=== PATIENT | female | born 1960 | race Caucasian/White ===

== ENCOUNTER 2020-08-16 09:23 | Outpatient (REF) | payer OTHER, SELFPAY ==
[2020-08-16 11:12] LABS: Cholesterol 268 mg/dL; HDL Cholesterol 46 mg/dL; LDL Cholesterol Calculated 170 mg/dl; Triglycerides 263 mg/dL
== END 2020-08-16 09:24 | disposition home or self-care (01) ==
LOC: HO.LAB 09:23
PROVIDERS: PCP Internal Medicine; Visit Provider Internal Medicine
DX: E78.5 Hyperlipidemia, unspecified (principal)
CPT/HCPCS: 80061

== ENCOUNTER 2021-04-11 10:19 | Outpatient (REF) | payer OTHER, SELFPAY ==
--- NOTE | ~2021-04-11 | XR_ITS ---
EXAMINATION: XR WRIST, RIGHT CLINICAL INFORMATION: Right wrist pain. COMPARISON: 12/15/2010 TECHNIQUE: PA, lateral, and oblique views of the right wrist. FINDINGS: Again seen are degenerative changes at the 1st metacarpocarpal joint with sclerosis and osteophyte formation. Findings are unchanged when compared to the prior study. Also noted are degenerative changes at the radioulnar joint which appear to have progressed since the prior study with new chondrocalcinosis with calcification in the triangular fibrocartilage complex. No fractures are seen. XR/XR wrist RT min 3V IMPRESSION: Stable degenerative changes at the 1st metacarpocarpal joint with new degenerative change at the radioulnar joint with new calcifications in the right triangular fibrocartilage complex.
[2021-04-11 11:34] LABS: MANUAL DIFF FLAG NO
[2021-04-11 12:01] LABS: Basophils Percent Auto 0.4 % (0-2); Eosinophils Absolute Auto 0.4 X10*3/uL (0.0-0.4); Eosinophils Percent Auto 6.4 % (0-4); Hematocrit 42.5 % (37-47); Hemoglobin 13.2 g/dl (12.0-16.0); Imm Gran Abs Auto 0.01 X10*3/uL (0.00-0.03); Imm Gran Pct Auto 0.1 % (0.0-0.4); Lymphocytes Absolute Auto 2.1 X10*3/uL (1.2-4.9); Lymphocytes Percent Auto 30.3 % (20-40); Mean Corpuscular HGB Conc 31.1 g/dl (31.0-35.0); Mean Corpuscular Hemoglobin 29.6 pg (27.0-33.0); Mean Corpuscular Volume 95.3 fL (80-98); Mean Platelet Volume 10.1 fL (9.4-12.3); Monocytes Absolute Auto 0.7 X10*3/uL (0.1-1.2); Monocytes Percent Auto 10.2 % (2-11); Neutrophils Absolute Auto 3.6 X10*3/uL (2.0-8.3); Neutrophils Percent Auto 52.6 % (45-73); Platelet Count 319 X10*3/uL (160-400); Red Blood Count 4.46 X10*6/uL (4.20-5.50); Red Cell Distribution Width 13.2 % (11.0-16.0); White Blood Count 6.9 X10*3/uL (4.8-10.8)
[2021-04-11 12:09] LABS: Anion Gap 12 (12-20); Blood Urea Nitrogen 11 mg/dL (9-16); Calcium 9.8 mg/dL (8.4-10.2); Carbon Dioxide 26 mmol/L (22-29); Chloride 107 mmol/L (96-108); Estimated Glomerular Filt Rate > 60; Glucose Random 90 mg/dL (60-115); Potassium 4.6 mmol/L (3.3-5.1); Sodium 140 mmol/L (135-145); Uric Acid 4.3 mg/dL (2.4-5.7)
[2021-04-11 13:11] LABS: Erythrocyte Sedimentation Rate 38 MM/HR (0-20)
== END 2021-04-11 10:20 | disposition home or self-care (01) ==
LOC: HO.WFDLDS 10:19
PROVIDERS: PCP Internal Medicine; Visit Provider Family Medicine
DX: Z00.00 Encounter for general adult medical examination without abnormal findings (principal); M25.531 Pain in right wrist
CPT/HCPCS: 36415; 73110; 80048; 84550; 85025; 85652

== ENCOUNTER → 2022-03-20 11:36 | Outpatient (BNVA) | payer OTHER, SELFPAY | PROVIDERS: PCP Internal Medicine; Referring Provider Internal Medicine; Visit Provider Nurse Practitioner | DX: K21.9 Gastro-esophageal reflux disease without esophagitis (principal); R13.12 Dysphagia, oropharyngeal phase | CPT/HCPCS: 99202 ==

== ENCOUNTER 2022-03-21 10:08 | Outpatient (REF) | payer OTHER, SELFPAY ==
[2022-03-21 11:02] LABS: Alanine Aminotransferase 16 U/L (0-31); Albumin Level 4.5 g/dL (3.5-5.0); Alkaline Phosphatase 79 U/L (39-117); Anion Gap 12 (12-20); Aspartate Amino Transferase 21 U/L (5-31); Bilirubin Total 0.9 mg/dL (0.0-1.0); Blood Urea Nitrogen 9 mg/dL (9-16); Calcium 9.8 mg/dL (8.4-10.2); Carbon Dioxide 23 mmol/L (22-29); Chloride 107 mmol/L (96-108); Estimated Glomerular Filt Rate > 60; Glucose Random 97 mg/dL (60-115); Potassium 3.8 mmol/L (3.3-5.1); Sodium 138 mmol/L (135-145)
== END 2022-03-21 10:09 | disposition home or self-care (01) ==
LOC: HO.LAB 10:08
PROVIDERS: PCP Internal Medicine; Visit Provider Nurse Practitioner
DX: R13.12 Dysphagia, oropharyngeal phase (principal); K21.9 Gastro-esophageal reflux disease without esophagitis
CPT/HCPCS: 36415; 80053

== ENCOUNTER 2022-03-22 12:33 | Outpatient (REF) | payer OTHER, SELFPAY | END 2022-03-22 12:34 | disposition home or self-care (01) | LOC: HO.LNP 12:33 | PROVIDERS: Visit Provider Nurse Practitioner | DX: R13.12 Dysphagia, oropharyngeal phase (principal); K21.9 Gastro-esophageal reflux disease without esophagitis | CPT/HCPCS: 87338 ==

== ENCOUNTER 2022-04-23 09:35 | Outpatient (REF) | payer OTHER, SELFPAY ==
--- NOTE | ~2022-04-23 | US_ITS ---
EXAMINATION: US ABDOMEN COMPLETE CLINICAL INFORMATION: Gastroesophageal reflux disease without esophagitis. COMPARISON: None TECHNIQUE: Real-time imaging of the abdominal viscera. FINDINGS: PANCREAS: Normal. ABDOMINAL AORTA: The proximal, mid, and distal segments are normal in caliber. INFERIOR VENA CAVA: Visualized portions are normal. LIVER: Normal. The liver is normal in size. The liver contour is normal. Parenchymal echogenicity is normal. No focal hepatic lesion. There is no intrahepatic biliary duct dilatation seen. GALLBLADDER: Normal. The gallbladder is physiologically distended without evidence of stones, sludge, polyps, wall thickening or pericholecystic fluid. COMMON BILE DUCT: Normal in caliber measuring 0.2 cm in diameter. RIGHT KIDNEY: Normal. No hydronephrosis. No renal calculi or focal parenchymal lesions. The kidney measures 11.5 cm in maximum dimension. LEFT KIDNEY: Normal. No hydronephrosis. No renal calculi or focal parenchymal lesions. The kidney measures 10.8 cm in maximum dimension. SPLEEN: Normal. The spleen measures 11.3 cm in maximum dimension. FREE FLUID: None. US/US abdomen complete IMPRESSION: Unremarkable exam.
== END 2022-04-23 09:36 | disposition home or self-care (01) ==
LOC: HO.US 09:35
PROVIDERS: Visit Provider Nurse Practitioner
DX: R13.12 Dysphagia, oropharyngeal phase (principal); K21.9 Gastro-esophageal reflux disease without esophagitis
CPT/HCPCS: 76700

== ENCOUNTER 2022-05-03 09:15 | Outpatient (REF) | payer OTHER, SELFPAY ==
--- NOTE | ~2022-05-03 | FL_ITS ---
EXAMINATION: FL BARIUM SWALLOW CLINICAL INFORMATION: Gastroesophageal reflux disease without esophagitis. COMPARISON: None TECHNIQUE: Barium swallow examination is performed using fluoroscopic evaluation in addition to multiple fluoroscopic spot views. The patient is imaged both upright and prone and using both thick and thin sulfate along with effervescent granules. Fluoroscopy time: 1.0 minutes DAP: 8.308 Gy-cm2 Images: 58 FINDINGS: Following oral administration of thick barium and barium-coated turkey in upright view, there is normal propagation of bolus from the oral cavity through the pharynx, esophagus into stomach without any evidence of obstruction, narrowing or stricture. There is a large hiatal hernia in upright view. On placing patient supine and prone lying, the course and the caliber of the esophagus is normal. No laryngeal penetration or aspiration seen. There is a moderate-sized mixed (sliding and paraesophageal) hiatal hernia. No reflux could be demonstrated. FL/FL barium swallow IMPRESSION: Moderate-sized mixed hiatal hernia without reflux.
== END 2022-05-03 09:16 | disposition home or self-care (01) ==
LOC: HO.XRAY 09:15
PROVIDERS: PCP Internal Medicine; Visit Provider Nurse Practitioner
DX: K21.9 Gastro-esophageal reflux disease without esophagitis (principal); R13.12 Dysphagia, oropharyngeal phase
CPT/HCPCS: 74220

== ENCOUNTER → 2022-05-24 07:48 | Outpatient (BNVA) | payer OTHER, SELFPAY | PROVIDERS: PCP Internal Medicine; Visit Provider Nurse Practitioner | DX: K21.9 Gastro-esophageal reflux disease without esophagitis (principal); R13.12 Dysphagia, oropharyngeal phase; K44.9 Diaphragmatic hernia without obstruction or gangrene | CPT/HCPCS: 99212 ==

== ENCOUNTER → 2022-09-12 08:35 | Outpatient (BNVA) | payer OTHER, MEDICARE, SELFPAY | PROVIDERS: PCP Internal Medicine; Visit Provider Nurse Practitioner | DX: K21.9 Gastro-esophageal reflux disease without esophagitis (principal); K44.9 Diaphragmatic hernia without obstruction or gangrene; R13.12 Dysphagia, oropharyngeal phase | CPT/HCPCS: 99212 ==

== ENCOUNTER 2022-10-26 13:47 | Emergency (ER) | payer MEDICARE, OTHER, SELFPAY ==
[2022-10-26 14:01] VITALS: BP 115/64; PULSE 93; RESP 18; TEMP 36.8; O2SAT 95; BMI 26.6
--- NOTE | 2022-10-26 14:17 | ED.GENADULT ---
HPI - General Adult General Chief complaint: Upper Respiratory Symptoms Stated complaint: vomiting, Covid + Time Seen by Provider: 10/26/22 14:17 Source: patient and family () Mode of arrival: ambulatory Limitations: no limitations History of Present Illness HPI narrative: Patient is a 62 year old assigned female at with a history of HLD and GERD presenting to the emergency department today with a persistent cough. Patient states that 5 days ago she was diagnosed with COVID-19 and has been on Paxlovid ever since. Patient states that she is continuing to have a persistent cough. Patient denies any dizziness, lightheadedness, abdominal pain, nausea, vomiting, fever, chills, blurry vision, double vision, loss of vision, chest pain, difficulty breathing, shortness of breath, back pain, night sweats, pain with urination, increased urinary frequency, increased urinary urgency, blood in her urine or stool, syncope or a near syncopal episode, recent trauma or falls, bowel incontinence, bladder incontinence, bowel retention, bladder retention, or any other complaints at this time. Onset (ago): day(s) (5) Severity: mild Severity scale (1-10): 2 Relieving factors: none Exacerbating factors: none Associated symptoms: cough Treatments prior to arrival: other (paxlovid) Related Data Home Medications Medication Instructions Recorded Confirmed loratadine-pseudoephedrine ER 10 1 tab PO DAILY PRN 08/23/20 10/05/22 mg-240 mg tablet,extended [id number] acetaminophen 650 mg 650 mg PO Q12H 05/02/21 10/05/22 tablet,extended release (Arthritis Pain Reliever) Previous Rx's Medication Instructions Recorded epflcvznay-jynsyuondsimf-[id number] 1 cap PO Q6H PRN pain #20 caps 12/14/20 50 mg-325 mg-40 mg capsule (Esgic) ibuprofen 800 mg tablet 800 mg PO Q8H 30 days #90 tabs 04/11/21 famotidine 40 mg tablet (Pepcid) 40 mg PO BEDTIME #90 tabs 09/12/22 omeprazole 20 mg capsule,delayed 20 mg PO DAILY 90 days #90 caps 09/12/22 release amoxicillin 250 mg capsule 250 mg PO Q8H #30 caps 10/05/22 nirmatrelvir 300 mg (150 mg See Rx Instructions PO .COMPLEX 10/22/22 x2)-ritonavir 100 mg tablet,dose #30 tabs pack(EUA) (Paxlovid) ondansetron HCl 4 mg tablet 4 mg PO Q8H PRN nausea and 10/25/22 vomiting #20 tabs benzonatate 100 mg capsule 100 mg PO BID PRN cough 7 days #14 10/26/22 caps Allergies Allergy/AdvReac Type Severity Reaction Status Date / Time codeine [CODEINE] Allergy Unknown migraines Verified 10/05/22 09:06 doxycycline [DOXYCYCLINE] Allergy Unknown anaphylaxis, Verified 10/05/22 09:06 swelling, redness Review of Systems Constitutional: Constitutional: Reports no additional constitutional complaints, Denies chills, Denies fever(s) and Denies night sweats Eyes: Eyes: Reports no additional eye complaints, Denies blurry vision, Denies change in vision, Denies diplopia, Denies eye discharge, Denies loss of vision and Denies eye pain ENT: Denies dizziness Cardiovascular: Cardiovascular: Reports no additional cardiovascular complaints, Denies chest pain, Denies lightheadedness, Denies Loss of Consciousness and Denies dyspnea Respiratory: Respiratory: Reports no additional respiratory complaints, Reports cough and Denies dyspnea Gastrointestinal: Gastrointestinal: Reports no additional gastrointestinal complaints, Denies abdominal pain, Denies melena, Denies hematochezia, Denies change in bowel habits and Denies change in stool character Genitourinary: Genitourinary: Denies hematuria, Denies urinary frequency, Denies dysuria, Denies urinary incontinence, Denies urinary hesitancy and Denies urinary urgency Musculoskeletal: Musculoskeletal: Reports no additional musculoskeletal complaints, Denies numbness and Denies tingling Neurologic: Denies dizziness, Denies loss of vision, Denies numbness and Denies tingling Psychiatric: Psychiatric: Reports no additional psychiatric complaints Endocrine: Endocrine: Reports no additional endocrine complaints Hematologic/Lymphatic: Hematologic/Lymphatic: Reports no additional hematologic/lymphatic complaints Allergic/Immunologic: Allergic/Immunologic: Reports no additional allergic/immunologic complaints PMFSH Past Medical History Attestation statement: The following information was validated with the patient. Source: old records reviewed, obtained from family (patient's ) and nursing notes reviewed Medical History Chronic GERD Headache Presence of surgical screw in left hand Surgical History H/O kyphoplasty H/O squamous cell carcinoma excision History of appendectomy S/P laparoscopic surgery S/P left knee arthroscopy Family History Family History Father No problems noted. Mother No problems noted. Social History Social History Housing: House Alcohol intake: never Patient Tobacco Use Status: Never used Tobacco e-Cigarette/Vaping Use: Never Used Second Hand Smoke Exposure: No Advance Directives: Yes Advance Directives Information Provided: Yes Advance Directives on File: No service: No Current occupational status: disabled Cognitive needs: Yes (cane) Hearing needs: No Vision needs: Yes (glasses) Physical Exam ED Vital Signs: Vital Signs - 24 hr 10/26/22 14:01 Temperature 98.2 F Pulse Rate 93 Respiratory Rate 18 Blood Pressure 115/64 Pulse Oximetry 95 Oxygen Delivery Method Room Air BMI result Body Mass Index 26.6 Const General: cooperative, no acute distress, alert and awake Nutritional Appearance: well nourished Orientation/consciousness: patient oriented x3 Limitations: no limitations HENMT Head: Yes normal to inspection and Yes atraumatic Ears: hearing grossly normal bilaterally and external ears normal General nose exam: Normal external nose present, no nasal discharge noted and no epistaxis Face and sinus: Yes normal facial exam, No abrasion and No laceration Mouth: Normal oral and palatal mucosa present, no drooling and no muffled voice Eyes General: appearance normal, both eyes and all related structures Periorbital: periorbital findings normal Eyelids: Yes eyelids normal Conjunctivae: conjunctivae normal Pupils: Equal, round and reactive pupils present EOM: EOMs intact bilaterally Neck Neck: Yes normal visual inspection, Yes full ROM and Yes no lymphadenopathy Chest Chest palpation & inspection: normal inspection of the chest Resp Effort & Inspection: normal respiratory effort and able to speak in complete sentences Auscultation: clear to auscultation bilaterally Cardio Rate: regular rate Rhythm: regular rhythm GI Inspection: Yes normal to inspection Palpation (GI): Soft to palpation, not firm, nontender, no guarding and not rigid Neuro General: patient oriented x3 and moves all extremities Cranial nerves: Yes Equal, round and reactive pupils present Cognition (Neuro): normal cognition Motor exam (neuro): 5/5 motor strength present throughout Sensory Exam: Normal double simultaneous stimulation for sensation Coordination: [id number]-[id number] test normal Extrem General: Yes normal to inspection, Yes full ROM and Yes capillary refill normal Psych Appearance: grossly normal Mental Status: mental status grossly normal Affect: normal affect Attitude: cooperative Thought process: Normal thought process present Thought content: Normal thought content present Insight: Good insight present (Psych) Medications Administered Discontinued Medications Generic Name Dose Route Start Last Admin Trade Name Freq PRN Reason Stop Dose Admin Benzonatate 100 mg 10/26/22 14:30 10/26/22 15:07 Benzonatate 100 Mg Capsule PO 10/26/22 14:31 100 mg ONCE ONE Administration Medical Decision Making Medical Decision Making MDM Narrative: Patient is a 62 year old assigned female at with a history of HLD and GERD presenting to the emergency department today with a persistent cough. Patient's physical exam was unremarkable. I explained my physical exam findings to the patient. I answered all questions asked by the patient. I stressed the importance of the patient taking her medication as prescribed. I stressed the importance of the patient following up with her primary care provider. I stressed the importance of the patient returning to the emergency department immediately if her symptoms were to worsen or if she were to develop any dizziness, shortness of breath, difficulty breathing, chest pain, blurry vision, loss of vision, nausea, vomiting, abdominal pain, fever, chills, back pain, or any other complaints. Patient verbalized agreement and understanding with this treatment plan and discharge. Differential Diagnosis Differential Diagnoses: The differential diagnosis associated with the presentation includes COVID-19 Independent Historian Clinical information obtained from an independent historian. History obtained from or confirmed by: Spouse Discharge Plan Discharge Clinical Impression: COVID-19, Cough Patient Disposition: Home, Self-Care Instructions: Acute Cough (ED), COVID-19 (Coronavirus Disease 2019) (ED) Additional Instructions: Follow up with your primary care provider. Return to the emergency department immediately if your symptoms worsen or if you develop any dizziness, shortness of breath, difficulty breathing, chest pain, blurry vision, loss of vision, nausea, vomiting, abdominal pain, fever, chills, back pain, or any other complaints. Prescriptions: New benzonatate 100 mg capsule 100 mg PO BID PRN (Reason: cough) 7 Days Qty: 14 0RF No Action Paxlovid (EUA) 300 mg (150 mg x 2)-100 mg tablets,dose pack See Rx Instructions PO .COMPLEX Qty: 30 0RF Rx Instructions: take TWO 150 mg tablets of nirmatrelvir with ONE 100 mg tablet of ritonavir twice daily for 5 days PO ondansetron HCl 4 mg tablet 4 mg PO Q8H PRN (Reason: nausea and vomiting) Qty: 20 1RF asiarhumcx-ddjldiymlizwt-qfmq [Esgic] 50-325-40 mg capsule 1 cap PO Q6H PRN (Reason: pain) Qty: 20 0RF loratadine-pseudoephedrine 10-240 mg tablet extended release 24 hr 1 tab PO DAILY PRN ibuprofen 800 mg tablet 800 mg PO Q8H 30 Days Qty: 90 0RF acetaminophen [Arthritis Pain Reliever] 650 mg tablet extended release 650 mg PO Q12H amoxicillin 250 mg capsule 250 mg PO Q8H Qty: 30 0RF omeprazole 20 mg capsule,delayed release(DR/EC) 20 mg PO DAILY 90 Days Qty: 90 2RF famotidine [Pepcid] 40 mg tablet 40 mg PO BEDTIME Qty: 90 2RF Referrals: Warner Sparks MD [Primary Care Provider] - Print Language: Korean
[2022-10-26] MEDS: Benzonatate 100 MG CAPSULE PO (15:07)
== END 2022-10-26 16:48 | disposition home or self-care (01) ==
PROVIDERS: Emergency Provider Student in an Organized Health Care Education/Training Program; PCP Internal Medicine
DX: U07.1 COVID-19 (principal); R05.9 Cough, unspecified; Z79.899 Other long term (current) drug therapy
CPT/HCPCS: 99282; 99283

== ENCOUNTER 2023-01-17 08:15 | Outpatient (REF) | payer MEDICARE, OTHER, SELFPAY ==
[2023-01-17 10:55] LABS: MANUAL DIFF FLAG NO
[2023-01-17 11:03] LABS: Basophils Percent Auto 0.4 % (0-2); Eosinophils Absolute Auto 0.4 X10*3/uL (0.0-0.4); Eosinophils Percent Auto 4.7 % (0-4); Hematocrit 43.1 % (37.0-47.0); Hemoglobin 13.1 g/dl (12.0-16.0); Imm Gran Abs Auto 0.02 X10*3/uL (0.00-0.03); Imm Gran Pct Auto 0.3 % (0.0-0.4); Lymphocytes Absolute Auto 2.6 X10*3/uL (1.2-4.9); Lymphocytes Percent Auto 33.3 % (20-40); Mean Corpuscular HGB Conc 30.4 g/dl (31.0-35.0); Mean Corpuscular Hemoglobin 28.7 pg (27.0-33.0); Mean Corpuscular Volume 94.5 fL (80.0-98.0); Mean Platelet Volume 10.2 fL (9.4-12.3); Monocytes Absolute Auto 0.7 X10*3/uL (0.1-1.2); Monocytes Percent Auto 8.8 % (2-11); Neutrophils Percent Auto 52.5 % (45-73); Platelet Count 313 X10*3/uL (160-400); Red Blood Count 4.56 X10*6/uL (4.20-5.50); White Blood Count 7.7 X10*3/uL (4.8-10.8)
[2023-01-17 11:33] LABS: Alanine Aminotransferase 17 U/L (0-31); Albumin Level 4.2 g/dL (3.5-5.0); Alkaline Phosphatase 85 U/L (39-117); Anion Gap 14 (12-20); Aspartate Amino Transferase 23 U/L (5-31); Bilirubin Total 0.9 mg/dL (0.0-1.0); Blood Urea Nitrogen 15 mg/dL (9-16); Calcium 9.7 mg/dL (8.4-10.2); Carbon Dioxide 24 mmol/L (22-29); Chloride 108 mmol/L (96-108); Cholesterol 264 mg/dL; Estimated Glomerular Filt Rate > 60; Glucose Fasting 92 mg/dL (60-99); HDL Cholesterol 37 mg/dL; LDL Cholesterol Calculated 175 mg/dl; Potassium 4.3 mmol/L (3.3-5.1); Sodium 142 mmol/L (135-145); Total Protein 7.7 g/dL (6.5-8.0); Triglycerides 261 mg/dL
[2023-01-17 13:01] LABS: Thyroid Stimulating Hormone 6.44 uIU/mL (0.32-4.0)
== END 2023-01-17 08:16 | disposition home or self-care (01) ==
LOC: HO.10HDL 08:15
PROVIDERS: Visit Provider Internal Medicine
DX: E03.9 Hypothyroidism, unspecified (principal); D64.9 Anemia, unspecified; N28.9 Disorder of kidney and ureter, unspecified; E78.5 Hyperlipidemia, unspecified
CPT/HCPCS: 36415; 80053; 80061; 84443; 85025

== ENCOUNTER 2023-05-14 08:09 | Outpatient (REF) | payer MEDICARE, OTHER, SELFPAY | END 2023-05-14 08:10 | disposition home or self-care (01) | LOC: HO.LAB 08:09 | PROVIDERS: PCP Internal Medicine; Visit Provider Internal Medicine | DX: E03.9 Hypothyroidism, unspecified (principal) | CPT/HCPCS: 36415; 84443 ==

== ENCOUNTER 2023-05-21 09:17 | Outpatient (REF) | payer OTHER, MEDICARE, SELFPAY ==
[2023-05-21 11:51] LABS: Alanine Aminotransferase 11 U/L (0-31); Albumin Level 4.3 g/dL (3.5-5.0); Alkaline Phosphatase 88 U/L (39-117); Anion Gap 11 (12-20); Aspartate Amino Transferase 18 U/L (5-31); Bilirubin Total 0.7 mg/dL (0.0-1.0); Blood Urea Nitrogen 10 mg/dL (9-16); C Reactive Protein 0.84 mg/dL (< or = 0.50); Calcium 9.7 mg/dL (8.4-10.2); Carbon Dioxide 25 mmol/L (22-29); Chloride 109 mmol/L (96-108); Estimated Glomerular Filt Rate > 60; Glucose Random 75 mg/dL (60-115); Potassium 3.8 mmol/L (3.3-5.1); Sodium 141 mmol/L (135-145); Total Protein 8.1 g/dL (6.5-8.0)
== END 2023-05-21 09:18 | disposition home or self-care (01) ==
LOC: HO.LAB 09:17
PROVIDERS: PCP Internal Medicine; Visit Provider Nurse Practitioner
DX: R19.7 Diarrhea, unspecified (principal); R13.12 Dysphagia, oropharyngeal phase; K21.9 Gastro-esophageal reflux disease without esophagitis; K44.9 Diaphragmatic hernia without obstruction or gangrene
CPT/HCPCS: 36415; 80053; 86140; 99212

== ENCOUNTER 2023-05-21 09:17 | Outpatient (AMB) | payer MEDICARE, OTHER, SELFPAY ==
[2023-05-21 09:20] VITALS: BP 135/69; PULSE 75; BMI 26.4
--- NOTE | 2023-05-21 09:20 | A.OFFVIS_ITS ---
Intake Vital Signs 05/21/23 09:20 Height 5 ft 7 in Weight 168 lb 6.931 oz BMI 26.4 BP 135/69 Blood Pressure Location Rt brachial Position Sitting Pulse 75 Intake Visit Reasons: 6 month follow up GERD, HH Intake Note: Patient presents to in office visit today in 6 months follow up of GERD. CC: Diarrhea for the past 6 weeks, abdominal cramping, nausea, GERD. Denies other GI symptoms today. Field Support Specialist Required: No Allergies codeine [CODEINE] Allergy (Unknown, Verified 05/21/23 11:17) migraines doxycycline [DOXYCYCLINE] Allergy (Unknown, Verified 05/21/23 11:17) anaphylaxis, swelling, redness HPI 6 month follow up GERD, HH HPI Details Assessment & Plan (1) Chronic GERD: ?Code(s): K21.9 - Gastro-esophageal reflux disease without esophagitis ?Plan: She tells me she is doing much better since we added famotidine for breakthrough GERD.? Now she takes her omeprazole in the morning and famotidine as needed at night and she feels her situation is well controlled despite her rather large sliding paraesophageal hernia.? She is also swallowing well.. With this she is satisfied and agreeable to a 6 month follow-up. (2) Oropharyngeal dysphagia: ?Code(s): R13.12 - Dysphagia, oropharyngeal phase (3) Hernia, paraesophageal: ?Comment: Moderate sliding hiatal hernia that at times becomes paraesophageal ?Code(s): K44.9 - Diaphragmatic hernia without obstruction or gangrene ? ? ? Medications: Refilled omeprazoleD 20 mg? PO DAILY 90 days 90 caps 2RF G K21.9 - Gastro-eso phageal reflux dis ease without esoph agitis ? famotidine (Pepcid ) 40 mg? PO BEDTIME 90 tabs 2RF K21.9 - Gastro-eso phageal reflux dis ease without esoph agitis ? TODAY'S VISIT Patient has been lost to follow-up since 09/2022 She has been having diarrhea since 6 weeks, it started while she was in [place] caring for her mother. She has diarrhea until she takes imodium, then it starts again. This is worse with spaghetti sauce and cream sauces. she has frequent nausea that she has attributed to her chronic sinustis but ....? She has pain in the umbilicus, but tender in RUQ with + [place], dtr had GB out no other family members. No new meds, TSH running high and she will be seeing her PCP for this. Will get stool studies, US of [facility] for GB, metabolic panel, crp. She was quite stressed when in [place] r/t the family health issues. She is unsure when she can get the stool samples. This is because she is avoiding eating much or eating certain foods because of her busy lifestyle and the probl em diarrhea poses. ROV 4 weeks. . PFSH Medical History Chronic GERD Headache Presence of surgical screw in left hand Surgical History H/O kyphoplasty H/O squamous cell carcinoma excision History of appendectomy S/P laparoscopic surgery S/P left knee arthroscopy Family History Father No problems noted. Mother No problems noted. Social History Housing: House Alcohol intake: never Patient Tobacco Use Status: Never used Tobacco e-Cigarette/Vaping Use: Never Used Second Hand Smoke Exposure: No service: No Current occupational status: disabled Cognitive needs: Yes (cane) Hearing needs: No Vision needs: Yes (glasses) Review of Systems Const Denies fatigue, Denies fever(s), Denies night sweats, Denies poor appetite and Reports weight loss Eyes Details: glasses Reports requires corrective lenses ENT Reports Normal hearing present, Denies dental pain, Denies dysphagia, Denies hearing loss, Denies mouth pain, Denies odynophagia, Denies throat swelling, Denies tongue swelling and Reports other (Dentition adequate) Card Reports no additional complaints Resp Reports no additional complaints GI Denies abdominal pain, Denies melena, Reports bloating, Denies hematochezia, Denies constipation, Reports GI cramping, Denies dysphagia, Denies excessive flatus, Denies early satiety, Denies heartburn, Reports diarrhea, Denies nausea, Denies odynophagia, Denies vomiting and Denies hematemesis Skin/Breast Denies pruritus, Denies lesions, Denies rash and Denies jaundice Neuro Reports Normal hearing present and Denies Abnormal speech present Endo Denies fatigue Aller/Immun Denies throat swelling and Denies tongue swelling Physical Exam Vital Signs: Last Vital Signs Pulse 75 05/21/23 09:20 BP 135/69 05/21/23 09:20 BMI result Body Mass Index 26.4 Const General: cooperative, no acute distress, well developed and well groomed Nutritional Appearance: average body habitus and well nourished Orientation/consciousness: oriented to person, oriented to place and oriented to time Limitations: No language barrier HEENT Head: Yes normocephalic and Yes atraumatic Eyes General: appearance normal, both eyes and all related structures Pupils: Equal, round and reactive pupils present Neck Neck: Yes normal visual inspection and Yes no lymphadenopathy Thyroid: Thyroid normal Resp Effort & Inspection: normal respiratory effort and able to speak in complete sentences Auscultation: clear to auscultation bilaterally Cardio Rate: regular rate Rhythm: regular rhythm Heart sounds: Normal, physiologic split S2 sound present Peripheral pulses: radial pulses present and posterior tibial pulses present GI Inspection: No distended and No Abdominal panniculus present Palpation (GI): Soft to palpation, Tenderness to palpation present (GI) in the RUQ, Robertson's sign positive and with rebound tenderness, no guarding, not rigid and No hepatosplenomegaly present Percussion: Yes normal to percussion Auscultation: normal bowel sounds Rectal Exam - Female: deferred Skin General skin exam: no rashes or lesions noted, turgor normal, skin not dry, no jaundice, No spider nevi and no striae Rashes: no rashes Nails: normal Neuro General: oriented to person, oriented to place and oriented to time Cranial nerves: Yes Equal, round and reactive pupils present and Yes Normal hearing present Speech: No Abnormal speech present Extrem General: Yes normal to inspection, No clubbing, No cyanosis and No edema Psych Appearance: grossly normal and well kempt Mental Status: mental status grossly normal Speech and movement: Normal speech and movement present Affect: normal affect Attitude: cooperative Thought process: Normal thought process present and not confabulating Thought content: Normal thought content present Insight: Limited insight present (Psych) Judgement: Limited judgement present (Psych) Assessment & Plan Assessment & Plan (1) Acute diarrhea: Code(s): R19.7 - Diarrhea, unspecified Plan: Patient has been lost to follow-up since 09/2022 She has been having diarrhea since 6 weeks, it started while she was in [place] caring for her mother. She has diarrhea until she takes imodium, then it starts again. This is worse with spaghetti sauce and cream sauces. she has frequent nausea that she has attributed to her chronic sinustis but ....? She has pain in the umbilicus, but tender in RUQ with + [place], dtr had GB out no other family members. No new meds, TSH running high and she will be seeing her PCP for this. Will get stool studies, US of [facility] for GB, metabolic panel, crp. She was quite stressed when in [place] r/t the family health issues. She is unsure when she can get the stool samples. This is because she is avoiding eating much or eating certain foods because of her busy lifestyle and the problem diarrhea poses. ROV 4 weeks. . (2) Oropharyngeal dysphagia: Code(s): R13.12 - Dysphagia, oropharyngeal phase (3) Chronic GERD: Code(s): K21.9 - Gastro-esophageal reflux disease without esophagitis (4) Hernia, paraesophageal: Comment: Moderate sliding hiatal hernia that at times becomes paraesophageal Code(s): K44.9 - Diaphragmatic hernia without obstruction or gangrene Orders: Orders Comprehensive Met. Panel 05/21/23 R19.7 - Diarrhea, unspecified C Reactive Protein 05/21/23 R19.7 - Diarrhea, unspecified CDiff Gene PCR 05/21/23 R19.7 - Diarrhea, unspecified GI Panel 05/21/23 R19.7 - Diarrhea, unspecified US abdomen complete 05/21/23 R19.7 - Diarrhea, unspecified Coding Level of Care Code Est Pt Level 4 (38272) Diagnoses Acute diarrhea R19.7 Oropharyngeal dysphagia R13.12 Chronic GERD K21.9 Hernia, paraesophageal K44.9
== END 2023-05-21 09:47 | disposition home or self-care (01) ==
PROVIDERS: PCP Internal Medicine; Visit Provider Nurse Practitioner
DX: R19.7 Diarrhea, unspecified (principal); R13.12 Dysphagia, oropharyngeal phase; K21.9 Gastro-esophageal reflux disease without esophagitis; K44.9 Diaphragmatic hernia without obstruction or gangrene
CPT/HCPCS: 99214

== ENCOUNTER 2023-05-21 11:12 | Outpatient (AMB) | payer OTHER, SELFPAY ==
--- NOTE | 2023-05-21 11:16 | A.OFFPC_ITS ---
Vital Signs 05/21/23 11:17 Height 5 ft 7 in Weight 168 lb 4 oz BMI 26.3 BP 120/70 Blood Pressure Location Rt brachial Position Sitting Pulse 62 Pulse Source Pulse Oximeter Pulse Oximetry (%) 97 Oxygen Delivery Method Room Air Intake Visit Reasons: 3 month follow up Thyriods Intake Note: Patient is here to follow up on Thyroid. Wool Supplier Required: No Aviation Operations Specialist: Not Required per policy Accompanied by: Self / Same As Patient Allergies codeine [CODEINE] Allergy (Unknown, Verified 05/21/23 11:17) migraines doxycycline [DOXYCYCLINE] Allergy (Unknown, Verified 05/21/23 11:17) anaphylaxis, swelling, redness Tobacco use date assessed: 05/21/23 Dental Screening Dental Screen Date: 05/21/23 Did you have a dental visit in the last 12 months?: Yes Did you have a dental problem in the last 6 months where you did not have access to dental care?: No Was dental information given to patient?: Patient has dentist HPI 3 month follow up Thyriods HPI Details hypothyroidism on Rx; doing well and compliant [facility] Medical History Chronic GERD Headache Presence of surgical screw in left hand Surgical History H/O kyphoplasty H/O squamous cell carcinoma excision History of appendectomy S/P laparoscopic surgery S/P left knee arthroscopy Family History Father No problems noted. Mother No problems noted. Social History Housing: House Alcohol intake: never Patient Tobacco Use Status: Never used Tobacco e-Cigarette/Vaping Use: Never Used Second Hand Smoke Exposure: No service: No Current occupational status: disabled Cognitive needs: Yes (cane) Hearing needs: No Vision needs: Yes (glasses) Questionnaire Thrive Questionnaire Date Thrive assessed: 01/16/23 SIERRA-7 AMB Questionnaire SIERRA-7 Date SIERRA - 7 assessed: 01/16/23 Source: Developed by Drs. August Johnson, Cleopatra Khan, Martín Stoddard and colleagues, with an educational jaquan from [employer]. Review of Systems Const Denies chills, Denies headache(s) and Denies weight loss ENT Denies headache(s) Card Denies chest pain, Denies syncope, Denies irregular heart rhythm and Denies dyspnea Resp Denies chest congestion, Denies cough and Denies dyspnea GI Denies abdominal pain, Denies change in stool character, Denies nausea and Denies vomiting Musc Denies deformity and Denies joint swelling Neuro Denies syncope and Denies headache(s) Physical exam (Primary Care) Vital Signs: Last Vital Signs Pulse 62 05/21/23 11:17 BP 120/70 05/21/23 11:17 Pulse Ox 97 05/21/23 11:17 Oxygen Delivery Method Room Air 05/21/23 11:17 BMI result Body Mass Index 26.3 Tobacco/Smoking Status: Tobacco use Status Tobacco use date assessed 05/21/23 05/21/23 11:21 Patient Tobacco Use Status Never used Tobacco 05/21/23 11:21 e-Cigarette/Vaping Use Never Used 05/21/23 11:21 Thrive Assessment: Date of Thrive Assessment Date Thrive assessed 01/16/23 05/21/23 11:21 Const General: cooperative, comfortable and no acute distress Neck Neck: Yes no lymphadenopathy Thyroid: Thyroid normal Chest Chest palpation & inspection: normal inspection of the chest Resp Effort & Inspection: normal respiratory effort Assessment and Plan Assessment & Plan (1) Hypothyroidism: Code(s): E03.9 - Hypothyroidism, unspecified Plan: stable; same rx Medications: Refilled levothyroxine 75 mcg PO DAILY 30 caps 4RF Coding Level of Care Code Est Pt Level 3 (71327) Diagnoses Hypothyroidism E03.9
[2023-05-21 11:17] VITALS: BP 120/70; PULSE 62; O2SAT 97; BMI 26.3
== END 2023-05-21 11:34 | disposition home or self-care (01) ==
PROVIDERS: PCP Internal Medicine; Visit Provider Internal Medicine
DX: E03.9 Hypothyroidism, unspecified (principal)
CPT/HCPCS: 99213

== ENCOUNTER 2023-05-31 09:35 | Outpatient (REF) | payer OTHER, MEDICARE, SELFPAY ==
--- NOTE | ~2023-05-31 | US_ITS ---
EXAMINATION: US ABDOMEN COMPLETE CLINICAL INFORMATION: Diarrhea. COMPARISON: Abdominal ultrasound dated 04/23/2022. TECHNIQUE: Real-time imaging of the abdominal viscera. FINDINGS: PANCREAS: Visualized portions unremarkable. ABDOMINAL AORTA: Visualized portions unremarkable. INFERIOR VENA CAVA: Visualized portions unremarkable. LIVER: Unremarkable. GALLBLADDER: Unremarkable. COMMON BILE DUCT: Normal in caliber measuring 0.4 cm in diameter. RIGHT KIDNEY: 10.2 cm. Unremarkable. LEFT KIDNEY: 10.6 cm. Unremarkable. SPLEEN: 10.5 cm. Unremarkable. FREE FLUID: None. US/US abdomen complete IMPRESSION: Unremarkable abdominal ultrasound.
== END 2023-05-31 09:36 | disposition home or self-care (01) ==
LOC: HO.US 09:35
PROVIDERS: PCP Internal Medicine; Visit Provider Nurse Practitioner
DX: R19.7 Diarrhea, unspecified (principal)
CPT/HCPCS: 76700

== ENCOUNTER 2023-06-12 10:12 | Outpatient (AMB) | payer OTHER, SELFPAY ==
--- NOTE | 2023-06-12 10:18 | A.OFFPC_ITS ---
Vital Signs 06/12/23 10:19 Height 5 ft 7 in Weight 169 lb 6 oz BMI 26.5 BP 130/72 Blood Pressure Location Rt brachial Position Sitting Pulse 79 Pulse Source Pulse Oximeter Pulse Oximetry (%) 95 Oxygen Delivery Method Room Air Intake Visit Reasons: Wound Below Left Breast Intake Note: Patient is here today for wound below left breast Sales Agent Food Vending Service Required: No Structural Draftsman: Not Required per policy Accompanied by: Self / Same As Patient Allergies codeine [CODEINE] Allergy (Unknown, Verified 06/12/23 10:19) migraines doxycycline [DOXYCYCLINE] Allergy (Unknown, Verified 06/12/23 10:19) anaphylaxis, swelling, redness Medication List - Last Reconciled 06/12/23 by Warner Sparks MD acetaminophen ER (Arthritis Pain Reliever) 650 mg PO Q12H famotidine (Pepcid) 40 mg PO BEDTIME ibuprofen 800 mg PO Q8H 30 days levothyroxine 75 mcg PO DAILY loratadine-pseudoephedrine 10-240 mg ER 1 tab PO DAILY PRN omeprazole 20 mg PO DAILY 90 days sumatriptan succinate 50 mg PO Tobacco use date assessed: 06/12/23 Dental Screening Dental Screen Date: 06/12/23 Did you have a dental visit in the last 12 months?: Yes Did you have a dental problem in the last 6 months where you did not have access to dental care?: No Was dental information given to patient?: Patient has dentist HPI Wound Below Left Breast HPI Details left breast infected skin papule PFSH Medical History (Updated 05/21/23 @ 12:32 by Warner Sparks MD) Chronic GERD Headache Presence of surgical screw in left hand Surgical History (Updated 06/12/23 @ 10:23 by DIYA Remy) H/O kyphoplasty H/O squamous cell carcinoma excision History of appendectomy History of surgery on left wrist S/P laparoscopic surgery S/P left knee arthroscopy Family History Father No problems noted. Mother No problems noted. Social History Housing: House Alcohol intake: never Patient Tobacco Use Status: Never used Tobacco e-Cigarette/Vaping Use: Never Used Second Hand Smoke Exposure: No service: No Current occupational status: disabled Cognitive needs: Yes (cane) Hearing needs: No Vision needs: Yes (glasses) Questionnaire Thrive Questionnaire Date Thrive assessed: 01/16/23 SIERRA-7 AMB Questionnaire SIERRA-7 Date SIERRA - 7 assessed: 01/16/23 Source: Developed by Drs. August Johnson, Cleopatra Khan, Martín Stoddard and colleagues, with an educational jaquan from [employer]. Review of Systems Const Denies chills, Denies headache(s) and Denies weight loss ENT Denies headache(s) Card Denies chest pain, Denies syncope, Denies irregular heart rhythm and Denies dyspnea Resp Denies chest congestion, Denies cough and Denies dyspnea GI Denies abdominal pain, Denies change in stool character, Denies nausea and Denies vomiting Musc Denies deformity and Denies joint swelling Neuro Denies syncope and Denies headache(s) Physical exam (Primary Care) Vital Signs: Last Vital Signs Pulse 79 06/12/23 10:19 BP 130/72 06/12/23 10:19 Pulse Ox 95 06/12/23 10:19 Oxygen Delivery Method Room Air 06/12/23 10:19 BMI result Body Mass Index 26.5 Tobacco/Smoking Status: Tobacco use Status Tobacco use date assessed 06/12/23 06/12/23 10:25 Patient Tobacco Use Status Never used Tobacco 06/12/23 10:25 e-Cigarette/Vaping Use Never Used 06/12/23 10:25 Thrive Assessment: Date of Thrive Assessment Date Thrive assessed 01/16/23 06/12/23 10:25 Const General: cooperative, healthy appearing and comfortable [facility] Head: Yes normal to inspection Eyes General: appearance normal, both eyes and all related structures Chest Other: small infected papule left breast Assessment and Plan Assessment & Plan (1) Papule of skin: Code(s): R23.8 - Other skin changes Plan: hot packs and rx Medications: New cephalexin 250 mg PO Q6H 20 caps 0RF mupirocin 2% 1 appl topical TID 15 grams 0RF Coding Level of Care Code Est Pt Level 3 (05324) Diagnoses Papule of skin R23.8
[2023-06-12 10:19] VITALS: BP 130/72; PULSE 79; O2SAT 95; BMI 26.5
== END 2023-06-12 10:44 | disposition home or self-care (01) ==
PROVIDERS: PCP Internal Medicine; Visit Provider Internal Medicine
DX: R23.8 Other skin changes (principal)
CPT/HCPCS: 99213

== ENCOUNTER 2023-06-18 09:01 | Outpatient (AMB) | payer MEDICARE, OTHER, SELFPAY ==
--- NOTE | 2023-06-18 09:21 | A.OFFVIS_ITS ---
Intake Vital Signs 06/18/23 09:22 Height 5 ft 7 in Weight 171 lb 15.369 oz BMI 26.9 BP 105/65 Blood Pressure Location Rt brachial Position Sitting Pulse 81 Intake Visit Reasons: 4 week follow up Intake Note: Patient presents to in office visit today in 6 months follow up of GERD. CC: Patient reports doing a lot better now and denies other GI symptoms today. Multiplex Operator Required: No Allergies codeine [CODEINE] Allergy (Unknown, Verified 06/12/23 10:19) migraines doxycycline [DOXYCYCLINE] Allergy (Unknown, Verified 06/12/23 10:19) anaphylaxis, swelling, redness HPI 4 week follow up HPI Details Assessment & Plan (1) Acute diarrhea: ?Code(s): R19.7 - Diarrhea, unspecified ?Plan: Patient has been lost to follow-up since 09/2022 She has been having diarrhea since 6 weeks, it started while she was in [place] caring for her mother. She has diarrhea until she takes imodium, then it starts again. This is worse with spaghetti sauce and cream sauces. she has frequent nausea that she has attributed to her chronic sinustis but ....? She has pain in the umbilicus, but tender in RUQ with + [place], dtr had GB out no other family members. No new meds, TSH running high and she will be seeing her PCP for this. Will get stool studies, US of abd for GB, metabolic panel, crp. She was quite stressed when in [place] r/t the family health issues. She is unsure when she can get the stool samples.? This is because she is avoiding eating much or eating certain foods because of her busy lifestyle and the problem diarrhea poses. ROV 4 weeks. . (2) Oropharyngeal dysphagia: ?Code(s): R13.12 - Dysphagia, oropharyngeal phase (3) Chronic GERD: ?Code(s): K21.9 - Gastro-esophageal reflux disease without esophagitis (4) Hernia, paraesophageal: ?Comment: Moderate sliding hiatal hernia that at times becomes paraesophageal ?Code(s): K44.9 - Diaphragmatic hernia without obstruction or gangrene ? ? ? Orders: Orders Comprehensive Met. Panel 05/21/23 R19.7 - Diarrhea, unspecified ? C Reactive Protein 05/21/23 R19.7 - Diarrhea, unspecified ? CDiff Gene PCR 05/21/23 R19.7 - Diarrhea, unspecified ? GI Panel 05/21/23 R19.7 - Diarrhea, unspecified ? EUS abdomen complet e 05/21/23 R19.7 - Diarrhea, unspecified ? LABS:STOOL STUDIES NOT OBTAINED Laboratory Tests 05/14/23 05/21/23 08:30 10:13 Estimated GFR > 60 Total Bilirubin 0.7 AST 18 ALT 11 Alkaline Phosphata se 88 C-Reactive Protein 0.84 H TSH 3.30 ULTRASOUND THE ABDOMEN 05/31/23 FINDINGS: PANCREAS: Visualized portions unremarkable. ABDOMINAL AORTA: Visualized portions unremarkable. INFERIOR VENA CAVA: Visualized portions unremarkable. LIVER: Unremarkable. GALLBLADDER: Unremarkable. COMMON BILE DUCT: Normal in caliber measuring 0.4 cm in diameter. RIGHT KIDNEY: 10.2 cm. Unremarkable. LEFT KIDNEY: 10.6 cm. Unremarkable. SPLEEN: 10.5 cm. Unremarkable. FREE FLUID: None. US/US abdomen complete IMPRESSION: Unremarkable abdominal ultrasound. ?. TODAY'S VISIT The diarrhea has resolved. She still has pain in her upper stomach, but only when someone touches me other willis none. Since she could not get me a watery stool sample she did not do GI panel which is fine. Most likely she had some sort of food borne illness or gastroenteritis that resolved without treatment. We reviewed the labs that she did get in the ultrasound which were fairly unremarkable except for a mildly elevated CRP which could have been in response the infection. She continues on her omeprazole the morning of famotidine at night for her GERD and large paraesophageal hernia. ROV 6 mos. PFSH Medical History (Updated 05/21/23 @ 12:32 by Warner Sparks MD) Chronic GERD Headache Presence of surgical screw in left hand Surgical History (Updated 06/12/23 @ 10:23 by DIYA Remy) H/O kyphoplasty H/O squamous cell carcinoma excision History of appendectomy History of surgery on left wrist S/P laparoscopic surgery S/P left knee arthroscopy Family History Father No problems noted. Mother No problems noted. Social History Housing: House Alcohol intake: never Patient Tobacco Use Status: Never used Tobacco e-Cigarette/Vaping Use: Never Used Second Hand Smoke Exposure: No service: No Current occupational status: disabled Cognitive needs: Yes (cane) Hearing needs: No Vision needs: Yes (glasses) Review of Systems Const Denies fatigue, Denies fever(s), Denies night sweats, Denies poor appetite and Denies weight loss Eyes Details: glasses Reports requires corrective lenses ENT Reports Normal hearing present, Denies dental pain, Denies dysphagia, Denies hearing loss, Denies mouth pain, Denies odynophagia, Denies throat swelling, Denies tongue swelling and Reports other (Dentition adequate) Card Reports no additional complaints Resp Reports no additional complaints GI Denies abdominal pain, Denies melena, Denies bloating, Denies hematochezia, Denies constipation, Denies GI cramping, Denies dysphagia, Denies excessive flatus, Denies early satiety, Reports heartburn, Denies diarrhea, Denies nausea, Denies odynophagia, Denies vomiting and Denies hematemesis Skin/Breast Denies pruritus, Denies lesions, Denies rash and Denies jaundice Neuro Reports Normal hearing present and Denies Abnormal speech present Endo Denies fatigue Aller/Immun Denies throat swelling and Denies tongue swelling Physical Exam Vital Signs: Last Vital Signs Pulse 81 06/18/23 09:22 BP 105/65 06/18/23 09:22 BMI result Body Mass Index 26.9 Const General: cooperative, no acute distress, well developed and well groomed Nutritional Appearance: average body habitus and well nourished Orientation/consciousness: oriented to person, oriented to place and oriented to time Limitations: No language barrier HEENT Head: Yes normocephalic and Yes atraumatic Eyes General: appearance normal, both eyes and all related structures Pupils: Equal, round and reactive pupils present Neck Neck: Yes normal visual inspection and Yes no lymphadenopathy Thyroid: Thyroid normal Resp Effort & Inspection: normal respiratory effort and able to speak in complete sentences Auscultation: clear to auscultation bilaterally Cardio Rate: regular rate Rhythm: regular rhythm Heart sounds: Normal, physiologic split S2 sound present Peripheral pulses: radial pulses present and posterior tibial pulses present GI Inspection: No distended and No Abdominal panniculus present Palpation (GI): Soft to palpation, nontender, no guarding, not rigid and No hepatosplenomegaly present Percussion: Yes normal to percussion Auscultation: normal bowel sounds Rectal Exam - Female: deferred Skin General skin exam: no rashes or lesions noted, turgor normal, skin not dry, no jaundice, No spider nevi and no striae Rashes: no rashes Nails: normal Neuro General: oriented to person, oriented to place and oriented to time Cranial nerves: Yes Equal, round and reactive pupils present and Yes Normal hearing present Speech: No Abnormal speech present Extrem General: Yes normal to inspection, No clubbing, No cyanosis and No edema Psych Appearance: grossly normal and well kempt Mental Status: mental status grossly normal Speech and movement: Normal speech and movement present Affect: normal affect Attitude: cooperative Thought process: Normal thought process present and not confabulating Thought content: Normal thought content present Insight: Fair insight present (Psych) Judgement: Fair judgement present (Psych) Results Reviewed Results Reviewed: 05/14/23 05/21/23 08:30 10:13 Estimated GFR > 60 Total Bilirubin 0.7 AST 18 ALT 11 Alkaline Phosphatase 88 C-Reactive Protein 0.84 H TSH 3.30 ULTRASOUND THE ABDOMEN 05/31/23 FINDINGS: PANCREAS: Visualized portions unremarkable. ABDOMINAL AORTA: Visualized portions unremarkable. INFERIOR VENA CAVA: Visualized portions unremarkable. LIVER: Unremarkable. GALLBLADDER: Unremarkable. COMMON BILE DUCT: Normal in caliber measuring 0.4 cm in diameter. RIGHT KIDNEY: 10.2 cm. Unremarkable. LEFT KIDNEY: 10.6 cm. Unremarkable. SPLEEN: 10.5 cm. Unremarkable. FREE FLUID: None. US/US abdomen complete IMPRESSION: Unremarkable abdominal ultrasound. Assessment & Plan Assessment & Plan (1) Acute diarrhea: Code(s): R19.7 - Diarrhea, unspecified Plan: The diarrhea has resolved. She still has pain in her upper stomach, but only when someone touches me other willis none. Since she could not get me a watery stool sample she did not do GI panel which is fine. Most likely she had some sort of food borne illness or gastroenteritis that resolved without treatment. We reviewed the labs that she did get in the ultrasound which were fairly unremarkable except for a mildly elevated CRP which could have been in response the infection. She continues on her omeprazole the morning of famotidine at night for her GERD and large paraesophageal hernia. ROV 6 mos. (2) Chronic GERD: Code(s): K21.9 - Gastro-esophageal reflux disease without esophagitis Coding Level of Care Code Est Pt Level 3 (49140) Diagnoses Acute diarrhea R19.7 Chronic GERD K21.9
[2023-06-18 09:22] VITALS: BP 105/65; PULSE 81; BMI 26.9
== END 2023-06-18 09:38 | disposition home or self-care (01) ==
PROVIDERS: PCP Internal Medicine; Visit Provider Nurse Practitioner
DX: R19.7 Diarrhea, unspecified (principal); K21.9 Gastro-esophageal reflux disease without esophagitis
CPT/HCPCS: 99213

== ENCOUNTER → 2023-06-18 09:01 | Outpatient (BNVA) | payer OTHER, MEDICARE, SELFPAY | PROVIDERS: PCP Internal Medicine; Visit Provider Nurse Practitioner | DX: R19.7 Diarrhea, unspecified (principal); K21.9 Gastro-esophageal reflux disease without esophagitis | CPT/HCPCS: 99212 ==

== ENCOUNTER 2023-11-14 08:25 | Outpatient (REF) | payer OTHER, SELFPAY ==
[2023-11-14 08:35] LABS: MANUAL DIFF FLAG NO
[2023-11-14 09:02] LABS: Basophils Percent Auto 0.3 % (0-2); Eosinophils Absolute Auto 0.3 X10*3/uL (0.0-0.4); Hematocrit 42.9 % (37.0-47.0); Hemoglobin 13.4 g/dl (12.0-16.0); Imm Gran Abs Auto 0.01 X10*3/uL (0.00-0.03); Imm Gran Pct Auto 0.2 % (0.0-0.4); Lymphocytes Absolute Auto 2.2 X10*3/uL (1.2-4.9); Lymphocytes Percent Auto 34.9 % (20-40); Mean Corpuscular HGB Conc 31.2 g/dl (31.0-35.0); Mean Corpuscular Hemoglobin 29.5 pg (27.0-33.0); Mean Corpuscular Volume 94.5 fL (80.0-98.0); Mean Platelet Volume 10.1 fL (9.4-12.3); Monocytes Absolute Auto 0.5 X10*3/uL (0.1-1.2); Monocytes Percent Auto 8.5 % (2-11); Neutrophils Absolute Auto 3.3 x10*3/uL (2.0-8.3); Neutrophils Percent Auto 52.1 % (45-73); Platelet Count 247 X10*3/uL (160-400); Red Blood Count 4.54 X10*6/uL (4.20-5.50); Red Cell Distribution Width 12.7 % (11.0-16.0); White Blood Count 6.3 X10*3/uL (4.8-10.8)
[2023-11-14 09:31] LABS: Alanine Aminotransferase 12 U/L (0-31); Alkaline Phosphatase 76 U/L (39-117); Anion Gap 13 (12-20); Aspartate Amino Transferase 20 U/L (5-31); Bilirubin Total 0.6 mg/dL (0.0-1.0); Blood Urea Nitrogen 16 mg/dL (9-16); Calcium 9.6 mg/dL (8.4-10.2); Carbon Dioxide 28 mmol/L (22-29); Chloride 107 mmol/L (96-108); Cholesterol 256 mg/dL (<200); Estimated Glomerular Filt Rate > 60; Glucose Fasting 88 mg/dL (60-99); HDL Cholesterol 39 mg/dL (>40); LDL Cholesterol Calculated 177 mg/dL (<100); Sodium 144 mmol/L (135-145); Total Protein 7.9 g/dL (6.5-8.0); Triglycerides 204 mg/dL (<150)
[2023-11-14 09:48] LABS: Thyroid Stimulating Hormone 3.24 uIU/mL (0.32-4.0)
== END 2023-11-14 08:26 | disposition home or self-care (01) ==
LOC: HO.LAB 08:25
PROVIDERS: PCP Internal Medicine; Visit Provider Internal Medicine
DX: N28.9 Disorder of kidney and ureter, unspecified (principal); E78.5 Hyperlipidemia, unspecified; E03.9 Hypothyroidism, unspecified; D64.9 Anemia, unspecified
CPT/HCPCS: 36415; 80053; 80061; 84443; 85025

== ENCOUNTER 2023-11-19 09:06 | Outpatient (AMB) | payer OTHER, SELFPAY ==
[2023-11-19 09:08] VITALS: BP 110/80; PULSE 78; O2SAT 97; BMI 27.4
--- NOTE | 2023-11-19 09:08 | MHC.PC.OV ---
Vital Signs 11/19/23 09:08 Height 5 ft 7 in Weight 175 lb 4 oz BMI 27.4 BP 110/80 Blood Pressure Location Lt brachial Position Sitting Pulse 78 Pulse Source Pulse Oximeter Pulse Oximetry (%) 97 Oxygen Delivery Method Room Air Intake Visit Reasons: 6 month f/u Sausage Maker Required: No Solder Deposit Operator: Not Required per policy Accompanied by: Self / Same As Patient Allergies codeine [CODEINE] Allergy (Unknown, Verified 11/19/23 09:08) migraines doxycycline [DOXYCYCLINE] Allergy (Unknown, Verified 11/19/23 09:08) anaphylaxis, swelling, redness Medication List - Last Reconciled 11/19/23 by Warner Sparks MD acetaminophen ER (Arthritis Pain Reliever) 650 mg PO Q12H cetirizine (Zyrtec) 10 mg PO DAILY PRN famotidine (Pepcid) 40 mg PO BEDTIME ibuprofen 800 mg PO Q8H 30 days levothyroxine 75 mcg PO DAILY omeprazole 20 mg PO DAILY sumatriptan succinate 50 mg PO Tobacco use date assessed: 11/19/23 Dental Screening Dental Screen Date: 11/19/23 Did you have a dental visit in the last 12 months?: Yes Did you have a dental problem in the last 6 months where you did not have access to dental care?: No Was dental information given to patient?: Patient has dentist HPI 6 month f/u HPI Details hypothyr on rx; doing well; chol high but improving; some dietary indiscretion PFSH Medical History (Updated 05/21/23 @ 12:32 by Warner Sparks MD) Presence of surgical screw in left hand Chronic GERD Headache Surgical History History of surgery on left wrist H/O squamous cell carcinoma excision H/O kyphoplasty History of appendectomy S/P laparoscopic surgery S/P left knee arthroscopy Family History Father No problems noted. Mother No problems noted. Social History Housing: House Alcohol intake: never Patient Tobacco Use Status: Never used Tobacco e-Cigarette/Vaping Use: Never Used Second Hand Smoke Exposure: No service: No Current occupational status: disabled Cognitive needs: Yes (cane) Hearing needs: No Vision needs: Yes (glasses) Questionnaire PHQ-9 Over the last 2 weeks, how often have you been bothered by any of the following problems? 1. Little interest or pleasure in doing things: not at all 2. Feeling down, depressed, or hopeless: not at all 3. Trouble falling or staying asleep, or sleeping too much: not at all 4. Feeling tired or having little energy: not at all 5. Poor appetite or overeating: not at all 6. Feeling bad about yourself - or that you are a failure or have let yourself or your family down: not at all 7. Trouble concentrating on things, such as reading the newspaper or watching television: not at all 8. Moving or speaking so slowly that other people could have noticed. Or the opposite - being so fidgety or restless that you have been moving around a lot more than usual: not at all 9. Thoughts that you would be better off or of hurting yourself in some way: not at all Total score: 0 Depression Screening Interpretation: Negative Depression Screening Done: Yes Source: Developed by Drs. August Jhonson, Cleopatra Khan, Martín Stoddard and colleagues, with an educational jaquan from [employer]. Thrive Questionnaire Date Thrive assessed: 11/19/23 I am a: Patient What is your living situation today?: I have a steady place to live Within the past 12 months, did the food you bought not last and you didn't have the money to get more?: Never true Within the past 12 months, did you worry whether your food would run out before you got money to buy more?: Never true Do you have trouble paying for medicines?: No Do you have trouble getting transportation to medical appointments?: No Do you have trouble paying your heating and electricity bill?: No Do you have trouble taking care of your child, family member or friend?: No Do you have trouble with day-to-day activities such as bathing, preparing meals, shopping, managing finances, etc.?: No Are you currently unemployed and looking for a job?: No Are you interested in more education?: No Please select the resources that you would like help with: None AUDIT C Alcohol Use Questionnaire (AUDIT-C) 1. How often do you have a drink containing alcohol?: Never Total Score: 0 Score Reviewed/Action Taken: Yes SIERRA-7 AMB Questionnaire SIERRA-7 Date SIERRA - 7 assessed: 11/19/23 Feeling nervous, anxious, or on edge: 0 = Not at all Not being able to stop or control worryin = Not at all Worrying too much about different things: 0 = Not at all Trouble relaxin = Not at all Being so restless that it is hard to sit still: 0 = Not at all Becoming easily annoyed or irritable: 0 = Not at all Feeling afraid as if something awful might happen: 0 = Not at all Total SIERRA-7 score (0-4 normal; 5-9 mild; 10-14 moderate; 15-21 severe): 0 Source: Developed by Drs. August Johnson, Cleopatra Khan, Martín Stoddard and colleagues, with an educational jaquan from [employer]. Review of Systems Const Denies chills, Denies headache(s) and Denies weight loss ENT Denies headache(s) Card Denies chest pain, Denies syncope, Denies irregular heart rhythm and Denies dyspnea Resp Denies chest congestion, Denies cough and Denies dyspnea GI Denies abdominal pain, Denies change in stool character, Denies nausea and Denies vomiting Musc Denies deformity and Denies joint swelling Neuro Denies syncope and Denies headache(s) Physical exam (Primary Care) Vital Signs: Last Vital Signs Pulse 78 11/19/23 09:08 BP 110/80 11/19/23 09:08 Pulse Ox 97 11/19/23 09:08 Oxygen Delivery Method Room Air 11/19/23 09:08 BMI result Body Mass Index 27.4 Tobacco/Smoking Status: Tobacco use Status Tobacco use date assessed 11/19/23 11/19/23 09:10 Patient Tobacco Use Status Never used Tobacco 11/19/23 09:10 e-Cigarette/Vaping Use Never Used 11/19/23 09:10 PHQ-9: PHQ-9 Score PHQ-9: Total score 0 11/19/23 09:22 Depression Screening Interpretation: Negative Thrive Assessment: Date of Thrive Assessment Date Thrive assessed 11/19/23 11/19/23 09:10 Const General: cooperative, comfortable, no acute distress and alert Neck Neck: Yes no lymphadenopathy Thyroid: Thyroid normal Resp Effort & Inspection: normal respiratory effort Auscultation: clear to auscultation bilaterally Percussion: percussion normal Cardio Jugular venous distension: no JVD Palpation: normal PMI Rate: regular rate Rhythm: regular rhythm Heart sounds: S1 normal heart sound present and S2 normal heart sound present GI Inspection: Yes normal to inspection Palpation (GI): No hepatosplenomegaly present Skin General skin exam: no rashes or lesions noted Extrem General: Yes no clubbing, cyanosis or edema Assessment and Plan Assessment & Plan (1) Hypothyroidism: Code(s): E03.9 - Hypothyroidism, unspecified Plan: stable; same rx Orders: Orders Lipid Panel Today E78.5 - Hyperlipidemia, unspecified Thyroid Stimulating Hormone Today E03.9 - Hypothyroidism, unspecified Medications: Changed From levothyroxine 75 mcg PO DAILY 30 caps 4RF To levothyroxine 75 mcg PO DAILY 90 caps 4RF 90 days Coding Level of Care Code Est Pt Level 3 (43743) Diagnoses Hypothyroidism E03.9
== END 2023-11-19 09:30 | disposition home or self-care (01) ==
PROVIDERS: PCP Internal Medicine; Visit Provider Internal Medicine
DX: E03.9 Hypothyroidism, unspecified (principal)
CPT/HCPCS: 99213

== ENCOUNTER 2024-01-08 07:40 | Outpatient (AMB) | payer MEDICARE, OTHER, SELFPAY ==
--- NOTE | 2024-01-08 07:54 | MHC.OFFVIS ---
Intake Vital Signs 01/08/24 07:56 Height 5 ft 7 in Weight 170 lb BMI 26.6 BP 90/53 L Blood Pressure Location Lt brachial Position Sitting Pulse 80 Intake Visit Reasons: 6 month f/u GERD Intake Note: Patient 6 month follow up for GERD Patient cc: Nauseas, abdominal pain, between diarrhea and constipation with some blood stool, acid reflex with burning sensation and chocking with her acid reflex. Negative Developer Required: No Accompanied by: Self / Same As Patient Allergies codeine [CODEINE] Allergy (Unknown, Verified 01/08/24 07:54) migraines doxycycline [DOXYCYCLINE] Allergy (Unknown, Verified 01/08/24 07:54) anaphylaxis, swelling, redness HPI 6 month f/u GERD HPI Details Assessment & Plan (1) Acute diarrhea: Code(s): R19.7 - Diarrhea, unspecified Plan: The diarrhea has resolved. She still has pain in her upper stomach, but only when someone touches me other wilils none. Since she could not get me a watery stool sample she did not do GI panel which is fine. Most likely she had some sort of food borne illness or gastroenteritis that resolved without treatment. We reviewed the labs that she did get in the ultrasound which were fairly unremarkable except for a mildly elevated CRP which could have been in response the infection. She continues on her omeprazole the morning of famotidine at night for her GERD and large paraesophageal hernia. ROV 6 mos. (2) Chronic GERD: Code(s): K21.9 - Gastro-esophageal reflux disease without esophagitis ?. TODAY'S VISIT She is having worsening acid brash that wakes her up in the middle of the night. After initial resolution of her diarrhea, she ate some red sauce at a restaurant and had severe watery diarrhea. It took 5 imodium to stop it. No other illness, no med changes, no diet changes. Her voice is hoarse. She does have a moderate paraespohageal hernia, we have discussed surgery but she would prefer medical tx. Complaint to the o2o 20mg and famotidine (she had not used the famotidine before consistently but not is taking it daily). Orophayrngeal dysphagia of solid foods mild. Will change o2o to pantoprazole (to avoid diarrhea at higher doses) and try to get BID dosing. Add bentyl as she is experiencing a lot of abdominal gurgling that she finds uncomfortable. Get barium swallow to assess the hernia, an EGD/colonoscopy. She has never had a prior colonoscopy and since she has been having bowel irritability and some rectal bleeding this is likely prudent. There are no prior problems with anesthesia or sedation. She denies any cardiac or respiratory problems. There are no infectious disease problems. There is no known family history of colorectal cancer although there are many other cancers that run in the family. Return office visit in 3 weeks to evaluate the medications. [facility] Medical History (Updated 01/08/24 @ 16:17 by DEVIN Wilkinson) Presence of surgical screw in left hand Chronic GERD Headache Surgical History History of surgery on left wrist H/O squamous cell carcinoma excision H/O kyphoplasty History of appendectomy S/P laparoscopic surgery S/P left knee arthroscopy Family History Father No problems noted. Mother No problems noted. Social History Housing: House Alcohol intake: never Patient Tobacco Use Status: Never used Tobacco e-Cigarette/Vaping Use: Never Used Second Hand Smoke Exposure: No service: No Current occupational status: disabled Cognitive needs: Yes (cane) Hearing needs: No Vision needs: Yes (glasses) Review of Systems Const Denies fatigue, Denies fever(s), Denies night sweats, Denies poor appetite and Denies weight loss Eyes Details: glasses Reports requires corrective lenses ENT Reports Normal hearing present, Denies dental pain, Reports dysphagia, Denies hearing loss, Denies mouth pain, Denies odynophagia, Denies throat swelling, Denies tongue swelling and Reports other (Dentition adequate) Card Reports no additional complaints Resp Reports no additional complaints GI Details: MARIA ESTHER S Denies abdominal pain, Denies melena, Denies bloating, Denies hematochezia, Reports constipation, Reports GI cramping, Reports dysphagia, Denies excessive flatus, Denies early satiety, Reports heartburn, Denies diarrhea, Denies nausea, Denies odynophagia, Denies vomiting and Denies hematemesis Skin/Breast Denies pruritus, Denies lesions, Denies rash and Denies jaundice Neuro Reports Normal hearing present and Denies Abnormal speech present Endo Denies fatigue Aller/Immun Denies throat swelling and Denies tongue swelling Physical Exam Vital Signs: Last Vital Signs Pulse 80 01/08/24 07:56 BP 90/53 L 01/08/24 07:56 BMI result Body Mass Index 26.6 Const General: cooperative, no acute distress, well developed and well groomed Nutritional Appearance: average body habitus and well nourished Orientation/consciousness: oriented to person, oriented to place and oriented to time Limitations: No language barrier HEENT Head: Yes normocephalic and Yes atraumatic Eyes General: appearance normal, both eyes and all related structures Pupils: Equal, round and reactive pupils present Neck Neck: Yes normal visual inspection and Yes no lymphadenopathy Thyroid: Thyroid normal Resp Effort & Inspection: normal respiratory effort and able to speak in complete sentences Auscultation: clear to auscultation bilaterally Cardio Rate: regular rate Rhythm: regular rhythm Heart sounds: Normal, physiologic split S2 sound present Peripheral pulses: radial pulses present and posterior tibial pulses present GI Inspection: No distended and No Abdominal panniculus present Palpation (GI): Soft to palpation, nontender, no guarding, not rigid and No hepatosplenomegaly present Percussion: Yes normal to percussion Auscultation: normal bowel sounds Rectal Exam - Female: deferred Skin General skin exam: no rashes or lesions noted, turgor normal, skin not dry, no jaundice, No spider nevi and no striae Rashes: no rashes Nails: normal Neuro General: oriented to person, oriented to place and oriented to time Cranial nerves: Yes Equal, round and reactive pupils present and Yes Normal hearing present Speech: No Abnormal speech present Extrem General: Yes normal to inspection, No clubbing, No cyanosis and No edema Psych Appearance: grossly normal and well kempt Mental Status: mental status grossly normal Speech and movement: Normal speech and movement present Affect: normal affect Attitude: cooperative Thought process: Normal thought process present and not confabulating Thought content: Normal thought content present Insight: Fair insight present (Psych) Judgement: Fair judgement present (Psych) Assessment & Plan Assessment & Plan (1) Chronic GERD: Code(s): K21.9 - Gastro-esophageal reflux disease without esophagitis (2) Acute diarrhea: Code(s): R19.7 - Diarrhea, unspecified (3) Oropharyngeal dysphagia: Code(s): R13.12 - Dysphagia, oropharyngeal phase (4) Hernia, paraesophageal: Comment: Moderate sliding hiatal hernia that at times becomes paraesophageal Code(s): K44.9 - Diaphragmatic hernia without obstruction or gangrene (5) Erosive esophagitis: Code(s): K22.10 - Ulcer of esophagus without bleeding (6) IBS (irritable bowel syndrome): Code(s): K58.9 - Irritable bowel syndrome without diarrhea (7) Pre-op examination: Code(s): Z01.818 - Encounter for other preprocedural examination Plan She is having worsening acid brash that wakes her up in the middle of the night. After initial resolution of her diarrhea, she ate some red sauce at a restaurant and had severe watery diarrhea. It took 5 imodium to stop it. No other illness, no med changes, no diet changes. Her voice is hoarse. She does have a moderate paraespohageal hernia, we have discussed surgery but she would prefer medical tx. Complaint to the o2o 20mg and famotidine (she had not used the famotidine before consistently but not is taking it daily). Orophayrngeal dysphagia of solid foods mild. Will change o2o to pantoprazole (to avoid diarrhea at higher doses) and try to get BID dosing. Add bentyl as she is experiencing a lot of abdominal gurgling that she finds uncomfortable. Get barium swallow to assess the hernia, an EGD/colonoscopy. She has never had a prior colonoscopy and since she has been having bowel irritability and some rectal bleeding this is likely prudent. There are no prior problems with anesthesia or sedation. She denies any cardiac or respiratory problems. There are no infectious disease problems. There is no known family history of colorectal cancer although there are many other cancers that run in the family. Return office visit in 3 weeks to evaluate the medications. Orders: Orders EGD/[place] Combo - GI Use Only Today K44.9 - Diaphragmatic hernia without obstruction or gangrene, R13.12 - Dysphagia, oropharyngeal phase FL barium swallow Today K44.9 - Diaphragmatic hernia without obstruction or gangrene, R13.12 - Dysphagia, oropharyngeal phase Medications: New pantoprazole (Protonix) 40 mg PO BID 30 days 60 tabs 6RF K22.10 - Ulcer of esophagus without bleeding, R13.12 - Dysphagia, oropharyngeal phase dicyclomine 10 mg PO QID 120 caps 6RF K58.9 - Irritable bowel syndrome without diarrhea peg 3350-electrolytes 236-22.74-6.74 -5.86 gram (Golytely) until fecal effluent is clear; do not exceed a total volume of 2,000 mL 240 mL PO Q10M 1 day 4,000 mL 0RF Z12.11 - Encounter for screening for malignant neoplasm of colon bisacodyl (Dulcolax (bisacodyl)) 10 mg (2 x 5 mg) PO BEDTIME 2 days 4 tabs 0RF Refilled famotidine (Pepcid) 40 mg PO BEDTIME 90 tabs 2RF K21.9 - Gastro-esophageal reflux disease without esophagitis Discontinued omeprazole Discontinued Reason: Doctor's Order 20 mg PO DAILY 90 caps 2RF K21.9 - Gastro-esophageal reflux disease without esophagitis Coding Level of Care Code Est Pt Level 4 (15919) Diagnoses Chronic GERD K21.9 Acute diarrhea R19.7 Oropharyngeal dysphagia R13.12 Hernia, paraesophageal K44.9 Erosive esophagitis K22.10 IBS (irritable bowel syndrome) K58.9 Pre-op examination Z01.818
[2024-01-08 07:56] VITALS: BP 90/53; PULSE 80; BMI 26.6
== END 2024-01-08 08:23 | disposition home or self-care (01) ==
PROVIDERS: PCP Internal Medicine; Visit Provider Nurse Practitioner
DX: K21.9 Gastro-esophageal reflux disease without esophagitis (principal); R19.7 Diarrhea, unspecified; R13.12 Dysphagia, oropharyngeal phase; K44.9 Diaphragmatic hernia without obstruction or gangrene; K22.10 Ulcer of esophagus without bleeding; K58.9 Irritable bowel syndrome, unspecified; Z01.818 Encounter for other preprocedural examination
CPT/HCPCS: 99214

== ENCOUNTER → 2024-01-08 07:40 | Outpatient (BNVA) | payer OTHER, MEDICARE, SELFPAY | PROVIDERS: PCP Internal Medicine; Visit Provider Nurse Practitioner | DX: Z01.818 Encounter for other preprocedural examination (principal); K21.9 Gastro-esophageal reflux disease without esophagitis; K44.9 Diaphragmatic hernia without obstruction or gangrene; K22.10 Ulcer of esophagus without bleeding; K58.9 Irritable bowel syndrome, unspecified; R19.7 Diarrhea, unspecified; R13.12 Dysphagia, oropharyngeal phase | CPT/HCPCS: 99212 ==

== ENCOUNTER 2024-01-29 08:14 | Outpatient (AMB) | payer MEDICARE, OTHER, SELFPAY ==
--- NOTE | 2024-01-29 08:18 | A.OFFVIS_ITS ---
Intake Vital Signs 01/29/24 08:20 Height 5 ft 7 in Weight 171 lb 15.369 oz BMI 26.9 BP 113/56 L Blood Pressure Location Lt brachial Position Sitting Pulse 75 Intake Visit Reasons: 3 week follow up GERD, dysphagia Intake Note: Joy presents in the office as a 3 week follow up GERD and Dysphagia. CC: She states that medicine is not working. Gurgling stomach and she is stating she has issues doing a lot of things. Acid reflux, issues swallowing, issues with constipation off and on. Allergies codeine [CODEINE] Allergy (Unknown, Verified 01/29/24 08:21) migraines doxycycline [DOXYCYCLINE] Allergy (Unknown, Verified 01/29/24 08:21) anaphylaxis, swelling, redness HPI 3 week follow up GERD, dysphagia HPI Details Assessment & Plan (1) Chronic GERD: Code(s): K21.9 Goodness - Gastro-esophageal reflux disease without esophagitis (2) Acute diarrhea: Code(s): R19.7 - Diarrhea, unspecified (3) Oropharyngeal dysphagia: Code(s): R13.12 - Dysphagia, oropharyngeal phase (4) Hernia, paraesophageal: Comment: Moderate sliding hiatal hernia that at times becomes paraesophageal Code(s): K44.9 - Diaphragmatic hernia without obstruction or gangrene (5) Erosive esophagitis: Code(s): K22.10 - Ulcer of esophagus without bleeding (6) IBS (irritable bowel syndrome): Code(s): K58.9 - Irritable bowel syndrome without diarrhea (7) Pre-op examination: Code(s): Z01.818 - Encounter for other preprocedural examination Plan She is having worsening acid brash that wakes her up in the middle of the night. After initial resolution of her diarrhea, she ate some red sauce at a restaurant and had severe watery diarrhea. It took 5 imodium to stop it. No other illness, no med changes, no diet changes. Her voice is hoarse. She does have a moderate paraespohageal hernia, we have discussed surgery but she would prefer medical tx. Complaint to the o2o 20mg and famotidine (she had not used the famotidine before consistently but not is taking it daily). Orophayrngeal dysphagia of solid foods mild. Will change o2o to pantoprazole (to avoid diarrhea at higher doses) and try to get BID dosing. Add bentyl as she is experiencing a lot of abdominal gurgling that she finds uncomfortable. Get barium swallow to assess the hernia, an EGD/colonoscopy. She has never had a prior colonoscopy and since she has been having bowel irritability and some rectal bleeding this is likely prudent. There are no prior problems with anesthesia or sedation. She denies any cardiac or respiratory problems. There are no infectious disease problems. There is no known family history of colorectal cancer although there are many other cancers that run in the family. Return office visit in 3 weeks to evaluate the medications. Orders: Orders EGD/[place] Combo - G I Use Only Today K44.9 - Diaphragma tic hernia without obstruction or ga ngrene, R13.12 - D ysphagia, orophary ngeal phase FL barium swallow Today K44.9 - Diaphragma tic hernia without obstruction or ga ngrene, R13.12 - D ysphagia, orophary ngeal phase Medications: New pantoprazole (Prot quinten) 40 mg PO BID 30 d ays 60 tabs 6RF K22.10 - Ulcer of esophagus without bleeding, R13.12 - Dysphagia, oropha ryngeal phase dicyclomine 10 mg PO QID 120 caps 6RF K58.9 - Irritable bowel syndrome wit hout diarrhea peg 3350-electroly guerrero 236-22.74-6.74 -5.86 gram (Golyt jesus) until feca l effluent is jaskaran r; do not exceed a total volume of 2 ,000 mL 240 mL PO Q10M 1 day 4,000 mL 0RF Z12.11 - Encounter for screening for malignant neoplas m of colon bisacodyl (Dulcola x (bisacodyl)) 10 mg (2 x 5 mg) P O BEDTIME 2 days 4 tabs 0RF Refilled famotidine (Pepcid ) 40 mg PO BEDTIME 90 tabs 2RF K21.9 - Gastro-eso phageal reflux dis ease without esoph agitis Discontinued omeprazole Disc ontinued Reason: Doctor's Order 20 mg PO DAILY 90 caps 2RF K21.9 - Gastro-eso phageal reflux dis ease without esoph agitis EGD/COLONOSCOPY Scheduled for 04/16/2024 BIOPSY BARIUM SWALLOW 05/04/22 FINDINGS: Following oral administration of thick barium and barium-coated turkey in upright view, there is normal propagation of bolus from the oral cavity through the pharynx, esophagus into stomach without any evidence of obstruction, narrowing or stricture. There is a large hiatal hernia in upright view. On placing patient supine and prone lying, the course and the caliber of the esophagus is normal. No laryngeal penetration or aspiration seen. There is a moderate-sized mixed (sliding and paraesophageal) hiatal hernia. No reflux could be demonstrated. FL/FL barium swallow IMPRESSION: Moderate-sized mixed hiatal hernia without reflux. TODAY'S VISIT She has the repeat barium swallow and the EGD/colonoscopy upcoming in March and April. Her GERD particularly when she is recumbent at night has severely worsened and she will frequently wake up choking. She can not put blocks under the head of the bed because her bed is in the addict and the headboard almost hit the ceiling and she just can not sleep in a recliner. She has been taking the pantoprazole twice a day and the famotidine but obviously this isn't going to help with the regurg that comes up when she is laying flat and chokes her. Her voice is extremely hoarse today. She tells me ?I am desperate. ? Review of her old barium swallow shows a large sliding hiatal and paraesophageal hernia so it may be time for her to talk to surgery about having this repaired. We have so many physical limitations it is going to be extremely difficult for me to improve her situation with medication alone. She does try to limit eating after 18:00 but I think a dose of metoclopramide 10 mg just prior to supper may help empty her stomach more quickly. This is really the only option I have available to treat her in the interim. We also discussed getting a wedge pillow, apparently someone did give her 1 but have arm rests on it and she has a side sleeper. I look on [employer] and they have many plain wedge pillows without arms available for his lowest 35 dollars so she says she will look into this. I believe she is aspirating slightly at night which concerns me. She continues on dicyclomine for the gurgling in her stomach, pantoprazole twice a day with famotidine for breakthrough, and now metoclopramide. She also ment ions to me that she had allergy testing in the past and she has multiple food allergies including garlic, lettuce, and many root vegetables and also multiple environmental allergies. For now will keep her follow-up study in April we can go over the EGD and barium swallow. [facility] Medical History (Updated 01/29/24 @ 08:46 by DEVIN Wilkinson) Hypothyroidism Pre-op examination Acute diarrhea Skin lesion of scalp Wrist pain Screening mammogram, encounter for Screening due Presence of surgical screw in left hand Chronic GERD Headache Surgical History History of surgery on left wrist H/O squamous cell carcinoma excision H/O kyphoplasty History of appendectomy S/P laparoscopic surgery S/P left knee arthroscopy Family History Father No problems noted. Mother No problems noted. Social History Housing: House Alcohol intake: never Patient Tobacco Use Status: Never used Tobacco e-Cigarette/Vaping Use: Never Used Second Hand Smoke Exposure: No service: No Current occupational status: disabled Cognitive needs: Yes (cane) Hearing needs: No Vision needs: Yes (glasses) Review of Systems Const Denies fatigue, Denies fever(s), Denies night sweats, Denies poor appetite and Denies weight loss Eyes Details: glasses Reports requires corrective lenses ENT Reports Normal hearing present, Denies dental pain, Reports dysphagia, Denies hearing loss, Reports hoarseness, Denies mouth pain, Reports odynophagia, Denies throat swelling, Denies tongue swelling and Reports other (Dentition adequate) Card Reports no additional complaints Resp Reports no additional complaints GI Details: Denies abdominal pain, Denies melena, Denies bloating, Denies hematochezia, Denies constipation, Reports GI cramping, Reports dysphagia, Denies excessive flatus, Denies early satiety, Reports heartburn, Denies diarrhea, Denies nausea, Reports odynophagia, Denies vomiting and Denies hematemesis Skin/Breast Denies pruritus, Denies lesions, Denies rash and Denies jaundice Neuro Reports Normal hearing present and Denies Abnormal speech present Endo Denies fatigue Aller/Immun Denies throat swelling and Denies tongue swelling Physical Exam Vital Signs: Last Vital Signs Pulse 75 01/29/24 08:20 BP 113/56 L 01/29/24 08:20 BMI result Body Mass Index 26.9 Const General: cooperative, no acute distress, well developed and well groomed Nutritional Appearance: average body habitus and well nourished Orientation/consciousness: oriented to person, oriented to place and oriented to time Limitations: No language barrier HEENT Head: Yes normocephalic and Yes atraumatic Eyes General: appearance normal, both eyes and all related structures Pupils: Equal, round and reactive pupils present Neck Neck: Yes normal visual inspection and Yes no lymphadenopathy Thyroid: Thyroid normal Resp Effort & Inspection: normal respiratory effort and able to speak in complete sentences Auscultation: clear to auscultation bilaterally Cardio Rate: regular rate Rhythm: regular rhythm Heart sounds: Normal, physiologic split S2 sound present Peripheral pulses: radial pulses present and posterior tibial pulses present GI Inspection: No distended and No Abdominal panniculus present Palpation (GI): Soft to palpation, nontender, no guarding, not rigid and No hepatosplenomegaly present Percussion: Yes normal to percussion Auscultation: normal bowel sounds Rectal Exam - Female: deferred Skin General skin exam: no rashes or lesions noted, turgor normal, skin not dry, no jaundice, No spider nevi and no striae Rashes: no rashes Nails: normal Neuro General: oriented to person, oriented to place and oriented to time Cranial nerves: Yes Equal, round and reactive pupils present and Yes Normal hearing present Speech: No Abnormal speech present Extrem General: Yes normal to inspection, No clubbing, No cyanosis and No edema Psych Appearance: grossly normal and well kempt Mental Status: mental status grossly normal Speech and movement: Normal speech and movement present Affect: normal affect Attitude: cooperative Thought process: Normal thought process present and not confabulating Thought content: Normal thought content present Insight: Fair insight present (Psych) Judgement: Fair judgement present (Psych) Assessment & Plan Assessment & Plan (1) Hernia, paraesophageal: Comment: Moderate sliding hiatal hernia that at times becomes paraesophageal Code(s): K44.9 - Diaphragmatic hernia without obstruction or gangrene (2) Erosive esophagitis: Code(s): K22.10 - Ulcer of esophagus without bleeding (3) Chronic GERD: Code(s): K21.9 - Gastro-esophageal reflux disease without esophagitis (4) IBS (irritable bowel syndrome): Code(s): K58.9 - Irritable bowel syndrome without diarrhea (5) Paraesophageal hernia: Code(s): K44.9 - Diaphragmatic hernia without obstruction or gangrene (6) Multiple food allergies: Code(s): Z91.018 - Allergy to other foods (7) Multiple environmental allergies: Code(s): Z91.09 - Other allergy status, other than to drugs and biological substances (8) Oropharyngeal dysphagia: Code(s): R13.12 - Dysphagia, oropharyngeal phase Plan She has the repeat barium swallow and the EGD/colonoscopy upcoming in March and April. Her GERD particularly when she is recumbent at night has severely worsened and she will frequently wake up choking. She can not put blocks under the head of the bed because her bed is in the addict and the headboard almost hit the ceiling and she just can not sleep in a recliner. She has been taking the pantoprazole twice a day and the famotidine but obviously this isn't going to help with the regurg that comes up when she is laying flat and chokes her. Her voice is extremely hoarse today. She tells me ?I am desperate. ? Review of her old barium swallow shows a large sliding hiatal and paraesophageal hernia so it may be time for her to talk to surgery about having this repaired. We have so many physical limitations it is going to be extremely difficult for me to improve her situation with medication alone. She does try to limit eating after 18:00 but I think a dose of metoclopramide 10 mg just prior to supper may help empty her stomach more quickly. This is really the only option I have available to treat her in the interim. We also discussed getting a wedge pillow, apparently someone did give her 1 but have arm rests on it and she has a side sleeper. I look on [employer] and they have many plain wedge pillows without arms available for his lowest 35 dollars so she says she will look into this. I believe she is aspirating slightly at night which concerns me. She continues on dicyclomine for the gurgling in her stomach, pantoprazole twice a day with famotidine for breakthrough, and now metoclopramide. She also mentions to me that she had allergy testing in the past and she has multiple food allergies including garlic, lettuce, and many root vegetables and also multiple environmental allergies. For now will keep her follow-up study in April we can go over the EGD and barium swallow. Orders: Referrals Bariatric Surgery Referral K44.9 - Diaphragmatic hernia without obstruction or gangrene Medications: New metoclopramide HCl (Reglan) 10 mg PO .qac- supper 30 tabs 6RF K22.10 - Ulcer of esophagus without bleeding Coding Level of Care Code Est Pt Level 4 (88574) Diagnoses Hernia, paraesophageal K44.9 Erosive esophagitis K22.10 Chronic GERD K21.9 IBS (irritable bowel syndrome) K58.9 Multiple food allergies Z91.018 Multiple environmental allergies Z91.09 Oropharyngeal dysphagia R13.12
[2024-01-29 08:20] VITALS: BP 113/56; PULSE 75; BMI 26.9
== END 2024-01-29 08:57 | disposition home or self-care (01) ==
PROVIDERS: PCP Internal Medicine; Visit Provider Nurse Practitioner
DX: K44.9 Diaphragmatic hernia without obstruction or gangrene (principal); K22.10 Ulcer of esophagus without bleeding; K21.9 Gastro-esophageal reflux disease without esophagitis; K58.9 Irritable bowel syndrome, unspecified; Z91.018 Allergy to other foods; Z91.09 Other allergy status, other than to drugs and biological substances; R13.12 Dysphagia, oropharyngeal phase
CPT/HCPCS: 99214

== ENCOUNTER → 2024-01-29 08:14 | Outpatient (BNVA) | payer OTHER, MEDICARE, SELFPAY | PROVIDERS: PCP Internal Medicine; Visit Provider Nurse Practitioner | DX: Z01.818 Encounter for other preprocedural examination (principal); K22.10 Ulcer of esophagus without bleeding; K21.9 Gastro-esophageal reflux disease without esophagitis; K58.9 Irritable bowel syndrome, unspecified; K44.9 Diaphragmatic hernia without obstruction or gangrene; R13.12 Dysphagia, oropharyngeal phase; R19.7 Diarrhea, unspecified; Z91.018 Allergy to other foods; Z91.09 Other allergy status, other than to drugs and biological substances | CPT/HCPCS: 99212 ==

== ENCOUNTER 2024-03-09 08:07 | Outpatient (REF) | payer OTHER, MEDICARE, SELFPAY ==
--- NOTE | ~2024-03-09 | FL_ITS ---
EXAMINATION: XR FLUOROSCOPY UPPER GI WITH AIR CLINICAL INFORMATION: Reflux. Hiatal hernia COMPARISON: Barium swallow 2021 TECHNIQUE: Fluoroscopic air contrast upper GI examination was performed utilizing standard techniques with thin and thick barium and effervescent granules. Numerous spot images were obtained. FINDINGS: Lateral cine images of the oropharynx and hypopharynx demonstrate normal swallow mechanism with normal epiglottic inversion and soft palate elevation. No tracheal penetration, glottic or subglottic aspiration identified. Mild nasopharyngeal reflux present. There was mild persistent pooling of contrast in the vallecula and piriform sinuses. Hypopharyngeal structures appear normal without evidence of mass or diverticulum. There was moderate cricopharyngeal achalasia present (RF1-3, 21/). Dual and single contrast images of the esophagus demonstrate normal caliber, contour, and mucosal pattern. No evidence of stricture, mass, or ulcerations identified. There is to and fro motion of the barium column with nonpropulsive tertiary contractions noted throughout the esophagus. A large paraesophageal hernia is present, in which the majority the fundus is located in the intrathoracic cavity. Significant gastroesophageal reflux is seen up to the thoracic inlet. Dual contrast and single contrast images of the stomach demonstrated a normal contour. Gastric rugal folds appear mildly thickened. No masses or ulcerations are seen. Contrast freely passed into the gastric antrum and duodenal bulb without delay. Single and air-contrast images of the duodenal bulb demonstrate no abnormality. The duodenal sweep has a normal appearance, course, and mucosal fold appearance. The imaged proximal jejunum has a normal fold pattern and caliber. FLUOROSCOPY TIME: 5 minutes 11 seconds Number of Spot Images: 12 Number of Cine: 17 DOSE AREA PRODUCT: 3470 uGy-m2 (microgray-meter squared) FL/FL barium swallow IMPRESSION: 1. Moderate cricopharyngeal achalasia. 2. Esophageal dysmotility. 3. Large paraesophageal hernia, in which the majority the fundus is located in the intrathoracic cavity. 4. Severe gastroesophageal reflux. 5. Mildly thickened gastric rugal folds likely representing gastritis. This procedure was performed by Rashawn Liao PA-C, and supervised by Dr. Michel
== END 2024-03-09 08:08 | disposition home or self-care (01) ==
LOC: HO.XRAY 08:07
PROVIDERS: PCP Internal Medicine; Visit Provider Nurse Practitioner
DX: R13.12 Dysphagia, oropharyngeal phase (principal); K44.9 Diaphragmatic hernia without obstruction or gangrene
CPT/HCPCS: 74220

== ENCOUNTER → 2024-03-09 08:08 | Outpatient (BNV) | payer MEDICARE, OTHER, SELFPAY | PROVIDERS: PCP Internal Medicine; Visit Provider Physician Assistant Surgical | DX: K44.9 Diaphragmatic hernia without obstruction or gangrene (principal); R13.12 Dysphagia, oropharyngeal phase | CPT/HCPCS: 74246 ==

== ENCOUNTER 2024-03-20 07:43 | Outpatient (AMB) | payer OTHER, MEDICARE, SELFPAY ==
--- NOTE | 2024-03-20 07:49 | A.OFFVIS_ITS ---
VS Expanded 03/20/24 08:01 BP 134/71 Blood Pressure Location Rt brachial Blood Pressure Position Sitting Pulse 70 Pulse Source Pulse Oximeter Temp 95.7 F L Temperature Source Tympanic Pulse Oximetry 96 Oxygen Delivery Method Room Air Height 5 ft 7 in Weight 172 lb 12.8 oz BMI 27.1 Body Fat % 40.5 Body Fat Mass 69.8 Fat Free Mass 69.8 Visceral Fat Rating 10.0 Body Water % 42.0 Body Water Mass 72.6 Muscle Mass/Score 97.4 Basal Metabolic Rate/Score 1,413 Intake Visit Reasons: (OV) Paraesophageal Hernia - Alex LAGUNAS Ref. Allergies codeine [CODEINE] Allergy (Unknown, Verified 03/20/24 10:48) migraines doxycycline [DOXYCYCLINE] Allergy (Unknown, Verified 03/20/24 10:48) anaphylaxis, swelling, redness environmental allergies Adverse Reaction (Intermediate, Verified 03/20/24 10:48) Wheezing Medication List - Last Reconciled 03/20/24 by Alexandre Quezada MD acetaminophen ER (Arthritis Pain Reliever) 650 mg PO Q12H bisacodyl (Dulcolax (bisacodyl)) 10 mg (2 x 5 mg) PO BEDTIME 2 days cetirizine (Zyrtec) 10 mg PO DAILY PRN dicyclomine 10 mg PO QID famotidine (Pepcid) 40 mg PO BEDTIME ibuprofen 800 mg PO Q8H 30 days levothyroxine 75 mcg PO DAILY 90 days sumatriptan succinate 50 mg PO HPI Comments Details: Has known diaphragmatic hernia with persistent breakthrough GERD despite use of H2 blockers Recent UGI shows a large diaphragmatic hernia with severe GERD PFSH Medical History (Updated 03/20/24 @ 10:51 by Alexandre Quezada MD) Overweight Hypothyroidism Pre-op examination Acute diarrhea Skin lesion of scalp Wrist pain Screening mammogram, encounter for Screening due Presence of surgical screw in left hand Chronic GERD Headache Surgical History History of surgery on left wrist H/O squamous cell carcinoma excision H/O kyphoplasty History of appendectomy S/P laparoscopic surgery S/P left knee arthroscopy Family History Father No problems noted. Mother No problems noted. Social History Housing: House Alcohol intake: never Patient Tobacco Use Status: Never used Tobacco e-Cigarette/Vaping Use: Never Used Second Hand Smoke Exposure: No service: No Current occupational status: disabled Cognitive needs: Yes (cane) Hearing needs: No Vision needs: Yes (glasses) Physical Exam Vital Signs: Last Vital Signs Temp 95.7 F L 03/20/24 08:01 Pulse 70 03/20/24 08:01 BP 134/71 03/20/24 08:01 Pulse Ox 96 03/20/24 08:01 Oxygen Delivery Method Room Air 03/20/24 08:01 BMI result Body Mass Index 27.1 GI Inspection: Yes normal to inspection (android body habitus) and Yes incision (well healed) Palpation (GI): Soft to palpation Extrem Right lower extremity: normal to inspection Left lower extremity: normal to inspection Assessment & Plan Assessment & Plan (1) Paraesophageal hernia: Code(s): K44.9 - Diaphragmatic hernia without obstruction or gangrene Category: Medical Plan: 1. We discussed the potential etiology of the hernia that could be of traumatic etiology worsened by her weight. We discussed the details of the diaphragmatic hernia repair and the potential technical challenges such as being able to achieve enough mobilization of the esophagus back in the abdomen and being able to close the diaphragmatic muscle (crura) primarily with sutures. We also discussed the possibility of using a biologic mesh to close the hernia defect if the crura cannot be adequately re-approximated primarily with sutures. We also discussed the option of doing a gastropexy or a fundoplication to prevent postoperative reflux and prevent hernia recurrence. As we discussed, I favor the gastropexy as the fundoplication can cause several distrurbing symptoms such as gas-bloating, flatulence, inability to burp which can be bothersome to patients especially for her with a history of IBS. Also we discussed the complexity of a potential hernia recurrence in association with a hernia recurrence. She was in agreement not to have a fundoplication. Orders: Orders ECG 12 lead EKG Today K44.9 - Diaphragmatic hernia without obstruction or gangrene
[2024-03-20 08:01] VITALS: BP 134/71; PULSE 70; TEMP 35.4; O2SAT 96; BMI 27.1
== END 2024-03-20 10:53 | disposition home or self-care (01) ==
PROVIDERS: PCP Internal Medicine; Visit Provider Surgery
DX: K44.9 Diaphragmatic hernia without obstruction or gangrene (principal)
CPT/HCPCS: 99204

== ENCOUNTER → 2024-03-20 07:43 | Outpatient (BNVA) | payer OTHER, SELFPAY | PROVIDERS: PCP Internal Medicine; Visit Provider Surgery | DX: K44.9 Diaphragmatic hernia without obstruction or gangrene (principal) | CPT/HCPCS: 99202 ==

== ENCOUNTER → 2024-03-23 08:28 | Outpatient (REF) | payer OTHER, SELFPAY ==
--- NOTE | 2024-03-23 08:34 | ECG_ITS ---
Test Reason : preop hernia Blood Pressure : / mmHG Vent. Rate : 065 BPM Atrial Rate : 065 BPM P-R Int : 138 ms QRS Dur : 080 ms QT Int : 404 ms P-R-T Axes : 062 038 044 degrees QTc Int : 420 ms Normal sinus rhythm Normal ECG When compared with ECG of 08-DEC-2016 01:16, No significant change was found Referred By: Alexandre Quezada Electronically Signed By:Stephen Skinner
== END ==
LOC: HO.CARD 08:28
PROVIDERS: PCP Internal Medicine; Visit Provider Surgery
DX: K44.9 Diaphragmatic hernia without obstruction or gangrene (principal)
CPT/HCPCS: 93005

== ENCOUNTER → 2024-03-23 08:34 | Outpatient (BNV) | payer MEDICARE, OTHER, SELFPAY | PROVIDERS: PCP Internal Medicine; Visit Provider Internal Medicine Cardiovascular Disease | DX: Z01.818 Encounter for other preprocedural examination (principal) | CPT/HCPCS: 93010 ==

== ENCOUNTER 2024-03-25 10:12 | Day surgery (SDC) | payer OTHER, MEDICARE, SELFPAY ==
--- NOTE | 2024-03-24 13:16 | HO.ANESPROP2 ---
HPI - Anesthesia Eval Consult details Narrative: 64yo F for Upper Endoscopy PMF Active Problems Active Problems: All Active Problems Overweight (Acute) Multiple environmental allergies (Acute) Multiple food allergies (Acute) Paraesophageal hernia (Acute) IBS (irritable bowel syndrome) (Acute) Erosive esophagitis (Acute) Hypothyroidism (Acute) Hand weakness (Acute) COVID-19 (Acute) Cough (Acute) Hernia, paraesophageal (Acute) Oropharyngeal dysphagia (Acute) Chronic GERD (Acute) Right wrist pain (Acute) Arthritis (Acute) Headache (Acute) Hyperlipidemia (Acute) Past Medical History Medical History Overweight Hypothyroidism Pre-op examination Acute diarrhea Skin lesion of scalp Wrist pain Screening mammogram, encounter for Screening due Presence of surgical screw in left hand Chronic GERD Headache Family History Family History Father No problems noted. Mother No problems noted. Surgical History Surgical History History of surgery on left wrist H/O squamous cell carcinoma excision H/O kyphoplasty History of appendectomy S/P laparoscopic surgery S/P left knee arthroscopy Social History Social History Housing: House Alcohol intake: never Patient Tobacco Use Status: Never used Tobacco e-Cigarette/Vaping Use: Never Used Second Hand Smoke Exposure: No service: No Current occupational status: disabled Cognitive needs: Yes (cane) Hearing needs: No Vision needs: Yes (glasses) Meds Allergies Allergy/AdvReac Type Severity Reaction Status Date / Time codeine [CODEINE] Allergy Unknown migraines Verified 03/20/24 10:48 doxycycline [DOXYCYCLINE] Allergy Unknown anaphylaxis, Verified 03/20/24 10:48 swelling, redness environmental allergies AdvReac Intermediate Wheezing Verified 03/20/24 10:48 Home Medications ?Medication ?Instructions ?Recorded ?Confirmed ?Last Taken ?Type acetaminophen 650 mg 650 mg PO Q12H 05/02/21 03/20/24 Unknown History tablet,extended release (Arthritis Pain Reliever) sumatriptan succinate 50 mg tablet 50 mg PO 05/21/23 03/20/24 Unknown History cetirizine 10 mg capsule (Zyrtec) 10 mg PO DAILY PRN Acid Reflux 11/19/23 03/25/24 03/24/24 History pantoprazole 40 mg tablet,delayed 40 mg PO BID 03/25/24 03/25/24 03/25/24 History release Assessment and Plan Assessment Anesthesia Assessment: Chart Reviewed
[2024-03-25 10:26] VITALS: BMI 26.8
[2024-03-25 10:51] VITALS: BP 109/57; PULSE 74; RESP 16; TEMP 36.1; O2SAT 95
[2024-03-25] MEDS: Lactated Ringers 1,000 ML 100 ML IVCONT (10:51)
--- NOTE | 2024-03-25 12:48 | P.CONAN_ITS ---
[facility] Active Problems Active Problems: All Active Problems Overweight (Acute) Multiple environmental allergies (Acute) Multiple food allergies (Acute) Paraesophageal hernia (Acute) IBS (irritable bowel syndrome) (Acute) Erosive esophagitis (Acute) Hypothyroidism (Acute) Hand weakness (Acute) COVID-19 (Acute) Cough (Acute) Hernia, paraesophageal (Acute) Oropharyngeal dysphagia (Acute) Chronic GERD (Acute) Right wrist pain (Acute) Arthritis (Acute) Headache (Acute) Hyperlipidemia (Acute) Past Medical History Medical History Overweight Hypothyroidism Pre-op examination Acute diarrhea Skin lesion of scalp Wrist pain Screening mammogram, encounter for Screening due Presence of surgical screw in left hand Chronic GERD Headache Functional capacity: independent ambulation Patient : No Family History Family History Father No problems noted. Mother No problems noted. Family history of problems with anesthesia: No Surgical History Surgical History History of surgery on left wrist H/O squamous cell carcinoma excision H/O kyphoplasty History of appendectomy S/P laparoscopic surgery S/P left knee arthroscopy History of Problems with Anesthesia: No Social History Social History Housing: House Alcohol intake: never Patient Tobacco Use Status: Never used Tobacco e-Cigarette/Vaping Use: Never Used Second Hand Smoke Exposure: No Use of substances other than those prescribed or required for medical reasons: No Are you DNR?: No Advance Directives: No Advance Directives Information Provided: Yes service: No Current occupational status: disabled Cognitive needs: Yes (cane) Hearing needs: No Vision needs: Yes (glasses) Meds Allergies Allergy/AdvReac Type Severity Reaction Status Date / Time codeine [CODEINE] Allergy Unknown migraines Verified 03/20/24 10:48 doxycycline [DOXYCYCLINE] Allergy Unknown anaphylaxis, Verified 03/20/24 10:48 swelling, redness environmental allergies AdvReac Intermediate Wheezing Verified 03/20/24 10:48 Active Medications: Current Medications Lactated Ringer's (Lr) 1,000 mls @ 100 mls/hr IVCONT .Q10H GEN Last Admin: 05/22/24 10:51 Dose: 100 mls/hr Home Medications ?Medication ?Instructions ?Recorded ?Confirmed ?Last Taken ?Type acetaminophen 650 mg 650 mg PO Q12H 05/02/21 03/20/24 Unknown History tablet,extended release (Arthritis Pain Reliever) sumatriptan succinate 50 mg tablet 50 mg PO 05/21/23 03/20/24 Unknown History cetirizine 10 mg capsule (Zyrtec) 10 mg PO DAILY PRN Acid Reflux 11/19/23 03/25/24 03/24/24 History pantoprazole 40 mg tablet,delayed 40 mg PO BID 03/25/24 03/25/24 03/25/24 History release Exam Height,Weight and Vital Signs: Height 5 ft 7 in Weight 77.564 kg Last Vital Signs Temp 96.9 F 03/25/24 10:51 Pulse 74 03/25/24 10:51 Resp 16 03/25/24 10:51 BP 109/57 L 03/25/24 10:51 Pulse Ox 95 03/25/24 10:51 O2 Del Method Room Air 03/25/24 10:51 Narrative Narrative: severe overbite Airway Mallampati Class: II TM Dist: >3cm Neck ROM: Full Heart: RRR Lungs: CTA Assessment and Plan Assessment Anesthesia Assessment: Anesthesia Plan Discussed Final Anesthetic Review Family History of Problems with Anesthesia: No History of Problems with Anesthesia: No NPO: Yes ASA Class: II Final Preanesthetic Review: Meds/Allgs Chart Reviewed, Consent Obtained/Reviewed and Anes Risks/Benef Reviewed Patient Risk: Intermediate Procedure Risk: Low Anesthetic Plan Anesthetic Plan: MAC: Disposition: Standard PACU
--- NOTE | 2024-03-25 13:24 | P.BOP_ITS ---
Brief Operative Note Date of Service: 03/25/24 Pre-op diagnosis: GERD and diaphragmatic hernia Post-op diagnosis: same Procedure: PROCEDURE DATE: 03/25/2024 PREOPERATIVE DIAGNOSIS: GERD and large diaphragmatic hernia POSTOPERATIVE DIAGNOSIS: ?Same as above. 1) giant sliding diaphragmatic hernia PROCEDURE: [id number] with biopsies Surgeon: ?Moise Quezada M.D.. Ph.D. Bindery Machine Feeder Offbearer: None ? Anesthesia: IV sedation Estimated blood loss: ?Minimal FINDINGS AND PROCEDURE: ? OPERATIVE INDICATIONS: ?The patient is a 64 year old female known to me who was referred to me for a known large diaphragmatic hernia. The patient has severe GERD and is unable to discontinue PPIs.. Based on this information I recommended an upper endoscopy to evaluate the patient's symptoms. Risks and complications of the surgery were discussed with the patient in advance particularly the possibility of perforation or bleeding that may require surgical intervention. The patient understood the risks and was in agreement with the plan. ? PROCEDURE: After informed consent was obtained by the patient, the patient was ?transferred to the Operating Room and was placed in the supine position.? After successful induction of IV sedation, a mouth block was inserted and the patient was placed in the left lateral decubitus position. An upper endoscopy was performed next, the oropharynx and esophagus appeared within the normal limits. There was a giant hiatal hernia of sliding type (GE junction at 34cm and crura at 46cm from incisors). The z-line was smooth. Two biopsies were obtained from the distal esophagus 2-3 cm proximal to the GE junction and two additional biopsies from the GE junction. The stomach was entered and it appeared to be of normal size. There was no gastritis. There was no stricture or ulcer. A biopsy was obtained from the gastric fundus andl antrum. No significant bleeding was noted from any of the biopsy sites. The scope was then advanced into the duodenum which appeared to be normal as well. Retroflexion of the scope confirmed the large diaphragmatic hernia. At that point the duodenum ?and the stomach were decompressed and the scope was withdrawn from the patient's mouth. The patient extubated and was transferred in stable condition to the Recovery Room for further care. I was present and performed all steps of the procedure. There were no residents to assist with this case. Moise Quezada M.D., Ph.D. Surgeon: Alexandre Quezada MD Anesthesia: MAC Was an Bindery Machine Feeder Offbearer used for this Procedure?: No Estimated blood loss (mL): 0 IV fluids (mL): 400 Urine output (mL): 0 (No Rose to record output) Pathology: other (1) antrum x1, 2) fundus x1, 3) GE junction x2, 4) distal esophagus x2) Condition: stable Disposition: PACU
[2024-03-25 13:55] VITALS: BP 104/55; PULSE 79; RESP 12; TEMP 36.6; O2SAT 98
[2024-03-25 14:10] VITALS: BP 119/65; PULSE 75; RESP 16; O2SAT 97
[2024-03-25 14:25] VITALS: BP 121/66; PULSE 67; RESP 18; TEMP 36.6; O2SAT 98
--- NOTE | 2024-03-25 16:52 | HO.POSTANES ---
Post Anesthesia Evaluation Post Anesthesia Evaluation Date of Service: 03/25/24 Vital Signs: Vital Signs Temp Pulse Resp BP Pulse Ox O2 Del Method O2 Flow Rate 03/25/24 14:25 98 F 67 18 121/66 98 Room Air 03/25/24 14:10 75 16 119/65 97 Room Air 03/25/24 13:55 98 F 79 12 104/55 L 98 Nasal Cannula 3 03/25/24 10:51 96.9 F 74 16 109/57 L 95 Room Air Anesthesia: Monitored Mental Status: Awake Pain Control: Satisfactory Nausea/Vomiting: None Hydration: Adequate Anesthesia-Related Issues: No Anes. Related Issues
== END 2024-03-25 15:19 | disposition home or self-care (01) ==
PROVIDERS: PCP Internal Medicine; Visit Provider Surgery
PROC: 0DJ08ZZ Inspection of Upper Intestinal Tract, Via Natural or Artificial Opening Endoscopic (ICD-10-PCS; CPT 43235; principal; 2024-03-25 13:20)
DX: K44.9 Diaphragmatic hernia without obstruction or gangrene (principal); K21.9 Gastro-esophageal reflux disease without esophagitis; K29.50 Unspecified chronic gastritis without bleeding; E78.5 Hyperlipidemia, unspecified; E03.9 Hypothyroidism, unspecified; K58.9 Irritable bowel syndrome, unspecified; Z91.09 Other allergy status, other than to drugs and biological substances; Z91.018 Allergy to other foods; Z79.899 Other long term (current) drug therapy
CPT/HCPCS: 43239; 88305; 88313; 88342; J2704

== ENCOUNTER → 2024-03-25 10:12 | Outpatient (BNV) | payer MEDICARE, OTHER, SELFPAY | PROVIDERS: PCP Internal Medicine; Visit Provider Surgery | DX: K44.0 Diaphragmatic hernia with obstruction, without gangrene (principal) | CPT/HCPCS: 43239 ==

== ENCOUNTER 2024-04-26 18:15 | Outpatient (REF) | payer OTHER, MEDICARE, SELFPAY ==
[2024-04-27 14:24] LABS: CDiff Gene PCR NEGATIVE (Negative)
[2024-04-27 14:34] LABS: Adenovirus F 40/41 Not Detected (Not Detect.); Astrovirus Not Detected (Not Detect.); Campylobacter Not Detected (Not Detect.); Cryptosporidium Not Detected (Not Detect.); Cyclospora cayetanensis Not Detected (Not Detect.); E. coli EAEC Not Detected (Not Detect.); E. coli EPEC Not Detected (Not Detect.); E. coli ETEC Not Detected (Not Detect.); E. coli STEC Not Detected (Not Detect.); Entamoeba histolytica Not Detected (Not Detect.); Giardia lamblia Not Detected (Not Detect.); Norovirus GI/GII Not Detected (Not Detect.); Plesiomonas shigelloides Not Detected (Not Detect.); Rotavirus A Not Detected (Not Detect.); Salmonella Not Detected (Not Detect.); Sapovirus Not Detected (Not Detect.); Shigella sp./EIEC Not Detected (Not Detect.); Vibrio Not Detected (Not Detect.); Vibrio Cholerae Not Detected (Not Detect.); Yersinia enterocolitica Not Detected (Not Detect.)
== END 2024-04-26 18:16 | disposition home or self-care (01) ==
LOC: HO.LNP 18:15
PROVIDERS: Visit Provider Nurse Practitioner
DX: R19.7 Diarrhea, unspecified (principal)
CPT/HCPCS: 87493; 87507

== ENCOUNTER 2024-04-27 08:42 | Outpatient (AMB) | payer OTHER, MEDICARE, SELFPAY ==
[2024-04-27 20:09] VITALS: BMI 25.6
--- NOTE | 2024-04-27 20:09 | A.OFFVIS_ITS ---
VS Expanded 04/27/24 20:09 Height 5 ft 7 in Weight 163 lb 6 oz BMI 25.6 Body Fat % 33.6 Body Fat Mass 54.9 Fat Free Mass 108.6 Visceral Fat Rating 9 Body Water % 45.6 Body Water Mass 74.6 Basal Metabolic Rate/Score 1,439 Intake Visit Reasons: TV Pre Op Diaphragmatic Hernia 04/28/24 Allergies codeine [CODEINE] Allergy (Unknown, Verified 04/27/24 20:16) migraines doxycycline [DOXYCYCLINE] Allergy (Unknown, Verified 04/27/24 20:16) anaphylaxis, swelling, redness environmental allergies Adverse Reaction (Intermediate, Verified 04/27/24 20:16) Wheezing Medication List - Last Reconciled 04/27/24 by Alexandre Quezada MD acetaminophen ER (Arthritis Pain Reliever) 650 mg PO Q12H bisacodyl (Dulcolax (bisacodyl)) 10 mg (2 x 5 mg) PO BEDTIME 2 days cetirizine (Zyrtec) 10 mg PO DAILY PRN dicyclomine 10 mg PO QID famotidine (Pepcid) 40 mg PO BEDTIME ibuprofen 800 mg PO Q8H 30 days levothyroxine 75 mcg PO DAILY 90 days ondansetron 4 mg PO Q12H pantoprazole 40 mg PO BID pantoprazole 40 mg PO DAILY polyethylene glycol 3350 17 grams PO DAILY sucralfate 10 mL PO BID sumatriptan succinate 50 mg PO HPI HPI TV Pre Op Diaphragmatic Hernia 04/28/24: Details: Start time: 3pm, End time: 3.30pm ?I spent 25 minutes speaking with the patient on the phone plus an additional 5 minutes reviewing and updating records for a total of 30 minutes HPI Comments Details: Has been able to lose 9.2lbs or 5.3% TBWL in the program Is doing one Pure protein shake (1/2 scoop in water), 2 Zone Perfect protein bars and one meal (5 forks of protein and 5 forks of salad or vegetables) Exercise: walking for 400 calories, 5 days per week PFSH Medical History Overweight Hypothyroidism Pre-op examination Acute diarrhea Skin lesion of scalp Wrist pain Screening mammogram, encounter for Screening due Presence of surgical screw in left hand Chronic GERD Headache Surgical History History of surgery on left wrist H/O squamous cell carcinoma excision H/O kyphoplasty History of appendectomy S/P laparoscopic surgery S/P left knee arthroscopy Family History Father No problems noted. Mother No problems noted. Social History Housing: House Alcohol intake: never Patient Tobacco Use Status: Never used Tobacco e-Cigarette/Vaping Use: Never Used Second Hand Smoke Exposure: No service: No Current occupational status: disabled Cognitive needs: Yes (cane) Hearing needs: No Vision needs: Yes (glasses) Telehealth Telehealth Telehealth Platform: Telephone Location of provider rendering services: practice address Location of patient: address on file Patient Identification confirmed using: Name, : Yes Telehealth method: voice only Patient verbally consented to treatment: Yes Patient verbally consented to billing insurance company: Yes Patient informed of any privacy concerns related to visit: Yes Minutes spent on Phone/Video with Pt.: 30 Assessment & Plan Assessment & Plan (1) Hernia, paraesophageal: Comment: Moderate sliding hiatal hernia that at times becomes paraesophageal Code(s): K44.9 - Diaphragmatic hernia without obstruction or gangrene Category: Medical Plan: 1. We discussed the potential etiology of the hernia that could be of traumatic etiology worsened by his weight. We discussed the details of the diaphragmatic hernia repair and the potential technical challenges such as being able to achieve enough mobilization of the esophagus back in the abdomen and being able to close the diaphragmatic muscle (crura) primarily with sutures. We also discussed the possibility of using a biologic mesh to close the hernia defect if the crura cannot be adequately re-approximated primarily with sutures. We also discussed the option of doing a gastropexy or a fundoplication to prevent postoperative reflux and prevent hernia recurrence. As we discussed, I favor the gastropexy as the fundoplication can cause several distrurbing symptoms such as gas-bloating, flatulence, inability to burp which can be bothersome to patients. Also we discussed the complexity of a potential hernia recurrence in association with a hernia recurrence. She was in agreement not to have a fundoplication. 2. Preop prescriptions were provided and explained the purpose of each one. Need to be purchased preop. Start Pantoprazole now as you get it from the pharmacy, 1 pill per day. Sucralfate and Zofran are for after surgery as needed. 3. Bowel prep: please do 7 packets ?of Miralax mixing each one with a an 8oz glass of water, crystal light, gatorade zero, or propel ?on 05/16/21 and the same amount on 05/17/21. The Miralax you begin with one packet at a time in 8oz water or crystal light, gatorade zero, or propel ?as early in the day as you can and you do them back to back until you finish them. Continue the protein shakes during ?the bowel prep. 4. Needs to purchase 1oz medicine cups . 5. Needs to purchase Children's liquid Tylenol for postop pain control. 6. She needs to stop all the vitamins on 05/09/21. Avoid aspirin, motrin, Advil, Aleve, Ibuprofen, Naproxyn. Tylenol is OK. 7. She needs to purchase the Celebrate 4:1 protein shakes from the hospital's gift shop. 8. Will do basic preop blood work-up any day between Saturday10/08/22 and Saturday10/12/22 fasting for 12 hours and is scheduled to see the Anesthesiologist prior to the day of surgery. 9. Importance of adherence to postop folllow-up and recommendations was underscored and she understands that. 10. Stop food and bars as of tomorrow and continue with 4 premade Pure protein shakes (1/2 bottle each mixed with 4oz almond milk) at 9am-11am, 12pm-2pm, 3pm- 5pm, 6pm-8pm and at 9pm-11pm 11. No soups, broths or V8 12. The patient's?medical?history has been reviewed and they are considered low risk for post op DVT and therefore DVT prophylaxis is not considered necessary. Travel after surgery was reviewed. The patient has not disclosed any travel plans during the first 30 days after surgery and they have been advised that within the first 30 days after surgery any bus, plane, train or car travel over 2 hours in duration is contraindicated due to the possibility of developing blood clots from immobility. Any travel, needs to include periods of ambulation of 10 minutes in duration every 2 hours.? Patient was instructed to discuss any plans for travel during this period with their bariatric surgeon.? 13. Please take at the day of surgery the following medications: NONE 14. Stop any hormone replacement and don't use them for one month after surgery 15. Absolutely no smoking or vaping, or marijuana until the surgery and for at least the first 4 weeks. Only nicotine patches are allowed. 16. Avoid any steroids by mouth for any reason. Let me know if someone prescribes them to you
== END 2024-04-27 20:25 | disposition home or self-care (01) ==
LOC: HO.HBS 08:42
PROVIDERS: PCP Internal Medicine; Visit Provider Surgery
DX: K44.9 Diaphragmatic hernia without obstruction or gangrene (principal)
CPT/HCPCS: 99499

== ENCOUNTER → 2024-04-27 08:42 | Outpatient (BNVA) | payer OTHER, MEDICARE, SELFPAY | PROVIDERS: PCP Internal Medicine; Visit Provider Surgery ==

== ENCOUNTER 2024-04-28 09:21 | Inpatient (IN) | payer OTHER, SELFPAY ==
[2024-04-25 09:33] LABS: MANUAL DIFF FLAG NO
[2024-04-25 09:51] LABS: Basophils Percent Auto 0.6 % (0-2); Eosinophils Absolute Auto 0.2 X10*3/uL (0.0-0.4); Eosinophils Percent Auto 3.3 % (0-4); Hemoglobin 13.5 g/dl (12.0-16.0); Imm Gran Abs Auto 0.01 X10*3/uL (0.00-0.03); Imm Gran Pct Auto 0.2 % (0.0-0.4); Lymphocytes Absolute Auto 1.8 X10*3/uL (1.2-4.9); Lymphocytes Percent Auto 33.9 % (20-40); Mean Corpuscular HGB Conc 32.1 g/dl (31.0-35.0); Mean Corpuscular Hemoglobin 30.1 pg (27.0-33.0); Mean Corpuscular Volume 93.5 fL (80.0-98.0); Mean Platelet Volume 10.2 fL (9.4-12.3); Monocytes Absolute Auto 0.4 X10*3/uL (0.1-1.2); Monocytes Percent Auto 7.4 % (2-11); Neutrophils Percent Auto 54.6 % (45-73); Platelet Count 274 X10*3/uL (160-400); Red Blood Count 4.49 X10*6/uL (4.20-5.50); Red Cell Distribution Width 13.6 % (11.0-16.0); White Blood Count 5.4 X10*3/uL (4.8-10.8)
[2024-04-25 09:57] LABS: Prothrombin Time 12.5 SEC (11.1-13.3)
[2024-04-25 09:59] LABS: Partial Thromboplastin Time 36.3 SEC (26.0-36.8)
[2024-04-25 10:48] LABS: Alanine Aminotransferase 9 U/L (0-31); Albumin Level 4.5 g/dL (3.5-5.0); Alkaline Phosphatase 80 U/L (39-117); Anion Gap 14 (12-20); Aspartate Amino Transferase 20 U/L (5-31); Bilirubin Total 0.8 mg/dL (0.0-1.0); Blood Urea Nitrogen 14 mg/dL (9-16); Calcium 10.1 mg/dL (8.4-10.2); Carbon Dioxide 23 mmol/L (22-29); Chloride 107 mmol/L (96-108); Cholesterol 231 mg/dL (<200); Estimated Glomerular Filt Rate > 60; Glucose Random 90 mg/dL (60-115); HDL Cholesterol 37 mg/dL (>40); LDL Cholesterol Calculated 162 mg/dL (<100); Potassium 3.9 mmol/L (3.3-5.1); Sodium 140 mmol/L (135-145); Total Protein 8.2 g/dL (6.5-8.0); Triglycerides 162 mg/dL (<150)
[2024-04-25 11:03] LABS: Thyroid Stimulating Hormone 3.06 uIU/mL (0.32-4.0)
--- NOTE | 2024-04-27 08:12 | HO.ANESPROP2 ---
Documented by User: Rose Mary Patel NP 04/27/24 08:14 HPI - Anesthesia Eval Consult details Narrative: 64yo F for Hernia Diaphragmatic Lap Reducible Repair s/p EGD 03/2024 with MAC PMF Active Problems Active Problems: All Active Problems Overweight (Acute) Multiple environmental allergies (Acute) Multiple food allergies (Acute) Paraesophageal hernia (Acute) IBS (irritable bowel syndrome) (Acute) Erosive esophagitis (Acute) Hypothyroidism (Acute) Hand weakness (Acute) COVID-19 (Acute) Cough (Acute) Hernia, paraesophageal (Acute) Oropharyngeal dysphagia (Acute) Chronic GERD (Acute) Right wrist pain (Acute) Arthritis (Acute) Headache (Acute) Hyperlipidemia (Acute) Past Medical History Medical History Overweight Hypothyroidism Pre-op examination Acute diarrhea Skin lesion of scalp Wrist pain Screening mammogram, encounter for Screening due Presence of surgical screw in left hand Chronic GERD Headache Family History Family History Father No problems noted. Mother No problems noted. Family history of problems with anesthesia: No Surgical History Surgical History History of surgery on left wrist H/O squamous cell carcinoma excision H/O kyphoplasty History of appendectomy S/P laparoscopic surgery S/P left knee arthroscopy History of Problems with Anesthesia: No Social History Social History Housing: House Alcohol intake: never Patient Tobacco Use Status: Never used Tobacco e-Cigarette/Vaping Use: Never Used Second Hand Smoke Exposure: No Use of substances other than those prescribed or required for medical reasons: No Are you DNR?: No Advance Directives: No Advance Directives Information Provided: No service: No Current occupational status: disabled Cognitive needs: Yes (cane) Hearing needs: No Vision needs: Yes (glasses) Meds Allergies Allergy/AdvReac Type Severity Reaction Status Date / Time codeine [CODEINE] Allergy Unknown migraines Verified 04/27/24 20:16 doxycycline [DOXYCYCLINE] Allergy Unknown anaphylaxis, Verified 04/27/24 20:16 swelling, redness environmental allergies AdvReac Intermediate Wheezing Verified 04/27/24 20:16 Home Medications ?Medication ?Instructions ?Recorded ?Confirmed ?Last Taken ?Type acetaminophen 650 mg 650 mg PO Q12H 05/02/21 04/27/24 Unknown History tablet,extended release (Arthritis Pain Reliever) sumatriptan succinate 50 mg tablet 50 mg PO DAILY PRN Headache 05/21/23 04/28/24 Unknown History cetirizine 10 mg capsule (Zyrtec) 10 mg PO DAILY PRN Acid Reflux 11/19/23 04/27/24 03/24/24 History famotidine 40 mg tablet (Pepcid) 40 mg PO BEDTIME PRN Acid Reflux 04/28/24 04/28/24 Unknown History Exam Pertinent Lab Results Pertinent Lab Results: Laboratory Tests 04/25/24 04/25/24 09:23 09:32 WBC 5.4 RBC 4.49 Hgb 13.5 Hct 42.0 MCV 93.5 MCH 30.1 MCHC 32.1 RDW 13.6 Plt Count 274 MPV 10.2 Immature Gran % (Auto) 0.2 Neut % (Auto) 54.6 Lymph % (Auto) 33.9 [place] % (Auto) 7.4 Eos % (Auto) 3.3 Baso % (Auto) 0.6 Lymph # (Auto) 1.8 [place] # (Auto) 0.4 Eos # (Auto) 0.2 Baso # (Auto) 0.0 Abs Immat Gran (auto) 0.01 Absolute Neuts (auto) 3.0 Absolute Nucleated RBC 0.000 Nucleated RBC % (auto) 0.0 PT 12.5 INR 1.0 APTT 36.3 Sodium 140 Potassium 3.9 Chloride 107 Carbon Dioxide 23 Anion Gap 14 BUN 14 Creatinine 0.77 Estim Creat Clear Calc TNP Estimated GFR > 60 Random Glucose 90 Calcium 10.1 Total Bilirubin 0.8 AST 20 ALT 9 Alkaline Phosphatase 80 Total Protein 8.2 H Albumin 4.5 Triglycerides 162 H Cholesterol 231 H LDL Cholesterol, Calc 162 H HDL Cholesterol 37 L TSH 3.06 Blood Type A Negative Antibody Screen NEGATIVE Narrative Narrative: EKG 03/2024 Vent. Rate : 065 BPM Atrial Rate : 065 BPM P-R Int : 138 ms QRS Dur : 080 ms QT Int : 404 ms P-R-T Axes : 062 038 044 degrees QTc Int : 420 ms Normal sinus rhythm Normal ECG When compared with ECG of 08-DEC-2016 01:16, No significant change was found Assessment and Plan Assessment Anesthesia Assessment: Chart Reviewed Final Anesthetic Review Family History of Problems with Anesthesia: No History of Problems with Anesthesia: No Documented by User: Cortney Cuello MD 04/28/24 12:59 [facility] Active Problems Active Problems: All Active Problems Overweight (Acute) Multiple environmental allergies (Acute) Multiple food allergies (Acute) Paraesophageal hernia (Acute) IBS (irritable bowel syndrome) (Acute) Erosive esophagitis (Acute) Hypothyroidism (Acute) Hand weakness (Acute) Cough (Acute) and dry itchy throat from allergies Hernia, paraesophageal (Acute) Oropharyngeal dysphagia (Acute) Chronic GERD (Acute) Right wrist pain (Acute) Arthritis (Acute) Headache (Acute) Hyperlipidemia (Acute) Past Medical History Medical History Overweight Hypothyroidism Pre-op examination Acute diarrhea Skin lesion of scalp Wrist pain Screening mammogram, encounter for Screening due Presence of surgical screw in left hand Chronic GERD Headache Family History Family History Father No problems noted. Mother No problems noted. Family history of problems with anesthesia: No Surgical History Surgical History History of surgery on left wrist H/O squamous cell carcinoma excision H/O kyphoplasty History of appendectomy S/P laparoscopic surgery S/P left knee arthroscopy History of Problems with Anesthesia: No Social History Social History Housing: House Alcohol intake: never Patient Tobacco Use Status: Never used Tobacco e-Cigarette/Vaping Use: Never Used Second Hand Smoke Exposure: No Use of substances other than those prescribed or required for medical reasons: No Are you DNR?: No Advance Directives: No Advance Directives Information Provided: No service: No Current occupational status: disabled Cognitive needs: Yes (cane) Hearing needs: No Vision needs: Yes (glasses) Meds Allergies Allergy/AdvReac Type Severity Reaction Status Date / Time codeine [CODEINE] Allergy Unknown migraines Verified 04/27/24 20:16 doxycycline [DOXYCYCLINE] Allergy Unknown anaphylaxis, Verified 04/27/24 20:16 swelling, redness environmental allergies AdvReac Intermediate Wheezing Verified 04/27/24 20:16 Home Medications ?Medication ?Instructions ?Recorded ?Confirmed ?Last Taken ?Type acetaminophen 650 mg 650 mg PO Q12H 05/02/21 04/27/24 Unknown History tablet,extended release (Arthritis Pain Reliever) sumatriptan succinate 50 mg tablet 50 mg PO DAILY PRN Headache 05/21/23 04/28/24 Unknown History cetirizine 10 mg capsule (Zyrtec) 10 mg PO DAILY PRN Acid Reflux 11/19/23 04/27/24 03/24/24 History famotidine 40 mg tablet (Pepcid) 40 mg PO BEDTIME PRN Acid Reflux 04/28/24 04/28/24 Unknown History Exam Height,Weight and Vital Signs: Height 5 ft 7 in Weight 73.936 kg Vital Signs Temp Pulse Resp BP Pulse Ox O2 Del Method 04/28/24 09:27 97.5 F 77 16 106/64 94 Room Air Airway Mallampati Class: II (Significant overbite) Neck ROM: Full Loose/Missing/Broken Teeth: No (Denies broken, loose, missing teeth) Heart: RRR Lungs: CTAB Assessment and Plan Assessment Anesthesia Assessment: Anesthesia Plan Discussed and Chart Reviewed Final Anesthetic Review Family History of Problems with Anesthesia: No History of Problems with Anesthesia: No NPO: Yes ASA Class: II Final Preanesthetic Review: No Changes in Pt Med Stat, Meds/Allgs Chart Reviewed, Consent Obtained/Reviewed and Anes Risks/Benef Reviewed Patient Risk: Intermediate Procedure Risk: Intermediate Assessment/Block/Sedation in SS: Assess/Block/Sedation-SS Anesthetic Plan Anesthetic Plan: GA Disposition: Standard PACU and Inp. Admit - Standard Bed
[2024-04-28] VITALS (11 sets, daily range): BP systolic 106–133; BP diastolic 56–72; PULSE 68–84; RESP 12–20; TEMP 36.2–36.9; O2SAT 94–98; BMI 25.5
[2024-04-28] MEDS: Aprepitant 32 MG/4.4 ML VIAL IVPUSH (09:45)
[2024-04-28] MEDS: Lactated Ringers 1,000 ML 999 ML IV (09:45)
[2024-04-28] MEDS: Lactated Ringers 1,000 ML 100 ML IVCONT ×2 (09:45→15:21)
--- NOTE | 2024-04-28 11:03 | MHC.SHP ---
Pre-Procedural Eval Section A - 24 Hr Update-Section A only Date of Service: 04/28/24 The patient is an INPATIENT: Yes Changes since office visit: Yes Cold of Flu in the past 2 weeks Section B - Complete if H&P > 30 days Chief Complaint: Diaphragmatic hernia Relevant Family History (Specify if Yes): No Relevant Social History: None Present Medications: None Medical History: No relevant PMH History of Previous Operations: No relevant previous surgery Allergies: Allergies Allergy/AdvReac Type Severity Reaction Status Date / Time codeine [CODEINE] Allergy Unknown migraines Verified 04/27/24 20:16 doxycycline [DOXYCYCLINE] Allergy Unknown anaphylaxis, Verified 04/27/24 20:16 swelling, redness environmental allergies AdvReac Intermediate Wheezing Verified 04/27/24 20:16 Review of Systems Sugical H&P ROS: Negative: Constitution, Cardiovascular, Respiratory, Neurological, Psychiatric, Hem-Onc, Allergic/Immunologic, Gastrointestinal, Genitourinary, Musculoskeletal, Integumentary, Endocrine and Eyes/Ears/Nose/Throat Exam Surgical H&P Exam: Normal: HEENT, Normal: Heart, Normal: Lungs, Normal: Extremities, Normal: Abdomen, Normal: Skin and Normal: Neurological Plan Diagnosis/Plan: Unchanged I have reviewed the history and physical and performed a pertinent physical examination on my patient. No changes have occurred unless specified. Time Spent With Patient Time: Total time managing care of this patient today ____ minutes.
--- NOTE | 2024-04-28 11:10 | P.BOP_ITS ---
Brief Operative Note Date of Service: 04/28/24 Pre-op diagnosis: Diaphragmatic hernia, esophagitis and GERD Post-op diagnosis: same Procedure: Date of Service: 04/28/2024 Pre-op diagnosis: Diaphragmatic hernia, GERD, esophagitis Post-op diagnosis: same Procedure: COMORBIDITIES: GERD, diaphragmatic hernia, hypothyroidism, migraines ?INDICATIONS: The patient is a 64 year old female who was referred to me from Dr. Dillard for a diaphragmatic hernia and GERD confirmed by EGD and UGI. The patient is scheduled today for diaphragmatic hernia repair. Risks of recurrent hernia, dysphagia, persistent GERD, VTE, leak, infection and bleeding were discussed with the patient and he is in agreement with the plan. PROCEDURE: Esophago-gastroscopy, excision of esophageal lymph node, laparoscopic repair of incarcerated diaphragmatic hernia and laparoscopic gastropexy DESCRIPTION OF PROCEDURE: After informed consent was obtained from the patient, the patient was given preoperative antibiotics, and was transferred to the operating room. After suc cessful induction of general anesthesia, pneumatic compression devices were placed on both lower extremities. An upper endoscopy was performed next. The oropharynx and esophagus appeared to be within normal limits. There was a diaphragmatic hernia present of moderate size consistent with the findings of the preoperative work-up. The stomach was entered. Then after all fluid and air were suctioned and the stomach was fully decompressed, the scope was withdrawn and secured in the mid esophagus. The patient was then prepped and draped in the usual sterile manner, and abdominal access was established at the right upper quadrant with the Lina technique. A 12 mm blunt port was inserted, and the abdomen was insufflated with CO2 to a pressure of 15 mmHg. Under direct visualization, additional ports were placed, specifically two 5 mm Versi-step ports to the left upper quadrant, and a 5 mm Versi-Step port to the right upper quadrant. 1% lidocaine plain was used to infiltrate all port sites as well as all fascia defects. Following that, the patient was placed in a steep reverse Trendelenburg position. An additional 5 mm port was placed to the right flank for the Mediflex retractor that was used to retract the left lobe of the liver. The gastro-esophageal fat pad was opened with the ultrasonic device (Thcarsonerbeopal, Olympus) and the anterior esophagus and hiatus were exposed. The angle of His was opened with the ultrasonic device the fundus of the stomach from any diaphragmatic and splenic attachments. I then opened the gastrocolic ligament between the transverse colon and the greater curvature of the stomach with the ultrasonic device to enter the lesser sac and facilitate the ligation of the short gastric vessels. I started at a mid-point along the greater curvature and using the Thunderbeat, all short gastric vessels were divided all the way to the angle of His until the left marie was completely dissected at its entirety. There was an obvious significant-sized hiatal hernia. I continued dissecting along the hiatus toward the left marie and the angle of His, I fully mobilized the fat pad that was incarcerated in the hernia. The fat pad was excised and was retrieved for pathologic examination. I then continued by dissecting even further into the posterior retro-esophageal space all the way to the angle of His. I continued to mobilize the esophagus into the mediastinum circumferentially. Both vagal nerves were seen and preserved. A lymph node was noted at the anterior surface of mid-thoracic esophagus, This was circumferentially dissected off the esophagus and was excised At that point, I was able to have 5 cm of esophagus into the abdomen.? After I completely mobilized the esophagus from both the left and right marie and I had a good mobilization of the esophagus circumferentially, I closed the hernia defect with five interrupted #0 Surgidac sutures using the Endo Stitch device, four of which were placed posterior and one of which anterior to the esophagus. ? A gastropexy was then performed in order to prevent postoperative GERD and partial gastric volvulus. Two interrupted 2.0 Surgidac sutures were placed between the greater curvature of the dissected stomach and the previously divided greater omentum and gastro-colic ligament using the Endo-Stitch device. ?An upper endoscopy was performed. There was no narrowing at the GE junction or any esophageal injury. The scope was easily advanced all the way to the pylorus which was clearly visualized. There was no narrowing anywhere. At that point the gastroscope was withdrawn from the patient?s mouth while we were decompressing the bowel and the stomach from any remaining air. I looked into the lesser sac to see how the stomach was situating and it was situating well. There was no bleeding from the, spleen, or short gastric vessels. The Mediflex retractor was removed, and the undersurface of the liver was inspected and there was no bleeding. The patient was placed in supine p osition. I closed the fascial defect of the 12 mm port site with a figure of eight #1 Polysorb suture. Then 30cc of Ropivacaine plain with 10 mg of Dexamethasone were used to infiltrate the fascial closure as well as all skin incisions. A total of 7ml of Zynrelef was applied in the Lina wound. At this point, the abdomen was deflated, all ports were removed under direct vision, and no bleeding was noted from any of the port sites. The skin incisions were irrigated with saline and were closed with 4-0 absorbable monofilament sutures. Steri-Strips and OpSites were used to cover all incisions. The patient was extubated and was transferred in stable condition to the recovery room for further care. I was present and performed all cano parts of the procedure. Mr. Camara was the mate first. There were no residents to assist with this case. Moise Quezada MD, PhD, FACS Surgeon: Alexandre Quezada MD Anesthesia: GETA, local and other (TAP block and 7ml Zynrelef) Was an Solar Site Assessment Specialist used for this Procedure?: No Solar Site Assessment Specialist: Laureano Camara Estimated blood loss (mL): 10 IV fluids (mL): 2,200 Urine output (mL): 0 (No Rose to record output) Pathology: other (1) thoracic esophageal lymph node, 2) gastro-esophageal fat pad with additional lymph node) Condition: stable Disposition: PACU
--- NOTE | 2024-04-28 11:13 | P.PNGS_ITS ---
Subjective Subjective Date of Service: 04/29/24 Interval history: Feels well. Mild incisional pain. She is tolerating phase 1 bariatric diet Physical Exam 2 Vital Signs: Vital Signs: Last Vital Signs Temp 97.5 F 04/28/24 09:27 Pulse 77 04/28/24 09:27 Resp 16 04/28/24 09:27 BP 106/64 04/28/24 09:27 Pulse Ox 94 04/28/24 09:27 O2 Del Method Room Air 04/28/24 09:27 BMI result Body Mass Index 25.5 GI: Inspection: Yes normal to inspection, Yes incision (clean, dry and intact) and Yes obesity Extrem: Right lower extremity: normal to inspection (no calf tenderness) L eft lower extremity: normal to inspection (no calf tenderness) Objective Data Active Medications Lactated Ringer's (Lr) 1,000 mls @ 100 mls/hr IVCONT .Q10H [facility] Last Admin: 04/28/24 09:45 Dose: 100 mls/hr Documented By: VALENTINO Lactated Ringer's (Lr) 1,000 mls @ 999 mls/hr IV .Q1H1M [facility] Stop: 04/28/24 11:30 Last Admin: 04/28/24 09:45 Dose: 999 mls/hr Documented By: VALENTINO Labs 04/29/24 05:19 04/29/24 05:19 Procedures Date of Service Date of Service: 04/29/24 Progress Note: A&P Assessment and plan (1) Chronic GERD: Status: Acute (2) Paraesophageal hernia: Status: Acute Assessment and Plan: s/p lysis of adhesions, excision of esophageal lymph node, diaphragmatic hernia repair and gastropexy Doing well Will check am labs and if OK the patient will be discharged home (3) Erosive esophagitis: Status: Acute (4) IBS (irritable bowel syndrome): Status: Acute (5) Hypothyroidism: Status: Acute (6) Arthritis: Status: Acute Time Spent With Patient Time: Total time managing care of this patient today ____ minutes. Quality Stroke Does the patient have a stroke diagnosis?: No VTE Prior VTE?: No VTE Risk Level:: Surgical - moderate VTE Device Contraindication: N/A - Device Ordered VTE Drug Contraindication: Treatment Not Indicated
--- NOTE | 2024-04-28 14:23 | PM.DS ---
DS: Providers Provider Date of Service: 04/29/24 Date of admission: 04/28/24 09:21 Primary care physician: Warner Sparks MD DS: Diagnosis Discharge Diagnosis (1) Chronic GERD: Status: Acute (2) Paraesophageal hernia: Status: Acute (3) Erosive esophagitis: Status: Acute (4) IBS (irritable bowel syndrome): Status: Acute (5) Hypothyroidism: Status: Acute (6) Arthritis: Status: Acute DS: Summary Hospital Course Hospital Course: ADMITTING DIAGNOSIS: diaphragmatic hernia, gerd, ? DISCHARGE DIAGNOSIS: same, s/p laparoscopic repair diaphragmatic hernia ? PAST SURGICAL HISTORY: kyphoplasty, appendectomy, left wrist surgery ? PROCEDURE: upper endoscopy, laparoscopic repair of diaphragmatic hernia hernia ? DISCHARGE SUMMARY: ? History of Present Illness: ? The patient is a?64 year-old woman with a known history of diaphragmatic hernia and gerd. The patient was electively scheduled for laparoscopic, possible open repair of her diaphragmatic hernia and gastropexy. Risks and complications of the surgery were discussed with the patient in advance, particularly the possibility of , pulmonary embolism, anastomotic leak, bleeding, bowel injury, GERD, cardiac, renal or pulmonary complications. The patient understood all the risks and was in agreement with the surgical plan. ? Hospital Course: ? The patient underwent an uneventful laparoscopic repair of diaphragmatic hernia on the day of admission. Postoperatively, the patient was transferred to the surgical floor. The patient received IV Acetaminophen and IV dilaudid for pain control. Patient was started on bariatric phase 1 diet POD #0. On postoperative day one, the patient was feeling well without nausea, vomiting, fevers, or tachycardia. The patient had some mild incisional pain and the abdomen was soft. ? On the morning of postoperative day one, the patient was continued on 1 ounce of water or ice every half hour. During the day, the patient did fairly well, having some incisional pain, but able to ambulate adequately and to tolerate liquids well. ? Since the patient is doing well, we decided that the patient was ready to be discharged. The patient was given instructions to follow-up with me next week and to call my office for any fever over 101, persistent abdominal pain, nausea, vomiting, GERD, symptoms of DVT such as calf tenderness, or leg swelling, or pulmonary embolism such as chest pain or shortness of breath. The patient was also instructed to drink 40-60 ounces of liquids per day using the 1-ounce cups. The patient had been given prescriptions for Tylenol for pain, Zofran prn for nausea, and pantoprazole and carafate previously. The patient was encouraged to ambulate and use the incentive spirometer. The patient was allowed to shower, but no baths, and encouraged to stay active at home. All of these instructions were given to the patient personally. All questions were answered and the patient understood all instructions, the instructions were also given to the patient in print. Time Attestation Total time managing care of this patient today: 25 mintues. Discharge Coordination Time (in mins): 25 Quality: Safe Use of Opioids Does Pt have an Active Cancer Diagnosis on the Problem List?: No Quality: Stroke Does the patient have a stroke diagnosis?: No Physical Exam Vital Signs: Vital Signs: Last Vital Signs Temp 98.5 F 04/28/24 14:14 Pulse 80 04/28/24 14:19 Resp 16 04/28/24 14:19 BP 121/66 04/28/24 14:19 Pulse Ox 94 04/28/24 14:19 O2 Del Method Nasal Cannula wit h Capnography 04/28/24 14:19 O2 Flow Rate 2 04/28/24 14:19 BMI result Body Mass Index 25.5 DS: Data Data Completed and Pending Pending studies at discharge: Pending at discharge 04/28/24 13:14 Surgical [PTH] Routine 04/28/24 14:13 Surgical [PTH] Routine Discharge Plan Discharge Anticipated Discharge Date/Time: 04/29/24 10:00 Patient Disposition: Home, Self-Care Discharge Diagnosis: s/p laparoscopic repair of diaphragmatic hernia Referrals: Warner Sparks MD [Primary Care Provider] - 1 Week Discharge Medications: Continued amitriptyline 10 mg tablet 10 mg PO BEDTIME PRN (Reason: Pain) pantoprazole 40 mg tablet,delayed release (DR/EC) 40 mg PO BID levothyroxine 75 mcg capsule 75 mcg PO DAILY@0600 sumatriptan succinate 50 mg tablet 50 mg PO DAILY PRN (Reason: Headache) Discontinued famotidine [Pepcid] 40 mg tablet 40 mg PO BEDTIME PRN (Reason: Acid Reflux) bisacodyl 5 mg Tablet,Delayed Release (Dr/Ec) 5 mg PO BEDTIME PRN (Reason: consitpation) acetaminophen [Arthritis Pain Reliever] 650 mg tablet extended release 650 mg PO Q12H PRN (Reason: Pain) Discharge Orders: Discharge Order (Routine); Ordered 04/29/24 Ordered By: Alexandre Quezada Activity on Discharge: No heavy lifting Stand Alone Forms: Patient Portal Discharge page Print Language: Kinyarwanda Care Plan Goals: improve gerd Health Concerns: gerd Plan of Treatment: No tub baths, sex or returning to work until discussed at first post op appointment. No exercise, alcohol, tobacco or illegal drug use. Continue to use incentive spirometer hourly while awake. Walk in home for 5- 10 minutes every 2 hours during the first week. Follow all instructions in the bariatric handbook and call with any questions.Discharge Instructions 1. Please call your doctor or come back to the emergency room should any new symptoms arise. 2. You will receive a courtesy call from [facility] 24-48 hours after discharge. 3. Activity: abstain from alcohol, practice limited stair climbing, no bending, no driving, no exercise, no illicit substances, no lifting, no sex, no tub bath, no work. 4. Diet: continue as discussed with Dr. Quezada. 5. Dressing Change/Wound Care: Your incision is covered by clear bandages and guaze underneath. If the area is tender, you may apply an ice pack for short intervals (no more than 20 minutes on, followed by at least 20 minutes off). Do not apply heat. Do not use creams, lotions, or topical antibiotics unless instructed to do so by your surgeon. These can cause infection or allergic reaction. 6. Call your doctor if: - Your temperature exceeds 101.5 F - You experience excessive pain or swelling - You have an unexpected reaction to medication - You have excessive bleeding - You experience continued vomiting/nausea - Your incision begins to separate - Your incision shows signs of infection such as increased redness, swelling, excessive pain, heat, or drainage (light blood or clear fluid is normal) 7. General instructions: No lifting greater than 5 lbs for 1 week and not more than 20lbs the next 3?weeks. No driving until seen at the office in 5-7 days after surgery. If you do not move your bowels in the next 2 days, please tell?Dr. Quezada. Please walk around your home every hour or two to prevent blood clots from forming in your legs. You do not need to wake from sleeping to walk. Please sleep in a bed or couch to prevent kinking at the hips and knees. Please take your incentive spirometer (your lung career guidance counselor) home with you and use it for the next few days to prevent pneumonia. You may shower, no hot tubs, baths or swimming pools.?Please follow the post op diet instructions you are?given by Dr Quezada? and text me daily at 5-6pm for an update.?If you have any issues or concerns or questions please communicate this to him via text.? The Celebrate shakes have all of the bariatric vitamins you need if you consume these shakes. If you are drinking other protein shakes, you will need to purchase the Celebrate multivitamins and calcium that are available in the hospital gift shop on the first floor of the main hospital.??Do not take anything without first discussing with Dr Quezada. Please make sure you are consuming at least 40 ounces of fluids per day starting the?day AFTER your discharge from the hospital. Always drink 1-2 ml per minute using the 5ml?syringe. If you drink faster you may experience?bloating,?gas pain, burping, nausea or heartburn. In that case please slow down your pace and use the syringe to?understand better the?proper?pace and volume of drinking. Do not hesitate to contact the office with any questions at . The patient's medical history has been reviewed and they are considered low risk for post op DVT and therefore DVT prophylaxis is not considered necessary. Travel after surgery was reviewed. The patient has not disclosed any travel plans during the first 30 days after surgery and they have been advised that within the first 30 days after surgery any bus, plane, train or car travel over 2 hours in duration is contraindicated due to the possibility of developing blood clots from immobility. Any travel, needs to include periods of ambulation of 10 minutes in duration every 2 hours.? The patient was instructed to discuss any plans for travel during this period with their bariatric surgeon. Assessment: stable s/p laparoscopic repair of diaphragmatic hernia Discharge Date/Time: 04/29/24 09:16
[2024-04-28 14:47] LABS: Hemoglobin 12.7 g/dl (12.0-16.0)
[2024-04-28 14:59] LABS: Anion Gap 16 (12-20); Blood Urea Nitrogen 15 mg/dL (9-16); Calcium 9.5 mg/dL (8.4-10.2); Carbon Dioxide 22 mmol/L (22-29); Chloride 106 mmol/L (96-108); Creatinine Clr Calc Pharmacy 76.5; Estimated Glomerular Filt Rate > 60; Glucose Random 120 mg/dL (60-115); Potassium 4.4 mmol/L (3.3-5.1); Sodium 140 mmol/L (135-145)
--- NOTE | 2024-04-28 16:06 | PHA.MEDREC ---
Pharmacy Consult ? Medication Reconciliation Pharmacy has completed the medication reconciliation. Confrimed medications with patient. She states she is taking pantoprazole bid and when asked shes been doing it for a while now.
[2024-04-28] MEDS: Metoclopramide HCl 10 MG/2 ML VIAL IVPUSH (17:06)
[2024-04-28] MEDS: ceFAZolin Sodium/Dextrose,Iso 2 GM/50 ML PIGGYBACK IV (17:10)
[2024-04-28] MEDS: Acetaminophen 1,000 MG/100 ML PIGGYBACK 16.7 MG IV (19:21)
[2024-04-28] MEDS: 0.9 % Sodium Chloride Flush 3 ML SYRINGE IVFLUSH (19:21)
[2024-04-28] MEDS: Famotidine/PF 20 MG/2 ML VIAL IVPUSH (19:21)
[2024-04-29] MEDS: Lactated Ringers 1,000 ML 100 ML IVCONT (01:13)
[2024-04-29] MEDS: Acetaminophen 1,000 MG/100 ML PIGGYBACK 16.7 MG IV (01:14)
[2024-04-29 03:16] VITALS: BP 110/61; PULSE 66; RESP 16; TEMP 36.1; O2SAT 94
[2024-04-29] MEDS: Levothyroxine Sodium 75 MCG TABLET PO (05:20)
[2024-04-29 05:53] LABS: MANUAL DIFF FLAG NO
[2024-04-29 06:16] LABS: Anion Gap 16 (12-20); Basophils Percent Auto 0.1 % (0-2); Blood Urea Nitrogen 11 mg/dL (9-16); Calcium 9.3 mg/dL (8.4-10.2); Carbon Dioxide 22 mmol/L (22-29); Chloride 105 mmol/L (96-108); Creatinine Clr Calc Pharmacy 81.8; Estimated Glomerular Filt Rate > 60; Glucose Random 107 mg/dL (60-115); Hematocrit 38.4 % (37.0-47.0); Hemoglobin 12.5 g/dl (12.0-16.0); Imm Gran Abs Auto 0.04 X10*3/uL (0.00-0.03); Imm Gran Pct Auto 0.4 % (0.0-0.4); Lymphocytes Absolute Auto 1.1 X10*3/uL (1.2-4.9); Lymphocytes Percent Auto 10.7 % (20-40); Mean Corpuscular HGB Conc 32.6 g/dl (31.0-35.0); Mean Corpuscular Hemoglobin 30.5 pg (27.0-33.0); Mean Corpuscular Volume 93.7 fL (80.0-98.0); Mean Platelet Volume 10.5 fL (9.4-12.3); Monocytes Absolute Auto 0.7 X10*3/uL (0.1-1.2); Monocytes Percent Auto 6.5 % (2-11); Neutrophils Absolute Auto 8.3 x10*3/uL (2.0-8.3); Neutrophils Percent Auto 82.3 % (45-73); Platelet Count 290 X10*3/uL (160-400); Potassium 4.1 mmol/L (3.3-5.1); Red Cell Distribution Width 13.3 % (11.0-16.0); Sodium 139 mmol/L (135-145); White Blood Count 10.1 X10*3/uL (4.8-10.8)
[2024-04-29] MEDS: Famotidine/PF 20 MG/2 ML VIAL IVPUSH (06:49)
[2024-04-29 07:05] VITALS: BP 117/56; PULSE 70; RESP 14; TEMP 36.2; O2SAT 96
--- NOTE | 2024-04-29 08:50 | MHC.CM.PN ---
CM ATTEMPTED TO MEET W/PT HOWEVER PT HAS DISCHARGED FROM HOSPITAL PRIOR TO CM ASSESSMENT.
--- NOTE | 2024-04-29 10:15 | HO.POSTANES ---
Post Anesthesia Evaluation Post Anesthesia Evaluation Date of Service: 04/28/24 Vital Signs: Vital Signs Temp Pulse Resp BP Pulse Ox O2 Del Method 04/29/24 07:05 97.2 F 70 14 117/56 L 96 Room Air 04/29/24 03:16 97.0 F 66 16 110/61 94 Room Air 04/28/24 23:51 97.2 F 68 16 117/69 95 Room Air Anesthesia: General Mental Status: Awake Pain Control: Satisfactory Nausea/Vomiting: None Anesthesia-Related Issues: No Anes. Related Issues
== END 2024-04-29 09:16 | disposition home or self-care (01) | DRG 328 ==
LOC: HO.SSSA 14:27 → HO.S3 14:41
PROVIDERS: Physician Assistant Surgical; Admitting Provider Surgery; PCP Internal Medicine; Visit Provider Surgery
PROC: 0BQT4ZZ Repair Diaphragm, Percutaneous Endoscopic Approach (ICD-10-PCS; CPT 43281; principal; 2024-04-28 12:10)
DX: K44.0 Diaphragmatic hernia with obstruction, without gangrene (principal); E03.9 Hypothyroidism, unspecified; K21.00 Gastro-esophageal reflux disease with esophagitis, without bleeding; G43.909 Migraine, unspecified, not intractable, without status migrainosus; Z79.890 Hormone replacement therapy; Z79.899 Other long term (current) drug therapy
CPT/HCPCS: 43281; 38570; 43659; 36415; 80048; 80053; 80061; 84443; 85014; 85018; 85025; 85610; 85730; 86850; 86900; 86901; 88304; 88305; 88341; 88342; 96361; 96365; 96366; 96367; 96375; 96376; C9088; C9145; J0131; J0690; J1100; J1170; J2250; J2405; J2704; J2765; J2795; J3010; J7120

== ENCOUNTER → 2024-04-28 09:21 | Outpatient (BNV) | payer MEDICARE, OTHER, SELFPAY | PROVIDERS: Admitting Provider Surgery; PCP Internal Medicine; Visit Provider Surgery | DX: K21.9 Gastro-esophageal reflux disease without esophagitis (principal); K44.9 Diaphragmatic hernia without obstruction or gangrene; K22.10 Ulcer of esophagus without bleeding; K58.9 Irritable bowel syndrome, unspecified; E03.9 Hypothyroidism, unspecified; M19.90 Unspecified osteoarthritis, unspecified site | CPT/HCPCS: 38570; 43281; 99024; 99499 ==

== ENCOUNTER 2024-05-04 12:46 | Outpatient (AMB) | payer OTHER, MEDICARE, SELFPAY ==
--- NOTE | 2024-05-04 12:50 | A.OFFVIS_ITS ---
VS Expanded 05/04/24 12:54 05/04/24 13:01 BP 121/66 Blood Pressure Location Rt brachial Blood Pressure Position Sitting Pulse 85 Pulse Source Pulse Oximeter Temp 96.1 F L Temperature Source Temporal Artery Scan Pulse Oximetry 96 Oxygen Delivery Method Room Air Height 5 ft 7 in Weight 168 lb 8 oz BMI 26.4 Intake Visit Reasons: (OV) s/p Diaphragmatic Hernia 04/28/24 Allergies codeine [CODEINE] Allergy (Unknown, Verified 05/04/24 12:55) migraines doxycycline [DOXYCYCLINE] Allergy (Unknown, Verified 05/04/24 12:55) anaphylaxis, swelling, redness environmental allergies Adverse Reaction (Intermediate, Verified 05/04/24 12:55) Wheezing HPI Comments Details: Patient is a pleasant 64-year-old female who returns to the office today in follow-up. She is status post significant diaphragmatic hernia repair performed on 04/28/2024. She states that she is having some lightheadedness first thing in the morning lasting 30-60 minutes with resolution after 1 hour. She feels somewhat weak as well. Weight is 168.8 pounds with a BMI of 26.4 Previously doing [employer] protein bar Drinking 48 oz daily Meal plan: 3 Pure protein RTD 4 oz mixed with 4 oz of almond milk at 830-1030, 1230-230, 430-630 Drinking 48 oz daily 0 PFSH Medical History (Updated 05/04/24 @ 00:02 by Amena Bynum) Hand weakness COVID-19 Cough Right wrist pain Overweight Hypothyroidism Pre-op examination Acute diarrhea Skin lesion of scalp Wrist pain Screening mammogram, encounter for Screening due Presence of surgical screw in left hand Chronic GERD Headache Surgical History Status post repair of paraesophageal diaphragmatic hernia History of surgery on left wrist H/O squamous cell carcinoma excision H/O kyphoplasty History of appendectomy S/P laparoscopic surgery S/P left knee arthroscopy Family History Father No problems noted. Mother No problems noted. Social History Household Members: Spouse Housing: House Do you presently have visiting nurse or other home services: No Alcohol intake: never Patient Tobacco Use Status: Never used Tobacco e-Cigarette/Vaping Use: Never Used Second Hand Smoke Exposure: No service: No Current occupational status: disabled Cognitive needs: Yes (cane) Hearing needs: No Vision needs: Yes (glasses) Physical Exam Skin Other: All incisions healing nicely. Assessment & Plan Assessment & Plan (1) Status post repair of paraesophageal diaphragmatic hernia: Code(s): Z98.890 - Other specified postprocedural states; Z87.19 - Personal history of other diseases of the digestive system Category: Surgical Plan: She will have 1 hole pure protein shake today and continue the rest of the meal plan. Recommend increasing fluids as she is able. She will text Dr. Michael hancock's for possible change to a different shake product as she does not like the pure protein. Return to clinic 1 month.
[2024-05-04 12:54] VITALS: BP 121/66; PULSE 85; TEMP 35.6; O2SAT 96
[2024-05-04 13:01] VITALS: BMI 26.4
== END 2024-05-04 13:14 | disposition home or self-care (01) ==
PROVIDERS: PCP Internal Medicine; Visit Provider Physician Assistant Surgical
DX: Z98.890 Other specified postprocedural states (principal); Z87.19 Personal history of other diseases of the digestive system
CPT/HCPCS: 99024

== ENCOUNTER → 2024-05-04 12:46 | Outpatient (BNVA) | payer OTHER, SELFPAY | PROVIDERS: PCP Internal Medicine; Visit Provider Physician Assistant Surgical | DX: Z48.815 Encounter for surgical aftercare following surgery on the digestive system (principal); Z87.19 Personal history of other diseases of the digestive system; Z98.890 Other specified postprocedural states | CPT/HCPCS: 99212 ==

== ENCOUNTER 2024-05-12 08:10 | Outpatient (REF) | payer OTHER, MEDICARE, SELFPAY ==
[2024-05-12 10:43] LABS: MANUAL DIFF FLAG NO
[2024-05-12 10:53] LABS: Basophils Percent Auto 0.4 % (0-2); Eosinophils Absolute Auto 0.2 X10*3/uL (0.0-0.4); Eosinophils Percent Auto 2.3 % (0-4); Hematocrit 43.6 % (37.0-47.0); Hemoglobin 13.8 g/dl (12.0-16.0); Imm Gran Abs Auto 0.02 X10*3/uL (0.00-0.03); Imm Gran Pct Auto 0.2 % (0.0-0.4); Lymphocytes Absolute Auto 2.5 X10*3/uL (1.2-4.9); Lymphocytes Percent Auto 30.2 % (20-40); Mean Corpuscular HGB Conc 31.7 g/dl (31.0-35.0); Mean Corpuscular Hemoglobin 30.2 pg (27.0-33.0); Mean Corpuscular Volume 95.4 fL (80.0-98.0); Mean Platelet Volume 10.9 fL (9.4-12.3); Monocytes Absolute Auto 0.7 X10*3/uL (0.1-1.2); Monocytes Percent Auto 8.6 % (2-11); Neutrophils Absolute Auto 4.8 x10*3/uL (2.0-8.3); Neutrophils Percent Auto 58.3 % (45-73); Platelet Count 353 X10*3/uL (160-400); Red Blood Count 4.57 X10*6/uL (4.20-5.50); Red Cell Distribution Width 13.6 % (11.0-16.0); White Blood Count 8.3 X10*3/uL (4.8-10.8)
[2024-05-12 11:12] LABS: Alanine Aminotransferase 24 U/L (0-31); Albumin Level 4.4 g/dL (3.5-5.0); Alkaline Phosphatase 85 U/L (39-117); Anion Gap 15 (12-20); Aspartate Amino Transferase 26 U/L (5-31); Bilirubin Total 0.8 mg/dL (0.0-1.0); Blood Urea Nitrogen 14 mg/dL (9-16); Calcium 10.1 mg/dL (8.4-10.2); Carbon Dioxide 24 mmol/L (22-29); Chloride 105 mmol/L (96-108); Cholesterol 181 mg/dL (<200); Estimated Glomerular Filt Rate > 60; Glucose Fasting 118 mg/dL (60-99); HDL Cholesterol 30 mg/dL (>40); LDL Cholesterol Calculated 127 mg/dL (<100); Potassium 3.7 mmol/L (3.3-5.1); Sodium 140 mmol/L (135-145); Total Protein 8.1 g/dL (6.5-8.0); Triglycerides 122 mg/dL (<150)
[2024-05-12 11:34] LABS: Thyroid Stimulating Hormone 6.11 uIU/mL (0.32-4.0)
== END 2024-05-12 08:11 | disposition home or self-care (01) ==
LOC: HO.10HDL 08:10
PROVIDERS: Visit Provider Internal Medicine
DX: Z13.0 Encounter for screening for diseases of the blood and blood-forming organs and certain disorders involving the immune mechanism (principal); Z13.220 Encounter for screening for lipoid disorders; Z13.9 Encounter for screening, unspecified; Z13.29 Encounter for screening for other suspected endocrine disorder
CPT/HCPCS: 36415; 80053; 80061; 84443; 85025

== ENCOUNTER 2024-05-19 10:13 | Outpatient (AMB) | payer OTHER, SELFPAY ==
[2024-05-19 10:28] VITALS: BP 100/70; PULSE 75; O2SAT 95; BMI 24.1
--- NOTE | 2024-05-19 10:28 | MHC.PC.OV ---
Vital Signs 05/19/24 10:28 Height 5 ft 7 in Weight 154 lb BMI 24.1 BP 100/70 Blood Pressure Location Lt brachial Position Sitting Pulse 75 Pulse Source Pulse Oximeter Pulse Oximetry (%) 95 Oxygen Delivery Method Room Air Intake Visit Reasons: 6 month f/u Audiovisual Aids Technician Required: No Accompanied by: Self / Same As Patient Allergies codeine [CODEINE] Allergy (Unknown, Verified 05/19/24 10:29) migraines doxycycline [DOXYCYCLINE] Allergy (Unknown, Verified 05/19/24 10:29) anaphylaxis, swelling, redness environmental allergies Adverse Reaction (Intermediate, Verified 05/19/24 10:29) Wheezing Medication List - Last Reconciled 05/19/24 by Warner Sparks MD amitriptyline 10 mg PO BEDTIME PRN levothyroxine 75 mcg PO DAILY@0600 pantoprazole 40 mg PO BID sumatriptan succinate 50 mg PO DAILY PRN Tobacco use date assessed: 11/19/23 Fall risk assessment: No Falls in past year Last assessed Fall Risk: 05/19/24 Dental Screening Dental Screen Date: 11/19/23 HPI 6 month f/u HPI Details hypothyroidism on rx; doing well; compliant [facility] Medical History (Updated 05/04/24 @ 00:02 by Amena Byunm) Hand weakness COVID-19 Cough Right wrist pain Overweight Hypothyroidism Pre-op examination Acute diarrhea Skin lesion of scalp Wrist pain Screening mammogram, encounter for Screening due Presence of surgical screw in left hand Chronic GERD Headache Surgical History Status post repair of paraesophageal diaphragmatic hernia History of surgery on left wrist H/O squamous cell carcinoma excision H/O kyphoplasty History of appendectomy S/P laparoscopic surgery S/P left knee arthroscopy Family History Father No problems noted. Mother No problems noted. Social History Household Members: Spouse Housing: House Do you presently have visiting nurse or other home services: No Alcohol intake: never Patient Tobacco Use Status: Never used Tobacco e-Cigarette/Vaping Use: Never Used Second Hand Smoke Exposure: No service: No Current occupational status: disabled Cognitive needs: Yes (cane) Hearing needs: No Vision needs: Yes (glasses) Questionnaire Thrive Questionnaire Date Thrive assessed: 11/19/23 SIERRA-7 AMB Questionnaire SIERRA-7 Date SIERRA - 7 assessed: 11/19/23 Source: Developed by Drs. August Johnson, Cleopatra Khan, Martín Stoddard and colleagues, with an educational jaquan from [employer]. Review of Systems Const Denies chills, Denies headache(s) and Denies weight loss ENT Denies headache(s) Card Denies chest pain, Denies syncope, Denies irregular heart rhythm and Denies dyspnea Resp Denies chest congestion, Denies cough and Denies dyspnea GI Denies abdominal pain, Denies change in stool character, Denies nausea and Denies vomiting Musc Denies deformity and Denies joint swelling Neuro Denies syncope and Denies headache(s) Physical exam (Primary Care) Vital Signs: Last Vital Signs Pulse 75 05/19/24 10:28 BP 100/70 05/19/24 10:28 Pulse Ox 95 05/19/24 10:28 Oxygen Delivery Method Room Air 05/19/24 10:28 BMI result Body Mass Index 24.1 Tobacco/Smoking Status: Tobacco use Status Tobacco use date assessed 11/19/23 05/19/24 10:29 Patient Tobacco Use Status Never used Tobacco 05/19/24 10:29 e-Cigarette/Vaping Use Never Used 05/19/24 10:29 Thrive Assessment: Date of Thrive Assessment Date Thrive assessed 11/19/23 05/19/24 10:29 Const General: cooperative, comfortable, no acute distress and alert Neck Neck: Yes no lymphadenopathy Thyroid: Thyroid normal Resp Effort & Inspection: normal respiratory effort Auscultation: clear to auscultation bilaterally Percussion: percussion normal Cardio Jugular venous distension: no JVD Palpation: normal PMI Rate: regular rate Rhythm: regular rhythm Heart sounds: S1 normal heart sound present and S2 normal heart sound present GI Inspection: Yes normal to inspection Palpation (GI): No hepatosplenomegaly present Skin General skin exam: no rashes or lesions noted Extrem General: Yes no clubbing, cyanosis or edema Assessment and Plan Assessment & Plan (1) Hypothyroidism: Code(s): E03.9 - Hypothyroidism, unspecified Plan: will recheck TSH which was borderline Orders: Orders Thyroid Stimulating Hormone Today Z13.29 - Encounter for screening for other suspected endocrine disorder Coding Level of Care Code Est Pt Level 3 (67722) Diagnoses Hypothyroidism E03.9
== END 2024-05-19 10:40 | disposition home or self-care (01) ==
PROVIDERS: PCP Internal Medicine; Visit Provider Internal Medicine
DX: E03.9 Hypothyroidism, unspecified (principal)
CPT/HCPCS: 99213

== ENCOUNTER 2024-06-04 10:54 | Outpatient (AMB) | payer OTHER, MEDICARE, SELFPAY ==
--- NOTE | 2024-06-04 10:59 | MHC.OFFVISWM ---
VS Expanded 06/04/24 11:06 BP 108/61 Blood Pressure Location Rt brachial Blood Pressure Position Sitting Pulse 77 Pulse Source Pulse Oximeter Temp 96.7 F L Temperature Source Tympanic Pulse Oximetry 96 Oxygen Delivery Method Room Air Height 5 ft 7 in Weight 150 lb 9.6 oz BMI 23.6 Body Fat % 31.9 Body Fat Mass 48.0 Fat Free Mass 102.6 Visceral Fat Rating 7.0 Body Water % 48.0 Body Water Mass 72.4 Muscle Mass/Score 97.2 Basal Metabolic Rate/Score 1,373 Intake Visit Reasons: (OV) s/p Diaphragmatic Hernia 04/28/24 Pediatric Urologist Required: No Allergies codeine [CODEINE] Allergy (Unknown, Verified 06/04/24 11:04) migraines doxycycline [DOXYCYCLINE] Allergy (Unknown, Verified 06/04/24 11:04) anaphylaxis, swelling, redness environmental allergies Adverse Reaction (Intermediate, Verified 06/04/24 11:04) Wheezing Medication List - Last Reconciled 06/04/24 by ENMANUEL Solomon levothyroxine 75 mcg PO DAILY@0600 pantoprazole 40 mg PO BID sumatriptan succinate 50 mg PO DAILY PRN HPI Comments Details: Patient is a 64-year-old female who returns to the office today in follow-up. She is 1 month status post diaphragmatic hernia repair performed on 04/28/2024. Weight today is 150.6 lb with a BMI of 21.No complaints of reflux. States that she feels hungry all day, although willing to continue meal plan for another month Meal plan: Pure protein 6 oz RTD and 6 oz [place] milk meal 2 oz meat and 2 oz veg 1/2 quest bar meal repeat 1/2 bar. Drinking 30 oz water Exercise plan: Walking outside 3 x per day 2 miles total [facility] Medical History (Updated 05/04/24 @ 00:02 by Amena Bynum) Hand weakness COVID-19 Cough Right wrist pain Overweight Hypothyroidism Pre-op examination Acute diarrhea Skin lesion of scalp Wrist pain Screening mammogram, encounter for Screening due Presence of surgical screw in left hand Chronic GERD Headache Surgical History Status post repair of paraesophageal diaphragmatic hernia History of surgery on left wrist H/O squamous cell carcinoma excision H/O kyphoplasty History of appendectomy S/P laparoscopic surgery S/P left knee arthroscopy Family History Father No problems noted. Mother No problems noted. Social History Household Members: Spouse Housing: House Do you presently have visiting nurse or other home services: No Alcohol intake: never Patient Tobacco Use Status: Never used Tobacco e-Cigarette/Vaping Use: Never Used Second Hand Smoke Exposure: No service: No Current occupational status: disabled Cognitive needs: Yes (cane) Hearing needs: No Vision needs: Yes (glasses) Physical Exam Const General: healthy appearing and no acute distress Resp Effort & Inspection: normal respiratory effort Auscultation: clear to auscultation bilaterally Cardio Rate: regular rate Rhythm: regular rhythm GI Auscultation: normal bowel sounds Extrem General: Yes normal to inspection Assessment & Plan Assessment & Plan (1) Status post repair of paraesophageal diaphragmatic hernia: Code(s): Z98.890 - Other specified postprocedural states; Z87.19 - Personal history of other diseases of the digestive system Category: Surgical Plan: Continue current meal plan , continue exercise as able given ongoing back pain, consider [facility] spine clinic [place] [facility] [place]
[2024-06-04 11:06] VITALS: BP 108/61; PULSE 77; TEMP 35.9; O2SAT 96; BMI 23.6
== END 2024-06-04 11:23 | disposition home or self-care (01) ==
PROVIDERS: PCP Internal Medicine; Visit Provider Physician Assistant Surgical
DX: Z98.890 Other specified postprocedural states (principal); Z87.19 Personal history of other diseases of the digestive system
CPT/HCPCS: 99024

== ENCOUNTER → 2024-06-04 10:54 | Outpatient (BNVA) | payer OTHER, SELFPAY | PROVIDERS: PCP Internal Medicine; Visit Provider Physician Assistant Surgical | DX: Z48.815 Encounter for surgical aftercare following surgery on the digestive system (principal); Z71.3 Dietary counseling and surveillance; Z87.19 Personal history of other diseases of the digestive system; Z98.890 Other specified postprocedural states | CPT/HCPCS: 99212 ==

== ENCOUNTER 2024-07-09 08:10 | Outpatient (REF) | payer OTHER, MEDICARE, SELFPAY ==
[2024-07-09 11:33] LABS: Thyroid Stimulating Hormone 3.74 uIU/mL (0.32-4.0)
== END 2024-07-09 08:11 | disposition home or self-care (01) ==
LOC: HO.10HDL 08:10
PROVIDERS: Visit Provider Internal Medicine
DX: Z98.890 Other specified postprocedural states (principal); Z87.19 Personal history of other diseases of the digestive system; E03.9 Hypothyroidism, unspecified
CPT/HCPCS: 36415; 84443; 99212

== ENCOUNTER 2024-07-09 08:20 | Outpatient (AMB) | payer OTHER, MEDICARE, SELFPAY ==
--- NOTE | 2024-07-09 08:43 | A.OFFVIS_ITS ---
VS Expanded 07/09/24 08:51 BP 111/62 Blood Pressure Location Rt brachial Blood Pressure Position Sitting Pulse 70 Pulse Source Pulse Oximeter Temp 96.4 F L Temperature Source Temporal Artery Scan Pulse Oximetry 98 Oxygen Delivery Method Room Air Height 5 ft 7 in Weight 147 lb 12.8 oz BMI 23.1 Body Fat % 36.3 Body Fat Mass 53.6 Fat Free Mass 94.2 Visceral Fat Rating 8.0 Body Water % 44.9 Body Water Mass 66.4 Muscle Mass/Score 89.2 Basal Metabolic Rate/Score 1,285 Intake Visit Reasons: (OV) s/p Diaphragmatic Hernia 04/28/24 Allergies codeine [CODEINE] Allergy (Unknown, Verified 07/09/24 08:53) migraines doxycycline [DOXYCYCLINE] Allergy (Unknown, Verified 07/09/24 08:53) anaphylaxis, swelling, redness environmental allergies Adverse Reaction (Intermediate, Verified 07/09/24 08:53) Wheezing HPI Comments Details: Patient is a 64-year-old female who returns to the office today in follow-up. She is 2.5 month status post diaphragmatic hernia repair performed on 04/28/2024. Weight today is 147.8 lb with a BMI of 23.2. No complaints of reflux. States that she is doing fairly well. She did notice some episodes of reflux, especially with pork with barbecue sauce. She states that she has been using a straw to drink fluids throughout the day. Continues with back pain that she is pursuing through workman's comp. Meal plan: Pure protein 6 oz RTD and 6 oz [place] milk meal 2 oz meat and 2 oz veg 1/2 quest bar meal repeat 1/2 bar. Drinking 32 oz water Exercise plan: Walking outside 2 x per day 2 miles total [facility] Medical History (Updated 05/04/24 @ 00:02 by Amena Bynum) Hand weakness COVID-19 Cough Right wrist pain Overweight Hypothyroidism Pre-op examination Acute diarrhea Skin lesion of scalp Wrist pain Screening mammogram, encounter for Screening due Presence of surgical screw in left hand Chronic GERD Headache Surgical History Status post repair of paraesophageal diaphragmatic hernia History of surgery on left wrist H/O squamous cell carcinoma excision H/O kyphoplasty History of appendectomy S/P laparoscopic surgery S/P left knee arthroscopy Family History Father No problems noted. Mother No problems noted. Social History Household Members: Spouse Housing: House Do you presently have visiting nurse or other home services: No Alcohol intake: never Patient Tobacco Use Status: Never used Tobacco e-Cigarette/Vaping Use: Never Used Second Hand Smoke Exposure: No service: No Current occupational status: disabled Cognitive needs: Yes (cane) Hearing needs: No Vision needs: Yes (glasses) Physical Exam Vital Signs: Last Vital Signs Temp 96.4 F L 07/09/24 08:51 Pulse 70 07/09/24 08:51 BP 111/62 07/09/24 08:51 Pulse Ox 98 07/09/24 08:51 Oxygen Delivery Method Room Air 07/09/24 08:51 BMI result Body Mass Index 23.1 Const General: healthy appearing and no acute distress Resp Effort & Inspection: normal respiratory effort Auscultation: clear to auscultation bilaterally Cardio Rate: regular rate Rhythm: regular rhythm GI Auscultation: normal bowel sounds Extrem General: Yes normal to inspection Assessment & Plan Assessment & Plan (1) Status post repair of paraesophageal diaphragmatic hernia: Code(s): Z98.890 - Other specified postprocedural states; Z87.19 - Personal history of other diseases of the digestive system Category: Surgical Plan: Overall, doing well. We will continue current meal plan. Discussed the importance of having smaller volumes yet more frequently. This should resolve the reflux issue. Additionally, she will continue walking as she is able. Her back pain is a self limiting factor and she is pursuing further treatment with [facility]. We will have her return to the office in approximately 6 weeks. She was encouraged to text with any questions or concerns.
[2024-07-09 08:51] VITALS: BP 111/62; PULSE 70; TEMP 35.8; O2SAT 98; BMI 23.1
== END 2024-07-09 09:13 | disposition home or self-care (01) ==
PROVIDERS: PCP Internal Medicine; Visit Provider Physician Assistant Surgical
DX: Z98.890 Other specified postprocedural states (principal); Z87.19 Personal history of other diseases of the digestive system
CPT/HCPCS: 99024

== ENCOUNTER 2024-07-29 08:18 | Day surgery (SDC) | payer OTHER, SELFPAY ==
--- NOTE | 2024-07-28 12:07 | HO.ANESPROP2 ---
Documented by User: Rose Mary Patel NP 07/28/24 12:08 HPI - Anesthesia Eval Consult details Narrative: 64yo F for Upper Endoscopy and Colonoscopy [facility] Active Problems Active Problems: All Active Problems Status post repair of paraesophageal diaphragmatic hernia (Acute) Overweight (Acute) Multiple environmental allergies (Acute) Multiple food allergies (Acute) Paraesophageal hernia (Acute) IBS (irritable bowel syndrome) (Acute) Erosive esophagitis (Acute) Hypothyroidism (Acute) Hernia, paraesophageal (Acute) Oropharyngeal dysphagia (Acute) Chronic GERD (Acute) Arthritis (Acute) Hyperlipidemia (Acute) Past Medical History Medical History Hand weakness COVID-19 Cough Right wrist pain Overweight Hypothyroidism Pre-op examination Acute diarrhea Skin lesion of scalp Wrist pain Screening mammogram, encounter for Screening due Presence of surgical screw in left hand Chronic GERD Headache Family History Family History Father No problems noted. Mother No problems noted. Family history of problems with anesthesia: No Surgical History Surgical History Status post repair of paraesophageal diaphragmatic hernia History of surgery on left wrist H/O squamous cell carcinoma excision H/O kyphoplasty History of appendectomy S/P laparoscopic surgery S/P left knee arthroscopy History of Problems with Anesthesia: No Social History Social History Household Members: Spouse Housing: House Are you a primary manager medicare marketing to a significant other at home: No Do you presently have visiting nurse or other home services: No Alcohol intake: never Patient Tobacco Use Status: Never used Tobacco e-Cigarette/Vaping Use: Never Used Second Hand Smoke Exposure: No Use of substances other than those prescribed or required for medical reasons: No Have you been hit, kicked, punched, or otherwise hurt by someone within the past year? If so, by whom?: No Are you DNR?: No Advance Directives: No Advance Directives Information Provided: Yes Recently lost weight without trying: Yes How much weight loss: 34pounds or more Eating poorly because of decreased appetite: No Nutrition screen score: 6 Nutrition Risks: No Nutritional Risk service: No Current occupational status: disabled Cognitive needs: Yes (cane) Hearing needs: No Vision needs: Yes (glasses) Meds Allergies Allergy/AdvReac Type Severity Reaction Status Date / Time codeine [CODEINE] Allergy Unknown migraines Verified 07/09/24 08:53 doxycycline [DOXYCYCLINE] Allergy Unknown anaphylaxis, Verified 07/09/24 08:53 swelling, redness environmental allergies AdvReac Intermediate Wheezing Verified 07/09/24 08:53 Home Medications ?Medication ?Instructions ?Recorded ?Confirmed ?Last Taken ?Type sumatriptan succinate 50 mg tablet 50 mg PO DAILY PRN Headache 05/21/23 06/04/24 Unknown History levothyroxine 75 mcg capsule 75 mcg PO DAILY@0600 04/28/24 07/29/24 07/29/24 07:30 History pantoprazole 40 mg tablet,delayed 40 mg PO DAILY 07/09/24 07/09/24 Unknown History release Assessment and Plan Assessment Anesthesia Assessment: Chart Reviewed Final Anesthetic Review Family History of Problems with Anesthesia: No History of Problems with Anesthesia: No Documented by User: Ashlee Tinoco MD 07/29/24 09:20 PMFSH Past Medical History Medical History Hand weakness COVID-19 Cough Right wrist pain Overweight Hypothyroidism Pre-op examination Acute diarrhea Skin lesion of scalp Wrist pain Screening mammogram, encounter for Screening due Presence of surgical screw in left hand Chronic GERD Headache Family History Family History Father No problems noted. Mother No problems noted. Surgical History Surgical History Status post repair of paraesophageal diaphragmatic hernia History of surgery on left wrist H/O squamous cell carcinoma excision H/O kyphoplasty History of appendectomy S/P laparoscopic surgery S/P left knee arthroscopy Social History Social History Household Members: Spouse Housing: House Are you a primary manager medicare marketing to a significant other at home: No Do you presently have visiting nurse or other home services: No Alcohol intake: never Patient Tobacco Use Status: Never used Tobacco e-Cigarette/Vaping Use: Never Used Second Hand Smoke Exposure: No Use of substances other than those prescribed or required for medical reasons: No Have you been hit, kicked, punched, or otherwise hurt by someone within the past year? If so, by whom?: No Are you DNR?: No Advance Directives: No Advance Directives Information Provided: Yes Recently lost weight without trying: Yes How much weight loss: 34pounds or more Eating poorly because of decreased appetite: No Nutrition screen score: 6 Nutrition Risks: No Nutritional Risk service: No Current occupational status: disabled Cognitive needs: Yes (cane) Hearing needs: No Vision needs: Yes (glasses) Meds Allergies Allergy/AdvReac Type Severity Reaction Status Date / Time codeine [CODEINE] Allergy Unknown migraines Verified 07/09/24 08:53 doxycycline [DOXYCYCLINE] Allergy Unknown anaphylaxis, Verified 07/09/24 08:53 swelling, redness environmental allergies AdvReac Intermediate Wheezing Verified 07/09/24 08:53 Home Medications ?Medication ?Instructions ?Recorded ?Confirmed ?Last Taken ?Type sumatriptan succinate 50 mg tablet 50 mg PO DAILY PRN Headache 05/21/23 06/04/24 Unknown History levothyroxine 75 mcg capsule 75 mcg PO DAILY@0600 04/28/24 07/29/24 07/29/24 07:30 History pantoprazole 40 mg tablet,delayed 40 mg PO DAILY 07/09/24 07/09/24 Unknown History release Exam Airway Mallampati Class: III (prominent upper incisors) TM Dist: >3cm Neck ROM: Full Loose/Missing/Broken Teeth: No Heart: RRR Lungs: CTA Assessment and Plan Assessment Anesthesia Assessment: Anesthesia Plan Discussed Final Anesthetic Review NPO: Yes ASA Class: II Final Preanesthetic Review: Meds/Allgs Chart Reviewed, Consent Obtained/Reviewed and Anes Risks/Benef Reviewed Patient Risk: Low Procedure Risk: Intermediate Anesthetic Plan Anesthetic Plan: MAC: Disposition: Standard PACU
[2024-07-29 08:49] VITALS: BMI 22.7
--- NOTE | 2024-07-29 09:01 | MHC.SHP ---
Pre-Procedural Eval Section A - 24 Hr Update-Section A only Date of Service: 07/29/24 Section B - Complete if H&P > 30 days Chief Complaint: Ulcer of esophagus without bleeding,IBS Relevant Family History (Specify if Yes): No Relevant Social History: None Present Medications: see Short Stay Collaborative assessment Medical History: Significant History (Hand weakness COVID-19 Cough Right wrist pain Overweight Hypothyroidism Pre-op examination Acute diarrhea Skin lesion of scalp Wrist pain Screening mammogram, encounter for Screening due Presence of surgical screw in left hand Chronic GERD Headache) History of Previous Operations: Relevant previous surgery/procedure and date(s) (Status post repair of paraesophageal diaphragmatic hernia History of surgery on left wrist H/O squamous cell carcinoma excision H/O kyphoplasty History of appendectomy S/P laparoscopic surgery S/P left knee arthroscopy) Allergies: Allergies Allergy/AdvReac Type Severity Reaction Status Date / Time codeine [CODEINE] Allergy Unknown migraines Verified 07/09/24 08:53 doxycycline [DOXYCYCLINE] Allergy Unknown anaphylaxis, Verified 07/09/24 08:53 swelling, redness environmental allergies AdvReac Intermediate Wheezing Verified 07/09/24 08:53 Review of Systems Sugical H&P ROS: Negative: Constitution, Cardiovascular, Respiratory, Neurological, Psychiatric, Hem-Onc, Allergic/Immunologic, Gastrointestinal, Genitourinary, Musculoskeletal, Integumentary, Endocrine and Eyes/Ears/Nose/Throat Exam Surgical H&P Exam: Normal: HEENT, Normal: Heart, Normal: Lungs, Normal: Extremities, Normal: Abdomen, Normal: Skin and Normal: Neurological Plan Diagnosis/Plan: Unchanged I have reviewed the history and physical and performed a pertinent physical examination on my patient. No changes have occurred unless specified. Time Spent With Patient Time: Total time managing care of this patient today ____ minutes.
[2024-07-29 09:03] VITALS: BP 97/57; PULSE 76; RESP 18; TEMP 36.1; O2SAT 98
[2024-07-29] MEDS: Lactated Ringers 1,000 ML 100 ML IVCONT (09:16)
[2024-07-29 10:15] VITALS: BP 102/60; PULSE 78; RESP 16; O2SAT 97
--- NOTE | 2024-07-29 10:26 | P.OPN-COLO_ITS ---
Colonoscopy Operative Note Operative Note Date of Service: 07/29/24 Narrative: Operative Information Procedure Description: EGD, Colonoscopy Indication: Possible barretts, colon screening Anesthesia: MAC FLEXIBLE TRANSORAL UPPER GASTROINTESTINAL ENDOSCOPY AND COLONOSCOPY PROCEDURE NOTE UPPER ENDOSCOPY Consent: Indications for the procedure and potential complications of bleeding, perforation, reaction to medications and missed diagnosis were discussed with the patient and informed consent was obtained. Instrument: Olympus GIF H 190 J mid size upper endoscope Monitoring: Vital signs and clinical assessment, continuous EKG monitoring, Pulse oximetry, Carbon Dioxide monitoring and blood pressure monitoring were done throughout the procedure. Procedure: The patient was placed in the left lateral decubitis position and pre-procedure medications were administered and a bite block was placed. The endoscope was inserted into the mouth and advanced under direct vision to the third part of duodenum. A careful inspection was made as the upper endoscope was withdrawn including a retroflexed examination of the proximal stomach; Findings and interventions are described below. Findings: Larynx:normal Esophagus: GE junction at 38 cm, diaphragm hiatus at 38 cm, normal mucosa Stomach: retained food noted in stomach. Grade 2 flap valve on retroflexed examination of the cardia. Duodenum: Normal bulb and descending duodenum, Intervention: none COLONOSCOPY Instrument: Olympus variable stiffness pediatric scope 190L Colonoscopy Monitoring: Vital signs and clinical assessment, continuous EKG monitoring, Pulse oximetry, Carbon Dioxide monitoring and blood pressure monitoring were done throughout the procedure. Colon withdrawal time was 13 minutes. Procedure: The patient was placed in the left lateral decubitis position and pre-procedure medications were administered. After a digital rectal examination of the ano-rectum, the video colonoscope was inserted into the rectum and advanced through the colon to the cecum/TI. The colonoscope was slowly withdrawn in a retrograde panoramic fashion and the colon mucosa was carefully examined including a retroflexed view of the rectum. Findings and interventions are described below. Procedure Difficulty:moderate Findings: Terminal Ileum-not intubated Cecum:normal Ascending Colon: 7-9 mm sessile polyp removed with cold snare Transverse Colon -normal Descending Colon:normal Sigmoid Colon: normal Rectum: Retroflexion with large internal hemorrhoids, grade II Anorectum - prolapsed hemorrhoid noted Colon preparation: [place] Bowel Preparation Scale Right colon; 1-2 Transverse colon: 2 Left colon; 1-2 (0 = Unprepared colon segment with mucosa not seen due to solid stool that cannot be cleared. 1 = Portion of mucosa of the colon segment seen, but other areas of the colon segment not well seen due to staining, residual stool and/or opaque liquid. 2 = Minor amount of residual staining, small fragments of stool and/or opaque liquid, but mucosa of colon segment seen well. 3 = Entire mucosa of colon segment seen well with no residual staining, small fragments of stool or opaque liquid) Impression and Post Procedure Diagnosis: Endoscopy Findings: retained food, Colonoscopy Findings: colon polyp internal hemorrhoids Plan: Await Pathology results Repeat Colonoscopy in 6-12 months or earlier if clinically indicated High fiber diet leaflet avoid straining at stool, epsom salts and sitz bath, anusol supps or cream repeat EGD with 2 d clears Above findings were reviewed with the patient and relevant handouts were provided if indicated.
[2024-07-29 10:33] VITALS: BP 87/51; PULSE 87; RESP 16; TEMP 36.1; O2SAT 97
[2024-07-29 10:45] VITALS: BP 99/59; PULSE 82; RESP 16; O2SAT 97
[2024-07-29] MEDS: Acetaminophen 1,000 MG/100 ML PIGGYBACK 400 MG IV (11:03)
[2024-07-29 11:15] VITALS: BP 99/54; PULSE 85; RESP 16; O2SAT 97
== END 2024-07-29 12:06 | disposition home or self-care (01) ==
PROVIDERS: PCP Internal Medicine; Visit Provider Internal Medicine Gastroenterology
PROC: (CPT 43235; principal; 2024-07-29 09:50)
DX: K22.10 Ulcer of esophagus without bleeding (principal); K58.9 Irritable bowel syndrome, unspecified; K21.9 Gastro-esophageal reflux disease without esophagitis; Z12.11 Encounter for screening for malignant neoplasm of colon; D12.2 Benign neoplasm of ascending colon; K64.1 Second degree hemorrhoids; E78.5 Hyperlipidemia, unspecified; E03.9 Hypothyroidism, unspecified
CPT/HCPCS: 43235; 45385; 88305; J0131; J1596; J2704

== ENCOUNTER → 2024-07-29 08:18 | Outpatient (BNV) | payer MEDICARE, OTHER, SELFPAY | PROVIDERS: PCP Internal Medicine; Visit Provider Internal Medicine Gastroenterology | DX: Z12.11 Encounter for screening for malignant neoplasm of colon (principal); D12.2 Benign neoplasm of ascending colon; K64.1 Second degree hemorrhoids; T18.2XXA Foreign body in stomach, initial encounter | CPT/HCPCS: 43235; 45385 ==

== ENCOUNTER 2024-08-04 08:45 | Outpatient (AMB) | payer MEDICARE, OTHER, SELFPAY ==
[2024-08-04 08:49] VITALS: BP 108/64; PULSE 77; O2SAT 99; BMI 23.0
--- NOTE | 2024-08-04 08:49 | A.OFFPC_ITS ---
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: No Accompanied by: Self / Same As Patient Allergies codeine [CODEINE] Allergy (Unknown, Verified 08/04/24 08:51) migraines doxycycline [DOXYCYCLINE] Allergy (Unknown, Verified 08/04/24 08:51) anaphylaxis, swelling, redness environmental allergies Adverse Reaction (Intermediate, Verified 08/04/24 08:51) Wheezing Medication List - Last Reconciled 08/04/24 by Warner Sparks MD levothyroxine 75 mcg PO DAILY@0600 pantoprazole 40 mg PO DAILY sumatriptan succinate 50 mg PO DAILY PRN Tobacco use date assessed: 11/19/23 Fall risk assessment: No Falls in past year Last assessed Fall Risk: 08/04/24 Dental Screening Dental Screen Date: 11/19/23 HPI Ear Pain HPI Details left ear ache for a week PFSH Medical History Hand weakness COVID-19 Cough Right wrist pain Overweight Hypothyroidism Pre-op examination Acute diarrhea Skin lesion of scalp Wrist pain Screening mammogram, encounter for Screening due Presence of surgical screw in left hand Chronic GERD Headache Surgical History Status post repair of paraesophageal diaphragmatic hernia History of surgery on left wrist H/O squamous cell carcinoma excision H/O kyphoplasty History of appendectomy S/P laparoscopic surgery S/P left knee arthroscopy Family History Father No problems noted. Mother No problems noted. Social History Household Members: Spouse Housing: House Are you a primary doggy daycare activities director to a significant other at home: No Do you presently have visiting nurse or other home services: No Alcohol intake: never Patient Tobacco Use Status: Never used Tobacco Tobacco use type: Cigarette e-Cigarette/Vaping Use: Never Used Second Hand Smoke Exposure: No service: No Current occupational status: disabled Cognitive needs: Yes (cane) Hearing needs: No Vision needs: Yes (glasses) Questionnaire PHQ-9 Over the last 2 weeks, how often have you been bothered by any of the following problems? 1. Little interest or pleasure in doing things: not at all 2. Feeling down, depressed, or hopeless: not at all 3. Trouble falling or staying asleep, or sleeping too much: not at all 4. Feeling tired or having little energy: not at all 5. Poor appetite or overeating: not at all 6. Feeling bad about yourself - or that you are a failure or have let yourself or your family down: not at all 7. Trouble concentrating on things, such as reading the newspaper or watching television: not at all 8. Moving or speaking so slowly that other people could have noticed. Or the opposite - being so fidgety or restless that you have been moving around a lot more than usual: not at all 9. Thoughts that you would be better off or of hurting yourself in some way: not at all Total score: 0 Depression Screening Interpretation: Negative Depression Screening Done: Yes Source: Developed by Drs. August Johnson, Cleopatra Khan, Martín Stoddard and colleagues, with an educational jaquan from [employer]. Thrive Questionnaire Date Thrive assessed: 11/19/23 Are you currently unemployed and looking for a job?: No AUDIT C Alcohol Use Questionnaire (AUDIT-C) 1. How often do you have a drink containing alcohol?: Never Total Score: 0 Score Reviewed/Action Taken: Yes SIERRA-7 AMB Questionnaire SIERRA-7 Date SIERRA - 7 assessed: 11/19/23 Source: Developed by Drs. August Johnson, Martín Lockhart and colleagues, with an educational jaquan from [employer]. Review of Systems Const Denies chills, Denies headache(s) and Denies weight loss ENT Denies headache(s) Card Denies chest pain, Denies syncope, Denies irregular heart rhythm and Denies dyspnea Resp Denies chest congestion, Denies cough and Denies dyspnea GI Denies abdominal pain, Denies change in stool character, Denies nausea and Denies vomiting Musc Denies deformity and Denies joint swelling Neuro Denies syncope and Denies headache(s) Physical exam (Primary Care) Vital Signs: Last Vital Signs Pulse 77 08/04/24 08:49 BP 108/64 08/04/24 08:49 Pulse Ox 99 08/04/24 08:49 Oxygen Delivery Method Room Air 08/04/24 08:49 BMI result Body Mass Index 23.0 Tobacco/Smoking Status: Tobacco use Status Tobacco use date assessed 11/19/23 08/04/24 08:53 Patient Tobacco Use Status Never used Tobacco 08/04/24 08:53 Tobacco use type Cigarette 08/04/24 08:53 e-Cigarette/Vaping Use Never Used 08/04/24 08:53 PHQ-9: PHQ-9 Score PHQ-9: Total score 0 08/04/24 08:53 Depression Screening Interpretation: Negative Thrive Assessment: Date of Thrive Assessment Date Thrive assessed 11/19/23 08/04/24 08:53 Const General: cooperative, comfortable, no acute distress and alert HENMT Other: left om Neck Neck: Yes no lymphadenopathy Thyroid: Thyroid normal Resp Effort & Inspection: normal respiratory effort Auscultation: clear to auscultation bilaterally Percussion: percussion normal Cardio Jugular venous distension: no JVD Palpation: normal PMI Rate: regular rate Rhythm: regular rhythm Heart sounds: S1 normal heart sound present and S2 normal heart sound present GI Inspection: Yes normal to inspection Palpation (GI): No hepatosplenomegaly present Skin General skin exam: no rashes or lesions noted Extrem General: Yes no clubbing, cyanosis or edema Coding Level of Care Code Est Pt Level 3 (37010) Diagnoses Otitis media H66.90
== END 2024-08-04 09:12 | disposition home or self-care (01) ==
PROVIDERS: PCP Internal Medicine; Visit Provider Internal Medicine
DX: H66.90 Otitis media, unspecified, unspecified ear (principal)

== ENCOUNTER → 2024-08-04 08:45 | Outpatient (BNVA) | payer OTHER, SELFPAY | PROVIDERS: PCP Internal Medicine; Visit Provider Internal Medicine | DX: H66.90 Otitis media, unspecified, unspecified ear (principal) | CPT/HCPCS: 96127; 99212 ==

== ENCOUNTER 2024-08-12 09:51 | Outpatient (AMB) | payer MEDICARE, OTHER, SELFPAY ==
[2024-08-12 09:56] VITALS: BP 108/57; PULSE 75; BMI 23.2
--- NOTE | 2024-08-12 09:56 | MHC.OFFVIS ---
Vital Signs 08/12/24 09:56 Height 5 ft 7 in Weight 148 lb 2.41 oz BMI 23.2 BP 108/57 L Blood Pressure Location Lt brachial Position Sitting Pulse 75 Intake Visit Reasons: S/P double; Dr. Dillard Intake Note: Joy presents to in office follow up s/p EGD and colonoscopy. CC: Patient reports doing well and denies having any new GI concerns today. Cathodic Protection Technician Required: No Accompanied by: Self / Same As Patient Allergies codeine [CODEINE] Allergy (Unknown, Verified 08/12/24 09:59) migraines doxycycline [DOXYCYCLINE] Allergy (Unknown, Verified 08/12/24 09:59) anaphylaxis, swelling, redness environmental allergies Adverse Reaction (Intermediate, Verified 08/12/24 09:59) Wheezing HPI HPI S/P double; Dr. Dillard: Details: Assessment & Plan (1) Hernia, paraesophageal: Comment: Moderate sliding hiatal hernia that at times becomes paraesophageal Code(s): K44.9 - Diaphragmatic hernia without obstruction or gangrene (2) Erosive esophagitis: Code(s): K22.10 - Ulcer of esophagus without bleeding (3) Chronic GERD: Code(s): K21.9 - Gastro-esophageal reflux disease without esophagitis (4) IBS (irritable bowel syndrome): Code(s): K58.9 - Irritable bowel syndrome without diarrhea (5) Paraesophageal hernia: Code(s): K44.9 - Diaphragmatic hernia without obstruction or gangrene (6) Multiple food allergies: Code(s): Z91.018 - Allergy to other foods (7) Multiple environmental allergies: Code(s): Z91.09 - Other allergy status, other than to drugs and biological substances (8) Oropharyngeal dysphagia: Code(s): R13.12 - Dysphagia, oropharyngeal phase Plan She has the repeat barium swallow and the EGD/colonoscopy upcoming in March and April. Her GERD particularly when she is recumbent at night has severely worsened and she will frequently wake up choking. She can not put blocks under the head of the bed because her bed is in the attic and the headboard almost hit the ceiling and she just can not sleep in a recliner. She has been taking the pantoprazole twice a day and the famotidine but obviously this isn't going to help with the regurg that comes up when she is laying flat and chokes her. Her voice is extremely hoarse today. She tells me ?I am desperate. ? Review of her old barium swallow shows a large sliding hiatal and paraesophageal hernia so it may be time for her to talk to surgery about having this repaired. We have so many physical limitations it is going to be extremely difficult for me to improve her situation with medication alone. She does try to limit eating after 18:00 but I think a dose of metoclopramide 10 mg just prior to supper may help empty her stomach more quickly. This is really the only option I have available to treat her in the interim. We also discussed getting a wedge pillow, apparently someone did give her 1 but have arm rests on it and she has a side sleeper. I look on [employer] and they have many plain wedge pillows without arms available for his lowest 35 dollars so she says she will look into this. I believe she is aspirating slightly at night which concerns me. She continues on dicyclomine for the gurgling in her stomach, pantoprazole twice a day with famotidine for breakthrough, and now metoclopramide. She also mentions to me that she had allergy testing in the past and she has multiple food allergies including garlic, lettuce, and many root vegetables and also multiple environmental allergies. For now will keep her follow-up study in April we can go over the EGD and barium swallow. Orders: Referrals Bariatric Surgery Referral K44.9 - Diaphragmatic hernia without obstruction or gangrene Medications: New metoclopramide HCl (Reglan) 10 mg PO .qac- supper 30 tabs 6RF K22.10 - Ulcer of esophagus without bleeding EGD/COLONOSCOPY 07/29/24 Findings: Larynx:normal Esophagus: GE junction at 38 cm, diaphragm hiatus at 38 cm, normal mucosa Stomach: retained food noted in stomach. Grade 2 flap valve on retroflexed examination of the cardia. Duodenum: Normal bulb and descending duodenum, Findings: Terminal Ileum-not intubated Cecum:normal Ascending Colon: 7-9 mm sessile polyp removed with cold snare Transverse Colon -normal Descending Colon:normal Sigmoid Colon: normal Rectum: Retroflexion with large internal hemorrhoids, grade II Anorectum - prolapsed hemorrhoid noted Impression and Post Procedure Diagnosis: Endoscopy Findings: retained food, Colonoscopy Findings: colon polyp internal hemorrhoids Plan: Await Pathology results Repeat Colonoscopy in 6-12 months or earlier if clinically indicated High fiber diet leaflet avoid straining at stool, epsom salts and sitz bath, anusol supps or cream repeat EGD with 2 d clears BIOPSY Received: 07/29/24 Diagnosis Colon, ascending, polypectomy: Tubular adenoma; negative for high-grade dysplasia BARIUM SWALLOW 05/04/22 FINDINGS: Following oral administration of thick barium and barium-coated turkey in upright view, there is normal propagation of bolus from the oral cavity through the pharynx, esophagus into stomach without any evidence of obstruction, narrowing or stricture. There is a large hiatal hernia in upright view. On placing patient supine and prone lying, the course and the caliber of the esophagus is normal. No laryngeal penetration or aspiration seen. There is a moderate-sized mixed (sliding and paraesophageal) hiatal hernia. No reflux could be demonstrated. FL/FL barium swallow IMPRESSION: Moderate-sized mixed hiatal hernia without reflux. TODAY'S VISIT She had the paraesophageal repair! Apparently, the hernia was quite bad and the surgery was extensive. BUT now she is not having HB and she is not choking and having dysphagia. She has lost 30 lbs, part because of the healing of the stomach. Clearly the surgery was necessary and she is quite happy she underwent it as all of her symptoms have greatly improved. She vomited the go lytely and will need a different prep. She is aware that her stomach isn't quite moving properly and this could be part of the healing process so she would like to give it more time before she undergoes anymore procedures and before we consider treating any potential gastroparesis. Also, since her GERD has improved and she is not really having nausea or vomiting this is a reasonable approach. Return office visit in 6 months and at that time we will consider if we want to do another colonoscopy due to insufficient prep. The procedure was well tolerated. The results were explained and the patient is agreeable to the follow-up interval as stated. The bowel pattern has returned to normal. Education was provided to tell any 1st degree relatives about their findings to be sure that they are screened by age 45. Educated that they will be put on a recall list when it is time for their repeat scope but should they move out of state or away from the hospital they will need to remember along with their primary to repeat the procedure in a timely fashion to avoid any adverse complications. COUNTS INCLUDE 234 BEDS AT THE [facility] Medical History (Updated 08/12/24 @ 10:09 by DEVIN Wilkinson) Paraesophageal hernia Hand weakness COVID-19 Cough Right wrist pain Overweight Hypothyroidism Pre-op examination Acute diarrhea Skin lesion of scalp Wrist pain Screening mammogram, encounter for Screening due Presence of surgical screw in left hand Chronic GERD Headache Surgical History (Updated 08/12/24 @ 10:04 by Eliseo Hughes [facility]) History of esophagogastroduodenoscopy (EGD) H/O colonoscopy Status post repair of paraesophageal diaphragmatic hernia History of surgery on left wrist H/O squamous cell carcinoma excision H/O kyphoplasty History of appendectomy S/P laparoscopic surgery S/P left knee arthroscopy Family History Father No problems noted. Mother No problems noted. Social History Household Members: Spouse Housing: House Are you a primary lawn care worker to a significant other at home: No Do you presently have visiting nurse or other home services: No Alcohol intake: never Patient Tobacco Use Status: Never used Tobacco Tobacco use type: Cigarette e-Cigarette/Vaping Use: Never Used Second Hand Smoke Exposure: No service: No Current occupational status: disabled Cognitive needs: Yes (cane) Hearing needs: No Vision needs: Yes (glasses) Review of Systems Const Denies fatigue, Denies fever(s), Denies night sweats, Denies poor appetite and Reports weight loss Eyes Details: Glasses Reports requires corrective lenses ENT Reports Normal hearing present, Denies dental pain, Denies dysphagia, Denies hearing loss, Denies mouth pain, Denies odynophagia, Denies throat swelling, Denies tongue swelling and Reports other (Dentition adequate) Card Reports no additional complaints Resp Reports no additional complaints GI Details: Denies abdominal pain, Denies melena, Denies bloating, Denies hematochezia, Denies constipation, Denies GI cramping, Denies dysphagia, Denies excessive flatus, Denies early satiety, Reports heartburn, Denies diarrhea, Denies nausea, Denies odynophagia, Denies vomiting and Denies hematemesis Skin/Breast Denies pruritus, Denies lesions, Denies rash and Denies jaundice Neuro Reports Normal hearing present and Denies Abnormal speech present Endo Denies fatigue Aller/Immun Denies throat swelling and Denies tongue swelling Physical Exam Vital Signs: Last Vital Signs Pulse 75 08/12/24 09:56 BP 108/57 L 08/12/24 09:56 BMI result Body Mass Index 23.2 Const General: cooperative, no acute distress, well developed and well groomed Nutritional Appearance: average body habitus and well nourished Orientation/consciousness: oriented to person, oriented to place and oriented to time Limitations: No language barrier HEENT Head: Yes normocephalic and Yes atraumatic Eyes General: appearance normal, both eyes and all related structures Pupils: Equal, round and reactive pupils present Neck Neck: Yes normal visual inspection and Yes no lymphadenopathy Thyroid: Thyroid normal Resp Effort & Inspection: normal respiratory effort and able to speak in complete sentences Auscultation: clear to auscultation bilaterally Cardio Rate: regular rate Rhythm: regular rhythm Heart sounds: Normal, physiologic split S2 sound present Peripheral pulses: radial pulses present and posterior tibial pulses present GI Inspection: No distended and No Abdominal panniculus present Palpation (GI): Soft to palpation, nontender, no guarding, not rigid and No hepatosplenomegaly present Percussion: Yes normal to percussion Auscultation: normal bowel sounds Rectal Exam - Female: deferred Skin General skin exam: no rashes or lesions noted, turgor normal, skin not dry, no jaundice, No spider nevi and no striae Rashes: no rashes Nails: normal Neuro General: oriented to person, oriented to place and oriented to time Cranial nerves: Yes Equal, round and reactive pupils present and Yes Normal hearing present Speech: No Abnormal speech present Extrem General: Yes normal to inspection, No clubbing, No cyanosis and No edema Psych Appearance: grossly normal and well kempt Mental Status: mental status grossly normal Speech and movement: Normal speech and movement present Affect: normal affect Attitude: cooperative Thought process: Normal thought process present and not confabulating Thought content: Normal thought content present Insight: Good insight present (Psych) Judgement: Good judgement present (Psych) Assessment & Plan Assessment & Plan (1) Multiple food allergies: Code(s): Z91.018 - Allergy to other foods Category: Medical (2) Erosive esophagitis: Code(s): K22.10 - Ulcer of esophagus without bleeding Category: Medical (3) IBS (irritable bowel syndrome): Code(s): K58.9 - Irritable bowel syndrome, unspecified Category: Medical (4) Oropharyngeal dysphagia: Code(s): R13.12 - Dysphagia, oropharyngeal phase Category: Medical (5) Chronic GERD: Code(s): K21.9 - Gastro-esophageal reflux disease without esophagitis Category: Medical (6) Status post repair of paraesophageal diaphragmatic hernia: Code(s): Z98.890 - Other specified postprocedural states; Z87.19 - Personal history of other diseases of the digestive system Category: Surgical Plan She had the paraesophageal repair! Apparently, the hernia was quite bad and the surgery was extensive. BUT now she is not having HB and she is not choking and having dysphagia. She has lost 30 lbs, part because of the healing of the stomach. Clearly the surgery was necessary and she is quite happy she underwent it as all of her symptoms have greatly improved. She vomited the go lytely and will need a different prep. She is aware that her stomach isn't quite moving properly and this could be part of the healing process so she would like to give it more time before she undergoes anymore procedures and before we consider treating any potential gastroparesis. Also, since her GERD has improved and she is not really having nausea or vomiting this is a reasonable approach. For medications she is only on pantoprazole once a day at this time. Return office visit in 6 months and at that time we will consider if we want to do another colonoscopy due to insufficient prep. The procedure was well tolerated. The results were explained and the patient is agreeable to the follow-up interval as stated. The bowel pattern has returned to normal. Education was provided to tell any 1st degree relatives about their findings to be sure that they are screened by age 45. Educated that they will be put on a recall list when it is time for their repeat scope but should they move out of state or away from the hospital they will need to remember along with their primary to repeat the procedure in a timely fashion to avoid any adverse complications. Medications: New pantoprazole 40 mg PO DAILY 30 tabs 6RF K21.9 - Gastro-esophageal reflux disease without esophagitis Changed From pantoprazole 40 mg PO DAILY 30 tabs 6RF K21.9 - Gastro-esophageal reflux disease without esophagitis To pantoprazole 40 mg PO DAILY 90 tabs 1RF 90 days K21.9 - Gastro-esophageal reflux disease without esophagitis Refilled pantoprazole 40 mg PO DAILY 30 tabs 6RF K21.9 - Gastro-esophageal reflux disease without esophagitis Coding Level of Care Code Est Pt Level 3 (25245) Diagnoses Multiple food allergies Z91.018 Erosive esophagitis K22.10 IBS (irritable bowel syndrome) K58.9 Oropharyngeal dysphagia R13.12 Chronic GERD K21.9 Status post repair of paraesophageal diaphragmatic hernia Z98.890; Z87.19
== END 2024-08-12 10:33 | disposition home or self-care (01) ==
PROVIDERS: PCP Internal Medicine; Visit Provider Nurse Practitioner
DX: Z91.018 Allergy to other foods (principal); K22.10 Ulcer of esophagus without bleeding; K58.9 Irritable bowel syndrome, unspecified; R13.12 Dysphagia, oropharyngeal phase; K21.9 Gastro-esophageal reflux disease without esophagitis; Z98.890 Other specified postprocedural states; Z87.19 Personal history of other diseases of the digestive system
CPT/HCPCS: 99213

== ENCOUNTER → 2024-08-12 09:51 | Outpatient (BNVA) | payer MEDICARE, OTHER, SELFPAY | PROVIDERS: PCP Internal Medicine; Visit Provider Nurse Practitioner | DX: K21.9 Gastro-esophageal reflux disease without esophagitis (principal); K58.9 Irritable bowel syndrome, unspecified; K22.10 Ulcer of esophagus without bleeding; R13.12 Dysphagia, oropharyngeal phase; Z91.09 Other allergy status, other than to drugs and biological substances; Z87.19 Personal history of other diseases of the digestive system; Z98.890 Other specified postprocedural states | CPT/HCPCS: 99212 ==

== ENCOUNTER 2024-08-21 09:30 | Outpatient (AMB) | payer MEDICARE, OTHER, SELFPAY ==
--- NOTE | 2024-08-21 09:28 | A.OFFVIS_ITS ---
VS Expanded 08/21/24 09:29 Height 5 ft 7 in Weight 142 lb 8 oz BMI 22.3 Intake Visit Reasons: (tV) s/p Diaphragmatic Hernia 04/28/24 Allergies codeine [CODEINE] Allergy (Unknown, Verified 08/12/24 09:59) migraines doxycycline [DOXYCYCLINE] Allergy (Unknown, Verified 08/12/24 09:59) anaphylaxis, swelling, redness environmental allergies Adverse Reaction (Intermediate, Verified 08/12/24 09:59) Wheezing HPI Comments Details: Patient is a 64-year-old female who returns to the office today in follow-up. She is 4 month status post diaphragmatic hernia repair performed on 04/28/2024. Weight today is 142.8 lb with a BMI of 22.3. No complaints of reflux. States that she is doing fairly well. She did notice some episodes of reflux, especially with pork with barbecue sauce. She states that she has been using a straw to drink fluids throughout the day. Continues with back pain that she is pursuing through [employer] comp. She is using the [employer] robbi. She reports no more reflux and feels great. She feels as though she has accomplished her goals and does not need further follow-up scheduled in our office. Discussed that she certainly could call our office at any point in the future if she has any problems, questions or concerns. She is very satisfied with her outcome. Meal plan: meal egg and toast meal 2 oz meat and 2 oz veg 1/2 protein bar at 3, other 1/2 at 8 pm (quest) Premier protein shake rtd Drinking 32 oz water Exercise plan: Walking outside 2 x per day 20-30 min per session ON LICENSE OF [facility] Medical History (Updated 08/12/24 @ 10:09 by DEVNI Wilkinson) Paraesophageal hernia Hand weakness COVID-19 Cough Right wrist pain Overweight Hypothyroidism Pre-op examination Acute diarrhea Skin lesion of scalp Wrist pain Screening mammogram, encounter for Screening due Presence of surgical screw in left hand Chronic GERD Headache Surgical History (Updated 08/12/24 @ 10:04 by MAIN Regan) History of esophagogastroduodenoscopy (EGD) H/O colonoscopy Status post repair of paraesophageal diaphragmatic hernia History of surgery on left wrist H/O squamous cell carcinoma excision H/O kyphoplasty History of appendectomy S/P laparoscopic surgery S/P left knee arthroscopy Family History Father No problems noted. Mother No problems noted. Social History Household Members: Spouse Housing: House Are you a primary healthcare management to a significant other at home: No Do you presently have visiting nurse or other home services: No Alcohol intake: never Patient Tobacco Use Status: Never used Tobacco Tobacco use type: Cigarette e-Cigarette/Vaping Use: Never Used Second Hand Smoke Exposure: No service: No Current occupational status: disabled Cognitive needs: Yes (cane) Hearing needs: No Vision needs: Yes (glasses) Telehealth Telehealth Telehealth Platform: Telephone Location of provider rendering services: practice address Location of patient: address on file Patient Identification confirmed using: Name, : Yes Telehealth method: voice only Patient verbally consented to treatment: Yes Patient verbally consented to billing insurance company: Yes Patient informed of any privacy concerns related to visit: Yes Minutes spent on Phone/Video with Pt.: 10 Assessment & Plan Assessment & Plan (1) Status post repair of paraesophageal diaphragmatic hernia: Code(s): Z98.890 - Other specified postprocedural states; Z87.19 - Personal history of other diseases of the digestive system Category: Surgical Plan: Patient is very happy with her outcome. She has no questions or complaints. Her reflux has completely resolved. She does not feel as though she needs further follow-up. She was made aware that she certainly may contact our office at any point in the future should she have any questions or concerns.
[2024-08-21 09:29] VITALS: BMI 22.3
== END 2024-08-21 09:43 | disposition home or self-care (01) ==
LOC: HO.HBS 09:36
PROVIDERS: PCP Internal Medicine; Visit Provider Physician Assistant Surgical
DX: K44.9 Diaphragmatic hernia without obstruction or gangrene (principal); Z87.19 Personal history of other diseases of the digestive system
CPT/HCPCS: 98966

== ENCOUNTER → 2024-08-21 09:30 | Outpatient (BNVA) | payer MEDICARE, OTHER, SELFPAY | PROVIDERS: PCP Internal Medicine; Visit Provider Physician Assistant Surgical ==

== ENCOUNTER 2024-11-23 05:24 | Emergency (ER) | payer OTHER, MEDICARE, SELFPAY ==
--- NOTE | ~2024-11-23 | CT_ITS ---
EXAMINATION: CT ABDOMEN PELVIS WITH IV CONTRAST HISTORY: diffuse abd pain, 6mo s/p diaphragmatic hernia sx COMPARISON: There are no prior studies for comparison. TECHNIQUE: CT scan of the abdomen and pelvis was performed following administration of 85 mL Omnipaque 350 using standard departmental protocol. Coronal and sagittal reformatted images were generated and reviewed. The patient received oral contrast material. This CT exam was performed with one or more of the following dose reduction techniques: automated exposure control, adjustment of the mA and/or kV according to patient size, use of iterative reconstruction technique. DLP: 494 mGy-cm FINDINGS: LOWER CHEST: There is mild dependent atelectasis at both lung bases. There is no pleural effusion. CARDIOVASCULATURE: The heart is normal in size. There is no pericardial effusion. LIVER: The liver is normal in size and contour. There is a 1.6 cm cyst in the left lobe. The hepatic and portal veins are patent. GALLBLADDER / BILE DUCTS: The gallbladder is distended, without evidence of calcified stones. There is no intra or extrahepatic biliary ductal dilatation. SPLEEN: The spleen is normal in size. No focal splenic lesion is identified. PANCREAS: The pancreas is unremarkable in appearance. ADRENAL GLANDS: Within normal limits. KIDNEYS/RETROPERITONEUM: No renal calculi are identified. There is no hydronephrosis. No renal masses are identified. LYMPH NODES: No abdominal or pelvic lymphadenopathy. VASCULATURE: The abdominal aorta demonstrates atherosclerotic calcification, but is normal in caliber. MESENTERY/PERITONEUM: No free fluid. No masses. There is no free intraperitoneal gas. STOMACH: The stomach is unremarkable. SMALL BOWEL: The small bowel is normal in caliber. COLON: The colon is unremarkable. APPENDIX: The appendix is not seen, however no inflammatory changes are seen adjacent to the cecum. URINARY BLADDER/PELVIC ORGANS: The urinary bladder is unremarkable. The uterus is unremarkable. BONES / SOFT TISSUES: The patient is status post L1 kyphoplasty. There is degenerative disc disease at L5-S1. CT/CT abdomen pelvis w IV con IMPRESSION: No acute inflammatory process is identified. Electronically signed by: August Holloway MD 11/23/2024 09:53 AM [facility] [place]
--- NOTE | 2024-11-23 05:26 | ECG_ITS ---
Test Reason : abd pain Blood Pressure : */* mmHG Vent. Rate : 103 BPM Atrial Rate : 103 BPM P-R Int : 126 ms QRS Dur : 80 ms QT Int : 330 ms P-R-T Axes : 57 38 28 degrees QTcB Int : 432 ms Sinus tachycardia Nonspecific ST abnormality Abnormal ECG When compared with ECG of 23-Mar-2024 08:35, Vent. rate has increased by 38 bpm Referred By: Romi Suero Electronically Signed By: JUNITO SANTACRUZ MD
[2024-11-23 05:28] VITALS: BP 128/62; PULSE 88; O2SAT 98
[2024-11-23 05:34] VITALS: BP 118/63; PULSE 76; RESP 16; TEMP 36.6; O2SAT 98; BMI 22.7
--- NOTE | 2024-11-23 05:44 | ED_ITS ---
HPI - Abdominal Pain General Chief Complaint: Abdominal Pain Stated Complaint: n/v/d x1 day, hiatal hernia repair-few months ago Time Seen by Provider: 11/23/24 05:53 Source: patient Mode of arrival: ambulatory Limitations: no limitations History of Present Illness ED Provider: Dr. Romi Suero HPI narrative: Patient comes to the emergency room complaining of 3 hours of abdominal pain, nausea, vomiting x1, multiple episodes of diarrhea. Patient denies fever chills, no URI or UTI symptoms. Related Data Home Medications ?Medication ?Instructions ?Recorded ?Confirmed sumatriptan succinate 50 mg tablet 50 mg PO DAILY PRN Headache 05/21/23 08/04/24 Previous Rx's ?Medication ?Instructions ?Recorded pantoprazole 40 mg tablet,delayed 40 mg PO DAILY 90 days #90 tabs 08/12/24 release levothyroxine 75 mcg capsule 75 mcg PO DAILY@0600 #90 caps 11/11/24 loperamide 2 mg tablet (Imodium 2 mg PO Q6H PRN loose stool #7 tabs 11/23/24 A-D) nitrofurantoin 100 mg PO BID 7 days #14 caps 11/23/24 monohydrate/macrocrystals 100 mg capsule (Macrobid) ondansetron 4 mg disintegrating 4 mg PO DAILY PRN nausea and 11/23/24 tablet vomiting 5 days #7 tabs Allergies Allergy/AdvReac Type Severity Reaction Status Date / Time codeine [CODEINE] Allergy Unknown migraines Verified 11/23/24 05:35 doxycycline [DOXYCYCLINE] Allergy Unknown anaphylaxis, Verified 11/23/24 05:35 swelling, redness environmental allergies AdvReac Intermediate Wheezing Verified 11/23/24 05:35 Review of Systems Review of Systems Constitutional : No Weight loss, No Fever, No Chills, No Night Sweats, No Fatigue, No Malaise ENT/Mouth : No Hearing loss, No Ear Pain, No Nasal Congestion, No Sinus Pain, No Hoarseness, No sore throat, No Rhinorrhea, No Swallowing Difficulty Eyes: No Eye Pain, No Swelling, No Redness, No Foreign Body, No Discharge, No Vision Changes Cardiovascular : No Chest Pain, No SOB, No Dyspnea on Exertion, No Orthopnea, No Edema, No Palpitations Respiratory : No Cough, No Sputum, No Wheezing, No Smoke Exposure, No Dyspnea Gastrointestinal complaining of diffuse abdominal pain and cramping, vomiting x1, multiple episodes of diarrhea. Genitourinary : no irregular bleeding, No Dysuria, No Urinary Frequency, No Hematuria, No Urinary Incontinence, No Urgency, No Flank Pain, No Urinary Flow Changes, No Hesitancy Musculoskeletal : No joint pain, No Myalgias, No Joint Swelling Skin : No Skin Lesions, No rash Neuro : No Weakness, No Numbness, No Paresthesias, No Loss of Consciousness, No Dizziness, No Headache Psych : No Anxiety/Panic, No Depression, No SI/HI/AH/VH, No Social Issues, Heme/Lymph: No Bruising, No Bleeding,No Lymphadenopathy Endocrine : No Polyuria, No Polydipsia, No Temperature Intolerance PMFSH Past Medical History Medical History Paraesophageal hernia Hand weakness COVID-19 Cough Right wrist pain Overweight Hypothyroidism Pre-op examination Acute diarrhea Skin lesion of scalp Wrist pain Screening mammogram, encounter for Screening due Presence of surgical screw in left hand Chronic GERD Headache Surgical History (Updated 08/12/24 @ 10:04 by Eliseo Hughes [facility]) History of esophagogastroduodenoscopy (EGD) H/O colonoscopy Status post repair of paraesophageal diaphragmatic hernia History of surgery on left wrist H/O squamous cell carcinoma excision H/O kyphoplasty History of appendectomy S/P laparoscopic surgery S/P left knee arthroscopy Family History Family History Father No problems noted. Mother No problems noted. Social History Social History Household Members: Spouse Housing: House Are you a primary respiratory care assistant to a significant other at home: No Do you presently have visiting nurse or other home services: No Alcohol intake: never Patient Tobacco Use Status: Never used Tobacco Tobacco use type: Cigarette e-Cigarette/Vaping Use: Never Used Second Hand Smoke Exposure: No service: No Current occupational status: disabled Cognitive needs: Yes (cane) Hearing needs: No Vision needs: Yes (glasses) Physical Exam ED Vital Signs: Vital Signs - 24 hr 11/23/24 05:34 11/23/24 06:49 11/23/24 07:37 Temperature 97.9 F 97.9 F Pulse Rate 76 77 78 Respiratory Rate 16 18 16 Blood Pressure 118/63 107/62 93/49 L Pulse Oximetry 98 98 95 Oxygen Delivery Method Room Air Room Air Room Air 11/23/24 10:34 Temperature 97.8 F Pulse Rate 61 Respiratory Rate 15 Blood Pressure 91/51 L Pulse Oximetry 98 Oxygen Delivery Method Room Air BMI result Body Mass Index 22.7 Const Other: Appearance: Alert. Oriented X3. Patient looks uncomfortable, nauseous Eyes: Pupils equal, round and reactive to light. ENT: Pharynx normal. Neck: Normal inspection. Neck supple. No lymph nodes noted. No crepitus CVS: Normal heart rate and rhythm. Pulses normal. Normal S1 and S2 Respiratory: No respiratory distress. Breath sounds normal. No Wheezing. No rales Abdomen: Soft , diffusely tender, no rebound or guarding Skin: Skin warm and dry. Normal skin color. Normal skin turgor. Extremities: No lower extremity edema. No Lacerations. No Rash Neuro: Oriented X 3. No motor deficit. No sensory deficit. Moving all extremities. No slurred speech. CN 2 through 12 grossly intact Psych: calm, cooperative, normal affect Course Course Course Narrative: Patient receiving symptomatic treatment with normal saline, loperamide, morphine and Zofran All of patient's labs pending CT scan of the abdomen with IV and p.o. contrast pending Reevaluation(s) Reevaluation #1: I received patient in sign-out pending CT scan abdomen/pelvis. On review of blood work, she was slight leukocytosis to 12 without left shift, likely reactive from vomiting. Chemistry without any acute abnormalities. Her urine shows mild UTI - will treat with ceftin. culture pending. Her CT scan is unremarkable. She has been treated symptomatically with IV fluids, Zofran, loperamide and IV morphine with improvement. She likely has gastroenteritis as her work up is quite unremarkable. I reached out to her bariatric provider, Laureano Camara, given she is 7 months s/p diaphragmatic hernia repair. Recommending outpatient follow up with either GI or PCP. Will send Zofran and loperamide to pharmacy for symptomatic treatment. Patient has remained stable throughout ED visit today. Discussed worrisome signs and symptoms and when to return to the ED. All questions answered at this time. Patient is agreeable with disposition and stable for discharge. FINDINGS: LOWER CHEST: There is mild dependent atelectasis at both lung bases. There is no pleural effusion. CARDIOVASCULATURE: The heart is normal in size. There is no pericardial effusion. LIVER: The liver is normal in size and contour. There is a 1.6 cm cyst in the left lobe. The hepatic and portal veins are patent. GALLBLADDER / BILE DUCTS: The gallbladder is distended, without evidence of calcified stones. There is no intra or extrahepatic biliary ductal dilatation. SPLEEN: The spleen is normal in size. No focal splenic lesion is identified. PANCREAS: The pancreas is unremarkable in appearance. ADRENAL GLANDS: Within normal limits. KIDNEYS/RETROPERITONEUM: No renal calculi are identified. There is no hydronephrosis. No renal masses are identified. LYMPH NODES: No abdominal or pelvic lymphadenopathy. VASCULATURE: The abdominal aorta demonstrates atherosclerotic calcification, but is normal in caliber. MESENTERY/PERITONEUM: No free fluid. No masses. There is no free intraperitoneal gas. STOMACH: The stomach is unremarkable. SMALL BOWEL: The small bowel is normal in caliber. COLON: The colon is unremarkable. APPENDIX: The appendix is not seen, however no inflammatory changes are seen adjacent to the cecum. URINARY BLADDER/PELVIC ORGANS: The urinary bladder is unremarkable. The uterus is unremarkable. BONES / SOFT TISSUES: The patient is status post L1 kyphoplasty. There is degenerative disc disease at L5-S1. CT/CT abdomen pelvis w IV con IMPRESSION: No acute inflammatory process is identified. Time: 10:44 Medical Decision Making Medical Decision Making [facility] Narrative: My interpretation of labs: Patient has a white blood cell count of 12, likely reactive leukocytosis. Patient's BUN slightly elevated, creatinine is 0.73, no electrolyte abnormalities, normal LFTs and lipase Patient received IV fluids, Zofran, loperamide and IV morphine Patient is waiting to get a CT scan of the abdomen and pelvis with p.o. and IV contrast. Sign-out given to my colleague ENMANUEL Barber Differential Diagnosis Differential Diagnoses: The differential diagnosis associated with the presentation includes (Gastritis, gastroenteritis, colitis, norovirus) Admission/Observation Consideration of admission/observation: Escalation of care including admission/observation considered (Given patient's presentation, observation has been considered) Lab Data [facility] Lab Attestation statement: I reviewed the patient's lab results. 11/23/24 05:49 11/23/24 05:49 Labs: Lab Results 11/23/24 11/23/24 Range/Units 05:49 10:40 WBC 12.0 H (4.8-10.8) X10*3/uL RBC 4.12 L (4.20-5.50) X10*6/uL Hgb 12.4 (12.0-16.0) g/dl Hct 39.0 (37.0-47.0) % MCV 94.7 (80.0-98.0) fL MCH 30.1 (27.0-33.0) pg MCHC 31.8 (31.0-35.0) g/dl RDW 13.0 (11.0-16.0) % Plt Count 314 (160-400) X10*3/uL MPV 9.4 (9.4-12.3) fL Immature Gran % (Auto) 0.3 (0.0-0.4) % Neut % (Auto) 75.8 H (45-73) % Lymph % (Auto) 15.4 L (20-40) % [place] % (Auto) 6.2 (2-11) % Eos % (Auto) 2.1 (0-4) % Baso % (Auto) 0.2 (0-2) % Lymph # (Auto) 1.9 (1.2-4.9) X10*3/uL [place] # (Auto) 0.8 (0.1-1.2) X10*3/uL Eos # (Auto) 0.3 (0.0-0.4) X10*3/uL Baso # (Auto) 0.0 (0.0-0.2) X10*3/uL Abs Immat Gran (auto) 0.04 H (0.00-0.03) X10*3/uL Absolute Neuts (auto) 9.1 H (2.0-8.3) x10*3/uL Absolute Nucleated RBC 0.000 (0.0-0.012) X10*3/uL Nucleated RBC % (auto) 0.0 (0.0-0.2) /100WBC PT 12.2 (10.9-12.4) SEC INR 1.0 (0.9-1.1) Sodium 141 (135-145) mmol/L Potassium 3.5 (3.3-5.1) mmol/L Chloride 107 (96-108) mmol/L Carbon Dioxide 24 (22-29) mmol/L Anion Gap 14 (12-20) BUN 22 H (9-16) mg/dL Creatinine 0.73 (0.5-1.4) mg/dL Estim Creat Clear Calc 75.7 Estimated GFR > 60 Random Glucose 99 (60-115) mg/dL Lactic Acid 0.7 (0.5-2.0) mmol/L Calcium 9.1 D (8.4-10.2) mg/dL Magnesium 2.0 (1.6-2.6) mg/dL Total Bilirubin 0.6 (0.0-1.0) mg/dL Direct Bilirubin 0.2 (0.0-0.5) mg/dL AST 126 H (5-31) U/L ALT 48 H (0-31) U/L Alkaline Phosphatase 101 (39-117) U/L Total Protein 7.8 (6.5-8.0) g/dL Albumin 4.1 (3.5-5.0) g/dL Urine Color Yellow Urine Appearance Clear Urine pH 5.5 (5.0-9.0) Ur Specific Barnum >= 1.030 H (1.005-1.025) Urine Protein Negative (Neg-Trace) mg/dL Urine Glucose (UA) Negative (Negative) mg/dL Urine Ketones Negative (Negative) mg/dL Urine Blood Negative (Negative) Urine Nitrite Negative (Negative) Ur Leukocyte Esterase Moderate (2+) H (Negative) Urine RBC 0-2 (0-2) /HPF Urine WBC 21-50 H (0-5) /HPF Ur Squamous Epith Cells 3-5 (0-2) /HPF Urine Bacteria Trace (None Seen) Hyaline Casts 0-2 (0-2) /LPF Medications Administered Discontinued Medications Generic Name Dose Route Start Last Admin Trade Name Freq PRN Reason Stop Dose Admin Diatrizoate Meglum/Diatrizoate Sod 120 ml 11/23/24 09:30 11/23/24 09:31 Diatrizoate Meglumine, Sodium 120 Ml Solution OH 11/23/24 09:31 120 ml ONCE ONE Administration Sodium Chloride 1,000 mls @ 999 mls/hr 11/23/24 05:26 11/23/24 06:50 Ns IVCONT 11/23/24 06:26 Infused .Q1H1M ONE Infusion Iohexol 100 ml 11/23/24 09:29 11/23/24 09:30 Iohexol 350 Mg/Ml 100 Ml Infus..Btl IV 11/23/24 09:30 85 ml ONCE ONE Administration Loperamide HCl 4 mg 11/23/24 05:45 11/23/24 06:23 Loperamide Hcl 2 Mg Capsule PO 11/23/24 05:46 Not Given ONCE ONE Morphine Sulfate 4 mg 11/23/24 05:33 11/23/24 06:04 Morphine Sulfate 4 Mg/Ml Cartridge IVPUSH 11/23/24 05:34 4 mg ONCE ONE Administration Protocol Ondansetron HCl 4 mg 11/23/24 05:33 11/23/24 05:57 Ondansetron Hcl 4 Mg/2 Ml Vial IVPUSH 11/23/24 05:34 4 mg ONCE ONE Administration Critical Care Time Critical Care Time Critical Care Time: Yes Total Critical Care Time: 35 Attestation: I have personally provided critical care time. Time includes review of lab data, radiology results, discussion with consultants, and monitoring for potential decompensation. Intervention performed as documented. Discharge Plan Discharge Clinical Impression: Nausea vomiting and diarrhea, Abdominal pain, Acute dehydration, Urinary tract infection Patient Disposition: Home, Self-Care Instructions: Dehydration (ED), Acute Nausea and Vomiting (ED), Abdominal Pain (ED), Urinary Tract Infection in Women (ED) Additional Instructions: Your blood work today is reassuring. Your urine does show a mild urinary tract infection which will be treated with antibiotics. Macrobid is an antibiotic that has been sent to your pharmacy. Take this twice daily for [address] scan of your abdomen/pelvis is unremarkable. It's possible you have a GI bug. The treatment for this is supportive care. Symptoms usually resolve on their own in 48-72 hours.? The recommendation is rest and lots of oral hydration.? For the next 24 hours, stick to a YOLANDE diet (bananas rice, applesauce, tea, and toast) Zofran is an anti-nausea medication. This has been sent to your pharmacy for you to take as needed for nausea.? You can also try over the counter Pepto Bismol or Imodium as needed for upset stomach and diarrhea.? Follow up with your primary care provider this week. If you develop new or worsening symptoms call 911 or come back to the ER for further evaluation. Prescriptions: New ondansetron 4 mg tablet,disintegrating 4 mg PO DAILY PRN (Reason: nausea and vomiting) 5 Days Qty: 7 0RF loperamide [Imodium A-D] 2 mg tablet 2 mg PO Q6H PRN (Reason: loose stool) Qty: 7 0RF Rx Instructions: Initial: 4 mg, followed by 2 mg after each loose stool; maximum: 16 mg/day (OTC: 8 mg/day). Limit use to =48 hours nitrofurantoin monohyd/m-cryst [Macrobid] 100 mg capsule 100 mg PO BID 7 Days Qty: 14 0RF Rx Instructions: must administer with a meal/food No Action levothyroxine 75 mcg capsule 75 mcg PO DAILY@0600 Qty: 90 0RF sumatriptan succinate 50 mg tablet 50 mg PO DAILY PRN (Reason: Headache) pantoprazole 40 mg tablet,delayed release (DR/EC) 40 mg PO DAILY 90 Days Qty: 90 1RF Referrals: [facility] [place] [facility] [Provider Group] Warner Sparks MD [Primary Care Provider] - Print Language: Serbian
[2024-11-23 05:57] LABS: Basophils Percent Auto 0.2 % (0-2); Eosinophils Absolute Auto 0.3 X10*3/uL (0.0-0.4); Eosinophils Percent Auto 2.1 % (0-4); Hemoglobin 12.4 g/dl (12.0-16.0); Imm Gran Abs Auto 0.04 X10*3/uL (0.00-0.03); Imm Gran Pct Auto 0.3 % (0.0-0.4); Lymphocytes Absolute Auto 1.9 X10*3/uL (1.2-4.9); Lymphocytes Percent Auto 15.4 % (20-40); MANUAL DIFF FLAG NO; Mean Corpuscular HGB Conc 31.8 g/dl (31.0-35.0); Mean Corpuscular Hemoglobin 30.1 pg (27.0-33.0); Mean Corpuscular Volume 94.7 fL (80.0-98.0); Mean Platelet Volume 9.4 fL (9.4-12.3); Monocytes Absolute Auto 0.8 X10*3/uL (0.1-1.2); Monocytes Percent Auto 6.2 % (2-11); Neutrophils Absolute Auto 9.1 x10*3/uL (2.0-8.3); Neutrophils Percent Auto 75.8 % (45-73); Platelet Count 314 X10*3/uL (160-400); Red Blood Count 4.12 X10*6/uL (4.20-5.50)
[2024-11-23] MEDS: ondansetron HCL 4 MG/2 ML VIAL IVPUSH (05:57)
[2024-11-23] MEDS: 0.9 % Sodium Chloride 1,000 ML 999 ML IVCONT (05:58)
[2024-11-23 06:03] LABS: Prothrombin Time 12.2 SEC (10.9-12.4)
[2024-11-23] MEDS: Morphine Sulfate 4 MG/ML CARTRIDGE IVPUSH (06:04)
[2024-11-23 06:13] LABS: Alanine Aminotransferase 48 U/L (0-31); Albumin Level 4.1 g/dL (3.5-5.0); Alkaline Phosphatase 101 U/L (39-117); Anion Gap 14 (12-20); Aspartate Amino Transferase 126 U/L (5-31); Bilirubin Direct 0.2 mg/dL (0.0-0.5); Bilirubin Total 0.6 mg/dL (0.0-1.0); Blood Urea Nitrogen 22 mg/dL (9-16); Calcium 9.1 mg/dL (8.4-10.2); Carbon Dioxide 24 mmol/L (22-29); Chloride 107 mmol/L (96-108); Creatinine Clr Calc Pharmacy 75.7; Estimated Glomerular Filt Rate > 60; Glucose Random 99 mg/dL (60-115); Lactic Acid 0.7 mmol/L (0.5-2.0); Potassium 3.5 mmol/L (3.3-5.1); Sodium 141 mmol/L (135-145); Total Protein 7.8 g/dL (6.5-8.0)
--- NOTE | 2024-11-23 06:23 | PC.NURSE ---
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
[2024-11-23 06:49] VITALS: BP 107/62; PULSE 77; RESP 18; TEMP 36.6; O2SAT 98
[2024-11-23 07:37] VITALS: BP 93/49; PULSE 78; RESP 16; O2SAT 95
--- NOTE | 2024-11-23 07:40 | PC.NURSE ---
Pt is alert and oriented. States pain is 3/10 and edge is off does report some nausea. Pain to primarily upper abd, no active vomiting or heaving. at bedside. BP soft however pt reports BP is always low. Skin is pwd. Speaking full sentences. Awaits CT scan at this time. Call henley within reach
--- NOTE | 2024-11-23 09:25 | PC.NURSE ---
Pt to CT scan
[2024-11-23] MEDS: iohexoL 350 MG/ML 100 ML INFUS..BTL IV (09:30)
[2024-11-23] MEDS: Diatrizoate Meglumine, Sodium 120 ML SOLUTION PR (09:31)
[2024-11-23 10:34] VITALS: BP 91/51; PULSE 61; RESP 15; TEMP 36.6; O2SAT 98
[2024-11-23 10:52] LABS: Appearance Urine Clear; Color Urine Yellow; Glucose Urine UA Negative (Negative); Leukocyte Esterase Urine Moderate (2+) (Negative); Nitrite Urine Negative (Negative); PH 5.5 (5.0-9.0); Specific Gravity - Urine >= 1.030 (1.005-1.025); UMIC TRIGGER UACC YES; Urine Blood Negative (Negative); Urine Ketones Negative (Negative); Urine Protein Negative (Neg-Trace)
[2024-11-23 11:30] LABS: Bacteria Urine Trace (None Seen); Hyaline Casts Urine 0-2 /LPF (0-2); RBC Urine 0-2 /HPF (0-2); UACC Culture Trigger YES; WBC Urine 21-50 /HPF (0-5)
[2024-11-23 11:58] VITALS: BP 96/52; PULSE 62; RESP 18; TEMP 36.8; O2SAT 98
== END 2024-11-23 12:00 | disposition home or self-care (01) ==
PROVIDERS: Emergency Provider Emergency Medicine; PCP Internal Medicine
DX: N39.0 Urinary tract infection, site not specified (principal); E86.0 Dehydration; R10.9 Unspecified abdominal pain; R11.2 Nausea with vomiting, unspecified; R19.7 Diarrhea, unspecified
CPT/HCPCS: 36415; 74177; 80048; 80076; 81001; 83605; 83735; 85025; 85610; 87040; 87086; 87147; 93005; 96361; 96374; 96375; 99284; 99285; J2270; J2405; Q9967

== ENCOUNTER → 2024-11-23 05:26 | Outpatient (BNV) | payer OTHER, MEDICARE, SELFPAY | PROVIDERS: Emergency Provider Emergency Medicine; PCP Internal Medicine; Visit Provider Internal Medicine Cardiovascular Disease | DX: R00.0 Tachycardia, unspecified (principal) | CPT/HCPCS: 93010 ==

== ENCOUNTER → 2024-11-23 05:43 | Outpatient (BNV) | payer OTHER, MEDICARE, SELFPAY | PROVIDERS: Emergency Provider Emergency Medicine; PCP Internal Medicine; Visit Provider Radiology Diagnostic Radiology | DX: R10.84 Generalized abdominal pain (principal) | CPT/HCPCS: 74177 ==

== ENCOUNTER 2024-12-01 12:57 | Outpatient (AMB) | payer OTHER, SELFPAY ==
[2024-12-01 13:16] VITALS: BP 102/70; PULSE 73; TEMP 36; O2SAT 95; BMI 21.8
--- NOTE | 2024-12-01 13:16 | A.OFFPC_ITS ---
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: No Accompanied by: Self / Same As Patient Allergies codeine [CODEINE] Allergy (Unknown, Verified 12/01/24 13:19) migraines doxycycline [DOXYCYCLINE] Allergy (Unknown, Verified 12/01/24 13:19) anaphylaxis, swelling, redness environmental allergies Adverse Reaction (Intermediate, Verified 12/01/24 13:19) Wheezing Medication List - Last Reconciled 12/01/24 by Warner Sparks MD levothyroxine 75 mcg PO DAILY@0600 loperamide (Imodium A-D) 2 mg PO Q6H PRN nitrofurantoin monohyd/m-cryst 100 mg (Macrobid) 100 mg PO BID 7 days ondansetron 4 mg PO DAILY PRN 5 days pantoprazole 40 mg PO DAILY 90 days sumatriptan succinate 50 mg PO DAILY PRN Tobacco use date assessed: 12/01/24 Fall risk assessment: No Falls in past year Last assessed Fall Risk: 12/01/24 Dental Screening Dental Screen Date: 12/01/24 Did you have a dental visit in the last 12 months?: Yes Did you have a dental problem in the last 6 months where you did not have access to dental care?: No Was dental information given to patient?: Patient has dentist HPI 6 Month F/U HPI Details hypothyroidism on rx; doing well; compliant [facility] Medical History Paraesophageal hernia Hand weakness COVID-19 Cough Right wrist pain Overweight Hypothyroidism Pre-op examination Acute diarrhea Skin lesion of scalp Wrist pain Screening mammogram, encounter for Screening due Presence of surgical screw in left hand Chronic GERD Headache Surgical History History of esophagogastroduodenoscopy (EGD) H/O colonoscopy Status post repair of paraesophageal diaphragmatic hernia History of surgery on left wrist H/O squamous cell carcinoma excision H/O kyphoplasty History of appendectomy S/P laparoscopic surgery S/P left knee arthroscopy Family History Father No problems noted. Mother No problems noted. Social History Household Members: Spouse Housing: House Are you a primary healthcare translator to a significant other at home: No Do you presently have visiting nurse or other home services: No Alcohol intake: never Patient Tobacco Use Status: Never used Tobacco Tobacco use type: Cigarette e-Cigarette/Vaping Use: Never Used Second Hand Smoke Exposure: No service: No Current occupational status: disabled Cognitive needs: Yes (cane) Hearing needs: No Vision needs: Yes (glasses) Questionnaire PHQ-9 Over the last 2 weeks, how often have you been bothered by any of the following problems? 1. Little interest or pleasure in doing things: not at all 2. Feeling down, depressed, or hopeless: not at all 3. Trouble falling or staying asleep, or sleeping too much: not at all 4. Feeling tired or having little energy: not at all 5. Poor appetite or overeating: not at all 6. Feeling bad about yourself - or that you are a failure or have let yourself or your family down: not at all 7. Trouble concentrating on things, such as reading the newspaper or watching television: not at all 8. Moving or speaking so slowly that other people could have noticed. Or the opposite - being so fidgety or restless that you have been moving around a lot more than usual: not at all 9. Thoughts that you would be better off or of hurting yourself in some way: not at all Total score: 0 Depression Screening Interpretation: Negative Depression Screening Done: Yes 55205 - PHQ-9 Billing: Yes Source: Developed by Drs. August Johnson, Cleopatra Khan, Martín Stoddard and colleagues, with an educational jaquan from [employer]. Thrive Questionnaire Date Thrive assessed: 12/01/24 I am a: Patient What is your living situation today?: I have a steady place to live Within the past 12 months, did the food you bought not last and you didn't have the money to get more?: Never true Within the past 12 months, did you worry whether your food would run out before you got money to buy more?: Never true Do you have trouble paying for medicines?: No Do you have trouble getting transportation to medical appointments?: No Do you have trouble paying your heating and electricity bill?: No Do you have trouble taking care of your child, family member or friend?: No Do you have trouble with day-to-day activities such as bathing, preparing meals, shopping, managing finances, etc.?: No Are you currently unemployed and looking for a job?: No Are you interested in more education?: No Please select the resources that you would like help with: None Currently or been in a relationship where the following occur: No concerns reported THRIVE Score: 0 AUDIT C Alcohol Use Questionnaire (AUDIT-C) 1. How often do you have a drink containing alcohol?: Never 3. How often do you have six or more drinks on one occasion?: Never Total Score: 0 SIERRA-7 AMB Questionnaire SIERRA-7 Date SIERRA - 7 assessed: 12/01/24 Feeling nervous, anxious, or on edge: 0 = Not at all Not being able to stop or control worryin = Not at all Worrying too much about different things: 0 = Not at all Trouble relaxin = Not at all Being so restless that it is hard to sit still: 0 = Not at all Becoming easily annoyed or irritable: 0 = Not at all Feeling afraid as if something awful might happen: 0 = Not at all Total SIERRA-7 score (0-4 normal; 5-9 mild; 10-14 moderate; 15-21 severe): 0 Source: Developed by Drs. August Johnson, Cleopatra Khan, Martín Stoddard and colleagues, with an educational jaquan from [employer]. SIERRA-7 Assessment Billing SIERRA-7 Assessment Tool: SIERRA-7 Assessment 84115 Review of Systems Const Denies chills, Denies headache(s) and Denies weight loss ENT Denies headache(s) Card Denies chest pain, Denies syncope, Denies irregular heart rhythm and Denies dyspnea Resp Denies chest congestion, Denies cough and Denies dyspnea GI Denies abdominal pain, Denies change in stool character, Denies nausea and Denies vomiting Musc Denies deformity and Denies joint swelling Neuro Denies syncope and Denies headache(s) Physical exam (Primary Care) Vital Signs: Last Vital Signs Temp 96.8 F 12/01/24 13:16 Pulse 73 12/01/24 13:16 BP 102/70 12/01/24 13:16 Pulse Ox 95 12/01/24 13:16 Oxygen Delivery Method Room Air 12/01/24 13:16 BMI result Body Mass Index 21.8 Tobacco/Smoking Status: Tobacco use Status Tobacco use date assessed 12/01/24 12/01/24 13:20 Patient Tobacco Use Status Never used Tobacco 12/01/24 13:20 Tobacco use type Cigarette 12/01/24 13:20 e-Cigarette/Vaping Use Never Used 12/01/24 13:20 PHQ-9: PHQ-9 Score PHQ-9: Total score 0 12/01/24 13:20 Depression Screening Interpretation: Negative Thrive Assessment: Date of Thrive Assessment Date Thrive assessed 12/01/24 12/01/24 13:20 Currently or been in a relationship where the following occur: No concerns reported Const General: cooperative, comfortable, no acute distress and alert Neck Neck: Yes no lymphadenopathy Thyroid: Thyroid normal Resp Effort & Inspection: normal respiratory effort Auscultation: clear to auscultation bilaterally Percussion: percussion normal Cardio Jugular venous distension: no JVD Palpation: normal PMI Rate: regular rate Rhythm: regular rhythm Heart sounds: S1 normal heart sound present and S2 normal heart sound present GI Inspection: Yes normal to inspection Palpation (GI): No hepatosplenomegaly present Skin General skin exam: no rashes or lesions noted Extrem General: Yes no clubbing, cyanosis or edema Coding Level of Care Code Est Pt Level 3 (21112) Diagnoses Hypothyroidism E03.9 Additional Codes SIERRA-7 Assessment Billing - SIERRA-7 Assessment Tool: SIERRA-7 Assessment 75050 ([id number]) PHQ-9 - 16668 - PHQ-9 Billing: Yes ([id number]) Assessment & Plan Assessment & Plan (1) Hypothyroidism: Code(s): E03.9 - Hypothyroidism, unspecified Category: Medical Plan: stable; same rx; do labs Orders: Orders Thyroid Stimulating Hormone Today Z13.29 - Encounter for screening for other suspected endocrine disorder
--- OUTSIDE RECORDS SUMMARY | 2024-12-01 13:53 | XMS_ITS | Patient Health Record ---
[facility] Organization [facility] Address [address] [place] [address] Care Team Providers Care Record Searcher Name Role Phone Ricardo JARA, Waed Primary Care Provider SHERRIE Morejon Unavailable [phone] Allergies Allergen (clinical drug ingredient) Drug/Non Drug Allergy documented on EMR Reaction Allergy Type Onset Date Status codeine Codeine Sulfate Migraine Drug Allergy A ctive doxycycline Doxycycline Swelling Drug Allergy Act shae Reason For Referral No Information Social History Tobacco Use: Social History Observation Description Date Details (start date - stop date) Never Smoker NA - NA Tobacco Use/Smoking Question Answer Notes Are you a nonsmoker Alcohol Screen (Audit-C) Question Answer Notes Did you have a drink containing alcohol in the p ast year? No Points 0 Interpretation Negative Sexual History Question Answer Notes Had sex in the past 12 months (vaginal, oral, or anal)? No Have you ever had a Sexually transmitted disease ? No Problems Problem Type SNOMED Code ICD Code Onset Dates Problem Status W/U Status Risk Notes Problem Postmenopausal bleeding (22121341) Postmenopausal bleeding (N95.0) Active confirmed Problem Adjustment disorder with depressed mood (30246228) Adjustment disorder with depressed mood (F43.21) Active confirmed Problem Cystocele (366164404) Cystocele, unspecified (N81.10) Active confirmed Problem Prolapse of female genital organs (03662350) Female genital prolapse, unspecified (N81.9) Active confirmed Problem Abnormal findings on diagnostic imaging of breast (485573021) Other abnormal and inconclusive findings on diagnostic imaging of breast (R92.8) Active confirmed Plan Of Treatment Pending Test Test Name Order Date Sonohysterogram 01/29/2019 THIN PREP,HPV,GLADYS IF HPV+ (>29YR)(DIAG) 01/29/2019 MM Digital Screening Mammogram 3D 2018 Insurance Providers Payer Name Payer Address Payer Phone Subscriber Number Group Number Insured Name Patient Relationship to Insured Coverage Start Date Coverage End Date [employer] [address] [place] [address] [id number] AVELINO AMAYA Spouse - patient is the spouse of the insured Medical (General) History Medical History History ICD Code Postmenopausal bleeding N95.0 Female genital prolapse, unspecified N81 .9 Cystocele, unspecified N81.10 Adjustment disorder with depressed mood F43.21 Other abnormal and inconclusive findings on diagnostic imaging of breast R92.8 Surgical History Surgery Date(Month/Year) Left Knee Surgery 2004 Hospitalization History Reason Date(Month/Year) 3 Vaginal Deliveries See Surgical Hx
== END 2024-12-01 13:36 | disposition home or self-care (01) ==
PROVIDERS: PCP Internal Medicine; Visit Provider Internal Medicine
DX: E03.9 Hypothyroidism, unspecified (principal)

== ENCOUNTER → 2024-12-01 12:57 | Outpatient (BNVA) | payer OTHER, SELFPAY | PROVIDERS: PCP Internal Medicine; Visit Provider Internal Medicine | DX: E03.9 Hypothyroidism, unspecified (principal) | CPT/HCPCS: 96127; 99212 ==

== ENCOUNTER 2024-12-03 08:38 | Outpatient (REF) | payer OTHER, SELFPAY ==
[2024-12-03 11:22] LABS: Thyroid Stimulating Hormone 4.63 uIU/mL (0.32-4.0)
--- OUTSIDE RECORDS SUMMARY | 2024-12-03 11:24 | XMS_ITS | Patient Health Record ---
Author Organization [facility] Address [address] [place] [address] Care Team Providers Care Baseball Coach Name Role Phone Ricardo JARA, Wade Primary Care Provider SHERRIE Morejon Unavailable [phone] Allergies Allergen (clinical drug ingredient) Drug/Non Drug [...] W/U Status Risk Notes Problem Postmenopausal bleeding (33234801) Postmenopausal bleeding (N95.0) Active confirmed Problem Adjustment disorder with depressed mood (32382752) Adjustment disorder with depressed mood (F43.21) Active confirmed Problem Cystocele (523024707) Cystocele, unspecified (N81.10) Active confirmed Problem Prolapse of female genital organs (25843605) Female genital prolapse, unspecified (N81.9) Active confirmed Problem Abnormal findings on diagnostic imaging of breast (466258130) Other abnormal and inconclusive findings on diagnostic [...] End Date [employer] [address] [place] [address] [id number] AVELINO AMAYA Spouse - patient is the [...]
== END 2024-12-03 08:39 | disposition home or self-care (01) ==
LOC: HO.10HDL 08:38
PROVIDERS: Visit Provider Internal Medicine
DX: Z13.29 Encounter for screening for other suspected endocrine disorder (principal)
CPT/HCPCS: 36415; 84443

== ENCOUNTER 2025-02-10 10:13 | Outpatient (AMB) | payer OTHER, SELFPAY ==
--- NOTE | 2025-02-10 10:18 | A.OFFVIS_ITS ---
Vital Signs 3 02/10/25 10:19 Height 5 ft 7 in Weight 139 lb BMI 21.8 BP 111/74 Blood Pressure Location Lt brachial Position Sitting Pulse 63 Intake Visit Reasons: 6 month follow up Intake Note: Joy returns in follow up of GERD and IBS. CC: The patient states that she's had 8 attacks (diarrhea) since November and was seen once in the ER. She continues having abdominal pain on and off since the end of November. She also c/o nausea, chocking a lot even on water, and diarrhea. Cash Control Specialist Required: No Accompanied by: Self / Same As Patient Allergies codeine [CODEINE] Allergy (Unknown, Verified 12/01/24 13:19) migraines doxycycline [DOXYCYCLINE] Allergy (Unknown, Verified 12/01/24 13:19) anaphylaxis, swelling, redness environmental allergies Adverse Reaction (Intermediate, Verified 12/01/24 13:19) Wheezing HPI HPI 6 month follow up: Details: Assessment & Plan (1) Multiple food allergies: Code(s): Z91.018 - Allergy to other foods Category: Medical (2) Erosive esophagitis: Code(s): K22.10 - Ulcer of esophagus without bleeding Category: Medical (3) IBS (irritable bowel syndrome): Code(s): K58.9 - Irritable bowel syndrome, unspecified Category: Medical (4) Oropharyngeal dysphagia: Code(s): R13.12 - Dysphagia, oropharyngeal phase Category: Medical (5) Chronic GERD: Code(s): K21.9 - Gastro-esophageal reflux disease without esophagitis Category: Medical (6) Status post repair of paraesophageal diaphragmatic hernia: Code(s): Z98.890 - Other specified postprocedural states; Z87.19 - Personal history of other diseases of the digestive system Category: Surgical Plan She had the paraesophageal repair! Apparently, the hernia was quite bad and the surgery was extensive. BUT now she is not having HB and she is not choking and having dysphagia. She has lost 30 lbs, part because of the healing of the stomach. Clearly the surgery was necessary and she is quite happy she underwent it as all of her symptoms have greatly improved. She vomited the go lytely and will need a different prep. She is aware that her stomach isn't quite moving properly and this could be part of the healing process so she would like to give it more time before she undergoes anymore procedures and before we consider treating any potential gastroparesis. Also, since her GERD has improved and she is not really having nausea or vomiting this is a reasonable approach. For medications she is only on pantoprazole once a day at this time. Return office visit in 6 months and at that time we will consider if we want to do another colonoscopy due to insufficient prep. The procedure was well tolerated. The results were explained and the patient is agreeable to the follow-up interval as stated. The bowel pattern has returned to normal. Education was provided to tell any 1st degree relatives about their findings to be sure that they are screened by age 45. Educated that they will be put on a recall list when it is time for their repeat scope but should they move out of state or away from the hospital they will need to remember along with their primary to repeat the procedure in a timely fashion to avoid any adverse complications. Medications: New pantoprazole 40 mg PO DAILY 30 tabs 6RF K21.9 - Gastro-esophageal reflux disease without esophagitis Changed From pantoprazole 40 mg PO DAILY 30 tabs 6RF K21.9 - Gastro-esophageal reflux disease without esophagitis To pantoprazole 40 mg PO DAILY 90 tabs 1RF 90 days K21.9 - Gastro-esophageal reflux disease without esophagitis Refilled pantoprazole 40 mg PO DAILY 30 tabs 6RF K21.9 - Gastro-esophageal reflux disease without esophagitis COLONOSCOPY BIOPSY TODAY'S VISIT She had abd figueroa and diarrhea of sudden onset 01/13 and presented to the ER. They did labs showing slight leukocytosis and ? UTI and CT that was unremarkable. They rx'ed nitrofurantoin and loperimide. She has not gotten any better. She has borborygmus and the pain is generalized over the entire abdomen. It waxes adn wanes from 01/11 - 08/13. The pain worsens between midnight to 3am and she has associated N/V with dry heaves with severe diarrhea (at times both ends!). She will have a severe attack about every 14 days and it will last anywhere from 4-10 hours. At one point she took 6 imodium at once to stop the diarrhea. ROV 2 weeks PFS Medical History Paraesophageal hernia Hand weakness COVID-19 Cough Right wrist pain Overweight Hypothyroidism Pre-op examination Acute diarrhea Skin lesion of scalp Wrist pain Screening mammogram, encounter for Screening due Presence of surgical screw in left hand Chronic GERD Headache Surgical History History of esophagogastroduodenoscopy (EGD) H/O colonoscopy Status post repair of paraesophageal diaphragmatic hernia History of surgery on left wrist H/O squamous cell carcinoma excision H/O kyphoplasty History of appendectomy S/P laparoscopic surgery S/P left knee arthroscopy Family History Father No problems noted. Mother No problems noted. Social History Household Members: Spouse Housing: House Are you a primary doggy daycare activities director to a significant other at home: No Do you presently have visiting nurse or other home services: No Alcohol intake: never Patient Tobacco Use Status: Never used Tobacco Tobacco use type: Cigarette e-Cigarette/Vaping Use: Never Used Second Hand Smoke Exposure: No service: No Current occupational status: disabled Cognitive needs: Yes (cane) Hearing needs: No Vision needs: Yes (glasses) Review of Systems Const Denies fatigue, Denies fever(s), Denies night sweats, Reports poor appetite and Reports weight loss (40 lb) ENT Reports Normal hearing present, Denies dental pain, Denies dysphagia, Denies hearing loss, Denies mouth pain, Denies odynophagia, Denies throat swelling, Denies tongue swelling and Reports other (Dentition adequate) Card Reports no additional complaints Resp Reports no additional complaints GI Details: Reports abdominal pain, Denies melena, Denies bloating, Denies hematochezia, Denies constipation, Denies GI cramping, Denies dysphagia, Denies excessive flatus, Denies early satiety, Denies heartburn, Reports diarrhea, Reports nausea, Denies odynophagia, Reports vomiting and Denies hematemesis Skin/Breast Denies pruritus, Denies lesions, Denies rash and Denies jaundice Neuro Reports Normal hearing present and Denies Abnormal speech present Endo Denies fatigue Aller/Immun Denies throat swelling and Denies tongue swelling Physical Exam Vital Signs: Last Vital Signs Pulse 63 02/10/25 10:19 BP 111/74 02/10/25 10:19 BMI result Body Mass Index 21.8 Const General: cooperative, no acute distress, well developed and well groomed Nutritional Appearance: average body habitus and well nourished Orientation/consciousness: oriented to person, oriented to place and oriented to time Limitations: No language barrier HEENT Head: Yes normocephalic and Yes atraumatic Eyes General: appearance normal, both eyes and all related structures Pupils: Equal, round and reactive pupils present Neck Neck: Yes normal visual inspection and Yes no lymphadenopathy Thyroid: Thyroid normal Resp Effort & Inspection: normal respiratory effort and able to speak in complete sentences Auscultation: clear to auscultation bilaterally Cardio Rate: regular rate Rhythm: regular rhythm Heart sounds: Normal, physiologic split S2 sound present Peripheral pulses: radial pulses present and posterior tibial pulses present GI Inspection: No distended and No Abdominal panniculus present Palpation (GI): Soft to palpation, Tenderness to palpation present (GI) in the epigastrum, in the RUQ and periumbilically, Guarding due to palpation present (GI), not rigid and No hepatosplenomegaly present Percussion: Yes normal to percussion Auscultation: Hyperactive bowel sounds present Rectal Exam - Female: deferred Abdomen image: 2 1. Surgical scars 2. Skin General skin exam: no rashes or lesions noted, turgor normal, skin not dry, no jaundice, No spider nevi and no striae Rashes: no rashes Nails: normal Neuro General: oriented to person, oriented to place and oriented to time Cranial nerves: Yes Equal, round and reactive pupils present and Yes Normal hearing present Speech: No Abnormal speech present Extrem General: Yes normal to inspection, No clubbing, No cyanosis and No edema Psych Appearance: grossly normal and well kempt Mental Status: mental status grossly normal Speech and movement: Normal speech and movement present Affect: normal affect Attitude: cooperative Thought process: Normal thought process present and not confabulating Thought content: Normal thought content present Insight: Fair insight present (Psych) Judgement: Fair judgement present (Psych) Assessment & Plan Assessment & Plan (1) Abdominal pain: Code(s): R10.9 - Unspecified abdominal pain Category: Medical (2) Nausea and vomiting: Code(s): R11.2 - Nausea with vomiting, unspecified Category: Medical Plan She had abd figueroa and diarrhea of sudden onset 01/13 and presented to the ER. They did labs showing slight leukocytosis and ? UTI and CT that was unremarkable. They rx'ed nitrofurantoin and loperimide. She has not gotten any better. She has borborygmus and the pain is generalized over the entire abdomen. It waxes adn wanes from 01/11 - 08/13. The pain worsens between midnight to 3am and she has associated N/V with dry heaves with severe diarrhea (at times both ends!). She will have a severe attack about every 14 days and it will last anywhere from 4-10 hours. At one point she took 6 imodium at once to stop the diarrhea. Certainly there is a very wide differential in diagnose in her. This could be very severe IBS with gas and bloating driving the nausea but she also could have an underlying infection, gallbladder dyskinesia, sudden development of exocrine pancreatic insufficiency, or even inflammatory bowel disease. It is also possible that it is psychogenic in origin. I am going to get a widespread of labs and studies to try to get a handle on what is going on with her since this a severely life limiting. ROV 2 weeks Orders: Orders 2 GI Panel Today R10.9 - Unspecified abdominal pain, R11.2 - Nausea with vomiting, unspecified C Reactive Protein Today R10.9 - Unspecified abdominal pain, R11.2 - Nausea with vomiting, unspecified Calprotectin, Fecal Today R10.9 - Unspecified abdominal pain, R11.2 - Nausea with vomiting, unspecified Hepatitis A,B,C Profile Today R10.9 - Unspecified abdominal pain, R11.2 - Nausea with vomiting, unspecified HIV Ab/Ag Today R10.9 - Unspecified abdominal pain, R11.2 - Nausea with vomiting, unspecified Transglutaminase IgA Today R10.9 - Unspecified abdominal pain, R11.2 - Nausea with vomiting, unspecified Smooth Muscle Antibody Today R10.9 - Unspecified abdominal pain, R11.2 - Nausea with vomiting, unspecified Mitochondrial Antibody Today R10.9 - Unspecified abdominal pain, R11.2 - Nausea with vomiting, unspecified Amylase Today R10.9 - Unspecified abdominal pain, R11.2 - Nausea with vomiting, unspecified NAVJOT Reflex Titer and Pattern Today R10.9 - Unspecified abdominal pain, R11.2 - Nausea with vomiting, unspecified Monotest Today R10.9 - Unspecified abdominal pain, R11.2 - Nausea with vomiting, unspecified Liver Panel Today R10.9 - Unspecified abdominal pain, R11.2 - Nausea with vomiting, unspecified Comprehensive Met. Panel Today R10.9 - Unspecified abdominal pain, R11.2 - Nausea with vomiting, unspecified Transglutaminase Ab IgG Today R10.9 - Unspecified abdominal pain, R11.2 - Nausea with vomiting, unspecified TSH reflex Free T4 Today R10.9 - Unspecified abdominal pain, R11.2 - Nausea with vomiting, unspecified Complete Blood Count Auto Diff Today R10.9 - Unspecified abdominal pain, R11.2 - Nausea with vomiting, unspecified Ferritin Today R10.9 - Unspecified abdominal pain, R11.2 - Nausea with vomiting, unspecified Lactate Dehydrogenase Today R10.9 - Unspecified abdominal pain, R11.2 - Nausea with vomiting, unspecified Medications: New 2 dicyclomine 20 mg PO QID 30 days 120 tabs 1RF Refilled 2 pantoprazole 40 mg PO DAILY 90 days 90 tabs 1RF K21.9 - Gastro-esophageal reflux disease without esophagitis sodium,potassium,mag sulfates 17.5-3.13-1.6 gram (Suprep Bowel Prep Kit) 480 mL orally; FOR COLONOSCOPY PREP 354 mL 0RF Coding Level of Care Code Est Pt Level 4 (42209) Diagnoses Abdominal pain R10.9 Nausea and vomiting R11.2 Time Spent (min) 36
[2025-02-10 10:19] VITALS: BP 111/74; PULSE 63; BMI 21.8
--- OUTSIDE RECORDS SUMMARY | 2025-02-10 11:32 | XMS_ITS | Patient Health Record ---
Author Organization [facility] Address [address] [place] [address] Care Team Providers Care Diamond Sander Name Role Phone Ricardo JARA, Wade Primary Care Provider SHERRIE Morejon Unavailable [phone] Allergies Allergen (clinical drug ingredient) Drug/Non Drug [...] W/U Status Risk Notes Problem Postmenopausal bleeding (81436825) Postmenopausal bleeding (N95.0) Active confirmed Problem Adjustment disorder with depressed mood (10235036) Adjustment disorder with depressed mood (F43.21) Active confirmed Problem Cystocele (740786779) Cystocele, unspecified (N81.10) Active confirmed Problem Prolapse of female genital organs (74369992) Female genital prolapse, unspecified (N81.9) Active confirmed Problem Abnormal findings on diagnostic imaging of breast (398524324) Other abnormal and inconclusive findings on diagnostic [...] End Date [employer] [address] [place] [address] [id number] AVELINO AMAYA Spouse - patient is the [...]
== END 2025-02-10 11:21 | disposition home or self-care (01) ==
LOC: HO.HGI 10:14
PROVIDERS: PCP Internal Medicine; Visit Provider Nurse Practitioner
DX: R10.9 Unspecified abdominal pain (principal); R11.2 Nausea with vomiting, unspecified
CPT/HCPCS: 99214

== ENCOUNTER → 2025-02-10 10:13 | Outpatient (BNVA) | payer MEDICARE, OTHER, SELFPAY | PROVIDERS: PCP Internal Medicine; Visit Provider Nurse Practitioner | DX: R10.9 Unspecified abdominal pain (principal); R11.2 Nausea with vomiting, unspecified | CPT/HCPCS: 99212 ==

== ENCOUNTER 2025-02-10 11:27 | Outpatient (REF) | payer OTHER, SELFPAY ==
[2025-02-10 13:34] LABS: MANUAL DIFF FLAG NO
[2025-02-10 14:04] LABS: Alanine Aminotransferase 13 U/L (0-31); Albumin Level 4.2 g/dL (3.5-5.0); Alkaline Phosphatase 76 U/L (39-117); Amylase 63 U/L (28-100); Anion Gap 8 (12-20); Aspartate Amino Transferase 28 U/L (5-31); Bilirubin Direct 0.2 mg/dL (0.0-0.5); Bilirubin Total 0.8 mg/dL (0.0-1.0); Blood Urea Nitrogen 19 mg/dL (9-16); C Reactive Protein 0.45 mg/dL (< or = 0.50); Calcium 9.8 mg/dL (8.4-10.2); Carbon Dioxide 27 mmol/L (22-29); Chloride 109 mmol/L (96-108); Estimated Glomerular Filt Rate > 60; Glucose Random 89 mg/dL (60-115); Potassium 4.1 mmol/L (3.3-5.1); Sodium 140 mmol/L (135-145); Total Protein 7.6 g/dL (6.5-8.0)
[2025-02-10 14:22] LABS: Basophils Percent Auto 0.4 % (0-2); Eosinophils Absolute Auto 0.3 X10*3/uL (0.0-0.4); Eosinophils Percent Auto 3.6 % (0-4); Hematocrit 42.3 % (37.0-47.0); Hemoglobin 13.2 g/dl (12.0-16.0); Imm Gran Abs Auto 0.02 X10*3/uL (0.00-0.03); Imm Gran Pct Auto 0.3 % (0.0-0.4); Lymphocytes Absolute Auto 2.1 X10*3/uL (1.2-4.9); Lymphocytes Percent Auto 28.8 % (20-40); Mean Corpuscular HGB Conc 31.2 g/dl (31.0-35.0); Mean Corpuscular Volume 96.1 fL (80.0-98.0); Mean Platelet Volume 10.1 fL (9.4-12.3); Monocytes Absolute Auto 0.6 X10*3/uL (0.1-1.2); Monocytes Percent Auto 7.7 % (2-11); Neutrophils Absolute Auto 4.3 x10*3/uL (2.0-8.3); Neutrophils Percent Auto 59.2 % (45-73); Platelet Count 276 X10*3/uL (160-400); Red Cell Distribution Width 13.1 % (11.0-16.0); White Blood Count 7.2 X10*3/uL (4.8-10.8)
[2025-02-10 14:23] LABS: HBS Num1 0.81 mIU/mL (0-7.99); HBc Num1 0.16 S/CO (0.00-0.79); HBsAGNum1 0.31 S/CO (0.00-0.99); HIV AB/AG Nonreactive (Nonreactive); HIV Num 1 0.06 S/CO (0.00-0.99); Hepatitis A Antibody IgM 0.18 Index (0-0.79); Hepatitis B Core Antibody Nonreactive (Nonreactive); Hepatitis B Surface Antigen Negative (Negative); ~HepC Num1 0.15 S/CO (0.00-0.79); ~Hepatitis A Antibody IgM Nonreactive (Nonreactive); ~Hepatitis B Surface Antibody NONREACTIVE (Nonreactive); ~Hepatitis C Antibody Nonreactive (Nonreactive)
[2025-02-10 14:29] LABS: Ferritin 77 ng/mL (10-250); Lactate Dehydrogenase 232 U/L (122-220); TSH reflex Free T4 0.86 uIU/mL (0.32-4.0)
[2025-02-10 14:54] LABS: Monotest Negative (Negative)
[2025-02-12 10:49] LABS: Mitochondrial Antibodies NEGATIVE (NEGATIVE)
[2025-02-12 14:49] LABS: Anti Nuclear Antibody Screen NEGATIVE (NEGATIVE)
[2025-02-13 21:54] LABS: Smooth Muscle Antibody <20 U (<20)
[2025-02-16 22:48] LABS: Transglutaminase Ab IgG <1.0 U/mL; Transglutaminase IgA <1.0 U/mL
== END 2025-02-10 11:28 | disposition home or self-care (01) ==
LOC: HO.10HDL 11:27
PROVIDERS: Visit Provider Nurse Practitioner
DX: R10.9 Unspecified abdominal pain (principal); R11.2 Nausea with vomiting, unspecified; Z11.4 Encounter for screening for human immunodeficiency virus [HIV]
CPT/HCPCS: 36415; 80053; 82150; 82248; 82728; 83615; 84443; 85025; 86015; 86038; 86140; 86308; 86364; 86381; 86704; 86706; 86709; 86803; 87340; 87389

== ENCOUNTER 2025-02-17 11:41 | Outpatient (REF) | payer MEDICARE, OTHER, SELFPAY ==
--- OUTSIDE RECORDS SUMMARY | 2025-02-18 14:34 | XMS_ITS | Patient Health Record ---
Author Organization [facility] Address [address] [place] [address] Care Team Providers Care Laborer/Key Man Name Role Phone Ricardo JARA, Wade Primary Care Provider SHERRIE Morejon Unavailable [phone] Allergies Allergen (clinical drug ingredient) Drug/Non Drug [...] W/U Status Risk Notes Problem Postmenopausal bleeding (75367647) Postmenopausal bleeding (N95.0) Active confirmed Problem Adjustment disorder with depressed mood (44562838) Adjustment disorder with depressed mood (F43.21) Active confirmed Problem Cystocele (678747516) Cystocele, unspecified (N81.10) Active confirmed Problem Prolapse of female genital organs (66314127) Female genital prolapse, unspecified (N81.9) Active confirmed Problem Abnormal findings on diagnostic imaging of breast (920124273) Other abnormal and inconclusive findings on diagnostic [...] End Date [employer] [address] [place] [address] [id number] AVELINO AMAYA Spouse - patient is the [...]
[2025-02-18 15:06] LABS: Adenovirus F 40/41 Not Detected (Not Detect.); Astrovirus Not Detected (Not Detect.); Campylobacter Not Detected (Not Detect.); Cryptosporidium Not Detected (Not Detect.); Cyclospora cayetanensis Not Detected (Not Detect.); E. coli EAEC Not Detected (Not Detect.); E. coli EPEC Not Detected (Not Detect.); E. coli ETEC Not Detected (Not Detect.); E. coli STEC Not Detected (Not Detect.); Entamoeba histolytica Not Detected (Not Detect.); Giardia lamblia Not Detected (Not Detect.); Norovirus GI/GII Not Detected (Not Detect.); Plesiomonas shigelloides Not Detected (Not Detect.); Rotavirus A Not Detected (Not Detect.); Salmonella Not Detected (Not Detect.); Sapovirus Not Detected (Not Detect.); Shigella sp./EIEC Not Detected (Not Detect.); Vibrio Not Detected (Not Detect.); Vibrio Cholerae Not Detected (Not Detect.); Yersinia enterocolitica Not Detected (Not Detect.)
[2025-02-25 16:49] LABS: Calprotectin, Fecal 93 mcg/g
== END 2025-02-17 11:42 | disposition home or self-care (01) ==
LOC: HO.LNP 11:41
PROVIDERS: Visit Provider Nurse Practitioner
DX: R10.9 Unspecified abdominal pain (principal); R11.2 Nausea with vomiting, unspecified
CPT/HCPCS: 83993; 87507

== ENCOUNTER 2025-02-24 12:14 | Outpatient (AMB) | payer MEDICARE, OTHER, SELFPAY ==
--- NOTE | 2025-02-24 12:17 | MHC.OFFVIS ---
Vital Signs 02/24/25 12:19 Height 5 ft 7 in Weight 136 lb 10.986 oz BMI 21.4 BP 110/61 Blood Pressure Location Lt brachial Position Sitting Pulse 60 Intake Visit Reasons: 2wk Intake Note: Joy presents in the office as a 2 week follow up. CC: She states that she had blood work done and just here for the results. Biological Lab Technician Required: No Allergies codeine [CODEINE] Allergy (Unknown, Verified 02/24/25 12:18) migraines doxycycline [DOXYCYCLINE] Allergy (Unknown, Verified 02/24/25 12:18) anaphylaxis, swelling, redness environmental allergies Adverse Reaction (Intermediate, Verified 02/24/25 12:18) Wheezing HPI HPI 2wk: Details: Assessment & Plan (1) Abdominal pain: Code(s): R10.9 - Unspecified abdominal pain Category: Medical (2) Nausea and vomiting: Code(s): R11.2 - Nausea with vomiting, unspecified Category: Medical Plan She had abd figueroa and diarrhea of sudden onset 01/13 and presented to the ER. They did labs showing slight leukocytosis and ? UTI and CT that was unremarkable. They rx'ed nitrofurantoin and loperimide. She has not gotten any better. She has borborygmus and the pain is generalized over the entire abdomen. It waxes adn wanes from 3/10 - 10/10. The pain worsens between midnight to 3am and she has associated N/V with dry heaves with severe diarrhea (at times both ends!). She will have a severe attack about every 14 days and it will last anywhere from 4-10 hours. At one point she took 6 imodium at once to stop the diarrhea. Certainly there is a very wide differential in diagnose in her. This could be very severe IBS with gas and bloating driving the nausea but she also could have an underlying infection, gallbladder dyskinesia, sudden development of exocrine pancreatic insufficiency, or even inflammatory bowel disease. It is also possible that it is psychogenic in origin. I am going to get a widespread of labs and studies to try to get a handle on what is going on with her since this a severely life limiting. ROV 2 weeks Orders: Orders GI Panel Today R10.9 - Unspecified abdominal pain, R11.2 - Nausea with vomiting, unspecified C Reactive Protein Today R10.9 - Unspecified abdominal pain, R11.2 - Nausea with vomiting, unspecified Calprotectin, Fecal Today R10.9 - Unspecified abdominal pain, R11.2 - Nausea with vomiting, unspecified Hepatitis A,B,C Profile Today R10.9 - Unspecified abdominal pain, R11.2 - Nausea with vomiting, unspecified HIV Ab/Ag Today R10.9 - Unspecified abdominal pain, R11.2 - Nausea with vomiting, unspecified Transglutaminase IgA Today R10.9 - Unspecified abdominal pain, R11.2 - Nausea with vomiting, unspecified Smooth Muscle Antibody Today R10.9 - Unspecified abdominal pain, R11.2 - Nausea with vomiting, unspecified Mitochondrial Antibody Today R10.9 - Unspecified abdominal pain, R11.2 - Nausea with vomiting, unspecified Amylase Today R10.9 - Unspecified abdominal pain, R11.2 - Nausea with vomiting, unspecified NAVJOT Reflex Titer and Pattern Today R10.9 - Unspecified abdominal pain, R11.2 - Nausea with vomiting, unspecified Monotest Today R10.9 - Unspecified abdominal pain, R11.2 - Nausea with vomiting, unspecified Liver Panel Today R10.9 - Unspecified abdominal pain, R11.2 - Nausea with vomiting, unspecified Comprehensive Met. Panel Today R10.9 - Unspecified abdominal pain, R11.2 - Nausea with vomiting, unspecified Transglutaminase Ab IgG Today R10.9 - Unspecified abdominal pain, R11.2 - Nausea with vomiting, unspecified TSH reflex Free T4 Today R10.9 - Unspecified abdominal pain, R11.2 - Nausea with vomiting, unspecified Complete Blood Count Auto Diff Today R10.9 - Unspecified abdominal pain, R11.2 - Nausea with vomiting, unspecified Ferritin Today R10.9 - Unspecified abdominal pain, R11.2 - Nausea with vomiting, unspecified Lactate Dehydrogenase Today R10.9 - Unspecified abdominal pain, R11.2 - Nausea with vomiting, unspecified Medications: New dicyclomine 20 mg PO QID 30 days 120 tabs 1RF Refilled pantoprazole 40 mg PO DAILY 90 days 90 tabs 1RF K21.9 - Gastro-esophageal reflux disease without esophagitis sodium,potassium,mag sulfates 17.5-3.13-1.6 gram (Suprep Bowel Prep Kit) 480 mL orally; FOR COLONOSCOPY PREP 354 mL 0RF LABS: Laboratory Tests 02/10/25 11:36 WBC 7.2 Hgb 13.2 Hct 42.3 Plt Count 276 Estimated GFR > 60 Total Bilirubin 0.8 AST 28 ALT 13 Alkaline Phosphatase 76 Lactate Dehydrogenase 232 H Amylase 63 TSH 0.86 NAVJOT Screen NEGATIVE Anti-Mitochondrial Ab NEGATIVE Anti-Smooth Muscle Ab <20 Tiss Transglutamin IgG <1.0 Tiss Transglutamin IgA <1.0 Hepatitis A IgM Ab Nonreactive Hep Bs Antigen Negative Hep Bs Antibody NONREACTIVE Hep B Core Total Ab Nonreactive Hepatitis C Ab (EIA) Nonreactive Monoscreen Negative HIV 1&2 Ab/P24 Ag 4thGn Nonreactive Stool Cyclospora cayetanensis (PCR) Not Detected (Not Detect.) Apr 16 Stool Rotavirus A PCR Not Detected (Not Detect.) Apr 16 Stool Adenovirus F 40/41 (PCR) Not Detected (Not Detect.) Apr 16 Stool Astrovirus (PCR) Not Detected (Not Detect.) Apr 16 Stool Campylobacter PCR Not Detected (Not Detect.) Apr 16 Stool Cryptosporidium PCR Not Detected (Not Detect.) Apr 16 Stl Shiga Tox Prod E Col (STEC) PCR Not Detected (Not Detect.) Apr 16 Stool E coli O157 PCR Not applicable (Not Detect.) Apr 16 Stool Enterotoxigenic Ecoli PCR Not Detected (Not Detect.) Apr 16 Stool Enteropathogenic E. coli (PCR Not Detected (Not Detect.) Apr 16 Stool Enteroaggregative E. coli PCR Not Detected (Not Detect.) Apr 16 Stool Entamoeba histolytica (PCR) Not Detected (Not Detect.) Apr 16 Stool Giardia Lamblia PCR Not Detected (Not Detect.) Apr 16 Stool Plesiomonas shigelloides (PCR Not Detected (Not Detect.) Apr 16 Stool Salmonella PCR Not Detected (Not Detect.) Apr 16 Stool Sapovirus (PCR) Not Detected (Not Detect.) Apr 16 Stool Shigella/EIEC (PCR) Not Detected (Not Detect.) Apr 16 Stool Yersinia enterocolitica (PCR) Not Detected (Not Detect.) Apr 16 Stool Vibrio (PCR) Not Detected (Not Detect.) Apr 16 Stool Vibrio cholerae (PCR) Not Detected (Not Detect.) Apr 16 Stool Norovirus GI/GII PCR Not Detected STOOL CALPROTECTIN IS PENDING TODAY'S VISIT She is no longer having diarrhea or N/V but she still has daily pain midline starts in the upper abd and then to the lower abdomen. Time of day varies, not always r/t eating or BM. Very sharp pain. Lasts for hours and she will be sore afterwards. She only took the bentyl for diarrhea, did not try this for the pain. It really is around the area of small intestine, but no CT findings or sg/sx of infection etc. Will get RAST panel and UA to see if food allergies or renal stones in the DDX. She is quite puzzling. Next available around her vacation schedule [facility] Medical History (Updated 02/24/25 @ 12:51 by DEVIN Wilkinson) Hernia, paraesophageal Abdominal pain Paraesophageal hernia Hand weakness COVID-19 Cough Right wrist pain Overweight Hypothyroidism Pre-op examination Acute diarrhea Skin lesion of scalp Wrist pain Screening mammogram, encounter for Screening due Presence of surgical screw in left hand Chronic GERD Headache Surgical History History of esophagogastroduodenoscopy (EGD) H/O colonoscopy Status post repair of paraesophageal diaphragmatic hernia History of surgery on left wrist H/O squamous cell carcinoma excision H/O kyphoplasty History of appendectomy S/P laparoscopic surgery S/P left knee arthroscopy Family History Father No problems noted. Mother No problems noted. Social History Household Members: Spouse Housing: House Are you a primary associate director career services to a significant other at home: No Do you presently have visiting nurse or other home services: No Alcohol intake: never Patient Tobacco Use Status: Never used Tobacco Tobacco use type: Cigarette e-Cigarette/Vaping Use: Never Used Second Hand Smoke Exposure: No service: No Current occupational status: disabled Cognitive needs: Yes (cane) Hearing needs: No Vision needs: Yes (glasses) Review of Systems Const Denies fatigue, Denies fever(s), Denies night sweats, Denies poor appetite and Denies weight loss Eyes Details: glasses Reports requires corrective lenses ENT Reports Normal hearing present, Denies dental pain, Denies dysphagia, Denies hearing loss, Denies mouth pain, Denies odynophagia, Denies throat swelling, Denies tongue swelling and Reports other (Dentition adequate) Card Reports no additional complaints Resp Reports no additional complaints GI Details: Denies abdominal pain, Denies melena, Reports bloating, Denies hematochezia, Reports constipation, Reports GI cramping, Denies dysphagia, Denies excessive flatus, Denies early satiety, Reports heartburn, Denies diarrhea, Denies nausea, Denies odynophagia, Denies vomiting and Denies hematemesis Skin/Breast Denies pruritus, Denies lesions, Denies rash and Denies jaundice Neuro Reports Normal hearing present and Denies Abnormal speech present Endo Denies fatigue Aller/Immun Denies throat swelling and Denies tongue swelling Physical Exam Vital Signs: Last Vital Signs Pulse 60 02/24/25 12:19 BP 110/61 02/24/25 12:19 BMI result Body Mass Index 21.4 Const General: cooperative, no acute distress, well developed and well groomed Nutritional Appearance: well nourished and thin Orientation/consciousness: oriented to person, oriented to place and oriented to time Limitations: No language barrier HEENT Head: Yes normocephalic and Yes atraumatic Eyes General: appearance normal, both eyes and all related structures Pupils: Equal, round and reactive pupils present Neck Neck: Yes normal visual inspection and Yes no lymphadenopathy Thyroid: Thyroid normal Resp Effort & Inspection: normal respiratory effort and able to speak in complete sentences Auscultation: clear to auscultation bilaterally Cardio Rate: regular rate Rhythm: regular rhythm Heart sounds: Normal, physiologic split S2 sound present Peripheral pulses: radial pulses present and posterior tibial pulses present GI Inspection: No distended and No Abdominal panniculus present Palpation (GI): Soft to palpation, nontender, no guarding, not rigid and No hepatosplenomegaly present Percussion: Yes normal to percussion Auscultation: normal bowel sounds Rectal Exam - Female: deferred Skin General skin exam: no rashes or lesions noted, turgor normal, skin not dry, no jaundice, No spider nevi and no striae Rashes: no rashes Nails: normal Neuro General: oriented to person, oriented to place and oriented to time Cranial nerves: Yes Equal, round and reactive pupils present and Yes Normal hearing present Speech: No Abnormal speech present Extrem General: Yes normal to inspection, No clubbing, No cyanosis and No edema Psych Appearance: grossly normal and well kempt Mental Status: mental status grossly normal Speech and movement: Normal speech and movement present Affect: normal affect Attitude: cooperative Thought process: Normal thought process present and not confabulating Thought content: Normal thought content present Insight: Limited insight present (Psych) Judgement: Limited judgement present (Psych) Results Reviewed Results Reviewed: Laboratory Tests 02/10/25 11:36 WBC 7.2 Hgb 13.2 Hct 42.3 Plt Count 276 Estimated GFR > 60 Total Bilirubin 0.8 AST 28 ALT 13 Alkaline Phosphatase 76 Lactate Dehydrogenase 232 H Amylase 63 TSH 0.86 NAVJOT Screen NEGATIVE Anti-Mitochondrial Ab NEGATIVE Anti-Smooth Muscle Ab <20 Tiss Transglutamin IgG <1.0 Tiss Transglutamin IgA <1.0 Hepatitis A IgM Ab Nonreactive Hep Bs Antigen Negative Hep Bs Antibody NONREACTIVE Hep B Core Total Ab Nonreactive Hepatitis C Ab (EIA) Nonreactive Monoscreen Negative HIV 1&2 Ab/P24 Ag 4thGn Nonreactive Stool Cyclospora cayetanensis (PCR) Not Detected (Not Detect.) Apr 16 Stool Rotavirus A PCR Not Detected (Not Detect.) Apr 16 Stool Adenovirus F 40/41 (PCR) Not Detected (Not Detect.) Apr 16 Stool Astrovirus (PCR) Not Detected (Not Detect.) Apr 16 Stool Campylobacter PCR Not Detected (Not Detect.) Apr 16 Stool Cryptosporidium PCR Not Detected (Not Detect.) Apr 16 Stl Shiga Tox Prod E Col (STEC) PCR Not Detected (Not Detect.) Apr 16 Stool E coli O157 PCR Not applicable (Not Detect.) Apr 16 Stool Enterotoxigenic Ecoli PCR Not Detected (Not Detect.) Apr 16 Stool Enteropathogenic E. coli (PCR Not Detected (Not Detect.) Apr 16 Stool Enteroaggregative E. coli PCR Not Detected (Not Detect.) Apr 16 Stool Entamoeba histolytica (PCR) Not Detected (Not Detect.) Apr 16 Stool Giardia Lamblia PCR Not Detected (Not Detect.) Apr 16 Stool Plesiomonas shigelloides (PCR Not Detected (Not Detect.) Apr 16 Stool Salmonella PCR Not Detected (Not Detect.) Apr 16 Stool Sapovirus (PCR) Not Detected (Not Detect.) Apr 16 Stool Shigella/EIEC (PCR) Not Detected (Not Detect.) Apr 16 Stool Yersinia enterocolitica (PCR) Not Detected (Not Detect.) Apr 16 Stool Vibrio (PCR) Not Detected (Not Detect.) Apr 16 Stool Vibrio cholerae (PCR) Not Detected (Not Detect.) Apr 16 Stool Norovirus GI/GII PCR Not Detected STOOL CALPROTECTIN IS PENDING Assessment & Plan Assessment & Plan (1) Abdominal pain: Code(s): R10.9 - Unspecified abdominal pain Category: Medical (2) Nausea and vomiting: Code(s): R11.2 - Nausea with vomiting, unspecified Category: Medical (3) Status post repair of paraesophageal diaphragmatic hernia: Code(s): Z98.890 - Other specified postprocedural states; Z87.19 - Personal history of other diseases of the digestive system Category: Surgical (4) Multiple food allergies: Code(s): Z91.018 - Allergy to other foods Category: Medical (5) Erosive esophagitis: Code(s): K22.10 - Ulcer of esophagus without bleeding Category: Medical (6) Chronic GERD: Code(s): K21.9 - Gastro-esophageal reflux disease without esophagitis Category: Medical (7) Diarrhea: Code(s): R19.7 - Diarrhea, unspecified Category: Medical Plan She is no longer having diarrhea or N/V but she still has daily pain midline starts in the upper abd and then to the lower abdomen. Time of day varies, not always r/t eating or BM. Very sharp pain. Lasts for hours and she will be sore afterwards. She only took the bentyl for diarrhea, did not try this for the pain. It really is around the area of small intestine, but no CT findings or sg/sx of infection etc. Will get RAST panel and UA to see if food allergies or renal stones in the DDX. She is quite puzzling. Next available around her vacation schedule STOOL CALPROTECTIN IS PENDING Orders: Orders Rast Allergen Today R19.7 - Diarrhea, unspecified UA CC w/rflx Micro + Cult Today R10.9 - Unspecified abdominal pain Medications: New ondansetron HCl 8 mg PO Q12H 60 tabs 3RF R11.2 - Nausea with vomiting, unspecified Refilled dicyclomine 20 mg PO QID 120 tabs 4RF 30 days pantoprazole 40 mg PO DAILY 90 tabs 1RF 90 days K21.9 - Gastro-esophageal reflux disease without esophagitis Discontinued sodium,potassium,mag sulfates 17.5-3.13-1.6 gram (Suprep Bowel Prep Kit) Discontinued Reason: Patient Completed Course 480 mL orally; FOR COLONOSCOPY PREP 354 mL 0RF Coding Level of Care Code Est Pt Level 3 (61766) Diagnoses Abdominal pain R10.9 Nausea and vomiting R11.2 Status post repair of paraesophageal diaphragmatic hernia Z98.890; Z87.19 Multiple food allergies Z91.018 Erosive esophagitis K22.10 Chronic GERD K21.9 Diarrhea R19.7
[2025-02-24 12:19] VITALS: BP 110/61; PULSE 60; BMI 21.4
--- OUTSIDE RECORDS SUMMARY | 2025-02-24 14:30 | XMS_ITS | Patient Health Record ---
[facility] Organization [facility] Address [address] [place] [address] Care Team Providers Care Business Systems Architect Name Role Phone Ricardo JARA, Wade Primary Care Provider SHERRIE Morejon Unavailable [phone] Allergies Allergen (clinical drug ingredient) Drug/Non Drug [...] W/U Status Risk Notes Problem Postmenopausal bleeding (05376161) Postmenopausal bleeding (N95.0) Active confirmed Problem Adjustment disorder with depressed mood (40063898) Adjustment disorder with depressed mood (F43.21) Active confirmed Problem Cystocele (500201862) Cystocele, unspecified (N81.10) Active confirmed Problem Prolapse of female genital organs (20934748) Female genital prolapse, unspecified (N81.9) Active confirmed Problem Abnormal findings on diagnostic imaging of breast (567556378) Other abnormal and inconclusive findings on diagnostic [...] End Date [employer] [address] [place] [address] [id number] AVELINO AMAYA Spouse - patient is the [...]
== END 2025-02-24 13:05 | disposition home or self-care (01) ==
LOC: HO.HGI 12:15
PROVIDERS: PCP Internal Medicine; Visit Provider Nurse Practitioner
DX: R10.9 Unspecified abdominal pain (principal); R11.2 Nausea with vomiting, unspecified; Z98.890 Other specified postprocedural states; Z87.19 Personal history of other diseases of the digestive system; Z91.018 Allergy to other foods; K22.10 Ulcer of esophagus without bleeding; K21.9 Gastro-esophageal reflux disease without esophagitis; R19.7 Diarrhea, unspecified
CPT/HCPCS: 99213

== ENCOUNTER → 2025-02-24 12:14 | Outpatient (BNVA) | payer MEDICARE, OTHER, SELFPAY | PROVIDERS: PCP Internal Medicine; Visit Provider Nurse Practitioner | DX: K22.10 Ulcer of esophagus without bleeding (principal); K21.9 Gastro-esophageal reflux disease without esophagitis; R10.9 Unspecified abdominal pain; R11.2 Nausea with vomiting, unspecified; R19.7 Diarrhea, unspecified; Z91.018 Allergy to other foods; Z87.19 Personal history of other diseases of the digestive system; Z98.890 Other specified postprocedural states | CPT/HCPCS: 99212 ==

== ENCOUNTER 2025-02-25 11:08 | Outpatient (REF) | payer MEDICARE, OTHER, SELFPAY ==
[2025-02-25 12:55] LABS: MANUAL DIFF FLAG NO
[2025-02-25 13:14] LABS: Basophils Percent Auto 0.5 % (0-2); Eosinophils Absolute Auto 0.3 X10*3/uL (0.0-0.4); Eosinophils Percent Auto 5.1 % (0-4); Hematocrit 41.4 % (37.0-47.0); Hemoglobin 12.9 g/dl (12.0-16.0); Imm Gran Abs Auto 0.01 X10*3/uL (0.00-0.03); Imm Gran Pct Auto 0.2 % (0.0-0.4); Lymphocytes Absolute Auto 1.7 X10*3/uL (1.2-4.9); Lymphocytes Percent Auto 29.4 % (20-40); Mean Corpuscular HGB Conc 31.2 g/dl (31.0-35.0); Mean Corpuscular Hemoglobin 29.7 pg (27.0-33.0); Mean Corpuscular Volume 95.4 fL (80.0-98.0); Mean Platelet Volume 9.8 fL (9.4-12.3); Monocytes Absolute Auto 0.5 X10*3/uL (0.1-1.2); Neutrophils Absolute Auto 3.2 x10*3/uL (2.0-8.3); Neutrophils Percent Auto 56.8 % (45-73); Platelet Count 258 X10*3/uL (160-400); Red Blood Count 4.34 X10*6/uL (4.20-5.50); Red Cell Distribution Width 13.1 % (11.0-16.0); White Blood Count 5.6 X10*3/uL (4.8-10.8)
[2025-02-25 13:17] LABS: Appearance Urine Clear; Color Urine Yellow; Glucose Urine UA Negative (Negative); Leukocyte Esterase Urine Large (3+) (Negative); Nitrite Urine Negative (Negative); PH 6.5 (5.0-9.0); Specific Gravity - Urine 1.015 (1.005-1.025); UMIC TRIGGER UACC YES; Urine Blood Trace (Negative); Urine Ketones Negative (Negative); Urine Protein Negative (Neg-Trace)
--- OUTSIDE RECORDS SUMMARY | 2025-02-25 13:17 | XMS_ITS | Patient Health Record ---
Author Organization [employer] Address [address] [place] [address] Care Team Providers Care Printed Circuit Board Designer Name Role Phone Ricardo JARA, Wade Primary Care Provider SHERRIE Morejon Unavailable [phone] Allergies Allergen (clinical drug ingredient) Drug/Non Drug [...] W/U Status Risk Notes Problem Postmenopausal bleeding (88188458) Postmenopausal bleeding (N95.0) Active confirmed Problem Adjustment disorder with depressed mood (74406224) Adjustment disorder with depressed mood (F43.21) Active confirmed Problem Cystocele (508102539) Cystocele, unspecified (N81.10) Active confirmed Problem Prolapse of female genital organs (12105069) Female genital prolapse, unspecified (N81.9) Active confirmed Problem Abnormal findings on diagnostic imaging of breast (878459455) Other abnormal and inconclusive findings on diagnostic [...] End Date [employer] [address] [place] [address] [id number] AVELINO AMAYA Spouse - patient is the [...]
[2025-02-25 13:32] LABS: Alanine Aminotransferase 19 U/L (0-31); Albumin Level 4.2 g/dL (3.5-5.0); Alkaline Phosphatase 76 U/L (39-117); Anion Gap 9 (12-20); Aspartate Amino Transferase 29 U/L (5-31); Bilirubin Total 0.7 mg/dL (0.0-1.0); Blood Urea Nitrogen 13 mg/dL (9-16); Carbon Dioxide 28 mmol/L (22-29); Chloride 107 mmol/L (96-108); Cholesterol 238 mg/dL (<200); Estimated Glomerular Filt Rate > 60; Glucose Fasting 105 mg/dL (60-99); HDL Cholesterol 51 mg/dL (>40); LDL Cholesterol Calculated 163 mg/dL (<100); Potassium 3.9 mmol/L (3.3-5.1); Sodium 140 mmol/L (135-145); Total Protein 7.7 g/dL (6.5-8.0); Triglycerides 122 mg/dL (<150)
[2025-02-25 13:37] LABS: Thyroid Stimulating Hormone 2.31 uIU/mL (0.32-4.0)
[2025-02-25 13:42] LABS: Bacteria Urine None Seen (None Seen); Hyaline Casts Urine 0-2 /LPF (0-2); UACC Culture Trigger YES
== END 2025-02-25 11:09 | disposition home or self-care (01) ==
LOC: HO.10HDL 11:08
PROVIDERS: Nurse Practitioner; Visit Provider Internal Medicine
DX: R19.7 Diarrhea, unspecified (principal); Z13.29 Encounter for screening for other suspected endocrine disorder; Z13.9 Encounter for screening, unspecified; Z13.220 Encounter for screening for lipoid disorders; Z13.0 Encounter for screening for diseases of the blood and blood-forming organs and certain disorders involving the immune mechanism; R10.9 Unspecified abdominal pain
CPT/HCPCS: 36415; 80053; 80061; 81001; 81003; 84443; 85025; 86003; 87086; 87147

== ENCOUNTER 2025-04-20 12:16 | Outpatient (REF) | payer MEDICARE, OTHER, SELFPAY ==
[2025-04-20 13:38] LABS: Appearance Urine Clear; Color Urine Yellow; Glucose Urine UA Negative (Negative); Leukocyte Esterase Urine Moderate (2+) (Negative); Nitrite Urine Negative (Negative); UMIC TRIGGER UACC YES; Urine Blood Trace (Negative); Urine Ketones Negative (Negative); Urine Protein Negative (Neg-Trace)
[2025-04-20 13:40] LABS: Bacteria Urine None Seen (None Seen); Hyaline Casts Urine 0-2 /LPF (0-2); RBC Urine 0-2 /HPF (0-2); Squamous Epithelial Cell Urine 0-2 /HPF (0-2); UACC Culture Trigger YES
== END 2025-04-20 12:17 | disposition home or self-care (01) ==
LOC: HO.LAB 12:16
PROVIDERS: PCP Internal Medicine; Visit Provider Nurse Practitioner
DX: A49.1 Streptococcal infection, unspecified site (principal); R10.9 Unspecified abdominal pain; R19.7 Diarrhea, unspecified; R11.2 Nausea with vomiting, unspecified; K59.00 Constipation, unspecified
CPT/HCPCS: 81001; 87086; 87147; 99212

== ENCOUNTER 2025-04-20 12:16 | Outpatient (AMB) | payer MEDICARE, OTHER, SELFPAY ==
--- NOTE | 2025-04-20 12:18 | A.OFFVIS_ITS ---
Vital Signs 04/20/25 12:23 Height 5 ft 7 in Weight 139 lb BMI 21.8 BP 102/60 Blood Pressure Location Lt brachial Position Sitting Pulse 67 Pulse Oximetry (%) 98 Oxygen Delivery Method Room Air Intake Visit Reasons: abd pain Intake Note: Patient follow up for abdominal pain. Patient cc: nauseas, abdominal pain with bloating, and constipation with bloody hemorrhoids. Hothouse Worker Required: No Accompanied by: Self / Same As Patient Allergies codeine [CODEINE] Allergy (Unknown, Verified 04/20/25 12:18) migraines doxycycline [DOXYCYCLINE] Allergy (Unknown, Verified 04/20/25 12:18) anaphylaxis, swelling, redness environmental allergies Adverse Reaction (Intermediate, Verified 04/20/25 12:18) Wheezing HPI HPI abd pain: Details: Assessment & Plan (1) Abdominal pain: Code(s): R10.9 - Unspecified abdominal pain Category: Medical (2) Nausea and vomiting: Code(s): R11.2 - Nausea with vomiting, unspecified Category: Medical (3) Status post repair of paraesophageal diaphragmatic hernia: Code(s): Z98.890 - Other specified postprocedural states; Z87.19 - Personal history of other diseases of the digestive system Category: Surgical (4) Multiple food allergies: Code(s): Z91.018 - Allergy to other foods Category: Medical (5) Erosive esophagitis: Code(s): K22.10 - Ulcer of esophagus without bleeding Category: Medical (6) Chronic GERD: Code(s): K21.9 - Gastro-esophageal reflux disease without esophagitis Category: Medical (7) Diarrhea: Code(s): R19.7 - Diarrhea, unspecified Category: Medical Plan She is no longer having diarrhea or N/V but she still has daily pain midline starts in the upper abd and then to the lower abdomen. Time of day varies, not always r/t eating or BM. Very sharp pain. Lasts for hours and she will be sore afterwards. She only took the bentyl for diarrhea, did not try this for the pain. It really is around the area of small intestine, but no CT findings or sg/sx of infection etc. Will get RAST panel and UA to see if food allergies or renal stones in the DDX. She is quite puzzling. Next available around her vacation schedule STOOL CALPROTECTIN IS PENDING Orders: Orders Rast Allergen Today R19.7 - Diarrhea, unspecified UA CC w/rflx Micro + Cult Today R10.9 - Unspecified abdominal pain Medications: New ondansetron HCl 8 mg PO Q12H 60 tabs 3RF R11.2 - Nausea with vomiting, unspecified Refilled dicyclomine 20 mg PO QID 120 tabs 4RF 30 days pantoprazole 40 mg PO DAILY 90 tabs 1RF 90 days K21.9 - Gastro-esophageal reflux disease without esophagitis Discontinued sodium,potassium,mag sulfates 17.5-3.13-1.6 gram (Suprep Bowel Prep Kit) Discontinued Reason: Patient Completed Course 480 mL orally; FOR COLONOSCOPY PREP 354 mL 0RF LABS: Laboratory Tests 02/17/25 22:00 Stool Calprotectin 93 02/25/25 Collection Time: 1110 Source: Urine, Clean Catch Test Result Flag Reference Ur Color Yellow Ur Appear Clear PH 6.5 5.0-9.0 Ur Glu Negative Negative mg/dL Urine Blood Trace H Negative Spec Wallback Ur 1.015 1.005-1.025 Urine Protein Negative Neg-Trace mg/dL Urine Ketones Negative Negative mg/dL Ur Nitrite Negative Negative Ur Elijah Esterase Large (3+) H Negative Ur RBC 3-5 H 0-2 /HPF Ur WBC 11-20 H 0-5 /HPF Ur Squam Epi 3-5 0-2 /HPF Ur Bact None Seen None Seen Ur Hyaline E Commerce Specialist 0-2 0-2 /LPF 02/27/25-1433 Organism 1 Strep agalactiae (Grp B) Quant 10,000 to 50,000 cfu/mL Susc N/A Susceptibility not routinely performed on this isolate. RAST PANEL SHOWS NO SIGNIFICANT FOOD ALLERGIES CORRESPONDENCE On 03/01/25 @ 12:43 Alena Dos Santos Wrote To Norma Ramires patient left voice message stating her pharmacy for urgent medications should be [facility] [place]. I changed it to the preferred pharmacy. On 03/01/25 @ 11:46 Norma Ramires Wrote To Franny Hernandez Please call patient and let her know that she has strep infection of the urine, again. It may be that her prior infection with this same microbe was not fully cured. I want to put her on a longer course of PCN. It think this may be the source of her pain. If this does not solve the problem (we will have to re test her after treatment) I may need to refer her to urology. Please advise. TODAYS VISIT Stool calprotectin is borderline elevated however she had a normal colonoscopy in 2023 so it does not seem likely that this is IBD. Also the RAST panel does not show any significant food allergies so this really only leaves us with potentially medication induced irritation. She did complete the antibiotics, however she never got the message from our office about why they were prescribed which is quite concerning. However, this did not help her abdominal pain. Now she is quite severely constipated and she has tried bisacodyl and Dulcolax suppositories and this is only produced small rabbit like stooling with insufficient evacuation. At this point I think we need to repeat the urine to see whether that infection is gone since strep allergen ease can be difficult to eradicate in the urine, and we will get her started on some magnesium citrate to see if we can restart her stooling. In the past she was having loose stools so this is all quite puzzling. She asked that all her labs be printed because she gave 7 or 8 vials I think quite a few from were ordered by Dr. Sparks's office. None of them looked overly concerning except for the urine test. Return office visit in 2 weeks to see how she is doing [facility] Medical History (Updated 04/20/25 @ 12:57 by DEVIN Wilkinson) Hernia, paraesophageal Abdominal pain Paraesophageal hernia Hand weakness COVID-19 Cough Right wrist pain Overweight Hypothyroidism Pre-op examination Acute diarrhea Skin lesion of scalp Wrist pain Screening mammogram, encounter for Screening due Presence of surgical screw in left hand Chronic GERD Headache Surgical History History of esophagogastroduodenoscopy (EGD) H/O colonoscopy Status post repair of paraesophageal diaphragmatic hernia History of surgery on left wrist H/O squamous cell carcinoma excision H/O kyphoplasty History of appendectomy S/P laparoscopic surgery S/P left knee arthroscopy Family History Father No problems noted. Mother No problems noted. Social History Household Members: Spouse Housing: House Are you a primary career advisor to a significant other at home: No Do you presently have visiting nurse or other home services: No Alcohol intake: never Patient Tobacco Use Status: Never used Tobacco Tobacco use type: Cigarette e-Cigarette/Vaping Use: Never Used Second Hand Smoke Exposure: No service: No Current occupational status: disabled Cognitive needs: Yes (cane) Hearing needs: No Vision needs: Yes (glasses) Review of Systems Const Denies fatigue, Denies fever(s), Reports malaise, Denies night sweats, Denies poor appetite and Denies weight loss Eyes Details: glasses Reports requires corrective lenses ENT Reports Normal hearing present, Denies dental pain, Denies dysphagia, Denies hearing loss, Denies mouth pain, Denies odynophagia, Denies throat swelling, Denies tongue swelling and Reports other (Dentition adequate) Card Reports no additional complaints Resp Reports no additional complaints GI Details: Reports abdominal pain, Denies melena, Denies bloating, Denies hematochezia, Reports constipation, Denies GI cramping, Denies dysphagia, Denies excessive flatus, Denies early satiety, Reports heartburn, Denies diarrhea, Reports nausea, Denies odynophagia, Denies vomiting and Denies hematemesis Skin/Breast Denies pruritus, Denies lesions, Denies rash and Denies jaundice Neuro Reports Normal hearing present and Denies Abnormal speech present Endo Denies fatigue Aller/Immun Denies throat swelling and Denies tongue swelling Physical Exam Vital Signs: Last Vital Signs Pulse 67 04/20/25 12:23 BP 102/60 04/20/25 12:23 Pulse Ox 98 04/20/25 12:23 Oxygen Delivery Method Room Air 04/20/25 12:23 BMI result Body Mass Index 21.8 Const General: cooperative, no acute distress, well developed and well groomed Nutritional Appearance: average body habitus and well nourished Orientation/consciousness: oriented to person, oriented to place and oriented to time Limitations: No language barrier HEENT Head: Yes normocephalic and Yes atraumatic Eyes General: appearance normal, both eyes and all related structures Pupils: Equal, round and reactive pupils present Neck Neck: Yes normal visual inspection and Yes no lymphadenopathy Thyroid: Thyroid normal Resp Effort & Inspection: normal respiratory effort and able to speak in complete sentences Auscultation: clear to auscultation bilaterally Cardio Rate: regular rate Rhythm: regular rhythm Heart sounds: Normal, physiologic split S2 sound present Peripheral pulses: radial pulses present and posterior tibial pulses present GI Inspection: No distended and No Abdominal panniculus present Palpation (GI): Soft to palpation, Tenderness to palpation present (GI) (Suprapubic), no guarding, not rigid and No hepatosplenomegaly present Percussion: Yes normal to percussion Auscultation: normal bowel sounds Rectal Exam - Female: deferred Skin General skin exam: no rashes or lesions noted, turgor normal, skin not dry, no jaundice, No spider nevi and no striae Rashes: no rashes Nails: normal Neuro General: oriented to person, oriented to place and oriented to time Cranial nerves: Yes Equal, round and reactive pupils present and Yes Normal h earing present Speech: No Abnormal speech present Extrem General: Yes normal to inspection, No clubbing, No cyanosis and No edema Psych Appearance: grossly normal and well kempt Mental Status: mental status grossly normal Speech and movement: Normal speech and movement present Affect: normal affect Attitude: cooperative Thought process: Normal thought process present and not confabulating Thought content: Normal thought content present Insight: Fair insight present (Psych) Judgement: Fair judgement present (Psych) Results Reviewed Results Reviewed: Laboratory Tests 02/17/25 22:00 Stool Calprotectin 93 02/25/25 Collection Time: 1110 Source: Urine, Clean Catch Test Result Flag Reference Ur Color Yellow Ur Appear Clear PH 6.5 5.0-9.0 Ur Glu Negative Negative mg/dL Urine Blood Trace H Negative Spec Wallback Ur 1.015 1.005-1.025 Urine Protein Negative Neg-Trace mg/dL Urine Ketones Negative Negative mg/dL Ur Nitrite Negative Negative Ur Elijah Esterase Large (3+) H Negative Ur RBC 3-5 H 0-2 /HPF Ur WBC 11-20 H 0-5 /HPF Ur Squam Epi 3-5 0-2 /HPF Ur Bact None Seen None Seen Ur Hyaline E Commerce Specialist 0-2 0-2 /LPF 02/27/25-1433 Organism 1 Strep agalactiae (Grp B) Quant 10,000 to 50,000 cfu/mL Susc N/A Susceptibility not routinely performed on this isolate. RAST PANEL SHOWS NO SIGNIFICANT FOOD ALLERGIES CORRESPONDENCE On 03/01/25 @ 12:43 Alena Dos Santos Wrote To Norma Ramires patient left voice message stating her pharmacy for urgent medications should be [facility] [place]. I changed it to the preferred pharmacy. On 03/01/25 @ 11:46 Nomra Ramires Wrote To Franny Hernandez Please call patient and let her know that she has strep infection of the urine, again. It may be that her prior infection with this same microbe was not fully cured. I want to put her on a longer course of PCN. It think this may be the source of her pain. If this does not solve the problem (we will have to re test her after treatment) I may need to refer her to urology. Please advise. Assessment & Plan Assessment & Plan (1) Abdominal pain: Code(s): R10.9 - Unspecified abdominal pain Category: Medical (2) Diarrhea: Code(s): R19.7 - Diarrhea, unspecified Category: Medical (3) Streptococcus agalactiae infection: Code(s): A49.1 - Streptococcal infection, unspecified site Category: Medical (4) Nausea and vomiting: Code(s): R11.2 - Nausea with vomiting, unspecified Category: Medical (5) Constipation: Code(s): K59.00 - Constipation, unspecified Category: Medical Plan Stool calprotectin is borderline elevated however she had a normal colonoscopy in 2023 so it does not seem likely that this is IBD. Also the RAST panel does not show any significant food allergies so this really only leaves us with potentially medication induced irritation. She did complete the antibiotics, however she never got the message from our office about why they were prescribed which is quite concerning. However, this did not help her abdominal pain. Now she is quite severely constipated and she has tried bisacodyl and Dulcolax suppositories and this is only produced small rabbit like stooling with insufficient evacuation. At this point I think we need to repeat the urine to see whether that infection is gone since strep allergen ease can be difficult to eradicate in the urine, and we will get her started on some magnesium citrate to see if we can restart her stooling. In the past she was having loose stools so this is all quite puzzling. She asked that all her labs be printed because she gave 7 or 8 vials I think quite a few from were ordered by Dr. Sparks's office. None of them looked overly concerning except for the urine test. Return office visit in 2 weeks to see how she is doing Orders: Orders UA CC w/rflx Micro + Cult Today A49.1 - Streptococcal infection, unspecified site, K59.00 - Constipation, unspecified Medications: New magnesium citrate 1/2 btl, wait 20 min if no return, 1/2 btle again until complete 2 bottles orally daily; 300 mL 0RF Coding Level of Care Code Est Pt Level 4 (00881) Diagnoses Abdominal pain R10.9 Diarrhea R19.7 Streptococcus agalactiae infection A49.1 Nausea and vomiting R11.2 Constipation K59.00 Time Spent (min) 35
[2025-04-20 12:23] VITALS: BP 102/60; PULSE 67; O2SAT 98; BMI 21.8
--- OUTSIDE RECORDS SUMMARY | 2025-04-20 13:54 | XMS_ITS | Patient Health Record ---
[facility] Address [address] [facility] [place] [address] Care Team Providers Care Pediatric Oncology Nurse Name Role Phone Clare JARA, Warner Primary Care Provider Yo Keenan Unavailable [phone] Allergies Allergen (clinical drug ingredient) Drug/Non Drug Allergy documented on EMR Reaction Allergy Type Onset Date Status codeine Codeine Sulfate migraines Drug Allergy A ctive doxycycline Doxycycline Hyclate anaphylaxis Drug Allergy Active Reason For Referral No Information Medications Medication SIG (Take, Route, Frequency, Duration) Notes Start Date End Date Status Tylenol 650 as needed Active Claritin-D 24 Hour 10-240 MG 1 tablet as needed Orally Once a day for 30 day(s) Not-Taking Ciclopirox 0.77 % 1 application to affected area Externally Twice a day for 365 days Active Social History Tobacco Use: Social History Observation Description Date Details (start date - stop date) Never Smoker NA - NA Tobacco Use/Smoking Question Answer Notes Are you a: nonsmoker Additional Findings: Tobacco Non-User Current no n-smoker Alcohol Screen Question Answer Notes Did you have a drink containing alcohol in the p ast year? No Points 0 Interpretation Negative Tobacco use other than smoking: Question Answer Notes Are you an other tobacco user? No Problems Problem Type SNOMED Code ICD Code Onset Dates Problem Status W/U Status Risk Notes Problem Tinea unguium (958330905) Tinea unguium (B35.1) Active confirmed Plan Of Treatment No Information Insurance Providers Payer Name Payer Address Payer Phone Subscriber Number Group Number Insured Name Patient Relationship to Insured Coverage Start Date Coverage End Date [employer] [address] [place] [id number] Joy Rodriguez Self - patient is the insured Medical (General) History Medical History History ICD Code Allergic rhinitis Back,Hip,and Knee pain Broken bones Headaches/Migraines Surgical History Surgery Date(Month/Year) Arm 05/12/2020 Knee 10/08/2015 back surgery 02/16/20 skin cancer 05/13/20
== END 2025-04-20 13:07 | disposition home or self-care (01) ==
LOC: HO.HGI 12:17
PROVIDERS: PCP Internal Medicine; Visit Provider Nurse Practitioner
DX: R10.9 Unspecified abdominal pain (principal); R19.7 Diarrhea, unspecified; A49.1 Streptococcal infection, unspecified site; R11.2 Nausea with vomiting, unspecified; K59.00 Constipation, unspecified
CPT/HCPCS: 99214

== ENCOUNTER 2025-05-01 08:41 | Outpatient (REF) | payer MEDICARE, OTHER, SELFPAY ==
[2025-05-01 12:03] LABS: Appearance Urine Clear; Color Urine Yellow; Glucose Urine UA Negative (Negative); Leukocyte Esterase Urine Small (1+) (Negative); Nitrite Urine Negative (Negative); Specific Gravity - Urine 1.025 (1.005-1.025); UMIC TRIGGER UACC YES; Urine Blood Small (1+) (Negative); Urine Ketones Negative (Negative); Urine Protein Negative (Neg-Trace)
[2025-05-01 12:18] LABS: Bacteria Urine None Seen (None Seen); Hyaline Casts Urine 0-2 /LPF (0-2); UACC Culture Trigger YES; WBC Urine 0-5 /HPF (0-5)
== END 2025-05-01 08:42 | disposition home or self-care (01) ==
LOC: HO.LAB 08:41
PROVIDERS: Visit Provider Nurse Practitioner
DX: K59.00 Constipation, unspecified (principal); A49.1 Streptococcal infection, unspecified site; R82.90 Unspecified abnormal findings in urine
CPT/HCPCS: 81001; 81003; 87086

== ENCOUNTER 2025-05-31 11:15 | Outpatient (AMB) | payer MEDICARE, OTHER, SELFPAY ==
--- NOTE | 2025-05-31 11:28 | A.OFFPC_ITS ---
Vital Signs 05/31/25 11:29 Height 5 ft 7 in Weight 144 lb 8 oz BMI 22.6 BP 132/64 Blood Pressure Location Lt brachial Position Sitting Pulse 70 Pulse Source Pulse Oximeter Temp Source Temporal Artery Scan Pulse Oximetry (%) 98 Oxygen Delivery Method Room Air Intake Visit Reasons: DORIS from Dr. 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 Required: No Accompanied by: Self / Same As Patient Allergies codeine (CODEINE) Allergy (Unknown, Verified 05/31/25 11:35) migraines doxycycline (DOXYCYCLINE) Allergy (Unknown, Verified 05/31/25 11:35) anaphylaxis, swelling, redness environmental allergies Adverse Reaction (Intermediate, Verified 05/31/25 11:35) Wheezing Medication List - Last Reconciled 05/31/25 by Salma Aggarwal PA-C cephalexin 750 mg PO BID 14 days dicyclomine 20 mg PO QID 30 days levothyroxine 75 mcg PO DAILY@0600 loperamide (Imodium A-D) 2 mg PO Q6H PRN magnesium citrate 1/2 btl, wait 20 min if no return, 1/2 btle again until complete 2 bottles orally daily; ondansetron HCl 8 mg PO Q12H pantoprazole 40 mg PO DAILY 90 days penicillin V potassium 500 mg PO TID 14 days sumatriptan succinate 50 mg PO DAILY PRN Tobacco use date assessed: 05/31/25 Fall risk assessment: 1 Fall in past year Last assessed Fall Risk: 05/31/25 Dental Screening Dental Screen Date: 05/31/25 Did you have a dental visit in the last 12 months?: Yes Did you have a dental problem in the last 6 months where you did not have access to dental care?: No Was dental information given to patient?: No HPI DORIS from Dr. Sparks/6M follow up HPI Details 65-year-old female with a past medical h istory of hypothyroidism, hyperlipidemia, chronic GERD, erosive esophagitis, IBS last seen by Dr. Sparks 11/2024 coming in for transfer of care. In review of the notes, patient was seen by [facility] [place] for abdominal pain and bloating started on magnesium citrate and follow up in 2 months. Presenting with constipation, dysphagia, hoarseness, and right shoulder pain. Constipation has been an ongoing issue, exacerbated since her hernia surgery, with alternating episodes of diarrhea. Dysphagia began a couple of weeks ago, associated with throat swelling and difficulty swallowing, particularly with liquids. Hoarseness occurs when the throat swells, leading to voice changes and a sensation of choking. Right shoulder pain has persisted for over two years, worsening in the last few months, with no prior imaging done. Hyperlipidemia was noted with fluctuating cholesterol levels, currently managed through dietary changes. [facility] Medical History Hernia, paraesophageal Abdominal pain Paraesophageal hernia Hand weakness COVID-19 Cough Right wrist pain Overweight Hypothyroidism Pre-op examination Acute diarrhea Skin lesion of scalp Wrist pain Screening mammogram, encounter for Screening due Presence of surgical screw in left hand Chronic GERD Headache Surgical History History of esophagogastroduodenoscopy (EGD) H/O colonoscopy Status post repair of paraesophageal diaphragmatic hernia History of surgery on left wrist H/O squamous cell carcinoma excision H/O kyphoplasty History of appendectomy S/P laparoscopic surgery S/P left knee arthroscopy Family History Father No problems noted. Mother No problems noted. Social History Household Members: Spouse Housing: House Are you a primary point of care specialist to a significant other at home: No Do you presently have visiting nurse or other home services: No Alcohol intake: never Patient Tobacco Use Status: Never used Tobacco Tobacco use type: Cigarette e-Cigarette/Vaping Use: Never Used Second Hand Smoke Exposure: No service: No Current occupational status: disabled Cognitive needs: Yes (cane) Hearing needs: No Vision needs: Yes (glasses) Questionnaire PHQ-9 Over the last 2 weeks, how often have you been bothered by any of the following problems? 1. Little interest or pleasure in doing things: not at all 2. Feeling down, depressed, or hopeless: not at all 3. Trouble falling or staying asleep, or sleeping too much: not at all 4. Feeling tired or having little energy: not at all 5. Poor appetite or overeating: not at all 6. Feeling bad about yourself - or that you are a failure or have let yourself or your family down: not at all 7. Trouble concentrating on things, such as reading the newspaper or watching television: not at all 8. Moving or speaking so slowly that other people could have noticed. Or the opposite - being so fidgety or restless that you have been moving around a lot more than usual: not at all 9. Thoughts that you would be better off or of hurting yourself in some way: not at all Total score: 0 Depression Screening Interpretation: Negative Depression Screening Done: Yes 01555 - PHQ-9 Billing: Yes Source: Developed by Drs. August Johnson, Cleopatra Khan, Martín Stoddard and colleagues, with an educational jaquan from [employer]. Thrive Questionnaire Date Thrive assessed: 05/27/25 I am a: Patient What is your living situation today?: I have a steady place to live Within the past 12 months, did the food you bought not last and you didn't have the money to get more?: Never true Within the past 12 months, did you worry whether your food would run out before you got money to buy more?: Never true Do you have trouble paying for medicines?: No Do you have trouble getting transportation to medical appointments?: No Do you have trouble paying your heating and electricity bill?: No Do you have trouble taking care of your child, family member or friend?: No Do you have trouble with day-to-day activities such as bathing, preparing meals, shopping, managing finances, etc.?: No Are you currently unemployed and looking for a job?: No Are you interested in more education?: No Please select the resources that you would like help with: None Currently or been in a relationship where the following occur: No concerns reported THRIVE Score: 0 AUDIT C Alcohol Use Questionnaire (AUDIT-C) 1. How often do you have a drink containing alcohol?: Never Total Score: 0 SIERRA-7 AMB Questionnaire SIERRA-7 Date SIERRA - 7 assessed: 12/01/24 Feeling nervous, anxious, or on edge: 0 = Not at all Not being able to stop or control worryin = Not at all Worrying too much about different things: 0 = Not at all Trouble relaxin = Not at all Being so restless that it is hard to sit still: 0 = Not at all Becoming easily annoyed or irritable: 0 = Not at all Feeling afraid as if something awful might happen: 0 = Not at all Total SIERRA-7 score (0-4 normal; 5-9 mild; 10-14 moderate; 15-21 severe): 0 Source: Developed by Drs. August Johnson, Cleopatra Khan, Martín Stoddard and colleagues, with an educational jaquan from [employer]. SIERRA-7 Assessment Billing SIERRA-7 Assessment Tool: SIERRA-7 Assessment 84509 Review of Systems Const Denies body aches, Denies fatigue, Denies fever(s), Denies frequent falls, Denies headache(s) and Denies weakness Eyes Reports no additional complaints and Denies change in vision ENT Reports dysphagia, Denies dizziness, Denies facial pain, Denies headache(s), Reports nasal congestion and Denies odynophagia Card Denies chest pain, Denies syncope, Denies irregular heart rhythm, Denies leg edema, Denies lightheadedness and Denies dyspnea Resp Denies cough and Denies dyspnea GI Details: irregular bowel movements Denies abdominal pain, Denies constipation, Reports dysphagia, Denies dyspepsia, Denies diarrhea, Denies nausea, Denies odynophagia and Denies vomiting Denies urinary frequency, Denies dysuria, Denies urinary hesitancy and Denies urinary urgency Musc Denies back pain and Denies myalgias Skin/Breast Reports system reviewed and no additional complaints, except as documented Neuro Denies dizziness, Denies syncope, Denies frequent falls, Denies headache(s) and Denies weakness Psych Reports no additional complaints Endo Denies fatigue Physical exam (Primary Care) Vital Signs: Last Vital Signs Pulse 70 05/31/25 11:29 BP 132/64 05/31/25 11:29 Pulse Ox 98 05/31/25 11:29 Oxygen Delivery Method Room Air 05/31/25 11:29 BMI result Body Mass Index 22.6 Tobacco/Smoking Status: Tobacco use Status Tobacco use date assessed 05/31/25 05/31/25 11:30 Patient Tobacco Use Status Never used Tobacco 05/31/25 11:30 Tobacco use type Cigarette 05/31/25 11:30 e-Cigarette/Vaping Use Never Used 05/31/25 11:30 PHQ-9: PHQ-9 Score PHQ-9: Total score 0 05/31/25 11:37 Depression Screening Interpretation: Negative Thrive Assessment: Date of Thrive Assessment Date Thrive assessed 05/27/25 05/31/25 11:30 Currently or been in a relationship where the following occur: No concerns reported Const General: cooperative, healthy appearing, comfortable and no acute distress Orientation/consciousness: patient oriented x3 HENMT Head: Yes normocephalic Ears: hearing grossly normal bilaterally General nose exam: Normal external nose present Eyes General: appearance normal, both eyes and all related structures Conjunctivae: conjunctivae normal Neck Other: Tenderness to palpation of entirety of neck and diffuse swelling. Neck: Yes full ROM Resp Effort & Inspection: normal respiratory effort Auscultation: clear to auscultation bilaterally, no crackles, no rales, no rhonchi and no wheezes Cardio Rate: regular rate Rhythm: regular rhythm Skin General skin exam: no rashes or lesions noted Neuro General: patient oriented x3 Gait exam (Neuro): Normal gait present Extrem Other: Intact strength and sensation in bilateral upper extremities. Pain with internal rotation, lateral raise, extension of the right shoulder. Pain to palpation over entirety of right shoulder. General: Yes normal to inspection, Yes full ROM and No edema Psych Affect: normal affect Attitude: cooperative Insight: Good insight present (Psych) Judgement: Good judgement present (Psych) Coding Level of Care Code Est Pt Level 4 (76608) Diagnoses Mixed hyperlipidemia E78.2 Hyperlipidemia type: mixed hyperlipidemia Acquired hypothyroidism E03.9 Hypothyroidism type: acquired Overweight E66.3 Chronic GERD K21.9 Irritable bowel syndrome with both constipation and diarrhea K58.2 Irritable bowel syndrome type: with both diarrhea and constipation Right shoulder pain M25.511 Elevated fasting glucose R73.01 Neck swelling R22.1 Oropharyngeal dysphagia R13.12 Additional Codes SIERRA-7 Assessment Billing - SIERRA-7 Assessment Tool: SIERRA-7 Assessment 91418 ([id number]) PHQ-9 - 90112 - PHQ-9 Billing: Yes ([id number]) Assessment & Plan Assessment & Plan (1) Hyperlipidemia: Code(s): E78.5 - Hyperlipidemia, unspecified Category: Medical Qualifiers: Hyperlipidemia type: mixed hyperlipidemia Qualified Code(s): E78.2 - Mixed hyperlipidemia Plan: Avoid foods that are high in cholesterol such as red meat, fried foods, eggs and baked goods. Triglyceride goal of less than 150 and LDL goal of less than 130. Last LDL 163 has been lower in the past, discussed dietary and lifestyle modification and plan to repeat in 3 months. (2) Hypothyroidism: Code(s): E03.9 - Hypothyroidism, unspecified Category: Medical Qualifiers: Hypothyroidism type: acquired Qualified Code(s): E03.9 - Hypothyroidism, unspecified Plan: Continue on Levothyroxine and continue to monitor blood work. Last TSH WNL. (3) Overweight: Code(s): E66.3 - Overweight Category: Medical Plan: Healthy diet and regular exercise is encouraged. (4) Chronic GERD: Code(s): K21.9 - Gastro-esophageal reflux disease without esophagitis Category: Medical Plan: Avoid trigger foods such as citrus, tomato products, soda, caffeine, spicy foods and other foods that may be irritating to your stomach. Avoid laying flat 3-4 hours after eating and elevate the head of the bed 30 degrees to prevent acid from moving into the esophagus. (5) IBS (irritable bowel syndrome): Code(s): K58.9 - Irritable bowel syndrome, unspecified Category: Medical Qualifiers: Irritable bowel syndrome type: with both diarrhea and constipation Q ualified Code(s): K58.2 - Mixed irritable bowel syndrome Plan: Continue on current medications and continue to follow with GI. (6) Right shoulder pain: Code(s): M25.511 - Pain in right shoulder Category: Medical Plan: Patient complaining of right shoulder pain and exam is limited due to pain. Plan to obtain XR for further evaluation and referral placed to ortho at patient request. May use Meloxicam as needed and advised to take with food and cannot be taken in conjuntion with other NSAIDs. (7) Elevated fasting glucose: Code(s): R73.01 - Impaired fasting glucose Category: Medical Plan: Work on dietary and lifestyle modification and repeat labs in 3 months (8) Neck swelling: Code(s): R22.1 - Localized swelling, mass and lump, neck Category: Medical Plan: Patient complaining of diffuse neck swelling with tenderness to palpation. Plan to obtain thyroid ultrasound and chest x-ray for further evaluation. Reviewed red flag symptoms to present for re-evaluation. Denies any shortness of breath or difficulty breathing. (9) Oropharyngeal dysphagia: Code(s): R13.12 - Dysphagia, oropharyngeal phase Category: Medical Plan: Continue to follow with GI and consider referral to ENT. Plan The patient will undergo an x-ray of the right shoulder to assess for potential arthritis or rotator cuff issues, followed by a referral to orthopedics. An ultrasound of the neck is scheduled to evaluate the thyroid and lymph nodes due to tenderness and swelling. A chest x-ray will be performed to rule out any related pulmonary issues. The patient is advised to continue dietary modifications to manage hyperlipidemia, with a follow-up cholesterol test in three months. Meloxicam has been prescribed for shoulder pain management, with instructions to avoid concurrent use with ibuprofen or naproxen. The patient is also scheduled for a gastroenterology consultation to address dysphagia and hoarseness, with potential referral to an hotel attendant if needed. Blood work, including thyroid, cholesterol panel, and blood sugar, is planned for three months to monitor ongoing conditions. This note was constructed using voice recognition software. While every effort has been made to ensure accuracy and conservation technician, still areas may have been included sometimes these areas may affect the content or meeting of the given symptoms. Total time spent caring for the patient today was 30 minutes. This includes time spent before the visit reviewing the chart, time spent during the visit, and time spent after the visit and documentation. Patient was informed and verbally consented to the use of an ambient scribe for clinic note documentation during this visit. Orders: Orders Lipid Panel 3 Months E78.00 - Pure hypercholesterolemia, unspecified Hemoglobin A1c Today R73.01 - Impaired fasting glucose TSH reflex Free T4 Today E03.9 - Hypothyroidism, unspecified, Z00.00 - Encounter for general adult medical examination without abnormal findings US thyroid Today R22.1 - Localized swelling, mass and lump, neck XR shoulder RT min 2V Today M25.511 - Pain in right shoulder Free T4 (Free Thyroxine) Today E03.9 - Hypothyroidism, unspecified, Z00.00 - Encounter for general adult medical examination without abnormal findings XR chest 2V Today R22.1 - Localized swelling, mass and lump, neck Referrals Orthopedics Referral M25.511 - Pain in right shoulder Allergy & Immunology Referral Z91.018 - Allergy to other foods, Z91.09 - Other allergy status, other than to drugs and biological substances Medications: New meloxicam 15 mg PO DAILY 30 tabs 0RF Discontinued loperamide (Imodium A-D) Initial: 4 mg, followed by 2 mg after each loose stool; maximum: 16 mg/day (OTC: 8 mg/day). Limit use to =48 hours Discontinued Reason: Patient Completed Course 2 mg PO Q6H PRN 7 tabs 0RF loose stool penicillin V potassium Discontinued Reason: Patient Completed Course 500 mg PO TID 14 days 42 tabs 0RF A49.1 - Streptococcal infection, unspecified site cephalexin Discontinued Reason: Patient Completed Course 750 mg PO BID 14 days 28 caps 0RF A49.1 - Streptococcal infection, unspecified site
[2025-05-31 11:29] VITALS: BP 132/64; PULSE 70; O2SAT 98; BMI 22.6
== END 2025-05-31 12:09 | disposition home or self-care (01) ==
LOC: HO.HMCH 11:16
PROVIDERS: PCP Internal Medicine
DX: E78.2 Mixed hyperlipidemia (principal); E03.9 Hypothyroidism, unspecified; E66.3 Overweight; K21.9 Gastro-esophageal reflux disease without esophagitis; K58.2 Mixed irritable bowel syndrome; M25.511 Pain in right shoulder; R73.01 Impaired fasting glucose; R22.1 Localized swelling, mass and lump, neck; R13.12 Dysphagia, oropharyngeal phase

== ENCOUNTER 2025-05-31 11:15 | Outpatient (REF) | payer MEDICARE, OTHER, SELFPAY ==
--- NOTE | ~2025-05-31 | XR_ITS ---
EXAMINATION: XR CHEST CLINICAL INFORMATION: R22.1 - Localized swelling, mass and lump, neck COMPARISON: 01/14/2016. TECHNIQUE: 2 views of the chest were obtained. FINDINGS: The cardiac, hilar, and mediastinal contours are normal. The aorta is mildly tortuous. The lungs are clear bilaterally. There is no pneumothorax or pleural effusion. There is no focal osseous or soft tissue abnormality. There is kyphoplasty cement in L1. XR/XR chest 2V IMPRESSION: No active pulmonary disease. Electronically signed by: Kevin Michel MD 05/31/2025 01:09 PM EDT
--- NOTE | ~2025-05-31 | XR_ITS ---
EXAMINATION: XR SHOULDER, RIGHT CLINICAL INFORMATION: M25.511 - Pain in right shoulder COMPARISON: None available. TECHNIQUE: AP external rotation, Grashey, scapular Y, and axillary views of the right shoulder. FINDINGS: The AC joint is intact. There are small marginal ossified involving distal clavicle. There is faint calcification in the superior acromioclavicular ligament. Glenohumeral joint demonstrates subtle osteophytes. No abnormalities are evident. XR/XR shoulder RT min 2V IMPRESSION: Minimal degenerative changes. Electronically signed by: Yaya Garcia MD 05/31/2025 12:49 PM EDT
== END 2025-05-31 11:16 | disposition home or self-care (01) ==
LOC: HO.XRAY 11:15
DX: E78.2 Mixed hyperlipidemia (principal); E03.9 Hypothyroidism, unspecified; E66.3 Overweight; Z68.22 Body mass index [BMI] 22.0-22.9, adult; K21.9 Gastro-esophageal reflux disease without esophagitis; K58.2 Mixed irritable bowel syndrome; M25.511 Pain in right shoulder; R73.01 Impaired fasting glucose; R22.1 Localized swelling, mass and lump, neck; R13.12 Dysphagia, oropharyngeal phase; Z79.899 Other long term (current) drug therapy; Z13.31 Encounter for screening for depression
CPT/HCPCS: 71046; 73030; 96127; 99212

== ENCOUNTER → 2025-05-31 12:22 | Outpatient (BNV) | payer MEDICARE, OTHER, SELFPAY | PROVIDERS: Visit Provider Radiology Diagnostic Radiology | DX: R22.1 Localized swelling, mass and lump, neck (principal); M25.511 Pain in right shoulder | CPT/HCPCS: 71046 ==

== ENCOUNTER 2025-06-15 12:17 | Outpatient (AMB) | payer MEDICARE, OTHER, SELFPAY ==
--- NOTE | 2025-06-15 12:21 | A.OFFVIS_ITS ---
Vital Signs 3 06/15/25 12:25 Height 5 ft 7 in Weight 143 lb BMI 22.4 BP 109/56 L Blood Pressure Location Lt brachial Position Sitting Pulse 68 Pulse Oximetry (%) 94 Oxygen Delivery Method Room Air Intake Visit Reasons: abd pain, CIC Intake Note: Patient follow up for abdominal pain and CIC Patient cc: nauseas, abdominal pain with bloating, constipation with bloody hemorrhoids and chocking sensation. Marketing Program Manager Required: No Accompanied by: Self / Same As Patient Allergies codeine (CODEINE) Allergy (Unknown, Verified 06/15/25 12:20) migraines doxycycline (DOXYCYCLINE) Allergy (Unknown, Verified 06/15/25 12:20) anaphylaxis, swelling, redness environmental allergies Adverse Reaction (Intermediate, Verified 06/15/25 12:20) Wheezing HPI HPI abd pain, CIC: Details: Assessment & Plan (1) Abdominal pain: Code(s): R10.9 - Unspecified abdominal pain Category: Medical (2) Diarrhea: Code(s): R19.7 - Diarrhea, unspecified Category: Medical (3) Streptococcus agalactiae infection: Code(s): A49.1 - Streptococcal infection, unspecified site Category: Medical (4) Nausea and vomiting: Code(s): R11.2 - Nausea with vomiting, unspecified Category: Medical (5) Constipation: Code(s): K59.00 - Constipation, unspecified Category: Medical Plan Stool calprotectin is borderline elevated however she had a normal colonoscopy in 2023 so it does not seem likely that this is IBD. Also the RAST panel does not show any significant food allergies so this really only leaves us with potentially medication induced irritation. She did complete the antibiotics, however she never got the message from our office about why they were prescribed which is quite concerning. However, this did not help her abdominal pain. Now she is quite severely constipated and she has tried bisacodyl and Dulcolax suppositories and this is only produced small rabbit like stooling with insufficient evacuation. At this point I think we need to repeat the urine to see whether that infection is gone since strep allergen ease can be difficult to eradicate in the urine, and we will get her started on some magnesium citrate to see if we can restart her stooling. In the past she was having loose stools so this is all quite puzzling. She asked that all her labs be printed because she gave 7 or 8 vials I think quite a few from were ordered by Dr. Sparks's office. None of them looked overly concerning except for the urine test. Return office visit in 2 weeks to see how she is doing Orders: Orders UA CC w/rflx Micro + Cult Today A49.1 - Streptococcal infection, unspecified site, K59.00 - Constipation, unspecified Medications: New magnesium citrate 1/2 btl, wait 20 min if no return, 1/2 btle again until complete 2 bottles orally 05/01/25-[address]: Salma Aggarwal PA-C ORDERED: [facility] w Micros QUERIES: Collection Date: 05/01/25 Collection Time: 845 Source: Urine, Clean Catch Test Result Flag Reference Ur Color Yellow Ur Appear Clear PH 6.0 5.0-9.0 Ur Glu Negative Negative mg/dL Urine Blood Small (1+) H Negative Spec [place] Ur 1.025 1.005-1.025 Urine Protein Negative Neg-Trace mg/dL Urine Ketones Negative Negative mg/dL Ur Nitrite Negative Negative Ur Elijah Esterase Small (1+) H Negative Ur RBC 3-5 H 0-2 /HPF Ur WBC 0-5 0-5 /HPF Ur Squam Epi 6-10 0-2 /HPF Ur Bact None Seen None Seen Ur Hy[employer] Weaver 0-2 0-2 /LPF TODAY'S VISIT The patient is a 65-year-old female presenting with constipation and diarrhea characterized by a recent significant shift from frequent bowel movements to current constipation. She has been using Colace as a stool softener, experiencing difficulties in bowel passage. Recently, magnesium citrate provided short-term relief, but the issue returned. The only new medication is the use of Meloxicam for osteoarthritis pain. The possibility of thyroid dysfunction is being investigated by her primary care provider with an upcoming ultrasound, influenced by symptoms of throat pain, choking, and dysphagia. The patient consumes a high-fiber diet, inclusive of fresh fruits, vegetables, and plenty of fluids. She maintains intake of garden produce such as squash, green beans, and carrots, ensuring the adequate dietary inclusion of fiber. She battles sleep disturbance from osteoarthritis pain. She received the mag citrate and it helped for a day with some loose stools then it went back to no BM's. She eats a lot of fruits and veggies and drinks a lot. She is taking colace w/o and he has significant improvement. She gags and dislikes the taste of milk of magnesia and also dislikes thing newtons and prune juice. With this in mind I do not think she do well on lactulose. I will start the patient on Senna to address constipation, monitoring closely for any diarrhea such as she was experiencing in the past, and ensuring bowel movement facilitation before her colonoscopy. Also be ordering an x-ray of the abdomen to make sure she does not have a small-bowel obstruction or other concerning severe pathology. A thyroid function test is ordered to address the symptoms suggestive of thyroid dysfunction, alongside a planned thyroid ultrasound. This plan aims to ensure thorough preparation for upcoming evaluations, which is a colonoscopy. So far we really not uncovered any explanation for the sudden change in her stool pattern from severe diarrhea to severe constipation. There certainly are no new medications except for the meloxicam which predated the change, no severe diet changes, no illness preceding this, and this is all quite puzzling. (to date she has had a normal thyroid in January, a mildly elevated stool calprotectin February at 93, no food allergies, and an unremarkable CAT scan in November of 2024.) Return office visit in 2 weeks [facility] Medical History Hernia, paraesophageal Abdominal pain Paraesophageal hernia Hand weakness COVID-19 Cough Right wrist pain Overweight Hypothyroidism Pre-op examination Acute diarrhea Skin lesion of scalp Wrist pain Screening mammogram, encounter for Screening due Presence of surgical screw in left hand Chronic GERD Headache Surgical History History of esophagogastroduodenoscopy (EGD) H/O colonoscopy Status post repair of paraesophageal diaphragmatic hernia History of surgery on left wrist H/O squamous cell carcinoma excision H/O kyphoplasty History of appendectomy S/P laparoscopic surgery S/P left knee arthroscopy Family History Father No problems noted. Mother No problems noted. Social History Household Members: Spouse Housing: House Are you a primary summer child caregiver to a significant other at home: No Do you presently have visiting nurse or other home services: No Alcohol intake: never Patient Tobacco Use Status: Never used Tobacco Tobacco use type: Cigarette e-Cigarette/Vaping Use: Never Used Second Hand Smoke Exposure: No service: No Current occupational status: disabled Cognitive needs: Yes (cane) Hearing needs: No Vision needs: Yes (glasses) Review of Systems Const Denies fatigue, Denies fever(s), Denies night sweats, Denies poor appetite and Denies weight loss Eyes Details: glasses Reports requires corrective lenses ENT Reports Normal hearing present, Denies dental pain, Reports dysphagia, Denies hearing loss, Denies mouth pain, Reports neck pain, Reports odynophagia, Denies throat swelling, Denies tongue swelling and Reports other (Dentition adequate) Card Reports no additional complaints Resp Reports no additional complaints GI Details: Reports abdominal pain, Denies melena, Reports bloating, Denies hematochezia, Reports constipation, Denies GI cramping, Reports dysphagia, Denies excessive flatus, Reports early satiety, Reports heartburn, Denies diarrhea, Denies nausea, Reports odynophagia, Denies vomiting and Denies hematemesis Musc Reports neck pain Skin/Breast Denies pruritus, Denies lesions, Denies rash and Denies jaundice Neuro Reports Normal hearing present and Denies Abnormal speech present Endo Denies fatigue Aller/Immun Denies throat swelling and Denies tongue swelling Physical Exam Vital Signs: Last Vital Signs Pulse 68 06/15/25 12:25 BP 109/56 L 06/15/25 12:25 Pulse Ox 94 06/15/25 12:25 Oxygen Delivery Method Room Air 06/15/25 12:25 BMI result Body Mass Index 22.4 Const General: cooperative, no acute distress, well developed and well groomed Nutritional Appearance: average body habitus and well nourished Orientation/consciousness: oriented to person, oriented to place and oriented to time Limitations: No language barrier HEENT Head: Yes normocephalic and Yes atraumatic Eyes General: appearance normal, both eyes and all related structures Pupils: Equal, round and reactive pupils present Neck Neck: Yes normal visual inspection, Yes no lymphadenopathy and Yes tender (Generalized anterior neck tenderness worse around the voice box) Thyroid: tender Resp Effort & Inspection: normal respiratory effort and able to speak in complete sentences Auscultation: clear to auscultation bilaterally Cardio Rate: regular rate Rhythm: regular rhythm Heart sounds: Normal, physiologic split S2 sound present Peripheral pulses: radial pulses present and posterior tibial pulses present GI Inspection: No distended and No Abdominal panniculus present Palpation (GI): Soft to palpation, Tenderness to palpation present (GI) in the LLQ and in the RLQ, no guarding, not rigid and No hepatosplenomegaly present Percussion: Yes normal to percussion Auscultation: Hypoactive bowel sounds present Rectal Exam - Female: deferred Abdomen image: 2 1. Surgical scar Skin General skin exam: no rashes or lesions noted, turgor normal, skin not dry, no jaundice, No spider nevi and no striae Rashes: no rashes Nails: normal Neuro General: oriented to person, oriented to place and oriented to time Cranial nerves: Yes Equal, round and reactive pupils present and Yes Normal hearing present Speech: No Abnormal speech present Extrem General: Yes normal to inspection, No clubbing, No cyanosis and No edema Psych Appearance: grossly normal and well kempt Mental Status: mental status grossly normal Speech and movement: Normal speech and movement present Affect: normal affect Attitude: cooperative Thought process: Normal thought process present and not confabulating Thought content: Normal thought content present Insight: Good insight present (Psych) Judgement: Good judgement present (Psych) Assessment & Plan Assessment & Plan (1) Constipation: Code(s): K59.00 - Constipation, unspecified Category: Medical (2) Chronic GERD: Code(s): K21.9 - Gastro-esophageal reflux disease without esophagitis Category: Medical (3) Erosive esophagitis: Code(s): K22.10 - Ulcer of esophagus without bleeding Category: Medical (4) Nausea and vomiting: Code(s): R11.2 - Nausea with vomiting, unspecified Category: Medical (5) Abdominal pain: Code(s): R10.9 - Unspecified abdominal pain Category: Medical (6) Hypothyroidism: Code(s): E03.9 - Hypothyroidism, unspecified Category: Medical Qualifiers: Hypothyroidism type: acquired Qualified Code(s): E03.9 - Hypothyroidism, unspecified Plan The patient is a 65-year-old female presenting with constipation and diarrhea characterized by a recent significant shift from frequent bowel movements to current constipation. She has been using Colace as a stool softener, experiencing difficulties in bowel passage. Recently, magnesium citrate provided short-term relief, but the issue returned. The only new medication is the use of Meloxicam for osteoarthritis pain. The possibility of thyroid dysfunction is being investigated by her primary care provider with an upcoming ultrasound, influenced by symptoms of throat pain, choking, and dysphagia. The patient consumes a high-fiber diet, inclusive of fresh fruits, vegetables, and plenty of fluids. She maintains intake of garden produce such as squash, green beans, and carrots, ensuring the adequate dietary inclusion of fiber. She battles sleep disturbance from osteoarthritis pain. She received the mag citrate and it helped for a day with some loose stools then it went back to no BM's. She eats a lot of fruits and veggies and drinks a lot. She is taking colace w/o and he has significant improvement. She gags and dislikes the taste of milk of magnesia and also dislikes thing newtons and prune juice. With this in mind I do not think she do well on lactulose. I will start the patient on Senna to address constipation, monitoring closely for any diarrhea such as she was experiencing in the past, and ensuring bowel movement facilitation before her colonoscopy. Also be ordering an x-ray of the abdomen to make sure she does not have a small-bowel obstruction or other concerning severe pathology. A thyroid function test is ordered to address the symptoms suggestive of thyroid dysfunction, alongside a planned thyroid ultrasound. This plan aims to ensure thorough preparation for upcoming evaluations, which is a colonoscopy. So far we really not uncovered any explanation for the sudden change in her stool pattern from severe diarrhea to severe constipation. There certainly are no new medications except for the meloxicam which predated the change, no severe diet changes, no illness preceding this, and this is all quite puzzling. (to date she has had a normal thyroid in January, a mildly elevated stool calprotectin February at 93, no food allergies, and an unremarkable CAT scan in November of 2024.) Return office visit in 2 weeks Orders: Orders 2 TSH reflex Free T4 Today E03.9 - Hypothyroidism, unspecified, K59.00 - Constipation, unspecified Medications: New 2 sennosides (Senna Laxative) 17.2 mg (2 x 8.6 mg) PO BEDTIME 30 tabs 3RF Discontinued 2 magnesium citrate Discontinued Reason: Doctor's Order 1/2 btl, wait 20 min if no return, 1/2 btle again until complete 2 bottles orally daily; 300 mL 0RF Coding Level of Care Code New Pt Level 4 (53035) Diagnoses Constipation K59.00 Chronic GERD K21.9 Erosive esophagitis K22.10 Nausea and vomiting R11.2 Abdominal pain R10.9 Acquired hypothyroidism E03.9 Hypothyroidism type: acquired Time Spent (min) 35
[2025-06-15 12:25] VITALS: BP 109/56; PULSE 68; O2SAT 94; BMI 22.4
--- OUTSIDE RECORDS SUMMARY | 2025-06-15 13:07 | XMS_ITS | Patient Health Record ---
Author Organization [employer] [facility] Address [address] [place] [address] Care Team Providers Care Trademark Attorney Name Role Phone Ricardo JARA, Wade Primary Care Provider SHERRIE Morejon Unavailable [phone] Allergies Allergen (clinical drug ingredient) Drug/Non Drug [...] W/U Status Risk Notes Problem Postmenopausal bleeding (74283616) Postmenopausal bleeding (N95.0) Active confirmed Problem Adjustment disorder with depressed mood (03765857) Adjustment disorder with depressed mood (F43.21) Active confirmed Problem Cystocele, unspecified (N81.10) Active confirmed Problem Prolapse of female genital organs (29769863) Female genital prolapse, unspecified (N81.9) Active confirmed Problem Abnormal findings on diagnostic imaging of breast (987919014) Other abnormal and inconclusive findings on diagnostic [...] End Date [employer] [address] [place] [address] [id number] AVELINO AMAYA Spouse - patient is the [...]
--- OUTSIDE RECORDS SUMMARY | 2025-06-15 13:07 | XMS_ITS | Patient Health Record ---
[facility] Address [address] [place] [address] Care Team Providers Care Paramedic Name Role Phone Clare JARA, Warner Primary Care Provider Yo Keenan Unavailable [phone] Allergies Allergen (clinical drug ingredient) Drug/Non Drug Allergy documented on EMR Reaction Allergy Type Onset Date Status codeine Codeine Sulfate migraines Drug Allergy A ctive Doxycycline Hyclate anaphylaxis Drug Allergy Active Reason [...] W/U Status Risk Notes Problem Tinea unguium (B35.1) Active confirmed Plan Of Treatment No Information Insurance Providers Payer Name Payer Address Payer Phone Subscriber Number Group Number Insured Name Patient Relationship to Insured Coverage Start Date Coverage End Date [facility] Plan [address] [place] [address] [id number] Joy Rodriguez Self - patient is the insured Medical (General) History Medical History History ICD Code Allergic rhinitis Back,Hip,and Knee pain Broken bones Headaches/Migraines Surgical History Surgery Date(Month/Year) Arm 05/12/2020 Knee 10/08/2015 back surgery 02/16/20 skin cancer 05/13/20
--- OUTSIDE RECORDS SUMMARY | 2025-06-15 13:07 | XMS_ITS | Encounter Summary ---
Author Organization [facility] Address [address] [address] Phone Care Team Providers Care Viscosity Inspector Name Role Phone Waed Silva MD Primary Care Provider +1- [phone] Encounter Details Date Type Department Care Team (Late st Contact Info) Description 02/16/2020 Procedure Pass OR Admitting Dept - Virtual Department [address] [place] [address] Social History Tobacco Use Types Packs/Day Years [...] on filedocumented in this encounter Care Teams Viscosity Inspector Relationship Specialty Start Date End Date Wade Silva MD [address] [place] [address] [address] [place] [address] PCP - General 05/04/14 documented as of this encounter Additional Source Comments The information contained in this document represents components of the legal health record. It is not the complete legal health record.[facility]
== END 2025-06-15 12:52 | disposition home or self-care (01) ==
LOC: HO.HGI 12:18
PROVIDERS: Visit Provider Nurse Practitioner
DX: K59.00 Constipation, unspecified (principal); K21.9 Gastro-esophageal reflux disease without esophagitis; K22.10 Ulcer of esophagus without bleeding; R11.2 Nausea with vomiting, unspecified; R10.9 Unspecified abdominal pain; E03.9 Hypothyroidism, unspecified
CPT/HCPCS: 99214

== ENCOUNTER 2025-06-15 12:17 | Outpatient (REF) | payer MEDICARE, OTHER, SELFPAY ==
--- NOTE | ~2025-06-15 | XR_ITS ---
EXAMINATION: XR ABDOMEN COMPLETE CLINICAL INDICATION: R10.9 - Unspecified abdominal pain COMPARISON: Correlated to CT dated November 23, 2024. TECHNIQUE: 2 views of the abdomen. FINDINGS: Abundant stool, large intestine. No intestinal dilatation. Gas bubble in the antrum of the stomach region. No gross air-fluid levels. Radiopaque material at L1 likely kyphoplasty/vertebroplasty procedure. S-shaped curvature of the thoracolumbar spine. Patient's large body habitus/obesity. XR/XR abdomen min 2V IMPRESSION: Abundant stool without intestinal obstruction pattern. Electronically signed by: Adam Colbert MD 06/15/2025 02:13 PM EDT
[2025-06-15 13:48] LABS: Hemoglobin A1C 114.5236 umol/L; Total Hemoglobin (HGBA1C) 3499.2823 umol/L
[2025-06-15 14:26] LABS: Free T4 (Free Thyroxine) 1.17 ng/dL (0.71-1.85)
== END 2025-06-15 12:18 | disposition home or self-care (01) ==
LOC: HO.LAB 12:17
PROVIDERS: Visit Provider Nurse Practitioner
DX: K21.9 Gastro-esophageal reflux disease without esophagitis (principal); K22.10 Ulcer of esophagus without bleeding; K59.00 Constipation, unspecified; E03.9 Hypothyroidism, unspecified; A49.1 Streptococcal infection, unspecified site; Z00.00 Encounter for general adult medical examination without abnormal findings; R19.7 Diarrhea, unspecified; R73.01 Impaired fasting glucose; R10.9 Unspecified abdominal pain; R11.2 Nausea with vomiting, unspecified
CPT/HCPCS: 36415; 74019; 83036; 84439; 84443; 99212

== ENCOUNTER → 2025-06-15 13:11 | Outpatient (BNV) | payer MEDICARE, OTHER, SELFPAY | PROVIDERS: Visit Provider Radiology Diagnostic Radiology | DX: R10.9 Unspecified abdominal pain (principal) | CPT/HCPCS: 74019 ==

== ENCOUNTER 2025-06-17 11:13 | Outpatient (REF) | payer MEDICARE, OTHER, SELFPAY ==
--- NOTE | ~2025-06-17 | US_ITS ---
EXAMINATION: US THYROID HISTORY: R22.1 - Localized swelling, mass and lump, neck TECHNIQUE: Real-time grayscale ultrasound imaging was performed and images were reviewed. COMPARISON: There are no prior studies available for comparison. FINDINGS: SIZE: The right thyroid lobe measures 4.1 x 1.3 x 1.5 cm. The left thyroid lobe measures 4.0 x 1.9 x 1.3 cm. The isthmus measures 5 mm. FLOW: Flow to the gland is normal. ECHOGENICITY: The echotexture of the gland is heterogeneous. NODULES: There is a 5 mm spongiform nodule in the midportion of the right thyroid lobe. An additional nodule seen in the left thyroid lobe as described below: Nodule #: 1 Location: Midportion of the left thyroid lobe measuring 7 x 4 x 6 mm. Shape: Wider than tall (0 points) Margins: Ill-defined (0 points) Echotexture: Hyperechoic (1 point) Composition: Mostly solid (2 points) Calcifications: Rim calcification (2 points) Total points: 5 TIRADS: TR4: Moderately suspicious. US/US thyroid IMPRESSION: Subcentimeter bilateral thyroid nodules as described. ACR TI-RADS Guidelines TR1 (0 points): Benign. No follow-up or biopsy required TR2 (2 points): Not Suspicious. No biopsy or follow up indicated TR3 (3 points): Mildly Suspicious. FNA if >= 2.5 cm, Follow if >= 1.5 cm TR4 (4-6 points): Moderately Suspicious. FNA if >= 1.5 cm, Follow if >= 1.0 cm TR5 (>=7 points): Highly Suspicious. FNA if >= 1.0 cm, Follow if >= 0.5 cm Electronically signed by: August Holloway MD 06/17/2025 12:07 PM EDT
--- OUTSIDE RECORDS SUMMARY | 2025-06-17 12:19 | XMS_ITS | Encounter Summary ---
Author Organization [facility] Address [address] [address] Phone Care Team Providers Care Manufacturing Process Engineer Name Role Phone Wade Silva MD Primary Care Provider +1- [phone] Encounter Details Date Type Department Care Team (Late st Contact Info) Description 02/16/2020 Procedure Pass OR Admitting Dept - Virtual Department [address] [place] [address] Social History Tobacco Use Types Packs/Day Years [...] on filedocumented in this encounter Care Teams Manufacturing Process Engineer Relationship Specialty Start Date End Date Wade Silva MD [address] [place] [address] [address] [place] [address] PCP - General 05/04/14 documented as of this encounter Additional Source Comments The information contained in this document represents components of the legal health record. It is not the complete legal health record.[facility]
--- OUTSIDE RECORDS SUMMARY | 2025-06-17 12:20 | XMS_ITS | Patient Health Record ---
Author Organization [facility] Address [address] [place] [address] Care Team Providers Care Ginger Farmer Name Role Phone Ricardo JARA, Wade Primary Care Provider SHERRIE Morejon Unavailable [phone] Allergies Allergen (clinical drug ingredient) Drug/Non Drug [...] W/U Status Risk Notes Problem Postmenopausal bleeding (69057133) Postmenopausal bleeding (N95.0) Active confirmed Problem Adjustment disorder with depressed mood (85968971) Adjustment disorder with depressed mood (F43.21) Active confirmed Problem Cystocele (090810778) Cystocele, unspecified (N81.10) Active confirmed Problem Prolapse of female genital organs (03613431) Female genital prolapse, unspecified (N81.9) Active confirmed Problem Abnormal findings on diagnostic imaging of breast (724866463) Other abnormal and inconclusive findings on diagnostic [...] End Date [employer] [address] [place] [address] [id number] AVELINO AMAYA Spouse - patient is the [...]
== END 2025-06-17 11:14 | disposition home or self-care (01) ==
LOC: HO.US 11:13
DX: R22.1 Localized swelling, mass and lump, neck (principal)
CPT/HCPCS: 76536

== ENCOUNTER → 2025-06-17 11:15 | Outpatient (BNV) | payer MEDICARE, OTHER, SELFPAY | PROVIDERS: Visit Provider Radiology Diagnostic Radiology | DX: R22.1 Localized swelling, mass and lump, neck (principal) | CPT/HCPCS: 76536 ==

== ENCOUNTER 2025-07-02 15:08 | Outpatient (AMB) | payer MEDICARE, OTHER, SELFPAY ==
--- NOTE | 2025-07-02 15:11 | A.OFFVIS_ITS ---
Vital Signs 07/02/25 15:25 Height 5 ft 7 in Weight 143 lb BMI 22.4 BP 110/60 Blood Pressure Location Lt brachial Position Sitting Intake Visit Reasons: CIC 2wk per february Accompanied by: Self / Same As Patient Allergies codeine (CODEINE) Allergy (Unknown, Verified 07/30/25 14:15) migraines doxycycline (DOXYCYCLINE) Allergy (Unknown, Verified 07/30/25 14:15) anaphylaxis, swelling, redness environmental allergies Adverse Reaction (Intermediate, Verified 07/30/25 14:15) Wheezing HPI HPI CIC 2wk per february: Details: Assessment & Plan (1) Constipation: Code(s): K59.00 - Constipation, unspecified Category: Medical (2) Chronic GERD: Code(s): K21.9 - Gastro-esophageal reflux disease without esophagitis Category: Medical (3) Erosive esophagitis: Code(s): K22.10 - Ulcer of esophagus without bleeding Category: Medical (4) Nausea and vomiting: Code(s): R11.2 - Nausea with vomiting, unspecified Category: Medical (5) Abdominal pain: Code(s): R10.9 - Unspecified abdominal pain Category: Medical (6) Hypothyroidism: Code(s): E03.9 - Hypothyroidism, unspecified Category: Medical Qualifiers: Hypothyroidism type: acquired Qualified Code(s): E03.9 - Hypothyroidism, unspecified Plan The patient is a 65-year-old female presenting with constipation and diarrhea characterized by a recent significant shift from frequent bowel movements to current constipation. She has been using Colace as a stool softener, experiencing difficulties in bowel passage. Recently, magnesium citrate provided short-term relief, but the issue returned. The only new medication is the use of Meloxicam for osteoarthritis pain. The possibility of thyroid dysfunction is being investigated by her primary care provider with an upcoming ultrasound, influenced by symptoms of throat pain, choking, and dysphagia. The patient consumes a high-fiber diet, inclusive of fresh fruits, vegetables, and plenty of fluids. She maintains intake of garden produce such as squash, green beans, and carrots, ensuring the adequate dietary inclusion of fiber. She battles sleep disturbance from osteoarthritis pain. She received the mag citrate and it helped for a day with some loose stools then it went back to no BM's. She eats a lot of fruits and veggies and drinks a lot. She is taking colace w/o and he has significant improvement. She gags and dislikes the taste of milk of magnesia and also dislikes thing newtons and prune juice. With this in mind I do not think she do well on lactulose. I will start the patient on Senna to address constipation, monitoring closely for any diarrhea such as she was experiencing in the past, and ensuring bowel movement facilitation before her colonoscopy. Also be ordering an x-ray of the abdomen to make sure she does not have a small-bowel obstruction or other concerning severe pathology. A thyroid function test is ordered to address the symptoms suggestive of thyroid dysfunction, alongside a planned thyroid ultrasound. This plan aims to ensure thorough preparation for upcoming evaluations, which is a colonoscopy. So far we really not uncovered any explanation for the sudden change in her stool pattern from severe diarrhea to severe constipation. There certainly are no new medications except for the meloxicam which predated the change, no severe diet changes, no illness preceding this, and this is all quite puzzling. (to date she has had a normal thyroid in January, a mildly elevated stool calprotectin February at 93, no food allergies, and an unremarkable CAT scan in November of 2024.) Return office visit in 2 weeks Orders: Orders TSH reflex Free T4 Today E03.9 - Hypothyroidism, unspecified, K59.00 - Constipation, unspecified Medications: New sennosides (Senna Laxative) 17.2 mg (2 x 8.6 mg) PO BEDTIME 30 tabs 3RF Discontinued magnesium citrate Discontinued Reason: Doctor's Order 1/2 btl, wait 20 min if no return, 1/2 btle again until complete 2 bottles orally daily; 300 mL 0RF ;ABS Laboratory Tests 06/15/25 13:08 TSH 1.84 Free T4 1.17 X-ray of the abdomen 06/15/2025 FINDINGS: Abundant stool, large intestine. No intestinal dilatation. Gas bubble in the antrum of the stomach region. No gross air-fluid levels. Radiopaque material at L1 likely kyphoplasty/vertebroplasty procedure. S-shaped curvature of the thoracolumbar spine. Patient's large body habitus/obesity. XR/XR abdomen min 2V IMPRESSION: Abundant stool without intestinal obstruction pattern. [facility] Medical History Arthritis Abdominal pain Hand weakness Overweight Hypothyroidism Skin lesion of scalp Chronic GERD Headache Surgical History History of esophagogastroduodenoscopy (EGD) H/O colonoscopy Status post repair of paraesophageal diaphragmatic hernia History of surgery on left wrist H/O squamous cell carcinoma excision H/O kyphoplasty History of appendectomy S/P laparoscopic surgery S/P left knee arthroscopy Family History Father No problems noted. Mother No problems noted. Social History Household Members: Spouse Housing: House Are you a primary managed care specialist to a significant other at home: No Do you presently have visiting nurse or other home services: No Alcohol intake: never Patient Tobacco Use Status: Never used Tobacco Tobacco use type: Cigarette e-Cigarette/Vaping Use: Never Used Second Hand Smoke Exposure: No service: No Current occupational status: disabled Cognitive needs: Yes (cane) Hearing needs: No Vision needs: Yes (glasses) Review of Systems Const Denies fatigue, Denies fever(s), Denies night sweats, Denies poor appetite and Denies weight loss ENT Reports Normal hearing present, Denies dental pain, Denies dysphagia, Denies hearing loss, Denies mouth pain, Reports neck pain, Denies odynophagia, Denies throat swelling, Denies tongue swelling and Reports other (Dentition adequate) Card Reports no additional complaints Resp Reports no additional complaints GI Details: Denies abdominal pain, Denies melena, Denies bloating, Denies hematochezia, Reports constipation, Denies GI cramping, Denies dysphagia, Denies excessive flatus, Denies early satiety, Reports heartburn, Denies diarrhea, Reports nausea, Denies odynophagia, Denies vomiting and Denies hematemesis Musc Reports neck pain Skin/Breast Denies pruritus, Denies lesions, Denies rash and Denies jaundice Neuro Reports Normal hearing present and Denies Abnormal speech present Endo Denies fatigue Aller/Immun Denies throat swelling and Denies tongue swelling Physical Exam Vital Signs: Last Vital Signs BP 110/60 07/02/25 15:25 BMI result Body Mass Index 22.4 Const General: cooperative, no acute distress, well developed and well groomed Nutritional Appearance: average body habitus and well nourished Orientation/consciousness: oriented to person, oriented to place and oriented to time Limitations: No language barrier HEENT Head: Yes normocephalic and Yes atraumatic Eyes General: appearance normal, both eyes and all related structures Pupils: Equal, round and reactive pupils present Neck Neck: Yes normal visual inspection and Yes no lymphadenopathy Thyroid: Thyroid normal Resp Effort & Inspection: normal respiratory effort and able to speak in complete sentences Auscultation: clear to auscultation bilaterally Cardio Rate: regular rate Rhythm: regular rhythm Heart sounds: Normal, physiologic split S2 sound present Peripheral pulses: radial pulses present and posterior tibial pulses present GI Inspection: No distended and No Abdominal panniculus present Palpation (GI): Soft to palpation, nontender, no guarding, not rigid and No hepatosplenomegaly present Percussion: Yes normal to percussion Auscultation: normal bowel sounds Rectal Exam - Female: deferred Skin General skin exam: no rashes or lesions noted, turgor normal, skin not dry, no jaundice, No spider nevi and no striae Rashes: no rashes Nails: normal Neuro General: oriented to person, oriented to place and oriented to time Cranial nerves: Yes Equal, round and reactive pupils present and Yes Normal hearing present Speech: No Abnormal speech present Extrem General: Yes normal to inspection, No clubbing, No cyanosis and No edema Psych Appearance: grossly normal and well kempt Mental Status: mental status grossly normal Speech and movement: Normal speech and movement present Affect: normal affect Attitude: cooperative Thought process: Normal thought process present and not confabulating Thought content: Normal thought content present Insight: Good insight present (Psych) Judgement: Good judgement present (Psych) Assessment & Plan Assessment & Plan (1) Neck pain: Code(s): M54.2 - Cervicalgia Category: Medical (2) Neck swelling: Code(s): R22.1 - Localized swelling, mass and lump, neck Category: Medical (3) Sore throat: Code(s): J02.9 - Acute pharyngitis, unspecified Category: Medical (4) Voice hoarseness: Code(s): R49.0 - Dysphonia Category: Medical Plan Her current GI regimen consists of pantoprazole 40 mg daily, dicyclomine 20 mg 4 times a day, and Zofran. - The patient is a 65-year-old female presenting for the management of constipation, GERD, nausea and cramping. She has also has a new complaint of neck pain, which she thinks is due to a thyroid nodule. - Chronic constipation with limited relief despite the use of stool softeners. Abdominal X-ray confirmed fecal retention. - Persistent neck pain with associated swelling; diagnosed with a thyroid nodule as per an ultrasound. The nodule is not currently targeted for intervention. - The neck pain is generalized, with no specific diurnal pattern. The patient has experienced some difficulties in voice with documented soreness on examination. Start a trial of senna Return office visit in 4 weeks Orders: Referrals Ear/Nose/Throat Referral R22.1 - Localized swelling, mass and lump, neck, J02.9 - Acute pharyngitis, unspecified, R49.0 - Dysphonia Medications: Refilled pantoprazole 40 mg PO DAILY 90 tabs 1RF 90 days K21.9 - Gastro-esophageal reflux disease without esophagitis dicyclomine 20 mg PO QID 120 tabs 4RF 30 days Coding Level of Care Code Est Pt Level 3 (67017) Diagnoses Neck pain M54.2 Neck swelling R22.1 Sore throat J02.9 Voice hoarseness R49.0
--- OUTSIDE RECORDS SUMMARY | 2025-07-02 15:12 | XMS_ITS | Patient Health Record ---
Author Organization [facility] Address [address] [place] [address] Care Team Providers Care Child Development Professor Name Role Phone Ricardo JARA, Wade Primary Care Provider SHERRIE Morejon Unavailable [phone] Allergies Allergen (clinical drug ingredient) Drug/Non Drug [...] W/U Status Risk Notes Problem Postmenopausal bleeding (38416224) Postmenopausal bleeding (N95.0) Active confirmed Problem Adjustment disorder with depressed mood (62256385) Adjustment disorder with depressed mood (F43.21) Active confirmed Problem Cystocele (974998844) Cystocele, unspecified (N81.10) Active confirmed Problem Prolapse of female genital organs (00212236) Female genital prolapse, unspecified (N81.9) Active confirmed Problem Abnormal findings on diagnostic imaging of breast (044377621) Other abnormal and inconclusive findings on diagnostic [...] End Date [employer] [address] [place] [address] [id number] AVELINO AMAYA Spouse - patient is the [...]
--- OUTSIDE RECORDS SUMMARY | 2025-07-02 15:12 | XMS_ITS | Encounter Summary ---
Author Organization [facility] Address [address] [address] Phone Care Team Providers Care Media Sales Executive Name Role Phone Wade Silva MD Primary Care Provider +1- [phone] Encounter Details Date Type Department Care Team (Late st Contact Info) Description 02/16/2020 Procedure Pass OR Admitting Dept - Virtual Department [address] [place] [address] Social History Tobacco Use Types Packs/Day Years [...] on filedocumented in this encounter Care Teams Media Sales Executive Relationship Specialty Start Date End Date Wade Silva MD [address] [place] [address] [address] [place] [address] PCP - General 05/04/14 documented as of this encounter Additional Source Comments The information contained in this document represents components of the legal health record. It is not the complete legal health record.[facility]
--- OUTSIDE RECORDS SUMMARY | 2025-07-02 15:12 | XMS_ITS | Encounter Summary ---
Author Organization [facility] Address [address] [place] [address] Phone Care Team Providers Care Sr. Director Name Role Phone Wade Silva MD Primary Care Provider +1- [phone] Encounter Details Date Type Department Care Team (Late st Contact Info) Description 02/01/2020 Documentation [facility] Interventional [facility]iology [address] [place] [address] [email or web address] Social History Tobacco Use Types Packs/Day Years Used Date Smoking Tobacco: Never Comments Unknown Sex and Gender Information Value Date Recorded Sex Assigned at Female 01/31/2021 4:01 PM EDT Legal Sex Female 5:36 PM EST Gender Identity Female 01/31/2021 4:01 PM EDT Sexual Orientation Not on file documented as of this encounter Plan of Treatment Not on file documented as of this encounter Visit Diagnoses Not on filedocumented in this encounter Care Teams Sr. Director Relationship Specialty Start Date End Date Wade Silva MD [address] [place] [address] [address] [place] [address] PCP - General 05/04/14 documented as of this encounter Additional Source Comments The information contained in this document represents components of the legal health record. It is not the complete legal health record.[facility]
--- OUTSIDE RECORDS SUMMARY | 2025-07-02 15:12 | XMS_ITS | Encounter Summary ---
Author Organization [facility] Address [address] [place] [address] Phone Care Team Providers Care Live Study Manager Name Role Phone Wade Silva MD Primary Care Provider +1- [phone] Encounter Details Date Type Department Care Team (Late st Contact Info) Description 01/19/2020 Ancillary Orders [facility],Outside Imaging [address] [place] [address] System, Provider Not In, [place] [address] Social History Tobacco Use Types Packs/Day Years Used Date Smoking Tobacco: Never Comments Unknown Sex and Gender Information Value Date Recorded Sex Assigned at Female 01/31/2021 4:01 PM EDT Legal Sex Female 5:36 PM EST Gender Identity Female 01/31/2021 4:01 PM EDT Sexual Orientation Not on file documented as of this encounter Plan of Treatment Not on file documented as of this encounter Results * MRI Spine (Bone) Outside (No Interpretation) (11/27/2019 12:00 AM EST) Narrative SYSTEMGENERATED, DOCUMENTATION - 01/19/2020 12:08 PM EDT This study is for PACS storage only and not for interpretation. us Provider Not In System PhD IMG OUTSIDE IMAGING W /OUT INTERPRETATION Final Result documented in this encounter Visit Diagnoses Not on filedocumented in this encounter Care Teams Live Study Manager Relationship Specialty Start Date End Date Wade Silva MD [address] [place] [address] PCP - General 05/04/14 documented as of this encounter Additional Source Comments The information contained in this document represents components of the legal health record. It is not the complete legal health record.[facility]
--- OUTSIDE RECORDS SUMMARY | 2025-07-02 15:12 | XMS_ITS | Clinical Summary ---
Author Organization [facility] Address [facility] [address] [address] Phone Care Team Providers Care Family Protection Specialist Name Role Phone Wade Silva MD Primary Care Provider +1- [phone] Allergies Active Allergy Reactions Criticality Noted Date Comments Codeine Headaches 07/16/2012 Doxycycline Hyclate 12/18/2019 Medications acetaminophen (TYLENOL) 500 MG tablet Take 1,000 mg by mouth every 6 (six) hours as needed for pain (specific location in comments). Active ibuprofen (ADVIL,MOTRIN) 200 MG tablet Take 200 mg by mouth every 6 (six) hours as needed for pain (specific location in comments). Active diclofenac sodium (VOLTAREN) 75 MG EC tablet Take 1 tablet (75 mg total) by mouth 2 (two) times a day. 60 tablet 1 12/18/2019 Active loratadine-pseu doephedrine (CLARITIN-D 12-HOUR) 5-120 mg Tb12 Take 1 tablet by mouth daily. Active oxyCODONE-aceta minophen (PERCOCET) 5-325 mg per tablet Take 1 tablet by mouth every 4 (four) hours as needed for pain (specific location in comments) (PAIN). Partial fill ok 20 tablet 02/16/2020 Active Active Problems Problem Noted Date Diagnosed Date Fracture of pelvis 07/16/2012 Overview (12/25/2014): Fracture of pelvis Immunizations Immunization Administration Dates Next Due COVID-19 (Pre-08/26) Pfizer Vaccine, mRNA, PF ,02/01/2021 Social History Tobacco Use Types Packs/Day Years Used Date Smoking Tobacco: Never Smokeless Tobacco: Never Alcohol Use Standard Drinks/Week Comments Not Currently 0 (1 standard drink = 0.6 oz pur e alcohol) Education Answer Date Recorded Are you interested in more education? Not on earnest e 03/17/2023 Are you concerned about learning? Not on file 03/17/2023 No 03/17/2023 No 03/17/2023 Digital Access Answer Date Recorded No 03/29/2023 No 03/29/2023 No 03/29/2023 Reliable internet access at home? Not on file 03/29/2023 Device with a working camera? Not on file Comments No Sex and Gender Information Value Date Recorded Sex Assigned at Female 01/31/2021 4:01 PM EDT Legal Sex Female 5:36 PM EST Gender Identity Female 01/31/2021 4:01 PM EDT Sexual Orientation Not on file Last Filed Vital Signs Vital Sign Reading Time Taken Comments Blood Pressure 91/56 02/16/2020 11:00 AM EDT Pulse 61 02/16/2020 10:00 AM EDT Temperature 36 C (96.8 F) 02/16/2020 8:45 AM EDT Respiratory Rate 10 02/16/2020 10:00 AM EDT Oxygen Saturation 97% 02/16/2020 11:00 AM EDT Inhaled Oxygen Concentration - - Weight 68 kg (150 lb) 02/16/2020 6:39 AM EDT Height 167.6 cm (5' 6 ) 02/16/2020 6:39 AM EDT Body Mass Index 24.21 02/16/2020 6:39 AM EDT Plan of Treatment Health Maintenance Due Date Last Done Comments Adult Td,Tdap Booster 1960 LIPID PANEL 1960 DEPRESSION SCREENING 1972 HEPATITIS C SCREENING 01/12/1978 HIV ONE-TIME SCREENING (18-6 5 YEARS) 01/12/1978 MAMMOGRAM 2000 COLOGUARD 01/12/2005 COLONOSCOPY 01/12/2005 COLORECTAL CANCER SCREENING 01/12/2005 FIT TEST 01/12/2005 FOBT 01/12/2005 SIGMOIDOSCOPY 01/12/2005 VIRTUAL COLONOSCOPY 01/12/2005 PNEUMOCOCCAL VACCINES (50+ years) (1 of 1 - PCV) 01/12/2010 COVID-19 VACCINE (3 - 2023-2 5 season) 2024 02/22/2021, 02/01/2021 OSTEOPOROSIS SCREENING INITI AL (ONE-TIME) 01/12/2025 RSV VACCINE (1 - 1-dose 75+ series) 01/12/2035 ZOSTER VACCINES Completed 05/02/2018, 02/23/2018 SMOKING STATUS SCREENING (On ce After 26 Yrs) Completed 08/17/2020 HEPATITIS A VACCINES Aged Out No long er eligible based on patient's age to complete this topic HIB VACCINES Aged Out No longer eligi ble based on patient's age to complete this topic MENINGOCOCCAL VACCINES (ACWY) Aged Out No longer eligible based on patient's age to complete this topic MENINGOCOCCAL VACCINES (B) Aged Out N o longer eligible based on patient's age to complete this topic Medical Devices Implanted Type Area Software Computer Specialist Device Identifier Shelf Expiration Date Model / Serial / Lot Kit Cement Bone Kyphon Xpede Polymethylmethacrylate Mixer - [id number] Implanted:Qty: 1 on 02/16/2020 by Tim Mcfadden MD at [facility] Bone Cement Back [employer] 09/03/2022 [id number] / / [id number] Insurance [facility] Care Teams Family Protection Specialist Relationship Specialty Start Date End Date Wade Silva MD [address] [place] [address] PCP - General 05/04/14 Additional Source Comments The information contained in this document represents components of the legal health record. It is not the complete legal health record.[facility]
--- OUTSIDE RECORDS SUMMARY | 2025-07-02 15:12 | XMS_ITS | Encounter Summary ---
Author Organization [facility] Address [address] [place] [address] Phone Care Team Providers Care Eyeglass Fitter Name Role Phone Wade Silva MD Primary Care Provider +1- [phone] Encounter Details Date Type Department Care Team (Late st Contact Info) Description 01/19/2020 Procedure Pass [facility], [address] [address] Social History Tobacco Use Types Packs/Day Years [...] on filedocumented in this encounter Care Teams Eyeglass Fitter Relationship Specialty Start Date End Date Wade Silva MD [address] [place] [address] PCP - General 05/04/14 documented as of this encounter Additional Source Comments The information contained in this document represents components of the legal health record. It is not the complete legal health record.[facility]
--- OUTSIDE RECORDS SUMMARY | 2025-07-02 15:12 | XMS_ITS | Patient Health Record ---
Author [facility] Address [address] [place] [address] Care Team Providers Care Agricultural Lender Name Role Phone Clare JARA, Warner Primary Care Provider Yo Keenan Unavailable [phone] Allergies Allergen (clinical drug ingredient) Drug/Non Drug [...] W/U Status Risk Notes Problem Tinea unguium (650043736) Tinea unguium (B35.1) Active confirmed Plan Of Treatment No Information Insurance Providers Payer Name Payer Address Payer Phone Subscriber Number Group Number Insured Name Patient Relationship to Insured Coverage Start Date Coverage End Date [facility] Plan [address] [place] [id number] Joy Rodriguez Self - patient is the insured Medical (General) History Medical History History ICD Code Allergic rhinitis Back,Hip,and Knee pain Broken bones Headaches/Migraines Surgical History Surgery Date(Month/Year) Arm 05/12/2020 Knee 10/08/2015 back surgery 02/16/20 skin cancer 05/13/20
[2025-07-02 15:25] VITALS: BP 110/60; BMI 22.4
== END 2025-07-02 15:55 | disposition home or self-care (01) ==
LOC: HO.HGI 15:08
PROVIDERS: Visit Provider Nurse Practitioner
DX: M54.2 Cervicalgia (principal); R22.1 Localized swelling, mass and lump, neck; J02.9 Acute pharyngitis, unspecified; R49.0 Dysphonia
CPT/HCPCS: 99213

== ENCOUNTER → 2025-07-02 15:08 | Outpatient (BNVA) | payer MEDICARE, OTHER, SELFPAY | PROVIDERS: Visit Provider Nurse Practitioner | DX: M54.2 Cervicalgia (principal); R22.1 Localized swelling, mass and lump, neck; J02.9 Acute pharyngitis, unspecified; R49.0 Dysphonia; K59.09 Other constipation; K21.9 Gastro-esophageal reflux disease without esophagitis; K22.10 Ulcer of esophagus without bleeding; R11.2 Nausea with vomiting, unspecified; R10.9 Unspecified abdominal pain; E03.9 Hypothyroidism, unspecified | CPT/HCPCS: 99212 ==

== ENCOUNTER 2025-07-03 07:11 | Outpatient (REF) | payer MEDICARE, OTHER, SELFPAY ==
--- NOTE | ~2025-07-03 | XR_ITS ---
CLINICAL HISTORY: M54.2 - Cervicalgia 4 views cervical spine Comparison: None provided Findings: Normal alignment. No acute fractures or dislocation. Moderate multilevel degenerative disc disease and facet osteoarthritis. No prevertebral soft tissue swelling. IMPRESSION: No acute findings. This document has been electronically signed by: Eli Rey MD on 07/06/2025 16:14:32
--- OUTSIDE RECORDS SUMMARY | 2025-07-03 07:14 | XMS_ITS | Patient Health Record ---
Author [facility] Address [address] [place] [address] Care Team Providers Care Java Programmer Name Role Phone Clare JARA, Warner Primary Care Provider Yo Keenan Unavailable [phone] Allergies Allergen (clinical drug ingredient) Drug/Non Drug [...] Insured Coverage Start Date Coverage End Date [facility] Health Plan [address] [place] [address] [id number] Joy Rodriguez Self - patient is the insured Medical (General) History Medical History History ICD Code Allergic rhinitis Back,Hip,and Knee pain Broken bones Headaches/Migraines Surgical History Surgery Date(Month/Year) Arm 05/12/2020 Knee 10/08/2015 back surgery 02/16/20 skin cancer 05/13/20
--- OUTSIDE RECORDS SUMMARY | 2025-07-03 07:14 | XMS_ITS | Patient Health Record ---
Author Organization [facility] Address [address] [place] [address] Care Team Providers Care Studio Technician Name Role Phone Ricardo JARA, Wade Primary Care Provider SHERRIE Morejon Unavailable [phone] Allergies Allergen (clinical drug ingredient) Drug/Non Drug [...] W/U Status Risk Notes Problem Postmenopausal bleeding (46118284) Postmenopausal bleeding (N95.0) Active confirmed Problem Adjustment disorder with depressed mood (61942241) Adjustment disorder with depressed mood (F43.21) Active confirmed Problem Cystocele (605029445) Cystocele, unspecified (N81.10) Active confirmed Problem Prolapse of female genital organs (10150920) Female genital prolapse, unspecified (N81.9) Active confirmed Problem Abnormal findings on diagnostic imaging of breast (377112970) Other abnormal and inconclusive findings on diagnostic [...] End Date [employer] [address] [place] [address] [id number] AVELINO AMAYA Spouse - patient is the [...]
--- OUTSIDE RECORDS SUMMARY | 2025-07-03 07:14 | XMS_ITS | Encounter Summary ---
Author Organization [facility] Address [address] [place] [address] Phone Care Team Providers Care Family Living Educator Name Role Phone Wade Silva MD Primary Care Provider +1- [phone] Encounter Details Date Type Department Care Team (Late st Contact Info) Description 01/19/2020 Procedure Pass [facility], [address] [address] Social History Tobacco Use Types Packs/Day Years [...] on filedocumented in this encounter Care Teams Family Living Educator Relationship Specialty Start Date End Date Wade Silva MD [address] [place] [address] PCP - General 05/04/14 documented as of this encounter Additional Source Comments The information contained in this document represents components of the legal health record. It is not the complete legal health record.[facility]
--- OUTSIDE RECORDS SUMMARY | 2025-07-03 07:14 | XMS_ITS | Encounter Summary ---
Author Organization [facility] Address [address] [place] [address] Phone Care Team Providers Care Fruit And Vegetable Inspector Name Role Phone Wade Silva MD Primary Care Provider +1- [phone] Encounter Details Date Type Department Care Team (Late st Contact Info) Description 01/19/2020 Ancillary Orders [facility],Outside Imaging [address] [place] [address] System, Provider Not In, [place] [address] Social History Tobacco Use Types Packs/Day Years [...] on filedocumented in this encounter Care Teams Fruit And Vegetable Inspector Relationship Specialty Start Date End Date Wade Silva MD [address] [place] [address] PCP - General 05/04/14 documented as of this encounter Additional Source Comments The information contained in this document represents components of the legal health record. It is not the complete legal health record.[facility]
--- OUTSIDE RECORDS SUMMARY | 2025-07-03 07:14 | XMS_ITS | Encounter Summary ---
Author Organization [facility] Address [address] [place] [address] Phone Care Team Providers Care Erp Programmer Name Role Phone Wade Silva MD Primary Care Provider +1- [phone] Encounter Details Date Type Department Care Team (Late st Contact Info) Description 02/01/2020 Documentation [facility] [address] [place] [address] [email or web address] Social History Tobacco Use Types Packs/Day [...] on filedocumented in this encounter Care Teams Erp Programmer Relationship Specialty Start Date End Date Wade Silva MD [address] [place] [address] [address] [place] [address] PCP - General 05/04/14 documented as of this encounter Additional Source Comments The information contained in this document represents components of the legal health record. It is not the complete legal health record.[facility]
--- OUTSIDE RECORDS SUMMARY | 2025-07-03 07:14 | XMS_ITS | Encounter Summary ---
Author Organization [facility] Address [address] [address] Phone Care Team Providers Care Ski Maker Wood Name Role Phone Wade Silva MD Primary Care Provider +1- [phone] Encounter Details Date Type Department Care Team (Late st Contact Info) Description 02/16/2020 Procedure Pass [place] Admitting Dept - Virtual Department [address] [place] [address] Social History Tobacco Use Types Packs/Day Years [...] on filedocumented in this encounter Care Teams Ski Maker Wood Relationship Specialty Start Date End Date Wade Silva MD [address] [place] [address] [address] [place] [address] PCP - General 05/04/14 documented as of this encounter Additional Source Comments The information contained in this document represents components of the legal health record. It is not the complete legal health record.[facility]
--- OUTSIDE RECORDS SUMMARY | 2025-07-03 07:14 | XMS_ITS | Clinical Summary ---
Author Organization [facility] Address [facility] [employer] [address] [address] Phone Care Team Providers Care [employer] Name Role Phone Wade Silva MD Primary Care Provider +1- [phone] Allergies Active Allergy Reactions Criticality Noted Date [...] this topic Medical Devices Implanted Type Area Cinder Block Mason Device Identifier Shelf Expiration Date Model / Serial / Lot Kit Cement Bone Kyphon Xpede Polymethylmethacrylate Mixer - [id number] Implanted:Qty: 1 on 02/16/2020 by Tim Mcfadden MD at [facility] Bone Cement Back [employer] 09/03/2022 [id number] / / [id number] Insurance [facility] Care Teams [employer] Relationship Specialty Start Date End Date Wade Silva MD [address] [place] [address] PCP - General 05/04/14 Additional Source Comments The information contained in this document represents components of the legal health record. It is not the complete legal health record.[facility]
== END 2025-07-03 07:12 | disposition home or self-care (01) ==
LOC: HO.XRAY 07:11
PROVIDERS: Visit Provider Nurse Practitioner
DX: M54.2 Cervicalgia (principal)
CPT/HCPCS: 72040

== ENCOUNTER → 2025-07-03 07:15 | Outpatient (BNV) | payer MEDICARE, OTHER, SELFPAY | PROVIDERS: Visit Provider Radiology Diagnostic Radiology | DX: M54.2 Cervicalgia (principal) | CPT/HCPCS: 72040 ==

== ENCOUNTER 2025-07-27 06:20 | Day surgery (SDC) | payer MEDICARE, OTHER, SELFPAY ==
--- OUTSIDE RECORDS SUMMARY | 2025-05-31 10:04 | XMS_ITS | Patient Health Record ---
Author [facility] Address [address] [place] [address] Care Team Providers Care Barrel Filler Name Role Phone Clare JARA, Warner Primary Care Provider Yo Keenan Unavailable [phone] Allergies Allergen (clinical drug ingredient) Drug/Non Drug [...] 1 tablet as needed Orally Once a day; Duration: 30 day(s) Not-Taking Ciclopirox 0.77 % 1 application to affected area Externally Twice a day; Duration: 365 days Active Social History Tobacco Use: [...] W/U Status Risk Notes Problem Tinea unguium (545350941) Tinea unguium (B35.1) Active confirmed Plan Of Treatment No Information Insurance Providers Payer Name Payer Address Payer Phone Subscriber Number Group Number Insured Name Patient Relationship to Insured Coverage Start Date Coverage End Date [facility] Plan [address] [place] [id number] Joy Rodriguez Self - patient is the insured Medical (General) History Medical History History ICD Code Allergic rhinitis Back,Hip,and Knee pain Broken bones Headaches/Migraines Surgical History Surgery Date(Month/Year) Arm 05/12/2020 Knee 10/08/2015 back surgery 02/16/20 skin cancer 05/13/20
--- OUTSIDE RECORDS SUMMARY | 2025-05-31 10:04 | XMS_ITS | Encounter Summary ---
Author Organization [facility] Address [address] [address] Phone Care Team Providers Care Exterminator Helper Termite Name Role Phone Wade Silva MD Primary Care Provider [phone] Encounter Details Date Type Department Care Team (Late st Contact Info) Description 02/16/2020 Procedure Pass OR Admitting Dept - Virtual Department [address] [place] [address] Social History Tobacco Use Types Packs/Day Years Used Date Smoking Tobacco: Never Smokeless Tobacco: Never Alcohol Use Standard Drinks/Week Comments Not Currently 0 (1 standard drink = 0.6 oz pur e alcohol) Comments No Sex and Gender Information Value Date Recorded Sex Assigned at Female 01/31/2021 4:01 PM EDT Legal Sex Female 5:36 PM EST Gender Identity Female 01/31/2021 4:01 PM EDT Sexual Orientation Not on file documented as of this encounter Plan of Treatment Not on file documented as of this encounter Visit Diagnoses Not on filedocumented in this encounter Care Teams Exterminator Helper Termite Relationship Specialty Start Date End Date Wade Silva MD [address] [place] [address] [address] [place] [address] PCP - General 05/04/14 documented as of this encounter Additional Source Comments The information contained in this document represents components of the legal health record. It is not the complete legal health record.[facility]
--- OUTSIDE RECORDS SUMMARY | 2025-05-31 10:05 | XMS_ITS | Patient Health Record ---
Author Organization [facility] Address [address] [place] [address] Care Team Providers Care Trading Manager Name Role Phone Ricardo JARA, Wade Primary Care Provider SHERRIE Morejon Unavailable [phone] Allergies Allergen (clinical drug ingredient) Drug/Non Drug [...] W/U Status Risk Notes Problem Postmenopausal bleeding (98294902) Postmenopausal bleeding (N95.0) Active confirmed Problem Adjustment disorder with depressed mood (75850067) Adjustment disorder with depressed mood (F43.21) Active confirmed Problem Cystocele (301569128) Cystocele, unspecified (N81.10) Active confirmed Problem Prolapse of female genital organs (41418410) Female genital prolapse, unspecified (N81.9) Active confirmed Problem Abnormal findings on diagnostic imaging of breast (953627669) Other abnormal and inconclusive findings on diagnostic [...] End Date [employer] [address] [place] [address] [id number] AVELINO AMAYA Spouse - patient is the [...]
[2025-07-23 14:47] VITALS: BMI 22.4
--- NOTE | 2025-07-26 09:04 | P.CONAN_ITS ---
Documented by User: Rose Mary Patel NP 07/26/25 09:05 HPI - Anesthesia Eval Consult details Narrative: 65yo F for Upper Endoscopy and Colonoscopy [facility] Active Problems Active Problems: All Active Problems Voice hoarseness (Acute) Sore throat (Acute) Neck pain (Acute) Osteoarthritis of right shoulder (Acute) Neck swelling (Acute) Elevated fasting glucose (Acute) Right shoulder pain (Acute) Constipation (Acute) Streptococcus agalactiae infection (Acute) Diarrhea (Acute) Nausea and vomiting (Acute) Multiple environmental allergies (Acute) Multiple food allergies (Acute) IBS (irritable bowel syndrome) (Acute) Erosive esophagitis (Acute) Hypothyroidism (Acute) Oropharyngeal dysphagia (Acute) Arthritis (Acute) Hyperlipidemia (Acute) Abdominal pain (Acute) Status post repair of paraesophageal diaphragmatic hernia (Acute) Overweight (Acute) Chronic GERD (Acute) Past Medical History Medical History Arthritis Abdominal pain Hand weakness Overweight Hypothyroidism Skin lesion of scalp Chronic GERD Headache Family History Family History Father No problems noted. Mother No problems noted. Family history of problems with anesthesia: No Surgical History Surgical History History of esophagogastroduodenoscopy (EGD) H/O colonoscopy Status post repair of paraesophageal diaphragmatic hernia History of surgery on left wrist H/O squamous cell carcinoma excision H/O kyphoplasty History of appendectomy S/P laparoscopic surgery S/P left knee arthroscopy History of Problems with Anesthesia: No Social History Social History Household Members: Spouse Housing: House Are you a primary career development manager to a significant other at home: No Do you presently have visiting nurse or other home services: No Alcohol intake: never Patient Tobacco Use Status: Never used Tobacco Tobacco use type: Cigarette e-Cigarette/Vaping Use: Never Used Second Hand Smoke Exposure: No Use of substances other than those prescribed or required for medical reasons: No Have you been hit, kicked, punched, or otherwise hurt by someone within the past year? If so, by whom?: No Are you DNR?: No Advance Directives: No Advance Directives Information Provided: Yes Advance Directives on File: No Patient : No : No Poor oral hygiene: No service: No Current occupational status: disabled Cognitive needs: Yes (cane) Hearing needs: No Vision needs: Yes (glasses) Meds Allergies Allergy/AdvReac Type Severity Reaction Status Date / Time codeine (CODEINE) Allergy Unknown migraines Verified 07/02/25 15:27 doxycycline (DOXYCYCLINE) Allergy Unknown anaphylaxis, Verified 07/02/25 15:27 swelling, redness environmental allergies AdvReac Intermediate Wheezing Verified 07/02/25 15:27 Home Medications ?Medication ?Instructions ?Recorded ?Confirmed ?Last Taken ?Type sumatriptan succinate 50 mg tablet 50 mg PO DAILY PRN Headache 05/21/23 07/23/25 Unknown History Exam Height,Weight and Vital Signs: Height 5 ft 7 in Weight 64.864 kg Assessment and Plan Assessment Anesthesia Assessment: Chart Reviewed Final Anesthetic Review Family History of Problems with Anesthesia: No History of Problems with Anesthesia: No Documented by User: Casey Bhatt MD 07/27/25 08:05 [facility] Past Medical History Medical History Arthritis Abdominal pain Hand weakness Overweight Hypothyroidism Skin lesion of scalp Chronic GERD Headache Family History Family History Father No problems noted. Mother No problems noted. Surgical History Surgical History History of esophagogastroduodenoscopy (EGD) H/O colonoscopy Status post repair of paraesophageal diaphragmatic hernia History of surgery on left wrist H/O squamous cell carcinoma excision H/O kyphoplasty History of appendectomy S/P laparoscopic surgery S/P left knee arthroscopy Social History Social History Household Members: Spouse Housing: House Are you a primary career development manager to a significant other at home: No Do you presently have visiting nurse or other home services: No Alcohol intake: never Patient Tobacco Use Status: Never used Tobacco Tobacco use type: Cigarette e-Cigarette/Vaping Use: Never Used Second Hand Smoke Exposure: No Use of substances other than those prescribed or required for medical reasons: No Have you been hit, kicked, punched, or otherwise hurt by someone within the past year? If so, by whom?: No Are you DNR?: No Advance Directives: No Advance Directives Information Provided: Yes Advance Directives on File: No Patient : No : No Poor oral hygiene: No service: No Current occupational status: disabled Cognitive needs: Yes (cane) Hearing needs: No Vision needs: Yes (glasses) Meds Allergies Allergy/AdvReac Type Severity Reaction Status Date / Time codeine (CODEINE) Allergy Unknown migraines Verified 07/02/25 15:27 doxycycline (DOXYCYCLINE) Allergy Unknown anaphylaxis, Verified 07/02/25 15:27 swelling, redness environmental allergies AdvReac Intermediate Wheezing Verified 07/02/25 15:27 Home Medications ?Medication ?Instructions ?Recorded ?Confirmed ?Last Taken ?Type sumatriptan succinate 50 mg tablet 50 mg PO DAILY PRN Headache 05/21/23 07/23/25 Unknown History Exam Airway Mallampati Class: II TM Dist: >3cm Neck ROM: Full Assessment and Plan Assessment Anesthesia Assessment: Anesthesia Plan Discussed Final Anesthetic Review NPO: Yes ASA Class: III Final Preanesthetic Review: No Changes in Pt Med Stat, Meds/Allgs Chart Reviewed, Consent Obtained/Reviewed and Anes Risks/Benef Reviewed Patient Risk: Low Procedure Risk: Low Anesthetic Plan Anesthetic Plan: MAC: Disposition: Standard PACU
[2025-07-27 06:50] VITALS: BP 99/25; PULSE 82; RESP 16; TEMP 36.1; O2SAT 96
[2025-07-27] MEDS: Lactated Ringers 1,000 ML 100 ML IVCONT (06:59)
--- NOTE | 2025-07-27 07:40 | MHC.SHP ---
Pre-Procedural Eval Section A - 24 Hr Update-Section A only Date of Service: 07/27/25 Section B - Complete if H&P > 30 days Chief Complaint: hx colon polyps,gerd, Relevant Family History (Specify if Yes): No Relevant Social History: None Present Medications: see Short Stay Collaborative assessment Medical History: Significant History (Arthritis Abdominal pain Hand weakness Overweight Hypothyroidism Skin lesion of scalp Chronic GERD Headache) History of Previous Operations: Relevant previous surgery/procedure and date(s) (History of esophagogastroduodenoscopy (EGD) H/O colonoscopy Status post repair of paraesophageal diaphragmatic hernia History of surgery on left wrist H/O squamous cell carcinoma excision H/O kyphoplasty History of appendectomy S/P laparoscopic surgery S/P left knee arthroscopy) Allergies: Allergies Allergy/AdvReac Type Severity Reaction Status Date / Time codeine (CODEINE) Allergy Unknown migraines Verified 07/02/25 15:27 doxycycline (DOXYCYCLINE) Allergy Unknown anaphylaxis, Verified 07/02/25 15:27 swelling, redness environmental allergies AdvReac Intermediate Wheezing Verified 07/02/25 15:27 Review of Systems Sugical H&P ROS: Negative: Constitution, Cardiovascular, Respiratory, Neurological, Psychiatric, Hem-Onc, Allergic/Immunologic, Gastrointestinal, Genitourinary, Musculoskeletal, Integumentary, Endocrine and Eyes/Ears/Nose/Throat Exam Surgical H&P Exam: Normal: HEENT, Normal: Heart, Normal: Lungs, Normal: Extremities, Normal: Abdomen, Normal: Skin and Normal: Neurological Plan Diagnosis/Plan: Unchanged I have reviewed the history and physical and performed a pertinent physical examination on my patient. No changes have occurred unless specified. Time Spent With Patient Time: Total time managing care of this patient today ____ minutes.
--- NOTE | 2025-07-27 08:12 | P.OP_ITS ---
Operative Note Operative Note Date of Service: 07/27/25 Narrative: Operative Information Procedure Description: EGD, Colonoscopy Indication: diarrhea Anesthesia: MAC FLEXIBLE TRANSORAL UPPER GASTROINTESTINAL ENDOSCOPY AND COLONOSCOPY PROCEDURE NOTE UPPER ENDOSCOPY Consent: Indications for the procedure and potential complications of bleeding, perforation, reaction to medications and missed diagnosis were discussed with the patient and informed consent was obtained. Instrument: Olympus GIF H 190 J mid size upper endoscope Monitoring: Vital signs and clinical assessment, continuous EKG monitoring, Pulse oximetry, Carbon Dioxide monitoring and blood pressure monitoring were done throughout the procedure. Procedure: The patient was placed in the left lateral decubitis position and pre-procedure medications were administered and a bite block was placed. The endoscope was inserted into the mouth and advanced under direct vision to the third part of duodenum. A careful inspection was made as the upper endoscope was withdrawn including a retroflexed examination of the proximal stomach; Findings and interventions are described below. Findings: Larynx:normal Esophagus: GE junction at 36 cm, diaphragm hiatus at 36 cm, normal mucosa Stomach: Mild erythema. Biopsies were obtained. Grade 2 flap valve on retroflexed examination of the cardia. Duodenum: Normal bulb and descending duodenum, bx taken Intervention: Biopsies as noted above, COLONOSCOPY Instrument: Olympus variable stiffness pediatric scope 190L Colonoscopy Monitoring: Vital signs and clinical assessment, continuous EKG monitoring, Pulse oximetry, Carbon Dioxide monitoring and blood pressure monitoring were done throughout the procedure. Colon withdrawal time was 8 minutes. Procedure: The patient was placed in the left lateral decubitis position and pre-procedure medications were administered. After a digital rectal examination of the ano-rectum, the video colonoscope was inserted into the rectum and advanced through the colon to the cecum/TI. The colonoscope was slowly withdrawn in a retrograde panoramic fashion and the colon mucosa was carefully examined including a retroflexed view of the rectum. Findings and interventions are described below. Procedure Difficulty:moderate- pressure applied Findings: Terminal Ileum-normal, bx taken Random bx taken from right and left colon in separate jars Cecum:normal Ascending Colon: normal Transverse Colon -normal Descending Colon:normal Sigmoid Colon: normal Rectum: Retroflexion with medium sized internal hemorrhoids, grade I Anorectum - normal Colon preparation: [place] Bowel Preparation Scale Right colon; 2 Transverse colon: 2 Left colon; 2 (0 = Unprepared colon segment with mucosa not seen due to solid stool that cannot be cleared. 1 = Portion of mucosa of the colon segment seen, but other areas of the colon segment not well seen due to staining, residual stool and/or opaque liquid. 2 = Minor amount of residual staining, small fragments of stool and/or opaque liquid, but mucosa of colon segment seen well. 3 = Entire mucosa of colon segment seen well with no residual staining, small fragments of stool or opaque liquid) Impression and Post Procedure Diagnosis: Endoscopy Findings: gastritis Colonoscopy Findings: internal hemorrhoids Plan: Await Pathology results Repeat Colonoscopy in 5 years due to prior hx of colon polyps or earlier if clinically indicated High fiber diet leaflet avoid straining at stool, epsom salts and sitz bath, anusol supps or cream Above findings were reviewed with the patient and relevant handouts were provided if indicated.
[2025-07-27 08:19] VITALS: BP 84/48; PULSE 74; RESP 16; TEMP 36.2; O2SAT 100
[2025-07-27 08:23] VITALS: BP 94/51; PULSE 70; RESP 16; O2SAT 100
[2025-07-27 08:35] VITALS: BP 98/45; PULSE 67; RESP 16; O2SAT 98
[2025-07-27 08:49] VITALS: BP 96/49; PULSE 66; RESP 16; TEMP 36.2; O2SAT 99
[2025-08-02 02:14] LABS: Lactase 21.6 (15.0-45.5); Maltase 131.7 (100.0-224.4); Palatinase 20.2 (5.0-26.3); Sucrase 52.5 (25.0-69.9)
== END 2025-07-27 09:25 | disposition home or self-care (01) ==
PROVIDERS: Visit Provider Internal Medicine Gastroenterology
PROC: (CPT 45380; principal; 2025-07-27 07:30)
DX: Z12.11 Encounter for screening for malignant neoplasm of colon (principal); Z86.0101 Personal history of adenomatous and serrated colon polyps; R19.7 Diarrhea, unspecified; K64.0 First degree hemorrhoids; K21.9 Gastro-esophageal reflux disease without esophagitis; K29.50 Unspecified chronic gastritis without bleeding; K44.9 Diaphragmatic hernia without obstruction or gangrene; E03.9 Hypothyroidism, unspecified; E66.3 Overweight; Z68.22 Body mass index [BMI] 22.0-22.9, adult; Z79.899 Other long term (current) drug therapy; Z88.1 Allergy status to other antibiotic agents; Z88.5 Allergy status to narcotic agent
CPT/HCPCS: 45380; 43239; 36415; 82657; 88305; 88313; 88342; J2704

== ENCOUNTER → 2025-07-27 06:20 | Outpatient (BNV) | payer MEDICARE, OTHER, SELFPAY | PROVIDERS: Visit Provider Internal Medicine Gastroenterology | DX: R19.7 Diarrhea, unspecified (principal); K64.0 First degree hemorrhoids; K21.9 Gastro-esophageal reflux disease without esophagitis; K29.70 Gastritis, unspecified, without bleeding | CPT/HCPCS: 43239; 45380 ==

== ENCOUNTER 2025-07-30 14:04 | Outpatient (AMB) | payer MEDICARE, OTHER, SELFPAY ==
--- NOTE | 2025-07-30 14:12 | MHC.OFFVIS ---
Vital Signs 07/30/25 14:13 Height 5 ft 7 in BP 111/60 Blood Pressure Location Rt brachial Position Sitting Pulse 64 Intake Visit Reasons: 4 week FUV. Intake Note: Patient in office today s/p colonoscopy and EGD on 07/27. CC: Patient states that she hasn't have a regular BM since her colonoscopy. She also c/o a lot of nausea and pain from upper abdomen and chest that feels like a lot of gas . Twisting Frame Operator Required: No Accompanied by: Self / Same As Patient Allergies codeine (CODEINE) Allergy (Unknown, Verified 07/30/25 14:15) migraines doxycycline (DOXYCYCLINE) Allergy (Unknown, Verified 07/30/25 14:15) anaphylaxis, swelling, redness environmental allergies Adverse Reaction (Intermediate, Verified 07/30/25 14:15) Wheezing HPI HPI 4 week FUV.: Details: Assessment & Plan (1) Neck pain: Code(s): M54.2 - Cervicalgia Category: Medical (2) Neck swelling: Code(s): R22.1 - Localized swelling, mass and lump, neck Category: Medical (3) Sore throat: Code(s): J02.9 - Acute pharyngitis, unspecified Category: Medical (4) Voice hoarseness: Code(s): R49.0 - Dysphonia Category: Medical Orders: Orders XR cervical spine 2V Today M54.2 - Cervicalgia Referrals Ear/Nose/Throat Referral J02.9 - Acute pharyngitis, unspecified, R22.1 - Localized swelling, mass and lump, neck, R49.0 - Dysphonia Medications: Refilled pantoprazole 40 mg PO DAILY 90 tabs 1RF 90 days K21.9 - Gastro-esophageal reflux disease without esophagitis dicyclomine 20 mg PO QID 120 tabs 4RF 30 days EGD/COLONOSCOPY Findings: Larynx:normal Esophagus: GE junction at 36 cm, diaphragm hiatus at 36 cm, normal mucosa Stomach: Mild erythema. Biopsies were obtained. Grade 2 flap valve on retroflexed examination of the cardia. Duodenum: Normal bulb and descending duodenum, bx taken Findings: Terminal Ileum-normal, bx taken Random bx taken from right and left colon in separate jars Cecum:normal Ascending Colon: normal Transverse Colon -normal Descending Colon:normal Sigmoid Colon: normal Rectum: Retroflexion with medium sized internal hemorrhoids, grade I Anorectum - normal Impression and Post Procedure Diagnosis: Endoscopy Findings: gastritis Colonoscopy Findings: internal hemorrhoids Plan: Await Pathology results Repeat Colonoscopy in 5 years due to prior hx of colon polyps or earlier if clinically indicated High fiber diet leaflet avoid straining at stool, epsom salts and sitz bath, anusol supps or cream BIOPSY Received: 07/27/25 Diagnosis A. Duodenum, biopsy: Duodenal mucosa with partially denuded surface epithelium; otherwise within normal limits. B. Stomach, biopsy: Antral-type mucosa with moderate chronic inactive inflammation; no Helicobacter organisms seen. C. Terminal ileum, biopsy: Terminal ileal mucosa within normal limits. D. Colon, right, biopsy: Colonic mucosa within normal limits. E. Colon, left, biopsy: Colonic mucosa within normal limits. F. Rectum, biopsy: Rectal mucosa within normal limits. X-RAY OF THE CERVICAL SPINE 07/06/2025 Findings: Normal alignment. No acute fractures or dislocation. Moderate multilevel degenerative disc disease and facet osteoarthritis. No prevertebral soft tissue swelling. IMPRESSION: No acute findings. TODAY'S VISIT [facility] Medical History Arthritis Abdominal pain Hand weakness Overweight Hypothyroidism Skin lesion of scalp Chronic GERD Headache Surgical History History of esophagogastroduodenoscopy (EGD) H/O colonoscopy Status post repair of paraesophageal diaphragmatic hernia History of surgery on left wrist H/O squamous cell carcinoma excision H/O kyphoplasty History of appendectomy S/P laparoscopic surgery S/P left knee arthroscopy Family History Father No problems noted. Mother No problems noted. Social History Household Members: Spouse Housing: House Are you a primary disabilities caregiver to a significant other at home: No Do you presently have visiting nurse or other home services: No Alcohol intake: never Patient Tobacco Use Status: Never used Tobacco Tobacco use type: Cigarette e-Cigarette/Vaping Use: Never Used Second Hand Smoke Exposure: No service: No Current occupational status: disabled Cognitive needs: Yes (cane) Hearing needs: No Vision needs: Yes (glasses) Review of Systems Const Denies fatigue, Denies fever(s), Denies night sweats, Denies poor appetite and Denies weight loss Eyes Reports requires corrective lenses ENT Reports Normal hearing present, Denies dental pain, Denies dysphagia, Denies hearing loss, Denies mouth pain, Denies odynophagia, Denies throat swelling, Denies tongue swelling and Reports other (Dentition adequate) Card Reports no additional complaints Resp Reports no additional complaints GI Details: Reports abdominal pain, Denies melena, Reports bloating, Denies hematochezia, Denies constipation, Denies GI cramping, Denies dysphagia, Reports excessive flatus, Denies early satiety, Reports heartburn, Denies diarrhea, Denies nausea, Denies odynophagia, Denies vomiting and Denies hematemesis Skin/Breast Denies pruritus, Denies lesions, Denies rash and Denies jaundice Neuro Reports Normal hearing present and Denies Abnormal speech present Endo Denies fatigue Aller/Immun Denies throat swelling and Denies tongue swelling Physical Exam Vital Signs: Last Vital Signs Pulse 64 07/30/25 14:13 BP 111/60 07/30/25 14:13 Const General: cooperative, no acute distress, well developed and well groomed Nutritional Appearance: average body habitus and well nourished Orientation/consciousness: oriented to person, oriented to place and oriented to time Limitations: No language barrier HEENT Head: Yes normocephalic and Yes atraumatic Eyes General: appearance normal, both eyes and all related structures Pupils: Equal, round and reactive pupils present Neck Neck: Yes normal visual inspection and Yes no lymphadenopathy Thyroid: Thyroid normal Resp Effort & Inspection: normal respiratory effort and able to speak in complete sentences Auscultation: clear to auscultation bilaterally Cardio Rate: regular rate Rhythm: regular rhythm Heart sounds: Normal, physiologic split S2 sound present Peripheral pulses: radial pulses present and posterior tibial pulses present GI Inspection: No distended and No Abdominal panniculus present Palpation (GI): Soft to palpation, nontender, no guarding, not rigid and No hepatosplenomegaly present Percussion: Yes normal to percussion Auscultation: normal bowel sounds Rectal Exam - Female: deferred Skin General skin exam: no rashes or lesions noted, turgor normal, skin not dry, no jaundice, No spider nevi and no striae Rashes: no rashes Nails: normal Neuro General: oriented to person, oriented to place and oriented to time Cranial nerves: Yes Equal, round and reactive pupils present and Yes Normal hearing present Speech: No Abnormal speech present Extrem General: Yes normal to inspection, No clubbing, No cyanosis and No edema Psych Appearance: grossly normal and well kempt Mental Status: mental status grossly normal Speech and movement: Normal speech and movement present Affect: normal affect Attitude: cooperative Thought process: Normal thought process present and not confabulating Thought content: Normal thought content present Insight: Fair insight present (Psych) Judgement: Fair judgement present (Psych) Results Reviewed Results Reviewed: EGD/COLONOSCOPY Findings: Larynx:normal Esophagus: GE junction at 36 cm, diaphragm hiatus at 36 cm, normal mucosa Stomach: Mild erythema. Biopsies were obtained. Grade 2 flap valve on retroflexed examination of the cardia. Duodenum: Normal bulb and descending duodenum, bx taken Findings: Terminal Ileum-normal, bx taken Random bx taken from right and left colon in separate jars Cecum:normal Ascending Colon: normal Transverse Colon -normal Descending Colon:normal Sigmoid Colon: normal Rectum: Retroflexion with medium sized internal hemorrhoids, grade I Anorectum - normal Impression and Post Procedure Diagnosis: Endoscopy Findings: gastritis Colonoscopy Findings: internal hemorrhoids Plan: Await Pathology results Repeat Colonoscopy in 5 years due to prior hx of colon polyps or earlier if clinically indicated High fiber diet leaflet avoid straining at stool, epsom salts and sitz bath, anusol supps or cream BIOPSY Received: 07/27/25 Diagnosis A. Duodenum, biopsy: Duodenal mucosa with partially denuded surface epithelium; otherwise within normal limits. B. Stomach, biopsy: Antral-type mucosa with moderate chronic inactive inflammation; no Helicobacter organisms seen. C. Terminal ileum, biopsy: Terminal ileal mucosa within normal limits. D. Colon, right, biopsy: Colonic mucosa within normal limits. E. Colon, left, biopsy: Colonic mucosa within normal limits. F. Rectum, biopsy: Rectal mucosa within normal limits. X-RAY OF THE CERVICAL SPINE 07/06/2025 Findings: Normal alignment. No acute fractures or dislocation. Moderate multilevel degenerative disc disease and facet osteoarthritis. No prevertebral soft tissue swelling. IMPRESSION: No acute findings. Assessment & Plan Assessment & Plan (1) Chronic GERD: Code(s): K21.9 - Gastro-esophageal reflux disease without esophagitis Category: Medical (2) Erosive esophagitis: Code(s): K22.10 - Ulcer of esophagus without bleeding Category: Medical (3) Tubular adenoma of colon: Comment: 2023 scope= TA repeat in 5 years Code(s): D12.6 - Benign neoplasm of colon, unspecified Category: Medical Plan Her current regimen consists of pantoprazole 40 mg once a day, senna 2 tabs at night and dicyclomine. She tolerated the procedures well, however she has been having some trouble with gas trapping and belching since the procedures. We do pump gas into the GI system to expand the colon and I wonder if this is the reason. However it has been 4 days and she continues to have this problem. Sometimes gas gets trapped in such a way that the pain radiates from mid abdomen all way up to her chest. She has been utilizing simethicone and if she can burp it does seem to provide relief. I also postulated that it could be that her natural gut balance has been interrupted and I recommend that she do a probiotic supplement and add some fiber to calm down the bowels. The upper endoscopy was quite benign and reassuring. Colonoscopy was negative except for hemorrhoids but because she had a prior polyp we will repeat this exam in 5 years. The procedure was well tolerated. The results were explained and the patient is agreeable to the follow-up interval as stated. The bowel pattern has returned to normal. Education was provided to tell any 1st degree relatives about their findings to be sure that they are screened by age 45. Educated that they will be put on a recall list when it is time for their repeat scope but should they move out of state or away from the hospital they will need to remember along with their primary to repeat the procedure in a timely fashion to avoid any adverse complications. We reviewed the cervical spine x-ray and she does have significant arthritis particularly in the facet joints. Whether or not she is having impingement that is causing the pain in her arms would be difficult to say without an MRI. She says that she had an electromyelogram once for her pain but this was 2 or more years ago. I suggest she talked to her primary care about a potential MRI of the cervical spine as this may help determine the best direction for future care. ROV 6 mos. Medications: Refilled sennosides (Senna Laxative) 17.2 mg (2 x 8.6 mg) PO BEDTIME 30 tabs 3RF Discontinued dicyclomine Discontinued Reason: Doctor's Order 20 mg PO QID 30 days 120 tabs 4RF meloxicam Discontinued Reason: Patient no longer taking 15 mg PO DAILY 30 tabs 0RF Coding Level of Care Code Est Pt Level 4 (10895) Diagnoses Chronic GERD K21.9 Erosive esophagitis K22.10 Tubular adenoma of colon D12.6 Time Spent (min) 36
[2025-07-30 14:13] VITALS: BP 111/60; PULSE 64
--- OUTSIDE RECORDS SUMMARY | 2025-07-30 15:14 | XMS_ITS | Encounter Summary ---
Author Organization [facility] Address [address] [place] [address] Phone Care Team Providers Care Clinical Immunologist Name Role Phone Wade Silva MD Primary Care Provider +1- [phone] Encounter Details Date Type Department Care Team (Late st Contact Info) Description 01/19/2020 Ancillary Orders [facility],Outside Imaging [address] [place] [address] System, Provider Not In, [place] [address] Social History Tobacco Use Types Packs/Day Years [...] on filedocumented in this encounter Care Teams Clinical Immunologist Relationship Specialty Start Date End Date Wade Silva MD [address] [place] [address] PCP - General 05/04/14 documented as of this encounter Additional Source Comments The information contained in this document represents components of the legal health record. It is not the complete legal health record.[facility]
--- OUTSIDE RECORDS SUMMARY | 2025-07-30 15:14 | XMS_ITS | Encounter Summary ---
Author Organization [facility] Address [address] [place] [address] Phone Care Team Providers Care C Iron Worker Name Role Phone Wade Silva MD Primary Care Provider +1- [phone] Encounter Details Date Type Department Care Team (Late st Contact Info) Description 01/19/2020 Procedure Pass [facility], [address] [address] Social History Tobacco Use Types Packs/Day Years [...] on filedocumented in this encounter Care Teams C Iron Worker Relationship Specialty Start Date End Date Wade Silva MD [address] [facility] [address] [place] [address] PCP - General 05/04/14 documented as of this encounter Additional Source Comments The information contained in this document represents components of the legal health record. It is not the complete legal health record.[facility]
--- OUTSIDE RECORDS SUMMARY | 2025-07-30 15:14 | XMS_ITS | Encounter Summary ---
Author Organization [facility] Address [address] [facility] [address] [place] [address] Phone Care Team Providers Care Bilingual Secretary Name Role Phone Wade Silva MD Primary Care Provider +1- [phone] Encounter Details Date Type Department Care Team (Late st Contact Info) Description 02/01/2020 Documentation [facility] [address] [place] [address] [email or web address] Social History Tobacco Use Types Packs/Day Years [...] on filedocumented in this encounter Care Teams Bilingual Secretary Relationship Specialty Start Date End Date Wade Silva MD [address] [place] [address] [address] [place] [address] PCP - General 05/04/14 documented as of this encounter Additional Source Comments The information contained in this document represents components of the legal health record. It is not the complete legal health record.[facility]
--- OUTSIDE RECORDS SUMMARY | 2025-07-30 15:14 | XMS_ITS | Encounter Summary ---
Author Organization [facility] Address [address] [address] Phone Care Team Providers Care Correctional Program Officer Name Role Phone Wade Silva MD Primary Care Provider +1- [phone] Encounter Details Date Type Department Care Team (Late st Contact Info) Description 02/16/2020 Procedure Pass [place] Admitting Dept - Virtual Department [address] [place] [address] Social History Tobacco Use Types Packs/Day Years [...] on filedocumented in this encounter Care Teams Correctional Program Officer Relationship Specialty Start Date End Date Wade Silva MD [address] [place] [address] [address] [place] [address] PCP - General 05/04/14 documented as of this encounter Additional Source Comments The information contained in this document represents components of the legal health record. It is not the complete legal health record.[facility]
--- OUTSIDE RECORDS SUMMARY | 2025-07-30 15:14 | XMS_ITS | Clinical Summary ---
Author Organization [facility] Address [facility] [employer] [address] [address] Phone Care Team Providers Care Tank Truck Driver Name Role Phone Wade Silva MD Primary Care Provider +1- [phone] Allergies Active Allergy Reactions Criticality Noted Date [...] HEPATITIS C SCREENING 01/12/1978 HIV ONE-TIME SCREENING (18-65 YEARS) 01/12/1978 MAMMOGRAM 2000 COLOGUARD 01/12/2005 COLONOSCOPY 01/12/2005 COLORECTAL CANCER SCREENING 01/12/2005 FIT TEST 01/12/2005 FOBT 01/12/2005 SIGMOIDOSCOPY 01/12/2005 VIRTUAL COLONOSCOPY 01/12/2005 PNEUMOCOCCAL VACCINES (50+ years) (1 of 1 - PCV) 01/12/2010 OSTEOPOROSIS SCREENING INITIAL (ONE-TIME) 01/12/2025 INFLUENZA VACCINE (#1) 2025 8, 07/07/2017, 06/19/2016, Additional history exists COVID-19 VACCINE ( - 2024- season) 2025 02/22/2021, 02/01/2021 RSV VACCINE (1 - 1-dose 75+ series) 01/12/2035 ZOSTER VACCINES Completed 05/02/2018, 02/23/2018 SMOKING STATUS SCREENING (Once After 26 Yrs) Completed 08/17/2020 HEPATITIS A [...] this topic Medical Devices Implanted Type Area Certified Detention Deputy Device Identifier Shelf Expiration Date Model / Serial / Lot Kit Cement Bone Kyphon Xpede Polymethylmethacrylate Mixer - [id number] Implanted:Qty: 1 on 02/16/2020 by Tim Mcfadden MD at [facility] Bone Cement Back [employer] 09/03/2022 [id number] / / [id number] Insurance [facility] PLAN [facility] PLAN [employer] Care Teams Tank Truck Driver Relationship Specialty Start Date End Date Wade Silva MD [address] [place] [address] [address] [place] [address] PCP - General 05/04/14 Additional Source Comments The information contained in this document represents components of the legal health record. It is not the complete legal health record.[facility]
--- OUTSIDE RECORDS SUMMARY | 2025-07-30 15:15 | XMS_ITS | Patient Health Record ---
Author Organization [facility] Address [address] [facility] [place] [address] Care Team Providers Care Waste Water Operator Name Role Phone Clare JARA, Warner Primary Care Provider Yo Keenan Unavailable [phone] Allergies Allergen (clinical drug ingredient) Drug/Non Drug [...] W/U Status Risk Notes Problem Tinea unguium (033854559) Tinea unguium (B35.1) Active confirmed Plan Of Treatment No Information Insurance Providers Payer Name Payer Address Payer Phone Subscriber Number Group Number Insured Name Patient Relationship to Insured Coverage Start Date Coverage End Date [facility] Plan [address] [place] [address] [id number] Joy Rodriguez Self - patient is the insured Medical (General) History Medical History History ICD Code Allergic rhinitis Back,Hip,and Knee pain Broken bones Headaches/Migraines Surgical History Surgery Date(Month/Year) Arm 05/12/2020 Knee 10/08/2015 back surgery 02/16/20 skin cancer 05/13/20
--- OUTSIDE RECORDS SUMMARY | 2025-07-30 15:15 | XMS_ITS | Patient Health Record ---
Author Organization [facility] Address [address] [facility] [address] [place] [address] Care Team Providers Care Glass Lathe Operator Name Role Phone Ricardo JARA, Wade Primary Care Provider SHERRIE Morejon Unavailable [phone] Allergies Allergen (clinical drug ingredient) Drug/Non Drug [...] W/U Status Risk Notes Problem Postmenopausal bleeding (72688474) Postmenopausal bleeding (N95.0) Active confirmed Problem Adjustment disorder with depressed mood ([id number]) Adjustment disorder with depressed mood (F43.21) Active confirmed Problem Cystocele (916507319) Cystocele, unspecified (N81.10) Active confirmed Problem Prolapse of female genital organs (01110634) Female genital prolapse, unspecified (N81.9) Active confirmed Problem Abnormal findings on diagnostic imaging of breast (023967563) Other abnormal and inconclusive findings on diagnostic [...] End Date [employer] [place] [address] [place] [address] [id number] AVELINO AMAYA Spouse - patient is the [...]
== END 2025-07-30 14:41 | disposition home or self-care (01) ==
LOC: HO.HGI 14:05
PROVIDERS: Visit Provider Nurse Practitioner
DX: K21.9 Gastro-esophageal reflux disease without esophagitis (principal); K22.10 Ulcer of esophagus without bleeding; D12.6 Benign neoplasm of colon, unspecified
CPT/HCPCS: 99214

== ENCOUNTER → 2025-07-30 14:04 | Outpatient (BNVA) | payer MEDICARE, OTHER, SELFPAY | PROVIDERS: Visit Provider Nurse Practitioner | DX: K21.9 Gastro-esophageal reflux disease without esophagitis (principal); K22.10 Ulcer of esophagus without bleeding; D12.6 Benign neoplasm of colon, unspecified | CPT/HCPCS: 99212 ==

== ENCOUNTER 2025-08-12 08:08 | Outpatient (REF) | payer MEDICARE, OTHER, SELFPAY ==
--- NOTE | ~2025-08-12 | XR_ITS ---
EXAMINATION: XR SHOULDER, RIGHT CLINICAL INFORMATION: M25.511 - Pain in right shoulder COMPARISON: Previous x-ray May 2025 TECHNIQUE: 3 views of the right shoulder. FINDINGS: Bone alignment is normal. No fracture or dislocation. Mild arthritis at the acromioclavicular joint with small osteophytes. Normal glenohumeral joint. Normal soft tissues. XR/XR shoulder RT min 2V IMPRESSION: Mild degenerative changes at the acromioclavicular joint. Electronically signed by: Ashlee Machado MD 08/12/2025 09:04 AM EDT
== END 2025-08-12 08:09 | disposition home or self-care (01) ==
LOC: HO.HOSX 08:08
PROVIDERS: Visit Provider Physician Assistant
DX: M75.81 Other shoulder lesions, right shoulder (principal)
CPT/HCPCS: 20610; 73030; 99202; J0665; J1100; J2003

== ENCOUNTER 2025-08-12 08:14 | Outpatient (AMB) | payer MEDICARE, OTHER, SELFPAY ==
--- NOTE | 2025-08-12 08:38 | A.OFFVIS_ITS ---
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 Patient referred by PCP due to persistent pain that has been present for over two years and has been getting worse. Today patient reports constant pain, states her pain is located in the shoulder joint. She has numbness and tingling in her 4th and 5th digit. No previous treatment. Denies injury. 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 She states the pain has been present for approximately 2 years. She denies injury. She has pain with sleeping at night and reaching overhead and behind her back. She denies treatment to date. [facility] Medical History Arthritis Abdominal pain Hand weakness Overweight Hypothyroidism Skin lesion of scalp Chronic GERD Headache Surgical History History of esophagogastroduodenoscopy (EGD) H/O colonoscopy Status post repair of paraesophageal diaphragmatic hernia History of surgery on left wrist H/O squamous cell carcinoma excision H/O kyphoplasty History of appendectomy S/P laparoscopic surgery S/P left knee arthroscopy Family History Father No problems noted. Mother No problems noted. Social History (Updated 08/12/25 @ 08:43 by DIYA Paulino) Household Members: Spouse Housing: House Are you a primary child care center administrator to a significant other at home: No Do you presently have visiting nurse or other home services: No Alcohol intake: never Patient Tobacco Use Status: Never used Tobacco Tobacco use type: Cigarette e-Cigarette/Vaping Use: Never Used Second Hand Smoke Exposure: No service: No Current occupational status: disabled Current occupation: right hand dominant Cognitive needs: Yes (cane) Hearing needs: No Vision needs: Yes (glasses) Review of Systems Const All systems reviewed & are unremarkable except as noted in HPI and below Physical Exam Const General: cooperative and no acute distress Orientation/consciousness: patient oriented x3 Resp Effort & Inspection: normal respiratory effort and able to speak in complete sentences Cardio Peripheral pulses: Peripheral pulses 2+ throughout Neuro General: patient oriented x3 Extrem Other: Right shoulder is normal to inspection she has full range of motion in all planes. She has a positive Butler. She is able to activate rotator cuff strength with mild discomfort. Neurovascularly intact. Office Procedures AMB Joint Injection/Aspiration Joint Injection/Aspiration Primary Site: right shoulder Prep: site was prepped using aseptic technique, ethochloride spray was applied and injection warnings given Injected: 40 mg of, with 3 mL of, 1% plain lidocaine, 0.25% bupivacaine, in the subcromial space and decadron Approach Used: posterolateral Coding 00861 - Glenohumeral/Tronchanteric Bursa/Intraarticular Procedure code (CPT) selection complete Results Reviewed Results Reviewed: X-rays of the right shoulder obtained in the office today and reviewed by me show type 2 acromion with mild AC joint arthritis Assessment & Plan Assessment & Plan (1) Tendinitis of right rotator cuff: Code(s): M75.81 - Other shoulder lesions, right shoulder Category: Medical Plan: We discussed options today which includes physical therapy and steroid injections. The patient did consent for a right shoulder steroid injection which she tolerated well. I did place an order for physical therapy to work on range of motion, rotator cuff and periscapular stabilization. She will contact our office over the next 6-8 weeks if symptoms persist or worsen otherwise she will follow up as needed. Orders: Orders XR shoulder RT min 2V Today M25.511 - Pain in right shoulder Coding Level of Care Code New Pt Level 3 (75929) Complex EM visit Add On G2211 Diagnoses Tendinitis of right rotator cuff M75.81 CPT Codes Coding - Joint 7: 65092 - Glenohumeral/Tronchanteric Bursa/Intraarticular ([id number])
== END 2025-08-12 09:20 | disposition home or self-care (01) ==
LOC: HO.HOS 08:15
PROVIDERS: Visit Provider Physician Assistant
DX: M75.81 Other shoulder lesions, right shoulder (principal); M25.511 Pain in right shoulder
CPT/HCPCS: 20610; 99203

== ENCOUNTER → 2025-08-12 08:35 | Outpatient (BNV) | payer MEDICARE, OTHER, SELFPAY | PROVIDERS: Visit Provider Radiology Diagnostic Radiology | DX: M25.511 Pain in right shoulder (principal) | CPT/HCPCS: 73030 ==

== ENCOUNTER 2025-08-27 08:04 | Outpatient (REF) | payer MEDICARE, OTHER, SELFPAY ==
--- OUTSIDE RECORDS SUMMARY | 2025-08-27 08:22 | XMS_ITS | Patient Health Record ---
Author Organization [facility] Address [address] [place] [address] Care Team Providers Care Powerhouse Laborer Name Role Phone Wade Silav MD Primary Care Provider SHERRIE Morejon Unavailable [phone] Allergies Allergen (clinical drug ingredient) Drug/Non Drug Allergy documented on EMR Reaction Allergy Type Onset Date Status Information temporarily unavailable Codeine Sulfate Migraine Drug Allergy Active Information temporarily unavailable Doxycycline Swelling Drug Allergy Active Reason For Referral No Information Social History [...] Problem Status W/U Status Risk Notes Problem Information temporarily unavailable Postmenopausal bleeding (N95.0) Active confirmed Problem Information temporarily unavailable Adjustment disorder with depressed mood (F43.21) Active confirmed Problem Information temporarily unavailable Cystocele, unspecified (N81.10) Active confirmed Problem Information temporarily unavailable Female genital prolapse, unspecified (N81.9) Active confirmed Problem Information temporarily unavailable Other abnormal and inconclusive findings on diagnostic [...] End Date [employer] [place] [address] [place] [address] [phone] [id number] AVELINO AMAYA Spouse - patient is the [...]
--- OUTSIDE RECORDS SUMMARY | 2025-08-27 08:22 | XMS_ITS | Patient Health Record ---
[facility] Address [address] [place] [address] Care Team Providers Care Hotel Dining Room Cashier Name Role Phone Warner Sparks MD Primary Care Provider Yo Keenan Unavailable [phone] Allergies Allergen (clinical drug ingredient) Drug/Non Drug Allergy documented on EMR Reaction Allergy Type Onset Date Status Information temporarily unavailable Codeine Sulfate migraines Drug Allergy Active Information temporarily unavailable Doxycycline Hyclate anaphylaxis Drug Allergy Active Reason [...] Status Risk Notes Problem Information temporarily unavailable Tinea unguium (B35.1) Active confirmed Plan Of Treatment No Information Insurance Providers Payer Name Payer Address Payer Phone Subscriber Number Group Number Insured Name Patient Relationship to Insured Coverage Start Date Coverage End Date [facility] Plan [address] [place] [address] [id number] Joy Rodriguez Self - patient is the insured Medical (General) History Medical History History ICD Code Allergic rhinitis Back,Hip,and Knee pain Broken bones Headaches/Migraines Surgical History Surgery Date(Month/Year) Arm 05/12/2020 Knee 10/08/2015 back surgery 02/16/20 skin cancer 05/13/20
[2025-08-27 12:10] LABS: Cholesterol 245 mg/dL (<200); HDL Cholesterol 48 mg/dL (>40); Triglycerides 140 mg/dL (<150)
== END 2025-08-27 08:05 | disposition home or self-care (01) ==
LOC: HO.10HDL 08:04
DX: E78.00 Pure hypercholesterolemia, unspecified (principal)
CPT/HCPCS: 36415; 80061

== ENCOUNTER 2025-08-31 10:45 | Outpatient (AMB) | payer MEDICARE, OTHER, SELFPAY ==
[2025-08-31 10:47] VITALS: BP 112/72; TEMP 36.1; O2SAT 99
--- NOTE | 2025-08-31 10:47 | A.OFFPC_ITS ---
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 Required: No Accompanied by: Self / Same As Patient Allergies codeine (CODEINE) Allergy (Unknown, Verified 08/31/25 11:10) migraines doxycycline (DOXYCYCLINE) Allergy (Unknown, Verified 08/31/25 11:10) anaphylaxis, swelling, redness environmental allergies Adverse Reaction (Intermediate, Verified 08/31/25 11:10) Wheezing Medication List - Last Reconciled 08/31/25 by Salma Aggarwal PA-C levothyroxine 75 mcg PO DAILY@0600 ondansetron HCl 8 mg PO Q12H pantoprazole 40 mg PO DAILY 90 days sennosides (Senna Laxative) 17.2 mg (2 x 8.6 mg) PO BEDTIME sumatriptan succinate 50 mg PO DAILY PRN Tobacco use date assessed: 05/31/25 Fall risk assessment: 1 Fall in past year Last assessed Fall Risk: 08/31/25 Dental Screening Dental Screen Date: 08/31/25 Did you have a dental visit in the last 12 months?: Yes Did you have a dental problem in the last 6 months where you did not have access to dental care?: No Was dental information given to patient?: No HPI f/u HLD HPI Details 65-year-old female with past medical his tory of hypothyroidism, hyperlipidemia, chronic GERD, erosive esophagitis, IBS last seen 05/2025 coming in for follow up on cholesterol. In review of the notes, patient was seen by Orthopedics 08/2025 for right shoulder tendonitis given steroid injection and referral was placed to physical therapy. Seen by GI 07/2025 dicyclomine and meloxicam were discontinued and patient was given senna for IBS. Presenting for management of multiple chronic conditions and to request a referral letter for a work-related injury. She sustained an L1 lumbar compression fracture in November 2019 and has experienced persistent pain since, for which she refuses to take narcotics. Regarding her hypercholesterolemia, her latest total cholesterol level was 169 mg/dL, an increase from 163 mg/dL, despite attempts at dietary modifications such as cutting out red meats and fried foods. The patient is hesitant to begin medication due to stress. She also has persistent pain and swelling in her entire neck. A previous x-ray showed only mild arthritis, and a thyroid ultrasound and chest x-ray were normal. Referrals for ENT and an robotics mechanic were previously placed by another provider, but the patient received no follow-up communication. Consideration for MRI was made given worsenign pain and persistent swelling. [facility] Medical History Arthritis Abdominal pain Hand weakness Overweight Hypothyroidism Skin lesion of scalp Chronic GERD Headache Surgical History History of esophagogastroduodenoscopy (EGD) H/O colonoscopy Status post repair of paraesophageal diaphragmatic hernia History of surgery on left wrist H/O squamous cell carcinoma excision H/O kyphoplasty History of appendectomy S/P laparoscopic surgery S/P left knee arthroscopy Family History Father No problems noted. Mother No problems noted. Social History Household Members: Spouse Housing: House Are you a primary in home caregiver to a significant other at home: No Do you presently have visiting nurse or other home services: No Alcohol intake: never Patient Tobacco Use Status: Never used Tobacco Tobacco use type: Cigarette e-Cigarette/Vaping Use: Never Used Second Hand Smoke Exposure: No service: No Current occupational status: disabled Current occupation: right hand dominant Cognitive needs: Yes (cane) Hearing needs: No Vision needs: Yes (glasses) Questionnaire PHQ-9 Over the last 2 weeks, how often have you been bothered by any of the following problems? 1. Little interest or pleasure in doing things: not at all 2. Feeling down, depressed, or hopeless: not at all 3. Trouble falling or staying asleep, or sleeping too much: not at all 4. Feeling tired or having little energy: not at all 5. Poor appetite or overeating: not at all 6. Feeling bad about yourself - or that you are a failure or have let yourself or your family down: not at all 7. Trouble concentrating on things, such as reading the newspaper or watching television: not at all 8. Moving or speaking so slowly that other people could have noticed. Or the opposite - being so fidgety or restless that you have been moving around a lot more than usual: not at all 9. Thoughts that you would be better off or of hurting yourself in some way: not at all Total score: 0 Depression Screening Interpretation: Negative Depression Screening Done: Yes 16917 - PHQ-9 Billing: Yes Source: Developed by Drs. August Johnson, Cleopatra Khan, Martín Stoddard and colleagues, with an educational jaquan from [employer]. Thrive Questionnaire Date Thrive assessed: 05/27/25 I am a: Patient What is your living situation today?: I have a steady place to live Within the past 12 months, did the food you bought not last and you didn't have the money to get more?: Never true Within the past 12 months, did you worry whether your food would run out before you got money to buy more?: Never true Do you have trouble paying for medicines?: No Do you have trouble getting transportation to medical appointments?: No Do you have trouble paying your heating and electricity bill?: No Do you have trouble taking care of your child, family member or friend?: No Do you have trouble with day-to-day activities such as bathing, preparing meals, shopping, managing finances, etc.?: No Are you currently unemployed and looking for a job?: No Are you interested in more education?: No Please select the resources that you would like help with: None Currently or been in a relationship where the following occur: No concerns reported THRIVE Score: 0 AUDIT C Alcohol Use Questionnaire (AUDIT-C) 1. How often do you have a drink containing alcohol?: Never Total Score: 0 SIERRA-7 AMB Questionnaire SIERRA-7 Date SIERRA - 7 assessed: 12/01/24 Feeling nervous, anxious, or on edge: 0 = Not at all Not being able to stop or control worryin = Not at all Worrying too much about different things: 0 = Not at all Trouble relaxin = Not at all Being so restless that it is hard to sit still: 0 = Not at all Becoming easily annoyed or irritable: 0 = Not at all Feeling afraid as if something awful might happen: 0 = Not at all Total SIERRA-7 score (0-4 normal; 5-9 mild; 10-14 moderate; 15-21 severe): 0 Source: Developed by Drs. August Johnson, Cleopatra Khan, Martín Stoddard and colleagues, with an educational jaquan from [employer]. SIERRA-7 Assessment Billing SIERRA-7 Assessment Tool: SIERRA-7 Assessment 89029 Review of Systems Const Denies body aches, Denies chills, Denies fever(s), Denies headache(s) and Denies poor appetite Eyes Reports no additional complaints ENT Denies dysphagia, Denies dizziness, Denies headache(s) and Denies odynophagia Card Denies chest pain, Denies syncope, Denies edema, Denies irregular heart rhythm, Denies lightheadedness and Denies dyspnea Resp Denies cough and Denies dyspnea GI Denies abdominal pain, Denies constipation, Denies dysphagia, Denies diarrhea, Denies nausea, Denies odynophagia and Denies vomiting Reports no additional complaints Musc Reports no additional complaints and Denies abnormal gait Skin/Breast Reports system reviewed and no additional complaints, except as documented Neuro Denies abnormal gait, Denies dizziness, Denies syncope and Denies headache(s) Psych Reports no additional complaints Physical exam (Primary Care) Vital Signs: Last Vital Signs Temp 96.9 F 08/31/25 10:47 BP 112/72 08/31/25 10:47 Pulse Ox 99 08/31/25 10:47 Oxygen Delivery Method Room Air 08/31/25 10:47 Tobacco/Smoking Status: Tobacco use Status Tobacco use date assessed 05/31/25 08/31/25 10:49 Patient Tobacco Use Status Never used Tobacco 08/31/25 10:49 Tobacco use type Cigarette 08/31/25 10:49 e-Cigarette/Vaping Use Never Used 08/31/25 10:49 PHQ-9: PHQ-9 Score PHQ-9: Total score 0 08/31/25 11:37 Depression Screening Interpretation: Negative Thrive Assessment: Date of Thrive Assessment Date Thrive assessed 05/27/25 08/31/25 10:49 Currently or been in a relationship where the following occur: No concerns reported Const General: cooperative, healthy appearing, comfortable and no acute distress Orientation/consciousness: patient oriented x3 HENMT Head: Yes normocephalic Ears: hearing grossly normal bilaterally General nose exam: Normal external nose present Eyes General: appearance normal, both eyes and all related structures Conjunctivae: conjunctivae normal Neck Other: neck swelling without tenderness and no palpable masses Neck: Yes full ROM and Yes no lymphadenopathy Resp Effort & Inspection: normal respiratory effort Auscultation: clear to auscultation bilaterally, no crackles, no rales, no rhonchi and no wheezes Cardio Rate: regular rate Rhythm: regular rhythm Skin General skin exam: no rashes or lesions noted Neuro General: patient oriented x3 Gait exam (Neuro): Normal gait present Extrem General: Yes normal to inspection, Yes full ROM and No edema Psych Affect: normal affect Attitude: cooperative Insight: Good insight present (Psych) Judgement: Good judgement present (Psych) Coding Level of Care Code Est Pt Level 3 (03679) Diagnoses Mixed hyperlipidemia E78.2 Hyperlipidemia type: mixed hyperlipidemia Overweight E66.3 Chronic GERD K21.9 Irritable bowel syndrome with both constipation and diarrhea K58.2 Irritable bowel syndrome type: with both diarrhea and constipation Right shoulder pain M25.511 Neck swelling R22.1 Neck pain M54.2 Degenerative disc disease, cervical M50.30 Chronic back pain M54.9; G89.29 Additional Codes SIERRA-7 Assessment Billing - SIERRA-7 Assessment Tool: SIERRA-7 Assessment 68779 ([id number]) PHQ-9 - 09376 - PHQ-9 Billing: Yes ([id number]) Assessment & Plan Assessment & Plan (1) Hyperlipidemia: Code(s): E78.5 - Hyperlipidemia, unspecified Category: Medical Qualifiers: Hyperlipidemia type: mixed hyperlipidemia Qualified Code(s): E78.2 - Mixed hyperlipidemia Plan: Avoid foods that are high in cholesterol such as red meat, fried foods, eggs and baked goods. Triglyceride goal of less than 150 and LDL goal of less than 130. Last LDL 169 has been lower in the past, discussed dietary and lifestyle modification and plan to repeat in 3 months. Recent labs show cholesterol increased to 169 mg/dL, increasing her risk for cardiovascular events. Although medication was recommended, the patient is hesitant to start at this time. She will defer pharmacotherapy and continue to encourage dietary management. Labs, including cholesterol and blood sugars, will be repeated in three months, and initiation of medication will be strongly considered if levels remain elevated. (2) Overweight: Code(s): E66.3 - Overweight Category: Medical Plan: Healthy diet and regular exercise is encouraged. (3) Chronic GERD: Code(s): K21.9 - Gastro-esophageal reflux disease without esophagitis Category: Medical Plan: Avoid trigger foods such as citrus, tomato products, soda, caffeine, spicy foods and other foods that may be irritating to your stomach. Avoid laying flat 3-4 hours after eating and elevate the head of the bed 30 degrees to prevent acid from moving into the esophagus. (4) IBS (irritable bowel syndrome): Code(s): K58.9 - Irritable bowel syndrome, unspecified Category: Medical Qualifiers: Irritable bowel syndrome type: with both diarrhea and constipation Qualified Code(s): K58.2 - Mixed irritable bowel syndrome Plan: Continue on current medications and continue to follow with GI. (5) Right shoulder pain: Code(s): M25.511 - Pain in right shoulder Category: Medical Plan: Currently following with Orthopedics and recently had shoulder injection (6) Neck swelling: Code(s): R22.1 - Localized swelling, mass and lump, neck Category: Medical Plan: Imaging including thyroid US, cervical spine XR and chest x-ray were all negative. Referral was placed to ENT by her GI specialist an updated referral was placed today. She is encouraged to reach out to a specialist to schedule an appointment. Denies dysphagia or odynophagia. The patient has persistent, diffuse neck pain and swelling, with a prior workup showing only mild arthritis. An MRI of the neck will be ordered to further evaluate the cause. A new referral will be placed to an ENT specialist for the swelling, as a previous referral was unsuccessful. (7) Neck pain: Code(s): M54.2 - Cervicalgia Category: Medical Plan: See above. (8) Degenerative disc disease, cervical: Code(s): M50.30 - Other cervical disc degeneration, unspecified cervical region Category: Medical Plan: See above (9) Chronic back pain: Comment: hx of L1 compression Fx Code(s): M54.9 - Dorsalgia, unspecified; G89.29 - Other chronic pain Category: Medical Plan: The patient's chronic pain is secondary to a work-related L1 compression fracture from 2019. A letter will be sent to facilitate a referral to an orthopedic surgeon for consideration of an injection once a formal request is received on letterhead from her talend developer's office, as per legal policy. Plan This note was constructed using voice recognition software. While every effort has been made to ensure accuracy and box lidder, still areas may have been included sometimes these areas may affect the content or meeting of the given symptoms. Total time spent caring for the patient today was 20 minutes. This includes time spent before the visit reviewing the chart, time spent during the visit, and time spent after the visit and documentation. Patient was informed and verbally consented to the use of an ambient scribe for clinic note documentation during this visit. Orders: Orders MR cervical spine wo con Today M50.30 - Other cervical disc degeneration, unspecified cervical region, M54.2 - Cervicalgia, R22.1 - Localized swelling, mass and lump, neck Lipid Panel 3 Months E78.00 - Pure hypercholesterolemia, unspecified Hemoglobin A1c 3 Months R73.01 - Impaired fasting glucose Referrals Ear/Nose/Throat Referral J02.9 - Acute pharyngitis, unspecified, R22.1 - Localized swelling, mass and lump, neck, R49.0 - Dysphonia Allergy & Immunology Referral Z91.018 - Allergy to other foods, Z91.09 - Other allergy status, other than to drugs and biological substances
--- OUTSIDE RECORDS SUMMARY | 2025-08-31 13:46 | XMS_ITS | Encounter Summary ---
Author Organization [facility] Address [address] [place] [address] Phone Care Team Providers Care Conveyor Tender Name Role Phone Wade Silva MD Primary Care Provider [phone] Encounter Details Date Type Department Care Team (Late st Contact Info) Description 01/19/2020 Procedure Pass [facility], [address] [address] Social History Tobacco Use Types Packs/Day Years [...] on filedocumented in this encounter Care Teams Conveyor Tender Relationship Specialty Start Date End Date Wade Silva MD [address] [place] [address] PCP - General 05/04/14 documented as of this encounter Additional Source Comments The information contained in this document represents components of the legal health record. It is not the complete legal health record.[facility]
--- OUTSIDE RECORDS SUMMARY | 2025-08-31 13:46 | XMS_ITS | Encounter Summary ---
Author Organization [facility] Address [address] [address] Phone Care Team Providers Care Personal Support Worker Name Role Phone Wade Silva MD Primary Care Provider [phone] Encounter Details Date Type Department Care Team (Late st Contact Info) Description 02/16/2020 Procedure Pass [place] Admitting Dept - Virtual Department [address] [place] [address] Social History Tobacco Use Types Packs/Day Years [...] on filedocumented in this encounter Care Teams Personal Support Worker Relationship Specialty Start Date End Date Wade Silva MD [address] [place] [address] [address] [place] [address] PCP - General 05/04/14 documented as of this encounter Additional Source Comments The information contained in this document represents components of the legal health record. It is not the complete legal health record.[facility]
--- OUTSIDE RECORDS SUMMARY | 2025-08-31 13:46 | XMS_ITS | Patient Health Record ---
Author Organization [facility] Address [address] [place] [address] Care Team Providers Care Air Carrier Inspector Name Role Phone Clare JARA, Warner Primary Care Provider Yo Keenan Unavailable [phone] Allergies Allergen (clinical drug ingredient) Drug/Non Drug [...] W/U Status Risk Notes Problem Tinea unguium (355347849) Tinea unguium (B35.1) Active confirmed Plan Of Treatment No Information Insurance Providers Payer Name Payer Address Payer Phone Subscriber Number Group Number Insured Name Patient Relationship to Insured Coverage Start Date Coverage End Date [facility] Plan [address] [place] [id number] Joy Rodriguez Self - patient is the insured Medical (General) History Medical History History ICD Code Allergic rhinitis Back,Hip,and Knee pain Broken bones Headaches/Migraines Surgical History Surgery Date(Month/Year) Arm 05/12/2020 Knee 10/08/2015 back surgery 02/16/20 skin cancer 05/13/20
--- OUTSIDE RECORDS SUMMARY | 2025-08-31 13:46 | XMS_ITS | Clinical Summary ---
Author Organization [facility] Address [email or web address] [address] [address] Phone Care Team Providers Care Staff Nuclear Weapons Officer Name Role Phone Wade Silva MD Primary Care Provider +1- [phone] Allergies Active Allergy Reactions Criticality Noted Date [...] this topic Medical Devices Implanted Type Area Compensation And Benefits Advisor Device Identifier Shelf Expiration Date Model / Serial / Lot Kit Cement Bone Kyphon Xpede Polymethylmethacrylate Mixer - [id number] Implanted:Qty: 1 on 02/16/2020 by Tim Mcfadden MD at [facility] Bone Cement Back [employer] 09/03/2022 [id number] / / [id number] Insurance [facility] PL[facility]AN [facility] PLAN [facility] PLAN [employer] Care Teams Staff Nuclear Weapons Officer Relationship Specialty Start Date End Date Wade Silva MD [address] [place] [address] [address] [place] [address] PCP - General 05/04/14 Additional Source Comments The information contained in this document represents components of the legal health record. It is not the complete legal health record.[facility]
--- OUTSIDE RECORDS SUMMARY | 2025-08-31 13:46 | XMS_ITS | Encounter Summary ---
Author Organization [facility] Address [address] [place] [address] Phone Care Team Providers Care Sole Tier Name Role Phone Wade Silva MD Primary Care Provider +1- [phone] Encounter Details Date Type Department Care Team (Late st Contact Info) Description 01/19/2020 Ancillary Orders [facility],Outside Imaging [address] [place] [address] System, Provider Not In, [place] [address] Social History Tobacco Use Types Packs/Day Years [...] on filedocumented in this encounter Care Teams Sole Tier Relationship Specialty Start Date End Date Wade Silva MD [address] [place] [address] PCP - General 05/04/14 documented as of this encounter Additional Source Comments The information contained in this document represents components of the legal health record. It is not the complete legal health record.[facility]
--- OUTSIDE RECORDS SUMMARY | 2025-08-31 13:46 | XMS_ITS | Encounter Summary ---
Author Organization [facility] Address [address] [place] [address] Phone Care Team Providers Care Bulk System Operator Name Role Phone Wade Silva MD Primary Care Provider +1- [phone] Encounter Details Date Type Department Care Team (Late st Contact Info) Description 02/01/2020 Documentation [facility] Cardiovascular [facility] Interventional [facility]iology [address] [place] [address] Ruby [email or web address] Social History Tobacco Use Types [...] on filedocumented in this encounter Care Teams Bulk System Operator Relationship Specialty Start Date End Date Wade Silva MD [address] [place] [address] [address] [place] [address] PCP - General 05/04/14 documented as of this encounter Additional Source Comments The information contained in this document represents components of the legal health record. It is not the complete legal health record.[facility]
--- OUTSIDE RECORDS SUMMARY | 2025-08-31 13:47 | XMS_ITS | Patient Health Record ---
Author Organization [facility] Address [address] [place] [address] Care Team Providers Care Medical Affairs Director Name Role Phone Ricardo JARA, aWde Primary Care Provider SHERRIE Morejon Unavailable [phone] Allergies Allergen (clinical drug ingredient) Drug/Non Drug [...] W/U Status Risk Notes Problem Postmenopausal bleeding (64090409) Postmenopausal bleeding (N95.0) Active confirmed Problem Adjustment disorder with depressed mood (05732975) Adjustment disorder with depressed mood (F43.21) Active confirmed Problem Cystocele (014785818) Cystocele, unspecified (N81.10) Active confirmed Problem Prolapse of female genital organs (00800608) Female genital prolapse, unspecified (N81.9) Active confirmed Problem Abnormal findings on diagnostic imaging of breast (480955998) Other abnormal and inconclusive findings on diagnostic [...] End Date [employer] [place] [address] [place] [address] [id number] AVELINO AMAYA Spouse - patient is the [...]
== END 2025-08-31 11:28 | disposition home or self-care (01) ==
LOC: HO.HMCH 10:46
DX: E78.2 Mixed hyperlipidemia (principal); E66.3 Overweight; K21.9 Gastro-esophageal reflux disease without esophagitis; K58.2 Mixed irritable bowel syndrome; M25.511 Pain in right shoulder; R22.1 Localized swelling, mass and lump, neck; M54.2 Cervicalgia; M50.30 Other cervical disc degeneration, unspecified cervical region; M54.9 Dorsalgia, unspecified; G89.29 Other chronic pain

== ENCOUNTER → 2025-08-31 10:45 | Outpatient (BNVA) | payer MEDICARE, OTHER, SELFPAY | PROVIDERS: PCP Internal Medicine | DX: E78.2 Mixed hyperlipidemia (principal); E66.3 Overweight; K21.9 Gastro-esophageal reflux disease without esophagitis; K58.2 Mixed irritable bowel syndrome; M25.511 Pain in right shoulder; R22.1 Localized swelling, mass and lump, neck; M54.2 Cervicalgia; Z13.31 Encounter for screening for depression; Z13.39 Encounter for screening examination for other mental health and behavioral disorders | CPT/HCPCS: 96127; 99212 ==

== ENCOUNTER 2025-10-04 08:53 | Outpatient (RCR) | payer MEDICARE, OTHER, SELFPAY ==
--- NOTE | 2025-09-08 12:16 | MHC.PT.EP ---
[facility] [place] Office [place] Office [place] Office [address] Esterlla Moss [address] [phone] F: [phone] F: [phone] F: [phone] F: [phone] Physical Therapy Plan of Care Date of Evaluation: 09/08/25 Date of Surgery: Diagnosis: Rt SHOULDER PAIN Assessment: 65 YO FEMALE REF TO PT FOR Rt SHOULDER PAIN/ RC TENDONITIS, FOR ROM/ PERISCAP STAB- SHE IS Rt HAND DOMINANT AND STATED SHE HAS BEEN ON DISABILITY DUE TO A BACK INJURY IN 2019. SHE HAS HAD Rt SH SXS x 2 YRS, HOWEVER, INCR Rt SH SXS AND RADIC SXS Rt 4-5TH FINGERS (C7-8) x LAST 6 MONTHS. SHE HAD A CORTISONE INJECTION AT [facility] ON 2024 W 2 WKS OF RELIEF. OBJECTIVE FINDINGS: DECR POSTURAL AWARENESS, TIGHT PECT/ ANT CERV/ANT CHAIN; STRENGTH DEFICITS IN POSTERIOR RC/ SCAP MM, GUARDED FUNCT MOB, WEAK TALENT DEVELOPMENT ANALYST MARYAN, AND FLUCTUATING PAIN IN Rt SH COMPLEX-> THE Pt IS HYPERREACTIVE TO EVEN VERY LIGHT TOUCH. SHE IS LIMITED W OVERHEAD DRESSING / REACHING OVERHEAD OR POSTERIORLY, AND W MORE INVOLVED ADLs (DUE TO LB INJURY IN 2019). WE DISCUSSED THE Pt'S GOALS AND PT POC, THE Pt AGREES TO PROCEED, ADDRESSING THE ABOVE FINDINGS. Frequency and Duration: The patient will be seen 2 x WK x 5 WKS Short Term Goals: Pt INDEP W SELF CORRECT POSTURE TO NEUTRAL POSE (REDUCE FHP, ACTIVATE POST RC/ SCAP MM) DECR Rt SH PAIN TO 2-3/10, AND Rt UE RADIC SXS DECR BY 75% IMPROVE Rt SH AROM INITIATE HEP Solar Photovoltaic Installer Goals: Pt INDEP W HEP AND SELF SX MGMT TECHN Pt DEMON 3:3 SIMUL ADLs W EFFICIENTY BODY MECH Rt SH COMPLEX STRENGTH INCR BY 1 GRADE IMPROVED SPADI, AT EVAL 117/130 Treatment Plan: Modalities to reduce pain, spasms and effusion. Manual therapy to restore motion and function. Therapeutic exercise to improve strength and flexibility. Neuromuscular re-education for posture and balance. Therapeutic activities to return to functional activities of daily living. Electronically signed by: BEKAH SHEN PT Please sign and return to therapist. Thank you for your referral.
--- NOTE | 2025-10-04 10:54 | MHC.PT.DC ---
[facility] [place] Office [place] Office [place] Office [address] Estrella Moss [address] [phone] F: [phone] F: [phone] F: [phone] F: [phone] Physical Therapy Discharge Report Diagnosis: Rt SHOULDER PAIN Date of Surgery: Date of Evaluation: 09/08/25 Date of Discharge: 10/04/25 Treatments to Date: 8 Cancellations to Date: 1 No Shows to Date: Discharge Status: Achieved Goals Improved Function Independent with HEP Discharge Summary: DONAVON PRESENTED FEELING SHE WAS READY FOR D/C FROM PT- SHE HAS MET HER PT GOALS AT THIS TIME, PLEASED W HER DECR SH PAIN AND IMPROVED FUNCT MOB- HER SPADI AT D/C IS 29/130 AND AT EVAL, IT WAS 117/130. HER SH AROM AND STRENGTH HAVE IMPROVED TO WFL. SHE IS INDEP AND MOTIV W HER HEP AND IS D/C THIS DATE W A PAIN LEVEL OF 2/10 AND RESOLVED RADIC SXS Rt UE. Electronically signed by: BEKAH SHEN,PT Please sign and return to therapist. Thank you for your referral.
== END 2025-10-04 10:54 | disposition home or self-care (01) ==
LOC: HO.PT 08:53
PROVIDERS: Visit Provider Physician Assistant
DX: M75.81 Other shoulder lesions, right shoulder (principal)
CPT/HCPCS: 97110; 97140; 97162

== ENCOUNTER 2025-10-07 17:50 | Outpatient (REF) | payer MEDICARE, OTHER, SELFPAY ==
--- NOTE | ~2025-10-07 | MR_ITS ---
EXAMINATION: MR CERVICAL SPINE WITHOUT CONTRAST CLINICAL INFORMATION: R 22.1. Localized swelling, mass and lump, neck. COMPARISON: Correlated to x-ray dated July 03, 2025. TECHNIQUE: MRI of the cervical spine was obtained using routine sequences without contrast. FINDINGS: Craniocervical junction is intact. Normal position of the cerebellar tonsils. No bone marrow STIR signal abnormality. Multilevel marginal osteophyte formation, disc desiccation, decreased intervertebral disc height C3 C7 pronounced at C3-4. Grade 1 retrolisthesis C4-5 and to a lesser extent C3-4. Buckling deformity at the dorsal aspect of the thecal sac secondary to ligamentum flavum hypertrophy at C4-5 and C5-6 level. Cervical spinal cord signal is normal. C2-3: No disc herniation. No neuroforamina stenosis. C3-4: Left-sided disc osteophyte compresses formation resulting in ventral spinal cord deformity. Left neuroforamina stenosis on a degenerative basis. C4-5: Broad-based disc osteophyte compresses formation resulting in ventral spinal cord deformity. Right neuroforamina stenosis on a degenerative basis. C5-6: Broad-based disc osteophyte compresses formation resulting in ventral spinal cord deformity. No neuroforamina stenosis. C6-7: Broad-based disc osteophyte compresses formation resulting in ventral spinal cord deformity. Bilateral neuroforamina stenosis on a degenerative basis. Small left perineural cysts. C7-T1: No central spinal canal or neuroforamina stenosis. Flow-void signal within the main vessels is normal. Codominant vertebral arteries. No gross prevertebral compartment hematoma, mass or fluid collection.. MR/MR cervical spine wo con IMPRESSION: Multilevel cervical spondylosis C3-4 to C6-7 resulting in central spinal canal stenosis without cord edema and or myelopathy. Left neuroforamina stenosis C3-4, right neuroforamina stenosis C4-5 and bilateral neuroforamina stenosis C6-7 on a degenerative basis., Electronically signed by: Adam Colbert MD 10/08/2025 06:48 AM EST
--- OUTSIDE RECORDS SUMMARY | 2025-10-07 22:15 | XMS_ITS | Encounter Summary ---
Author Organization [facility] Address [address] [address] Phone Care Team Providers Care Malware Analyst Name Role Phone Wade Silva MD Primary Care Provider +1- [phone] Encounter Details Date Type Department Care Team (Late st Contact Info) Description 02/16/2020 Procedure Pass OR Admitting Dept - Virtual Department [address] [place] [address] Social History Tobacco Use Types Packs/Day Years [...] on filedocumented in this encounter Care Teams Malware Analyst Relationship Specialty Start Date End Date Wade Silva MD [address] [place] [address] [address] [place] [address] PCP - General 05/04/14 documented as of this encounter Additional Source Comments The information contained in this document represents components of the legal health record. It is not the complete legal health record.[facility]
--- OUTSIDE RECORDS SUMMARY | 2025-10-07 22:15 | XMS_ITS | Patient Health Record ---
[facility] Address [address] [facility] [place] [address] Care Team Providers Care Economics Lecturer Name Role Phone Clare JARA, Warner Primary Care Provider Yo Keenan Unavailable [phone] Allergies Allergen (clinical drug ingredient) Drug/Non Drug [...] W/U Status Risk Notes Problem Tinea unguium ([id number]) Tinea unguium (B35.1) Active confirmed Plan Of Treatment No Information Insurance Providers Payer Name Payer Address Payer Phone Subscriber Number Group Number Insured Name Patient Relationship to Insured Coverage Start Date Coverage End Date [facility] Plan [address] [place] [id number] Joy Rodriguez Self - patient is the insured Medical (General) History Medical History History ICD Code Allergic rhinitis Back,Hip,and Knee pain Broken bones Headaches/Migraines Surgical History Surgery Date(Month/Year) Arm 05/12/2020 Knee 10/08/2015 back surgery 02/16/20 skin cancer 05/13/20
--- OUTSIDE RECORDS SUMMARY | 2025-10-07 22:15 | XMS_ITS | Clinical Summary ---
Author Organization [facility] Address [facility] [place] [address] [address] Phone Care Team Providers Care Hogshead Filler Name Role Phone Wade Silva MD Primary Care Provider +1- [phone] Allergies Active Allergy Reactions Criticality Noted Date [...] this topic Medical Devices Implanted Type Area Technical Inspector Device Identifier Shelf Expiration Date Model / Serial / Lot Kit Cement Bone Kyphon Xpede Polymethylmethacrylate Mixer - [id number] Implanted:Qty: 1 on 02/16/2020 by Tim Mcfadden MD at [facility] Bone Cement Back [employer] 09/03/2022 [id number] / / [id number] Insurance [facility] PLAN [facility] PLAN [employer] Care Teams Hogshead Filler Relationship Specialty Start Date End Date Wade Silva MD [address] [place] [address] [address] [place] [address] PCP - General 05/04/14 Additional Source Comments The information contained in this document represents components of the legal health record. It is not the complete legal health record.[facility]
--- OUTSIDE RECORDS SUMMARY | 2025-10-07 22:15 | XMS_ITS | Patient Health Record ---
Author Organization [facility] Address [address] [facility] [address] [place] [address] Care Team Providers Care Logistics Center Manager Name Role Phone Ricardo JARA, Wade Primary Care Provider SHERRIE Morejon Unavailable [phone] Allergies Allergen (clinical drug ingredient) Drug/Non Drug [...] W/U Status Risk Notes Problem Postmenopausal bleeding (47529544) Postmenopausal bleeding (N95.0) Active confirmed Problem Adjustment disorder with depressed mood (58263692) Adjustment disorder with depressed mood (F43.21) Active confirmed Problem Cystocele (969046957) Cystocele, unspecified (N81.10) Active confirmed Problem Prolapse of female genital organs (59090370) Female genital prolapse, unspecified (N81.9) Active confirmed Problem Abnormal findings on diagnostic imaging of breast (253261093) Other abnormal and inconclusive findings on diagnostic [...] End Date [employer] [place] [address] [place] [address] [id number] AVELINO AMAYA Spouse - patient is the [...]
--- OUTSIDE RECORDS SUMMARY | 2025-10-07 22:15 | XMS_ITS | Encounter Summary ---
Author Organization [facility] Address [address] [place] [address] Phone Care Team Providers Care Physical Chemistry Teacher Name Role Phone Wade Silva MD Primary Care Provider +1- [phone] Encounter Details Date Type Department Care Team (Late st Contact Info) Description 01/19/2020 Procedure Pass [facility], [address] [address] Social History Tobacco Use Types Packs/Day Years [...] on filedocumented in this encounter Care Teams Physical Chemistry Teacher Relationship Specialty Start Date End Date Wade Silva MD [address] [facility] [address] [place] [address] PCP - General 05/04/14 documented as of this encounter Additional Source Comments The information contained in this document represents components of the legal health record. It is not the complete legal health record.[facility]
--- OUTSIDE RECORDS SUMMARY | 2025-10-07 22:15 | XMS_ITS | Encounter Summary ---
Author Organization [facility] Address [address] [place] [address] Phone Care Team Providers Care Poultry Hanger Name Role Phone Wade iSlva MD Primary Care Provider +1- [phone] Encounter Details Date Type Department Care Team (Late st Contact Info) Description 01/19/2020 Ancillary Orders [facility],Outside Imaging [address] [place] [address] System, Provider Not In, [place] [address] Social History Tobacco Use Types Packs/Day Years [...] on filedocumented in this encounter Care Teams Poultry Hanger Relationship Specialty Start Date End Date Wade Silva MD [address] [place] [address] PCP - General 05/04/14 documented as of this encounter Additional Source Comments The information contained in this document represents components of the legal health record. It is not the complete legal health record.[facility]
--- OUTSIDE RECORDS SUMMARY | 2025-10-07 22:15 | XMS_ITS | Encounter Summary ---
Author Organization [facility] Address [address] [facility] [address] [place] [address] Phone Care Team Providers Care Oil Field Roustabout Name Role Phone Wade Silva MD Primary Care Provider +1- [phone] Encounter Details Date Type Department Care Team (Late st Contact Info) Description 02/01/2020 Documentation [facility] Cardiovascular And Interventional Radiology [address] [place] [address] [email or web address] Social History Tobacco Use Types Packs/Day [...] on filedocumented in this encounter Care Teams Oil Field Roustabout Relationship Specialty Start Date End Date Wade Silva MD [address] [place] [address] [address] [place] [address] PCP - General 05/04/14 documented as of this encounter Additional Source Comments The information contained in this document represents components of the legal health record. It is not the complete legal health record.[facility]
== END 2025-10-07 17:51 | disposition home or self-care (01) ==
LOC: HO.MRI 17:50
DX: R22.1 Localized swelling, mass and lump, neck (principal); M50.30 Other cervical disc degeneration, unspecified cervical region
CPT/HCPCS: 72141

== ENCOUNTER → 2025-10-07 17:58 | Outpatient (BNV) | payer MEDICARE, OTHER, SELFPAY | PROVIDERS: Visit Provider Radiology Diagnostic Radiology | DX: M47.812 Spondylosis without myelopathy or radiculopathy, cervical region (principal); M48.02 Spinal stenosis, cervical region | CPT/HCPCS: 72141 ==

== ENCOUNTER 2025-10-18 08:52 | Outpatient (AMB) | payer MEDICARE, OTHER, SELFPAY ==
--- NOTE | 2025-10-18 08:59 | A.SPINEOV_ITS ---
Vital Signs 10/18/25 09:04 Height 5 ft 7 in Weight 143 lb BMI 22.4 Intake Visit Reasons: neck pain Intake Note: Ms. Rodriguez is here today c/o of neck pain that radiates down the right shoulder and arm, causing tingling of hand and fingers. MRI done at [facility]. 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 She is a very nice 65-year-old female with a history of osteo arthritis in multiple joints of her body, who has had neck pain for years. It has gotten significantly worse over the last year so. She has been dealing with a severely arthritic shoulder and has been undergoing treatment for that and that seems to have activated some of her neck pain. She has no shooting pain down the arms. No tingling numbness or weakness. Most of her neck pain is in the posterior midline but will, along the trapezius times. It does not radiate into her shoulder however, that is a distinctly different pain that occurs with movement of her arm. She has had no treatment yet for her neck other than just taking ibuprofen regularly. She is following up today on her MRI showing degenerative disc disease PMH: History of hypothyroidism, history of GERD related issues. She had a hiatal hernia repair at did not give her any symptomatic relief. 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 She has never been formally diagnosed with osteoporosis, but it sounds like that is what she has. She fractured her L1 vertebrae a few years back just by bending forward. She fractured her sternum just by closing a sliding door. She did have a kyphoplasty for the L1 fracture. She has had a history of left wrist surgery. Social hx: She has not smoke, drink use any recreational drugs Medications: Levothyroxine and pantoprazole Allergies: Doxycycline Physical exam: Awake alert oriented no acute distress, strength and reflexes normal. Significant pain when attempting any deltoid pressure. Holding arm out straight internal external rotation or attempting to reach up overhead gives her significant right shoulder pain. Imaging review: Cervical MRI done at [facility] shows degenerative disc disease at C3-4, C4-5, C5-6 primarily. There are varying degrees of foraminal stenosis but nothing severe. There is no spinal cord compression. Impression: 65-year-old female with posterior neck pain, occasionally will radiate to her right trapezius. She feel like the neck pain has been aggravated more in the last year since she has developed a shoulder problem. She has diffuse degenerative disc disease in the setting of osteoarthritis throughout most of the rest of her body. There is nothing specific here that would lend itself well to surgery. In fact, she would be very high risk for surgery given the fragility of her bones. Therefore I recommended she just start with some physical therapy and consider seeing our physiatry team to see if they could do injections. I am not sure if the osteoporosis situation will preclude them from being able to work with her. She can follow up with us down the road if something changes. Thank you for allowing us to care for your patient. The total time spent with this visit with this patient was 45 minutes reviewing history, physical exam, cervical MRI imaging review, and implementation of treatment plan or further diagnostic testing Laureano Gruber MD,PhD [facility] Orders: Orders PT Evaluation and Treatment Today M50.30 - Other cervical disc degeneration, unspecified cervical region Referrals Physiatry Referral M50.30 - Other cervical disc degeneration, unspecified cervical region Coding Level of Care Code New Pt Level 4 (24595) Diagnoses Degenerative disc disease, cervical M50.30
[2025-10-18 09:04] VITALS: BMI 22.4
== END 2025-10-18 09:33 | disposition home or self-care (01) ==
LOC: HO.HNS 08:53
PROVIDERS: Visit Provider Physician Assistant
DX: M50.30 Other cervical disc degeneration, unspecified cervical region (principal)
CPT/HCPCS: 99204

== ENCOUNTER → 2025-10-18 08:52 | Outpatient (BNVA) | payer MEDICARE, OTHER, SELFPAY | PROVIDERS: Visit Provider Physician Assistant | DX: M50.30 Other cervical disc degeneration, unspecified cervical region (principal) | CPT/HCPCS: 99202 ==

== ENCOUNTER 2025-11-01 13:02 | Outpatient (AMB) | payer MEDICARE, OTHER, SELFPAY ==
--- NOTE | 2025-11-01 13:04 | A.PHYSOV ---
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 Patient has been referred for cervical spondylosis. Sales Product Manager Required: No Allergies codeine (CODEINE) Allergy (Unknown, Verified 11/01/25 13:06) migraines doxycycline (DOXYCYCLINE) Allergy (Unknown, Verified 11/01/25 13:06) anaphylaxis, swelling, redness environmental allergies Adverse Reaction (Intermediate, Verified 11/01/25 13:06) Wheezing HPI Comments Details: History of Present Illness The patient is a 65 year old female presenting for evaluation of chronic neck pain, which she has experienced for a long time. Her pain is located all over her neck, and she rates it as a 6 out of 10 in severity today. The pain is associated with tingling that travels down her right arm into two fingers. Activities such as crocheting make the pain worse, and she finds that ibuprofen helps to dull the pain. The patient also has arthritis in the top of her shoulder, for which she has undergone physical therapy and a cortisone injection, the latter of which provided relief for about a week. She completed physical therapy without relief of her symptoms. She did undergo subacromial injection with good relief of her right shoulder pain but then her pain returned subsequently. X-rays have been performed. Her past medical history is significant for fragile bones, and she has been on disability since 2019. She has sustained multiple fractures, including her back, sternum, pelvis, legs, and a wrist which required reconstruction. Patient would like to consider further treatment options for her neck pain. She was referred to our department by her neurosurgical team. Pain Description - Onset: The patient reports the pain has been present for a long time. - Location: Pain is located throughout the entire neck. - Severity: Current pain level is a 5 on a 10-point scale. - Radiation: Pain is associated with tingling down the right arm affecting two fingers. - Exacerbating Factors: Crocheting makes the pain worse. - Relieving Factors: Ibuprofen dulls the pain. Results - Imaging: An MRI of the neck revealed arthritis, disc bulges, and some spinal cord compression. [facility] Medical History Arthritis Abdominal pain Hand weakness Overweight Hypothyroidism Skin lesion of scalp Chronic GERD Headache Surgical History History of esophagogastroduodenoscopy (EGD) H/O colonoscopy Status post repair of paraesophageal diaphragmatic hernia History of surgery on left wrist H/O squamous cell carcinoma excision H/O kyphoplasty History of appendectomy S/P laparoscopic surgery S/P left knee arthroscopy Family History Father No problems noted. Mother No problems noted. Social History Household Members: Spouse Housing: House Are you a primary date night caregiver to a significant other at home: No Do you presently have visiting nurse or other home services: No Alcohol intake: never Patient Tobacco Use Status: Never used Tobacco Tobacco use type: Cigarette e-Cigarette/Vaping Use: Never Used Second Hand Smoke Exposure: No service: No Current occupational status: disabled Current occupation: right hand dominant Cognitive needs: Yes (cane) Hearing needs: No Vision needs: Yes (glasses) Review of Systems Narrative Review of Systems - Musculoskeletal: Reports chronic neck pain and arthritis in her right shoulder and thumb. - Neurological: Reports tingling in two fingers of the right hand. Physical Exam Exam Exam: Physical Exam - Cervical Spine: Tenderness to palpation over the posterior and lateral cervical spine. - Range of Motion: Active cervical range of motion including flexion, extension, and rotation was assessed. - Neurologic: Sensation to touch is intact and symmetric in the bilateral upper extremities. - Motor strength of the upper extremities was tested with shoulder flexion and extension, and hand plan nurse. - Provocative testing with arms held in abduction reproduced pain. - Negative Spurling's maneuver. Negative Rigo test. Her sensation is intact to light touch. Vital Signs: BMI result Body Mass Index 22.4 Assessment & Plan Assessment & Plan (1) Cervical radiculopathy: Code(s): M54.12 - Radiculopathy, cervical region Category: Medical (2) Cervical spondylosis: Code(s): M47.812 - Spondylosis without myelopathy or radiculopathy, cervical region Category: Medical Plan Pain Management - Analgesia: The patient currently takes ibuprofen, which dulls the pain. - She reports her current pain level is 5 out of 10. - Activities of Daily Living: Pain is exacerbated by crocheting. - Aberrant Drug Related Behaviors: The patient has a history of refusing narcotics for back pain. Plan Patient was informed and verbally consented to the use of an ambient scribe for clinic note documentation during this visit. 1. Cervicalgia With Spondylosis And Radiculopathy The patient's chronic neck pain and right arm radicular symptoms are attributed to the MRI findings of arthritis, disc bulges, and some spinal cord compression. Treatment options including physical therapy and an injection were discussed. The plan is to proceed with a cervical epidural steroid injection, which will be ordered for the patient. The procedure will be performed under x-ray guidance with the option of sedation to decrease inflammation around the discs and nerves, serving as both a therapeutic and diagnostic tool. The patient was informed of the risks, including infection, nerve damage, and bleeding. A follow-up appointment will be scheduled three weeks after the injection. 2. Shoulder Arthritis The patient's shoulder arthritis is noted, as is her history of receiving a cortisone injection from another provider. Management of this condition will be deferred at this time to focus on the cervical spine pathology, though care can be assumed in the future if desired. Discussion Notes I explained to the patient that her neck pain and associated symptoms are due to degenerative wear and tear, as evidenced by the arthritis, disc bulges, and spinal cord compression on her MRI. We discussed treatment options, including physical therapy or a cervical epidural steroid injection. The patient elected to proceed with the injection, and I noted that I will place the order for her. I detailed that the cervical epidural steroid injection of cortisone aims to reduce inflammation and is not a cure, but we hope for three to six months of relief. I also explained its diagnostic value: if the injection relieves her right arm symptoms, it confirms the neck as the origin. The procedure will be performed under x-ray guidance with the option for sedation, and I reviewed the risks of infection, bleeding, and nerve damage. I advised her that the scheduling process takes two to three weeks and that she will have a follow-up with me three weeks after the procedure. The patient confirmed she is not on any blood thinners and consented to proceed. Patient Instructions - An order has been placed for you to receive a cortisone injection in your neck (cervical epidural steroid injection). - Someone will call you to schedule this procedure, which will take place at [facility] and usually takes 2-3 weeks to get scheduled. - This injection is intended to reduce inflammation and pain but is not a cure; relief may last for three to six months. - You will have the choice to be awake or asleep (sedated) for the procedure. - Make sure to inform the staff if you are taking any blood-thinning medications. - Please schedule a follow-up appointment to see me about three weeks after your injection. Orders: Referrals Physiatry Procedure Notification M47.812 - Spondylosis without myelopathy or radiculopathy, cervical region, M54.12 - Radiculopathy, cervical region Coding Level of Care Code New Pt Level 4 (23435) Diagnoses Cervical radiculopathy M54.12 Cervical spondylosis M47.812
[2025-11-01 13:05] VITALS: BMI 22.4
--- OUTSIDE RECORDS SUMMARY | 2025-11-01 14:55 | XMS_ITS | Patient Health Record ---
[facility] Address [address] [place] [address] Care Team Providers Care Kickboxing Instructor Name Role Phone Clare JARA, Warner Primary Care Provider Yo Keenan Unavailable [phone] Allergies Allergen (clinical drug ingredient) Drug/Non Drug [...] W/U Status Risk Notes Problem Tinea unguium (926566190) Tinea unguium (B35.1) Active confirmed Plan Of Treatment No Information Insurance Providers Payer Name Payer Address Payer Phone Subscriber Number Group Number Insured Name Patient Relationship to Insured Coverage Start Date Coverage End Date [facility] Plan [address] [place] [address] [id number] Joy Rodriguez Self - patient is the insured Medical (General) History Medical History History ICD Code Allergic rhinitis Back,Hip,and Knee pain Broken bones Headaches/Migraines Surgical History Surgery Date(Month/Year) Arm 05/12/2020 Knee 10/08/2015 back surgery 02/16/20 skin cancer 05/13/20
--- OUTSIDE RECORDS SUMMARY | 2025-11-01 14:55 | XMS_ITS | Encounter Summary ---
Author Organization [facility] Address [email or web address] [facility] [address] [place] [address] Phone Care Team Providers Care Assistant Housekeeping Manager Name Role Phone Wade Silva MD Primary Care Provider +1- [phone] Encounter Details Date Type Department Care Team (Late st Contact Info) Description 02/01/2020 Documentation [facility] [address] [place] [address] [email or web address] Social History Tobacco Use Types Packs/Day [...] on filedocumented in this encounter Care Teams Assistant Housekeeping Manager Relationship Specialty Start Date End Date Wade Silva MD [address] [facility] [address] [place] [address] PCP - General 05/04/14 documented as of this encounter Additional Source Comments The information contained in this document represents components of the legal health record. It is not the complete legal health record.[facility]
--- OUTSIDE RECORDS SUMMARY | 2025-11-01 14:55 | XMS_ITS | Encounter Summary ---
Author Organization [facility] Address [address] [place] [address] Phone Care Team Providers Care Sales Team Manager Name Role Phone Wade Silva MD Primary Care Provider +1- [phone] Encounter Details Date Type Department Care Team (Late st Contact Info) Description 01/19/2020 Ancillary Orders [facility],Outside Imaging [address] [place] [address] System, Provider Not In, [place] [address] Social History Tobacco Use Types Packs/Day Years [...] on filedocumented in this encounter Care Teams Sales Team Manager Relationship Specialty Start Date End Date Wade Silva MD [address] [place] [address] PCP - General 05/04/14 documented as of this encounter Additional Source Comments The information contained in this document represents components of the legal health record. It is not the complete legal health record.[facility]
--- OUTSIDE RECORDS SUMMARY | 2025-11-01 14:55 | XMS_ITS | Patient Health Record ---
Author Organization [facility] Address [address] [facility] [address] [place] [address] Care Team Providers Care High Speed Warper Tender Name Role Phone Ricardo JARA, Wade Primary Care Provider SHERRIE Morejon Unavailable [phone] Allergies Allergen (clinical drug ingredient) Drug/Non Drug [...] W/U Status Risk Notes Problem Postmenopausal bleeding (39693321) Postmenopausal bleeding (N95.0) Active confirmed Problem Adjustment disorder with depressed mood (56051163) Adjustment disorder with depressed mood (F43.21) Active confirmed Problem Cystocele (112278708) Cystocele, unspecified (N81.10) Active confirmed Problem Prolapse of female genital organs (08328053) Female genital prolapse, unspecified (N81.9) Active confirmed Problem Abnormal findings on diagnostic imaging of breast (408282871) Other abnormal and inconclusive findings on diagnostic [...] End Date [employer] [address] [place] [address] [id number] AVELINO AMAYA Spouse - patient is the [...]
--- OUTSIDE RECORDS SUMMARY | 2025-11-01 14:55 | XMS_ITS | Clinical Summary ---
Author Organization [facility] Address [facility] [employer] [address] [address] Phone Care Team Providers Care Professor Of Theology Name Role Phone Wade Silva MD Primary Care Provider [phone]- [phone] Allergies Active Allergy Reactions Criticality Noted Date [...] this topic Medical Devices Implanted Type Area Spinning Frame Fixer Device Identifier Shelf Expiration Date Model / Serial / Lot Kit Cement Bone [employer] Xpede Polymethylmethacrylate Mixer - [id number] Implanted:Qty: 1 on 02/16/2020 by Tim Mcfadden MD at [facility] Bone [employer]ement Back [employer] 09/03/2022 [id number] / / [id number] Insurance [facility] PLAN [employer] Care Teams Professor Of Theology Relationship Specialty Start Date End Date Wade Silva MD [address] [place] [address] [address] [place] [address] PCP - General 05/04/14 Additional Source Comments The information contained in this document represents components of the legal health record. It is not the complete legal health record.[facility]
--- OUTSIDE RECORDS SUMMARY | 2025-11-01 14:55 | XMS_ITS | Encounter Summary ---
Author Organization [facility] Address [address] [place] [address] Phone Care Team Providers Care Crystal Growing Technician Name Role Phone Wade Silva MD Primary Care Provider +1- [phone] Encounter Details Date Type Department Care Team (Late st Contact Info) Description 01/19/2020 Procedure Pass [facility], [address] [address] Social History Tobacco Use Types Packs/Day Years [...] on filedocumented in this encounter Care Teams Crystal Growing Technician Relationship Specialty Start Date End Date Wade Silva MD [address] [facility] [address] [place] [address] PCP - General 05/04/14 documented as of this encounter Additional Source Comments The information contained in this document represents components of the legal health record. It is not the complete legal health record.[facility]
--- OUTSIDE RECORDS SUMMARY | 2025-11-01 14:55 | XMS_ITS | Encounter Summary ---
Author Organization [facility] Address [address] [address] Phone Care Team Providers Care Grain Elevator Motor Starter Name Role Phone Wade Silva MD Primary Care Provider +1- [phone] Encounter Details Date Type Department Care Team (Late st Contact Info) Description 02/16/2020 Procedure Pass [place] Admitting Dept - Virtual Department [address] [place] [address] Social History Tobacco Use Types Packs/Day Years [...] on filedocumented in this encounter Care Teams Grain Elevator Motor Starter Relationship Specialty Start Date End Date Wade Silva MD [address] [place] [address] [address] [place] [address] PCP - General 05/04/14 documented as of this encounter Additional Source Comments The information contained in this document represents components of the legal health record. It is not the complete legal health record.[facility]
== END 2025-11-01 13:24 | disposition home or self-care (01) ==
LOC: HO.HPHYS 13:02
PROVIDERS: Visit Provider Physician Assistant
DX: M54.12 Radiculopathy, cervical region (principal); M47.812 Spondylosis without myelopathy or radiculopathy, cervical region
CPT/HCPCS: 99204

== ENCOUNTER → 2025-11-01 13:02 | Outpatient (BNVA) | payer MEDICARE, OTHER, SELFPAY | PROVIDERS: Visit Provider Physician Assistant | DX: M54.12 Radiculopathy, cervical region (principal); M47.812 Spondylosis without myelopathy or radiculopathy, cervical region | CPT/HCPCS: 99202 ==